=== PATIENT | male | born 1940 | race African-American/Black ===

== ENCOUNTER 2016-08-20 08:53 | Day surgery (SDC) | payer MEDICARE ==
[2016-08-15 13:40] VITALS: BMI 28.4
[~2016-08-20 08:53] MED LIST: LACTATED RINGERS 1,000 ML IV SCH
[2016-08-20] MEDS ORDERED: LIDOCAINE 1% 20 ML VIAL (10MG/ML) FOR IV START INTRADERMA ONE (09:18)
[2016-08-20 09:26] VITALS: RESP 18; TEMP 97.6
[2016-08-20 09:38] LABS: Glucose,Whole Blood 74 mg/dL (75-99)
[2016-08-20] MEDS ORDERED: LIDOCAINE 1% INJ 10MG/ML (20 ML MDV) ONE (09:50)
[2016-08-20] MEDS ORDERED: PROPOFOL 10 MG/ML 20 ML VIAL IV ONE (09:50)
--- NOTE | 2016-08-20 09:50 | P.GSHP ---
History of Present Illness H&P Date: 08/20/16 Chief Complaint: Screening colonoscopy This is a 76-year-old male referred from Dr. Lew. Patient presents today for screening colonoscopy. His last colonoscopy was over 10 years ago. Past Medical History Past Medical History: Diabetes Mellitus, Hyperlipidemia, Hypertension Additional Past Medical History / Comment(s): hx of polyps History of Any Multi-Drug Resistant Organisms: None Reported Additional Past Surgical History / Comment(s): colonoscopy Past Anesthesia/Blood Transfusion Reactions: No Reported Reaction Past Psychological History: No Psychological Hx Reported Smoking Status: Former smoker Past Alcohol Use History: None Reported Additional Past Alcohol Use History / Comment(s): quit smoking approx 1996, smoked less than 1 ppd or cigars, from age 15 (1954) Past Drug Use History: None Reported Medications and Allergies Home Medications Medication Instructions Recorded Confirmed Type Cholecalciferol [Vitamin D3] 1,000 unit PO DAILY 08/15/16 08/20/16 History Hydrochlorothiazide 25 mg PO DAILY 08/15/16 08/20/16 History Ibuprofen [Motrin] 800 mg PO TID 08/15/16 08/15/16 History Lisinopril [Prinivil] 20 mg PO DAILY 08/15/16 08/20/16 History Potassium Chloride [K-Tab ER] 10 meq PO DAILY 08/15/16 08/20/16 History Pravastatin Sodium [Pravachol] 20 mg PO HS 08/15/16 08/20/16 History metFORMIN HCL ER [Glucophage Xr] 500 mg PO DAILY 08/15/16 08/20/16 History Allergies Allergy/AdvReac Type Severity Reaction Status Date / Time No Known Allergies Allergy Verified 08/15/16 13:33 Surgical - Exam Vital Signs Temp Pulse Resp BP Pulse Ox 97.6 F 71 18 176/83 98 08/20/16 09:25 08/20/16 09:25 08/20/16 09:25 08/20/16 09:25 08/20/16 09:25 - General well developed, no distress - Eyes PERRL - ENT normal pinna - Neck no masses - Respiratory normal expansion - Cardiovascular Rhythm: regular - Abdomen Abdomen: soft, non tender Results - Labs Abnormal Lab Results - Last 24 Hours (Table) 08/20/16 Range/Units 09:33 POC Glucose (mg/dL) 74 L (75-99) mg/dL Assessment and Plan Plan: We'll perform screening colonoscopy.
--- NOTE | 2016-08-20 10:04 | P.OP ---
Date of Procedure: 08/20/16 Preoperative Diagnosis: Screening colonoscopy Postoperative Diagnosis: Diverticulosis Procedure(s) Performed: Colonoscopy Anesthesia: MAC Surgeon: Dion Hoang Pathology: none sent Condition: stable Disposition: PACU Description of Procedure: The patient's placed on the endoscopy table in the lateral position. He received IV sedation. Digital rectal exam was performed which revealed no abnormalities. The prostate was symmetrical without nodules. The flexible colonoscope was then placed patient anus and passed throughout the entire colon. The ileocecal valve was visualized. The cecum, ascending and transverse colon appeared normal. Scope was then brought back and the descending colon and there is diverticulosis seen. There was extensive diverticular changes in the sigmoid colon. There is known to diverticulitis. The scope was then brought back the rectum and this appeared normal. Scope was withdrawn for patient.
[2016-08-20 10:33] VITALS: BP 134/74; PULSE 66
== END 2016-08-20 10:51 | disposition home or self-care (01) ==
LOC: ORWHC2ENDO 08:53
PROVIDERS: ATTEND Surgery
DX: Z12.11 Encounter for screening for malignant neoplasm of colon (principal); K57.30 Diverticulosis of large intestine without perforation or abscess without bleeding; E11.9 Type 2 diabetes mellitus without complications; E78.5 Hyperlipidemia, unspecified; I10 Essential (primary) hypertension; Z87.891 Personal history of nicotine dependence; Z79.84 Long term (current) use of oral hypoglycemic drugs; Z79.899 Other long term (current) drug therapy; Z79.1 Long term (current) use of non-steroidal anti-inflammatories (NSAID)
CPT/HCPCS: J2001; J2704; G0121

== ENCOUNTER → 2018-09-16 | Outpatient (CLI) | payer MEDICARE ==
--- NOTE | 2018-09-17 08:06 | CT ---
EXAMINATION TYPE: CT soft tissue neck w con DATE OF EXAM: 09/16/2018 COMPARISON: None HISTORY: laryngeal lesion CT DLP: 437 mGycm CONTRAST: CT scan of the neck is performed with IV Contrast, patient injected with 80 mL of Isovue 300. Contrast enhanced CT of the neck was performed from the skull base through the lung apices. AIRWAY: There is a polypoid lesion noted at the level of the right sided false cords measuring 1.0 x 1.0 cm. Direct visualization and tissue diagnosis is advised. No additional lesions identified at thi s time. Airway is patent. SALIVARY GLANDS: The submandibular and parotid glands are free of mass or inflammatory process. THYROID GLAND: No nodules or masses seen. LYMPH NODES: No adenopathy seen greater than 1cm. LUNG APICES: No nodule or mass is seen. OTHER: Vascular structures are patent. No significant degenerative change of the cervical spine. N o abscess seen. IMPRESSION: There is a polypoid lesion noted at the level of the right sided false cords measuring 1.0 x 1.0 cm. Direct visualization and tissue diagnosis is advised.
== END | disposition home or self-care (01) ==
LOC: RADCTMAIN 14:34
PROVIDERS: ATTEND Otolaryngology
DX: J38.7 Other diseases of larynx (principal)
CPT/HCPCS: 82565; 84520; 70491; 36415; Q9967

== ENCOUNTER → 2018-11-04 | Day surgery (SDC) | payer MEDICARE ==
[~2018-11-04] MED LIST changes: +DEXAMETHASONE SOD PHOSPHATE 4 MG/ML 1 ML VIAL IV ONE; +FAMOTIDINE 20 MG/2 ML VIAL IV ONE; +HYDROmorphone 0.5 MG/0.5 ML SYRINGE IVP PRN; +LACTATED RINGERS 1,000 ML IV ONE; +LIDOCAINE 1% 20 ML VIAL (10MG/ML) FOR IV START INTRADERMA PRN; +LIDOCAINE 1% INJ 10MG/ML (20 ML MDV) ONE; +MIDAZOLAM 2 MG/2 ML VIAL ONE; +ONDANSETRON 4 MG/2 ML VIAL IVP ONE; +PROPOFOL 10 MG/ML 20 ML VIAL IV ONE; +SUCCINYLCHOLINE CHLORIDE 100 MG/5 ML SYR IV ONE; +ceFAZolin 1,000 MG in DEXTROSE/WATER 1 50ML.BAG IV ONE; +fentaNYL (PF) 50 MCG/ML 2 ML AMP ONE
[2018-11-04 13:16] LABS: Glucose,Whole Blood 72 mg/dL (75-99)
[2018-11-04 13:16] LABS: Glucose,Whole Blood 82 mg/dL (75-99)
--- NOTE | 2018-11-04 16:18 | P.OP ---
Date of Procedure: 11/04/18 Preoperative Diagnosis: Right true vocal cord lesion Postoperative Diagnosis: Same Procedure(s) Performed: Microlaryngoscopy with biopsy right true vocal cord lesion Anesthesia: GETA Surgeon: Rock Richardson Estimated Blood Loss (ml): 2 Pathology: other (Right true vocal cord lesion) Condition: stable Disposition: PACU Indications for Procedure: This is a 78-year-old black male whose had difficulties with hoarseness and was noted to have a right posterior true vocal cord/arytenoid lesion with decreased mobility of the right vocal cord Operative Findings: Fungating friable but also indurated lesion of the posterior one half the right true vocal cord as well as coming up on the aryepiglottic fold and therefore if malignant would be classified as a T3 lesion due to the decreased mobility of the vocal cord preoperatively Description of Procedure: The patient was brought in the operative suite and placed in a supine position. Patient underwent induction of general anesthesia with oral endotracheal intubation without patient was prepped and draped aseptic fashion. The tooth guard was placed. Direct laryngoscopy was performed with systematic evaluation of the base of tongue vallecula both piriform sinuses post cricoid area and endolarynx. With the larynx in good visualization the laryngoscope was placed in suspension and the Zeiss microscope was brought into position. The lesion was biopsied multiple times with cup forceps. The remainder of the lesion was debrided with the promotions director blade in order to improve the airway and potentially voice if this is malignant this would not be felt to be a definitive procedure. Hemostasis was gained spontaneously. The patient was suctioned in the subglottis and glottis and then was allowed to emerge from general anesthesia having tolerated procedure well was extended the operating suite and transferred to postop recovery area in satisfactory condition.
[2018-11-04 16:48] VITALS: TEMP 97.4
[2018-11-04 16:54] VITALS: RESP 16
[2018-11-04 16:56] LABS: Glucose,Whole Blood 85 mg/dL (75-99)
[2018-11-04 17:01] VITALS: PULSE 62
[2018-11-04 17:42] VITALS: BP 154/74
== END | disposition home or self-care (01) ==
LOC: OR 11:50
PROVIDERS: ATTEND Otolaryngology
DX: C32.0 Malignant neoplasm of glottis (principal); I10 Essential (primary) hypertension; Z79.84 Long term (current) use of oral hypoglycemic drugs; Z79.899 Other long term (current) drug therapy; Z87.891 Personal history of nicotine dependence; E11.9 Type 2 diabetes mellitus without complications; E78.5 Hyperlipidemia, unspecified
CPT/HCPCS: 31536; J2250; J1100; J2405; J2001; J3010; J0690; J0330; J2704; 88305

== ENCOUNTER 2020-11-19 15:44 | Inpatient (IN) | payer MEDICARE ==
--- NOTE | 2020-11-19 16:05 | ED ---
General Adult HPI - General Stated complaint: Weakness Time Seen by Provider: 11/19/20 15:47 Source: patient, family, EMS, RN notes reviewed, old records reviewed - History of Present Illness Initial comments: 80-year-old male with history of dementia presenting with an episode of weakness and generalized confusion. Patient was transported by EMS after the nephew had 2 live the patient from a sitting position. There is no reported fever. No reported vomiting. Patient denies pain complaints but is unable to significantly contribute to the history. His is at bedside who is able to give some history. - Related Data Home Medications Medication Instructions Recorded Confirmed Cholecalciferol [Vitamin D3] 1,000 unit PO DAILY 08/15/16 11/19/20 Potassium Chloride [K-Tab ER] 10 meq PO QAM 08/15/16 11/19/20 Pravastatin Sodium [Pravachol] 20 mg PO HS 08/15/16 11/19/20 metFORMIN HCL ER [Glucophage Xr] 500 mg PO BID 08/15/16 11/19/20 Sulfamethoxazole/Trimethoprim 1 tab PO BID 11/19/20 11/19/20 [Sulfamethoxazole-Tmp Ds Tablet] lisinopriL [Zestril] 2.5 mg PO DAILY 11/19/20 11/19/20 Allergies Allergy/AdvReac Type Severity Reaction Status Date / Time No Known Allergies Allergy Verified 11/19/20 15:48 Review of Systems ROS Statement: Those systems with pertinent positive or pertinent negative responses have been documented in the HPI. ROS Other: All systems not noted in ROS Statement are negative. Past Medical History Past Medical History: Diabetes Mellitus, Hyperlipidemia, Hypertension Additional Past Medical History / Comment(s): CURRENT PROBLEM: HOARSNESS, DIFFICULTY SPEAKING CLEARLY. Hx of polyps History of Any Multi-Drug Resistant Organisms: None Reported Additional Past Surgical History / Comment(s): colonoscopy Past Anesthesia/Blood Transfusion Reactions: No Reported Reaction Additional Past Anesthesia/Blood Transfusion Reaction / Comment(s): NEVER HAD GENERAL ANESTHESIA Past Psychological History: No Psychological Hx Reported Past Alcohol Use History: None Reported Additional Past Alcohol Use History / Comment(s): quit smoking approx 1996, smoked less than 1 ppd or cigars, from age 15 (1954) Past Drug Use History: None Reported - Past Family History Mother Family Medical History: No Reported History General Exam General appearance: alert, in no apparent distress Head exam: Present: atraumatic, normocephalic Eye exam: Present: normal appearance, PERRL ENT exam: Present: mucous membranes dry, other ([place]) Neck exam: Present: normal inspection. Absent: tenderness, meningismus Respiratory exam: Present: normal lung sounds bilaterally. Absent: respiratory distress, wheezes, rales Cardiovascular Exam: Present: regular rate, irregular rhythm GI/Abdominal exam: Present: soft. Absent: distended, tenderness, guarding, rebound Extremities exam: Present: normal capillary refill, pedal edema Neurological exam: Present: alert, CN II-XII intact. Absent: oriented X3, motor sensory deficit Skin exam: Present: warm, dry, intact. Absent: cyanosis, diaphoretic Course Vital Signs 11/19/20 11/19/20 15:48 17:40 Temperature 95.2 F L 96.8 F L Pulse Rate 72 Respiratory 18 Rate Blood Pressure 146/104 EKG Findings - EKG Comments: EKG Findings:: EKG: Sinus rhythm with arrhythmia rate of 71, GA interval 154, QRS duration 104, QTC [address] segment elevation there is a baseline artifact but I suspect this is sinus rhythm. Medical Decision Making - Medical Decision Making 80-year-old presenting with increased generalized weakness. History of dementia, no significant history obtained from the patient the bowels denies fever or vomiting. Patient is hypothermic upon arrival, placed on a blanket warmer. He has a significant leukocytosis of 46,000. His hemoglobin 10.5. He has white light abnormality including hyperkalemia 5.5, hypercalcemia 12.7. He has a lactic acid of 2.1. Acute kidney injury with a creatinine 1.3. Urinalysi s is grossly infected. Chest x-rays negative for focal pneumonia. Head CT negative for acute findings. Patient started on ceftriaxone IV fluids. Will be admitted for IV antibiotics. Case discussed with Junito roman for [facility]. - Lab Data Result diagrams: 11/19/20 16:23 11/19/20 16:23 Lab Results 11/19/20 11/19/20 11/19/20 Range/Units 16:23 16:23 16:23 WBC 46.1 H (3.8-10.6) k/uL RBC 3.68 L (4.30-5.90) m/uL Hgb 10.5 L (13.0-17.5) gm/dL Hct 33.6 L (39.0-53.0) % MCV 91.2 (80.0-100.0) fL MCH 28.5 (25.0-35.0) pg MCHC 31.2 (31.0-37.0) g/dL RDW 16.1 H (11.5-15.5) % Plt Count 367 (150-450) k/uL MPV 7.4 Neutrophils % 96 % Lymphocytes % 0 % Monocytes % 2 % Eosinophils % 0 % Basophils % 2 % Neutrophils # 44.4 H (1.3-7.7) k/uL Lymphocytes # 0.0 L (1.0-4.8) k/uL Monocytes # 0.8 (0-1.0) k/uL Eosinophils # 0.2 (0-0.7) k/uL Basophils # 0.8 H (0-0.2) k/uL Anisocytosis Slight PT 11.3 (9.0-12.0) sec INR 1.1 (<1.2) APTT 22.3 (22.0-30.0) sec Sodium 140 (137-145) mmol/L Potassium 5.5 H (3.5-5.1) mmol/L Chloride 108 H (98-107) mmol/L Carbon Dioxide 22 (22-30) mmol/L Anion Gap 10 mmol/L BUN 45 H (9-20) mg/dL Creatinine 1.31 H (0.66-1.25) mg/dL Est GFR (CKD-EPI)AfAm 59 (>60 ml/min/1.73 sqM) Est GFR (CKD-EPI)NonAf 51 (>60 ml/min/1.73 sqM) Glucose 109 H (74-99) mg/dL Plasma Lactic Acid Gonzalez (0.7-2.0) mmol/L Calcium 12.7 H (8.4-10.2) mg/dL Magnesium 2.0 (1.6-2.3) mg/dL Total Bilirubin 1.0 (0.2-1.3) mg/dL AST 23 (17-59) U/L ALT 12 (4-49) U/L Alkaline Phosphatase 108 (38-126) U/L Troponin I (0.000-0.034) ng/mL Total Protein 6.7 (6.3-8.2) g/dL Albumin 3.4 L (3.5-5.0) g/dL Urine Color Urine Appearance (Clear) Urine pH (5.0-8.0) Ur Specific [place] (1.001-1.035) Urine Protein (Negative) Urine Glucose (UA) (Negative) Urine Ketones (Negative) Urine Blood (Negative) Urine Nitrite (Negative) Urine Bilirubin (Negative) Urine Urobilinogen (<2.0) mg/dL Ur Leukocyte Esterase (Negative) Urine RBC (0-5) /hpf Urine WBC (0-5) /hpf Urine WBC Clumps (None) /hpf Urine Bacteria (None) /hpf 11/19/20 11/19/20 11/19/20 Range/Units 16:23 16:23 17:40 WBC (3.8-10.6) k/uL RBC (4.30-5.90) m/uL Hgb (13.0-17.5) gm/dL Hct (39.0-53.0) % MCV (80.0-100.0) fL MCH (25.0-35.0) pg MCHC (31.0-37.0) g/dL RDW (11.5-15.5) % Plt Count (150-450) k/uL MPV Neutrophils % % Lymphocytes % % Monocytes % % Eosinophils % % Basophils % % Neutrophils # (1.3-7.7) k/uL Lymphocytes # (1.0-4.8) k/uL Monocytes # (0-1.0) k/uL Eosinophils # (0-0.7) k/uL Basophils # (0-0.2) k/uL Anisocytosis PT (9.0-12.0) sec INR (<1.2) APTT (22.0-30.0) sec Sodium (137-145) mmol/L Potassium (3.5-5.1) mmol/L Chloride (98-107) mmol/L Carbon Dioxide (22-30) mmol/L Anion Gap mmol/L BUN (9-20) mg/dL Creatinine (0.66-1.25) mg/dL Est GFR (CKD-EPI)AfAm (>60 ml/min/1.73 sqM) Est GFR (CKD-EPI)NonAf (>60 ml/min/1.73 sqM) Glucose (74-99) mg/dL Plasma Lactic Acid Gonzalez 2.1 H* (0.7-2.0) mmol/L Calcium (8.4-10.2) mg/dL Magnesium (1.6-2.3) mg/dL Total Bilirubin (0.2-1.3) mg/dL AST (17-59) U/L ALT (4-49) U/L Alkaline Phosphatase (38-126) U/L Troponin I 0.019 (0.000-0.034) ng/mL Total Protein (6.3-8.2) g/dL Albumin (3.5-5.0) g/dL Urine Color Light [place] Urine Appearance Turbid (Clear) Urine pH 5.5 (5.0-8.0) Ur Specific [place] 1.019 (1.001-1.035) Urine Protein 2+ H (Negative) Urine Glucose (UA) Negative (Negative) Urine Ketones Negative (Negative) Urine Blood Large H (Negative) Urine Nitrite Negative (Negative) Urine Bilirubin Negative (Negative) Urine Urobilinogen <2.0 (<2.0) mg/dL Ur Leukocyte Esterase Large H (Negative) Urine RBC 95 H (0-5) /hpf Urine WBC >182 H (0-5) /hpf Urine WBC Clumps Many H (None) /hpf Urine Bacteria Many H (None) /hpf Disposition Clinical Impression: Dehydration, Acute renal failure, UTI (urinary tract infection) Disposition: ADMITTED IP TO THIS [facility] Condition: Stable Is patient prescribed a controlled substance at d/c from ED?: No Referrals: Nonstaff,Physician [REFERRING] - 1-2 days Decision to Admit Reason: Admit from EC Decision Date: 11/19/20 Decision Time: 18:21
[2020-11-19 16:38] LABS: Anisocytosis Slight; Basophils # (A) 0.8 k/uL (0-0.2); Basophils % (A) 2 %; Eosinophils # (A) 0.2 k/uL (0-0.7); Eosinophils % (A) 0 %; HCT 33.6 % (39.0-53.0); HGB 10.5 gm/dL (13.0-17.5); Lymphocytes % (A) 0 %; MCH 28.5 pg (25.0-35.0); MCHC 31.2 g/dL (31.0-37.0); MCV 91.2 fL (80.0-100.0); Mean Platelet Volume 7.4; Monocytes # (A) 0.8 k/uL (0-1.0); Monocytes % (A) 2 %; Neutrophils # (A) 44.4 k/uL (1.3-7.7); Neutrophils % (A) 96 %; Platelet Count 367 k/uL (150-450); RBC 3.68 m/uL (4.30-5.90); RDW 16.1 % (11.5-15.5); WBC 46.1 k/uL (3.8-10.6)
[2020-11-19 16:47] LABS: Albumin 3.4 g/dL (3.5-5.0); Calcium 12.7 mg/dL (8.4-10.2); Total Protein 6.7 g/dL (6.3-8.2)
[2020-11-19 16:48] LABS: Potassium 5.5 mmol/L (3.5-5.1)
--- NOTE | 2020-11-19 16:51 | CT ---
EXAMINATION TYPE: CT brain wo con DATE OF EXAM: 11/19/2020 COMPARISON: None HISTORY: weakness CT DLP: 1098.4 mGycm Automated exposure control for dose reduction was used. There is cerebral cortical atrophy. There is no mass effect nor midline shift. There is no sign of in tracranial hemorrhage. Calvarium is intact. There is some mild periventricular white matter hypodensi ty. IMPRESSION: Cerebral atrophy. Mild chronic small vessel ischemia. No acute intracranial abnormality.
--- NOTE | 2020-11-19 16:53 | XR ---
EXAMINATION TYPE: XR chest 2V DATE OF EXAM: 11/19/2020 COMPARISON: 09/28/2019 HISTORY: Weakness TECHNIQUE: FINDINGS: Heart size is normal. Lungs are clear of infiltrate. There is no heart failure. There are n o hilar masses. There are chest leads. Costophrenic angles are clear. Bony thorax appears intact. IMPRESSION: No active cardiopulmonary disease. No change.
[2020-11-19 16:55] LABS: INR 1.1 (<1.2); Partial Thromboplastin Time 22.3 sec (22.0-30.0); Prothrombin Time 11.3 sec (9.0-12.0)
[2020-11-19] MEDS ORDERED: SODIUM CHLORIDE 0.9% 1,000 ML IV ONE (17:32)
[2020-11-19] MEDS ORDERED: cefTRIAXone IN SWFI 1,000 MG/10 ML SYRINGE IVP STA (17:32)
[2020-11-19 17:53] LABS: Appearance,Urine Turbid (Clear); Bacteria,Urine Many /hpf; Bilirubin,Urine Negative (Negative); Blood,Urine Large (Negative); Color,Urine Light Orange; Glucose,Urine (UA) Negative (Negative); Ketones,Urine Negative (Negative); Leukocyte Esterase,Urine Large (Negative); Nitrite,Urine Negative (Negative); PH, Urine 5.5 (5.0-8.0); Protein,Urine 2+ (Negative); RBC,Urine 95 /hpf (0-5); Urobilinogen,Urine <2.0 mg/dL (<2.0); WBC,Urine >182 /hpf (0-5)
[2020-11-19 17:54] LABS: Specific Gravity,Urine 1.019 (1.001-1.035)
[2020-11-19] MEDS ORDERED: NALOXONE 0.4 MG/ML 1 ML VIAL IV PRN (18:16)
[2020-11-19] MEDS: SODIUM CHLORIDE 0.9% 1,000 ML IV SCH (19:59)
[2020-11-20] MEDS: SODIUM CHLORIDE 0.9% 1,000 ML IV SCH ×4 (04:41→23:25)
[2020-11-20] MEDS: CHOLECALCIFEROL 25 MCG (1000 IU) TABLET PO SCH (10:26)
[2020-11-20] MEDS: metFORMIN 500 MG TAB PO SCH ×2 (10:26→17:45)
[2020-11-20] MEDS: POTASSIUM CHLORIDE ER 10 MEQ TAB.ER.PRT PO SCH ×2 (10:26→10:28)
[2020-11-20] MEDS ORDERED: ALPRAZolam 0.25 MG TAB PO PRN (15:25)
--- NOTE | 2020-11-20 16:33 | HP ---
HISTORY AND PHYSICAL DATE OF SERVICE: 11/20/2020 CHIEF COMPLAINT: Weakness. HISTORY OF PRESENT ILLNESS: This 80-year-old gentleman with a past medical history of multiple medical problems, including diabetes mellitus, hypertension, hyperlipidemia, history of hoarseness of voice, presented with an episode of weakness and generalized confusion. The patient was transferred by EMS and the patient was admitted for further evaluation and treatment. Currently the patient is unable to provide any history. Most of the history is taken from my discussion with staff and review of the chart. Patient has features of UTI. White count is elevated to 46.1. Plasma lactic acid 2.1. Patient is dehydrated. The patient was started on IV antibiotics. The patient also had a CT of the brain which I reviewed personally which showed some cerebral atrophy, no acute abnormality. Chest x-ray showed again no acute abnormality. EKG showed irregular rhythm with possible PACs. There is no history of trauma. PAST MEDICAL HISTORY: History of diabetes, hyperlipidemia, hypertension, history of hoarseness. MEDICATIONS: Zestril, vitamin D3, Glucophage XR, Bactrim, Pravachol, K-Tab ER. ALLERGIES: None. Family history, social history, review of systems could not be taken because of the above-mentioned reasons. PHYSICAL EXAMINATION: Patient is conscious, confused. Pulse 64, blood pressure 132/64, respiration 18, temperature 97.2, pulse ox 100% on room air. HEENT: Conjunctivae normal. NECK: No jugular venous distention. CARDIOVASCULAR SYSTEM: S1, S2 muffled. RESPIRATORY SYSTEM: Breath sounds diminished at the bases. No rhonchi. No crackles. ABDOMEN: Soft, non-tender. No mass palpable. LEGS: No edema. No swelling. NERVOUS SYSTEM: Diffusely weak. SKIN: No ulcer, rash, bleeding. JOINTS: No active deforming arthropathy. LABS: WBC 46.1, hemoglobin 10.5. Other labs are noted, as mentioned earlier. ASSESSMENT: 1. Acute urinary tract infection with sepsis. 2. Change in mental status, acute metabolic encephalopathy, present on admission. 3. Acute renal failure with acute tubular necrosis. 4. Increased white count. 5. Anemia. 6. Hyperkalemia. 7. Elevated plasma lactic acid. 8. Hypercalcemia. 9. Diabetes mellitus, type 2. 10.Hypertension. 11.Hyperlipidemia. 12.History of colonoscopy. 13.FULL CODE. RECOMMENDATIONS AND DISCUSSION: In this 80-year-old gentleman who presented with multiple complex medical issues, we will monitor the patient closely, continue the current medications, continue symptomatic treatment. Will initiate broad-spectrum IV antibiotics. Otherwise, obtain cultures. Resume the home medications. CT scan of the brain has been done. We will monitor the white counts serially; appears to be a leukemoid reaction at this time, but will continue to monitor. Prognosis guarded. Further recommendations to follow. See orders for further details. Discussed with staff. MMODL / IJN: [id number] /
[2020-11-20 17:50] LABS: Anisocytosis Slight; Basophils # (A) 0.1 k/uL (0-0.2); Basophils % (A) 0 %; Eosinophils # (A) 0.7 k/uL (0-0.7); Eosinophils % (A) 2 %; HCT 32.3 % (39.0-53.0); Hypochromasia Slight; Lymphocytes # (A) 0.7 k/uL (1.0-4.8); Lymphocytes % (A) 2 %; MCH 28.6 pg (25.0-35.0); MCHC 31.1 g/dL (31.0-37.0); Mean Platelet Volume 7.5; Monocytes # (A) 0.7 k/uL (0-1.0); Monocytes % (A) 2 %; Neutrophils % (A) 94 %; Platelet Count 315 k/uL (150-450); RBC 3.51 m/uL (4.30-5.90); RDW 16.4 % (11.5-15.5); WBC 37.3 k/uL (3.8-10.6)
[2020-11-20 17:52] LABS: ALT 9 U/L (4-49); AST 16 U/L (17-59); African American GFR (CKD) 78 (>60 ml/min/1.73 sqM); Albumin 2.6 g/dL (3.5-5.0); Albumin/Globulin Ratio 0.9; Alkaline Phosphatase 87 U/L (38-126); Anion Gap 4 mmol/L; Blood Urea Nitrogen 34 mg/dL (9-20); Calcium 10.8 mg/dL (8.4-10.2); Carbon Dioxide 23 mmol/L (22-30); Chloride 111 mmol/L (98-107); Globulin 2.8 g/dL; Glucose 86 mg/dL (74-99); Non-African American GFR(CKD) 68 (>60 ml/min/1.73 sqM); Potassium 4.1 mmol/L (3.5-5.1); Sodium 138 mmol/L (137-145); Total Bilirubin 0.4 mg/dL (0.2-1.3); Total Protein 5.4 g/dL (6.3-8.2)
[2020-11-20 18:33] LABS: Band Neutrophils % 2 %; Eosinophils # (M) 0.37 k/uL (0-0.7); Lymphocytes # (M) 0.75 k/uL (1.0-4.8); Monocytes # (M) 0.75 k/uL (0-1.0); Neutrophils % (M) 93 %; Nucleated Red Blood Cells 0 /100 WBC (0-0); Total Cells Counted 100
[2020-11-20 18:34] LABS: Poikilocytosis (M) Present; Toxic Vacuolation Present
[2020-11-20] MEDS: HEPARIN SODIUM,PORCINE/PF 5,000 UNIT/0.5 ML SYRINGE SQ SCH (20:42)
[2020-11-20] MEDS: ACETAMINOPHEN TAB 325 MG TAB PO PRN (20:42)
[2020-11-20] MEDS: PRAVASTATIN SODIUM 20 MG TAB PO SCH (20:42)
[2020-11-21] MEDS: metFORMIN 500 MG TAB PO SCH (07:42)
[2020-11-21] MEDS: HEPARIN SODIUM,PORCINE/PF 5,000 UNIT/0.5 ML SYRINGE SQ SCH ×2 (07:42→21:33)
[2020-11-21] MEDS: PANTOPRAZOLE 40 MG TABLET PO SCH (07:42)
[2020-11-21] MEDS: CHOLECALCIFEROL 25 MCG (1000 IU) TABLET PO SCH (07:42)
[2020-11-21 08:18] LABS: Anisocytosis Slight; Basophils % (A) 0 %; Eosinophils # (A) 0.8 k/uL (0-0.7); Eosinophils % (A) 3 %; HCT 33.6 % (39.0-53.0); HGB 10.4 gm/dL (13.0-17.5); Hypochromasia Slight; Lymphocytes # (A) 0.6 k/uL (1.0-4.8); Lymphocytes % (A) 2 %; MCH 28.6 pg (25.0-35.0); MCHC 30.9 g/dL (31.0-37.0); MCV 92.6 fL (80.0-100.0); Mean Platelet Volume 7.7; Monocytes # (A) 0.5 k/uL (0-1.0); Monocytes % (A) 2 %; Neutrophils # (A) 25.6 k/uL (1.3-7.7); Neutrophils % (A) 93 %; Platelet Count 321 k/uL (150-450); RBC 3.63 m/uL (4.30-5.90); RDW 16.4 % (11.5-15.5); WBC 27.7 k/uL (3.8-10.6)
[2020-11-21 08:20] LABS: Reticulocyte % 1.3 % (0.5-2.0)
[2020-11-21 11:27] LABS: Crenated RBC Present; Poikilocytosis (M) Present; Toxic Granulation Present
--- NOTE | 2020-11-21 11:39 | P.CONS ---
History of Present Illness - Chief Complaint Medical debility - History of Present Illness I had the opportunity to see patient for inpatient rehab consultation with regard to medical debility. He was admitted to [facility] November 19 with weakness. Known history of dementia. Chest x-ray negative. Head CT with cerebral atrophy. PT and OT prescribed. Previous functional history as elicited from patient: 80-year-old right-handed -[place] male who is lives in a first-floor of 2 floor home with . States does the cooking. Patient describes it is independent with own laundry, driving, standing shower and gait without device. I suspect that most of this is inaccurate. Denies tobacco or alcohol. Review of Systems Review of systems: ENT: Denies sneezes or discharge. Eyes: Denies discharge or photophobia. Cardiac: Denies chest pain or palpitation. Pulmonary: Denies cough or shortness of breath. Gastrointestinal: Denies nausea, emesis, constipation, diarrhea. Genitourinary: Denies discharge or frequency. Musculoskeletal: Denies muscle or bone aches. Neurologic: Gen. weakness and confusion. Endocrine: Denies shakes or sweats. Oncology: Denies cancers. Dermatologic: Denies rash, itching, pruritus. ALLERGY/immunology: Denies sneezes, rashes. Past Medical History Past Medical History: Diabetes Mellitus, Hyperlipidemia, Hypertension Additional Past Medical History / Comment(s): CURRENT PROBLEM: HOARSNESS, DIFFICULTY SPEAKING CLEARLY. Hx of polyps History of Any Multi-Drug Resistant Organisms: None Reported Additional Past Surgical History / Comment(s): colonoscopy Past Anesthesia/Blood Transfusion Reactions: No Reported Reaction Additional Past Anesthesia/Blood Transfusion Reaction / Comm: NEVER HAD GENERAL ANESTHESIA Past Psychological History: No Psychological Hx Reported Smoking Status: Unknown if ever smoked Past Alcohol Use History: None Reported Additional Past Alcohol Use History / Comment(s): quit smoking approx 1996, smoked less than 1 ppd or cigars, from age 15 (5) Past Drug Use History: None Reported - Past Family History Mother Family Medical History: No Reported History Medications and Allergies Home Medications Medication Instructions Recorded Confirmed Type Cholecalciferol [Vitamin D3] 1,000 unit PO DAILY 08/15/16 11/19/20 History Potassium Chloride [K-Tab ER] 10 meq PO QAM 08/15/16 11/19/20 History Pravastatin Sodium [Pravachol] 20 mg PO HS 08/15/16 11/19/20 History metFORMIN HCL ER [Glucophage Xr] 500 mg PO BID 08/15/16 11/19/20 History Sulfamethoxazole/Trimethoprim 1 tab PO BID 11/19/20 11/19/20 History [Sulfamethoxazole-Tmp Ds Tablet] lisinopriL [Zestril] 2.5 mg PO DAILY 11/19/20 11/19/20 History Allergies Allergy/AdvReac Type Severity Reaction Status Date / Time No Known Allergies Allergy Verified 11/19/20 15:48 Physical Exam Vitals: Vital Signs Temp Pulse Resp BP Pulse Ox 11/21/20 05:00 98.3 F 74 16 150/74 99 11/20/20 20:33 97.8 F 67 14 141/63 98 11/20/20 20:05 67 14 Intake and Output 11/20/20 11/21/20 11/21/20 22:59 06:59 14:59 Intake Total 1560 1700 Balance 1560 1700 Intake: Intake, IV Titration 1560 1300 Amount Sodium Chloride 0.9% 1, 1560 1300 000 ml @ 130 mls/hr IV . Q7H42M [facility] Rx#:[id number] Oral 400 Other: Voiding Method Urinal Urinal Diaper Diaper Incontinent Incontinent # Voids 2 5 # Bowel Movements 1 Skin: Atrophic, intact. General: Thin build and comfortable appearance. Head: Normocephalic, atraumatic. Eyes: Symmetric. Pupils equal round. Ears: Symmetric. Hearing within normal limits. Mouth: Clear. Neck: Supple. Carotid without bruit. Cardiac: Regular rate and rhythm. Lungs: Clear anteriorly and posteriorly. Abdomen: Soft active nontender. Extremities: Normal tone. Neurological: Mental status: Alert, cooperative, pleasant albeit confused and poor historian. Cranial nerves: Symmetric facial tone and trapezius. Motor: Active movement all 4 limbs. Sensation: Intact throughout. DTRs: Symmetric and equal throughout. Mobility: Did not attempt to sit or stand at this time. Results CBC & Chem 7: 11/21/20 06:41 11/20/20 16:47 Labs: Abnormal Lab Results - Last 24 Hours (Table) 11/20/20 11/20/20 11/21/20 Range/Units 16:47 16:47 06:41 WBC 37.3 H 27.7 H (3.8-10.6) k/uL RBC 3.51 L 3.63 L (4.30-5.90) m/uL Hgb 10.0 L 10.4 L (13.0-17.5) gm/dL Hct 32.3 L 33.6 L (39.0-53.0) % MCHC 30.9 L (31.0-37.0) g/dL RDW 16.4 H 16.4 H (11.5-15.5) % Neutrophils # 35.0 H 25.6 H (1.3-7.7) k/uL Neutrophils # (Manual) 35.40 H (1.3-7.7) k/uL Lymphocytes # 0.7 L 0.6 L (1.0-4.8) k/uL Lymphocytes # (Manual) 0.75 L (1.0-4.8) k/uL Eosinophils # 0.8 H (0-0.7) k/uL Chloride 111 H (98-107) mmol/L BUN 34 H (9-20) mg/dL Calcium 10.8 H (8.4-10.2) mg/dL AST 16 L (17-59) U/L Total Protein 5.4 L (6.3-8.2) g/dL Albumin 2.6 L (3.5-5.0) g/dL Microbiology - Last 24 Hours (Table) 11/19/20 17:40 Urine Culture - Preliminary Urine,Catheterized Gram Neg Bacilli Assessment and Plan (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 Medical debility. 2. Dementia. 3. Suspected acute kidney injury and UTI. 4. Diabetes. 5. Hypertension. 6. Dyslipidemia. Comments and plan: At this time PT and OT are ordered. Patient with significant confusion and at this time would require close 24/7 supervision and hands-on for safety when up. Unsure patient will be able to benefit from therapies due to anticipated poor carryover. We'll continue to follow closely with yourself though.
[2020-11-21] MEDS: SODIUM CHLORIDE 0.9% 1,000 ML IV SCH ×2 (12:35→21:34)
[2020-11-21 12:45] LABS: Folate, Serum 5.3 ng/mL
[2020-11-21 12:53] LABS: Magnesium 1.4 mg/dL (1.5-2.4); Phosphorus 2.1 mg/dL (2.4-5.1)
[2020-11-21 12:54] LABS: % Iron Saturation 24.67 (15.00-50.00); African American GFR (CKD) 93.2 (60.0-200.0); Albumin 2.8 g/dL (3.80-4.90); Albumin/Globulin Ratio 1.33 (1.60-3.17); Anion Gap 6.4 mmol/L (4.00-12.00); Carbon Dioxide 24.6 mmol/L (21.6-31.8); Ferritin 430.1 ng/mL (22.0-322.0); Globulin 2.1 g/dL (1.6-3.3); Non-African American GFR(CKD) 80.4 (60.0-200.0); Potassium 3.7 mmol/L (3.5-5.5); Total Bilirubin 0.5 mg/dL (0.2-1.2); Total Protein 4.9 g/dL (6.2-8.2)
[2020-11-21] MEDS ORDERED: Magnesium Replacement Protocol 1 EACH MISC MISCELLANE PRN (12:59)
[2020-11-21] MEDS: MAGNESIUM SULFATE-D5W PMX 1 GM in DEXTROSE/WATER 1 100ML.BAG IVPB SCH ×3 (13:19→16:16)
--- NOTE | 2020-11-21 16:19 | P.PN ---
Subjective Progress Note Date: 11/21/20 This Is an 80-year-old male who was recently admitted with weakness and generalized confusion and is being closely monitored. Patient appears to be dehydrated and not eating very well with a possible urinary tract infection. Patient is continued on IV antibiotics and will follow-up on cultures. Appar ently patient has been receiving radiation therapy at [facility] with Dr. Moser per family member Dash at the bedside who takes him to the appointments daily. Patient continues to be weak and will have PT/OT therapy evaluate the patient with the possibility of [facility] inpatient rehab and Dr. Griffith has been consulted. Case management following and working on possible placement. Review of systems: Constitutional: reports of fatigue, no reports of fever, or chills Cardiovascular: No reports of chest pain or palpitations Respiratory: No reports of shortness of breath or cough GI: No reports of nausea, vomiting, or diarrhea, can only tolerate soft foods and liquids : No reports of dysuria or retention Neurovascular:reports generalized weakness All medications have been reviewed Active Medications Generic Name Dose Route Start Last Admin Trade Name Freq PRN Reason Stop Dose Admin Acetaminophen 650 mg 11/19/20 18:16 11/20/20 20:42 Acetaminophen Tab 325 Mg Tab PO 650 mg Q6HR PRN Administration Mild Pain or Fever > 100.5 Alprazolam 0.25 mg 11/20/20 15:25 11/20/20 20:42 Alprazolam 0.25 Mg Tab PO 0.25 mg TID PRN Administration Anxiety Cholecalciferol 25 mcg 11/20/20 09:45 11/21/20 07:42 Cholecalciferol 25 Mcg (1000 Iu) Tablet PO 25 mcg DAILY NATALIYA Administration Heparin Sodium (Porcine) 5,000 unit 11/20/20 21:00 11/21/20 07:42 Heparin Sodium,Porcine/Pf 5,000 Unit/0.5 Ml Syringe SQ 5,000 unit Q12HR NATALIYA Administration Sodium Chloride 1,000 mls @ 130 mls/hr 11/19/20 17:45 11/21/20 12:35 Saline 0.9% IV 130 mls/hr .Q7H42M NATALIYA Administration Ceftriaxone Sodium 1 gm/ 50 mls @ 100 mls/hr 11/20/20 15:30 11/21/20 07:42 Sodium Chloride IVPB 100 mls/hr Q24HR NATALIYA Administration Lisinopril 2.5 mg 11/20/20 09:45 11/21/20 07:42 Lisinopril 2.5 Mg Tab PO 2.5 mg DAILY NATALIYA Administration Metformin HCl 500 mg 11/20/20 09:45 11/21/20 07:42 Metformin 500 Mg Tab PO 500 mg BID-W/MEALS NATALIYA Administration Miscellaneous Information 1 each 11/21/20 12:59 Magnesium Replacement Protocol 1 Each Misc MISCELLANE DAILY PRN Per Protocol Protocol Naloxone HCl 0.2 mg 11/19/20 18:16 Naloxone 0.4 Mg/Ml 1 Ml Vial IV Q2M PRN Opioid Reversal Pantoprazole Sodium 40 mg 11/21/20 07:30 11/21/20 07:42 Pantoprazole 40 Mg Tablet PO 40 mg [id number] NATALIYA Administration Pravastatin Sodium 20 mg 11/20/20 21:00 11/20/20 20:42 Pravastatin Sodium 20 Mg Tab PO 20 mg HS NATALIYA Administration Objective - Vital Signs Vital signs: Vital Signs Temp 97.8 F 11/21/20 13:00 Pulse 69 11/21/20 13:00 Resp 16 11/21/20 13:00 BP 133/64 11/21/20 13:00 Pulse Ox 99 11/21/20 13:00 Intake & Output 11/20/20 11/21/20 11/21/20 18:59 06:59 18:59 Intake Total 1560 1700 Balance 1560 1700 Intake: Intake, IV Titration 1560 1300 Amount Sodium Chloride 0.9% 1, 1560 1300 000 ml @ 130 mls/hr IV . Q7H42M [facility] Rx#:[id number] Oral 400 Other: Voiding Method Urinal Urinal Urinal Diaper Diaper Diaper Incontinent Incontinent Incontinent # Voids 2 5 # Bowel Movements 1 - Exam Gen: This is a 80-year-old male sitting up in bed awake, alert and oriented 1- 2, thin built. Temp is 97.8F, pulse is 69, respirations are 16, blood pressure is 133/64, oxygen saturation is 99% on room air. HEENT: Head is atraumatic, normocephalic. Pupils equal, round. Sclerae is anicteric. NECK: Supple. No JVD. No lymphadenopathy. No thyromegaly. LUNGS: Breath sounds diminished bilaterally with no wheezing or rhonchi noted No intercostal retractions. HEART: S1, S2 are muffled ABDOMEN: Soft. Bowel sounds are present. No masses. No tenderness. EXTREMITIES: No pedal edema. No calf tenderness. NEUROLOGICAL: Patient is awake, alert and oriented x1-2. Periods of confusion. Diffusely weak. - Labs CBC & Chem 7: 11/21/20 06:41 11/21/20 06:41 Labs: Abnormal Lab Results - Last 24 Hours (Table) 11/20/20 11/20/20 11/21/20 Range/Units 16:47 16:47 06:41 WBC 37.3 H 27.7 H (3.8-10.6) k/uL RBC 3.51 L 3.63 L (4.30-5.90) m/uL Hgb 10.0 L 10.4 L (13.0-17.5) gm/dL Hct 32.3 L 33.6 L (39.0-53.0) % MCHC 30.9 L (31.0-37.0) g/dL RDW 16.4 H 16.4 H (11.5-15.5) % Neutrophils # 35.0 H 25.6 H (1.3-7.7) k/uL Neutrophils # (Manual) 35.40 H (1.3-7.7) k/uL Lymphocytes # 0.7 L 0.6 L (1.0-4.8) k/uL Lymphocytes # (Manual) 0.75 L (1.0-4.8) k/uL Eosinophils # 0.8 H (0-0.7) k/uL Chloride 111 H (98-107) mmol/L BUN 34 H (9-20) mg/dL BUN/Creatinine Ratio (12.00-20.00) Ratio Calcium 10.8 H (8.4-10.2) mg/dL Phosphorus (2.4-5.1) mg/dL Magnesium (1.5-2.4) mg/dL Iron (65-175) ug/dL TIBC (228-460) ug/dL Ferritin (22.0-322.0) ng/mL AST 16 L (17-59) U/L Total Protein 5.4 L (6.3-8.2) g/dL Albumin 2.6 L (3.5-5.0) g/dL Albumin/Globulin Ratio (1.60-3.17) g/dL Vitamin B12 (200.0-944.0) pg/mL 11/21/20 Range/Units 06:41 WBC (3.8-10.6) k/uL RBC (4.30-5.90) m/uL Hgb (13.0-17.5) gm/dL Hct (39.0-53.0) % MCHC (31.0-37.0) g/dL RDW (11.5-15.5) % Neutrophils # (1.3-7.7) k/uL Neutrophils # (Manual) (1.3-7.7) k/uL Lymphocytes # (1.0-4.8) k/uL Lymphocytes # (Manual) (1.0-4.8) k/uL Eosinophils # (0-0.7) k/uL Chloride 110 H (98-107) mmol/L BUN (9-20) mg/dL BUN/Creatinine Ratio 30.00 H (12.00-20.00) Ratio Calcium (8.4-10.2) mg/dL Phosphorus 2.1 L (2.4-5.1) mg/dL Magnesium 1.4 L (1.5-2.4) mg/dL Iron 37 L (65-175) ug/dL TIBC 150 L (228-460) ug/dL Ferritin 430.1 H (22.0-322.0) ng/mL AST 11 L (17-59) U/L Total Protein 4.9 L (6.3-8.2) g/dL Albumin 2.80 L (3.5-5.0) g/dL Albumin/Globulin Ratio 1.33 L (1.60-3.17) g/dL Vitamin B12 1281.0 H (200.0-944.0) pg/mL Microbiology - Last 24 Hours (Table) 11/19/20 17:40 Urine Culture - Preliminary Urine,Catheterized Gram Neg Bacilli Assessment and Plan Assessment: Acute urinary tract infection with sepsis, present on admission Change in mental status, acute metabolic encephalopathy, present on admission Acute renal failure with acute tubular necrosis Increased white count Anemia Hyperkalemia elevated plasma lactic acid hypercalcemia diabetes mellitus type 2 Hypertension Hyperlipidemia history of colonoscopy Full code Recommendations and discussion: Recommend continue with IV antibiotics in the form of ceftriaxone as cultures have finalized showing E. coli. Continue to monitor blood sugars and Accu-Cheks before meals and at bedtime. Oncology has been consulted although patient follows with dr. Rodrigo Brasher with radiation therapy per family at the bedside. PT/OT therapy evaluated the patient recommending rehab as he continues to be weak and a consult with Dr. Griffith has been placed and is pending. Patient was started on soft diet as he is unable to handle regular diet per family and is tolerating and eating appropriately. Blood count down to 27.7 hemoglobin is stable at 10.4, sodium is 141 with a potassium at 3.7, magnesium is 1.4 and will replace and repeat a.m. labs
--- NOTE | 2020-11-21 19:23 | P.CONS ---
History of Present Illness - Reason for Consult Consult date: 11/20/20 Prostate Cancer Requesting physician: Bee Antunez - History of Present Illness Ryan was seen by us in 2019, Dr. 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 He was offered laryngectomy V/S Larynx-preservation approach utelizing concurrent Radiation/Chemotherapy which he opted for. The patient was seen by Dr Howard, PET Scan ordered. 07/29 ppd X 20 years, quit 15 years ago, denied ETOH use. He worked in [employer]. At this time he was offered standard of care chemotherapy and radiation although refused Chemo and opted for radiation alone. Apparently he is now undergoing radiation with Dr. Huffman from Radiation Oncology. Review of Systems All systems: negative Constitutional: Reports as per HPI Past Medical History Past Medical History: Diabetes Mellitus, Hyperlipidemia, Hypertension Additional Past Medical History / Comment(s): CURRENT PROBLEM: HOARSNESS, DIFFICULTY SPEAKING CLEARLY. Hx of polyps History of Any Multi-Drug Resistant Organisms: None Reported Additional Past Surgical History / Comment(s): colonoscopy Past Anesthesia/Blood Transfusion Reactions: No Reported Reaction Additional Past Anesthesia/Blood Transfusion Reaction / Comm: NEVER HAD GENERAL ANESTHESIA Past Psychological History: No Psychological Hx Reported Smoking Status: Unknown if ever smoked Past Alcohol Use History: None Reported Additional Past Alcohol Use History / Comment(s): quit smoking approx 1996, smoked less than 1 ppd or cigars, from age 15 (5) Past Drug Use History: None Reported - Past Family History Mother Family Medical History: No Reported History Medications and Allergies Home Medications Medication Instructions Recorded Confirmed Type Cholecalciferol [Vitamin D3] 1,000 unit PO DAILY 08/15/16 11/19/20 History Potassium Chloride [K-Tab ER] 10 meq PO QAM 08/15/16 11/19/20 History Pravastatin Sodium [Pravachol] 20 mg PO HS 08/15/16 11/19/20 History metFORMIN HCL ER [Glucophage Xr] 500 mg PO BID 08/15/16 11/19/20 History Sulfamethoxazole/Trimethoprim 1 tab PO BID 11/19/20 11/19/20 History [Sulfamethoxazole-Tmp Ds Tablet] lisinopriL [Zestril] 2.5 mg PO DAILY 11/19/20 11/19/20 History Allergies Allergy/AdvReac Type Severity Reaction Status Date / Time No Known Allergies Allergy Verified 11/19/20 15:48 Physical Exam Vitals: Vital Signs Temp Pulse Resp BP Pulse Ox 11/20/20 20:33 97.8 F 67 14 141/63 98 11/20/20 11:13 97.4 F L 64 18 132/64 100 11/20/20 04:50 97.8 F 66 16 126/58 96 Intake and Output 11/20/20 11/20/20 11/20/20 06:59 14:59 22:59 Intake Total 1890 1560 Balance 1890 1560 Intake: Intake, IV Titration 1100 1560 Amount Sodium Chloride 0.9% 1, 1100 1560 000 ml @ 130 mls/hr IV . Q7H42M [facility] Rx#:[id number] Oral 790 Other: Voiding Method Urinal Diaper Incontinent # Voids 4 2 - Constitutional General appearance: cooperative - EENT Eyes: EOMI ENT: hard of hearing - Respiratory Respiratory: bilateral: diminished - Cardiovascular Rhythm: regularly irregular - Integumentary Integumentary: pale - Neurologic non focal - Musculoskeletal Musculoskeletal: generalized weakness Results CBC & Chem 7: 11/21/20 06:41 11/21/20 06:41 Labs: Abnormal Lab Results - Last 24 Hours (Table) 11/20/20 11/20/20 Range/Units 16:47 16:47 WBC 37.3 H (3.8-10.6) k/uL RBC 3.51 L (4.30-5.90) m/uL Hgb 10.0 L (13.0-17.5) gm/dL Hct 32.3 L (39.0-53.0) % RDW 16.4 H (11.5-15.5) % Neutrophils # 35.0 H (1.3-7.7) k/uL Neutrophils # (Manual) 35.40 H (1.3-7.7) k/uL Lymphocytes # 0.7 L (1.0-4.8) k/uL Lymphocytes # (Manual) 0.75 L (1.0-4.8) k/uL Chloride 111 H (98-107) mmol/L BUN 34 H (9-20) mg/dL Calcium 10.8 H (8.4-10.2) mg/dL AST 16 L (17-59) U/L Total Protein 5.4 L (6.3-8.2) g/dL Albumin 2.6 L (3.5-5.0) g/dL Microbiology - Last 24 Hours (Table) 11/19/20 17:40 Urine Culture - Preliminary Urine,Catheterized Gram Neg Bacilli Assessment and Plan (1) Squamous cell carcinoma of head and neck Current Visit: Yes Status: Acute Code(s): C76.0 - MALIGNANT NEOPLASM OF HEAD, FACE AND NECK SNOMED Code(s): 342752493 (2) Prostate CA Current Visit: Yes Status: Acute Code(s): C61 - MALIGNANT NEOPLASM OF PROS ROBIN SNOMED Code(s): 838899176 Plan: Patient may continue to follow with Dr. Howard after discharge, if medical oncology is needed moving forward please do not hesistate to contact us Physician Attest: I have completed the full history and physocal and agree with above dictation, dictated as a ascribe
[2020-11-21] MEDS: PRAVASTATIN SODIUM 20 MG TAB PO SCH (21:33)
[2020-11-22] MEDS: SODIUM CHLORIDE 0.9% 1,000 ML IV SCH ×2 (05:45→14:01)
[2020-11-22 06:20] LABS: Anisocytosis Slight; Basophils # (A) 0.1 k/uL (0-0.2); Basophils % (A) 0 %; Eosinophils # (A) 0.7 k/uL (0-0.7); Eosinophils % (A) 3 %; HCT 33.2 % (39.0-53.0); Lymphocytes # (A) 0.6 k/uL (1.0-4.8); Lymphocytes % (A) 2 %; MCH 30.1 pg (25.0-35.0); MCHC 33.2 g/dL (31.0-37.0); MCV 90.8 fL (80.0-100.0); Mean Platelet Volume 7.4; Monocytes # (A) 0.6 k/uL (0-1.0); Monocytes % (A) 2 %; Neutrophils # (A) 23.2 k/uL (1.3-7.7); Neutrophils % (A) 92 %; Platelet Count 288 k/uL (150-450); RBC 3.66 m/uL (4.30-5.90); RDW 16.1 % (11.5-15.5); WBC 25.1 k/uL (3.8-10.6)
[2020-11-22 06:28] LABS: African American GFR (CKD) 80 (>60 ml/min/1.73 sqM); Anion Gap 4 mmol/L; Blood Urea Nitrogen 20 mg/dL (9-20); Carbon Dioxide 23 mmol/L (22-30); Chloride 112 mmol/L (98-107); Glucose 89 mg/dL (74-99); Magnesium 2.1 mg/dL (1.6-2.3); Non-African American GFR(CKD) 69 (>60 ml/min/1.73 sqM); Potassium 3.5 mmol/L (3.5-5.1); Sodium 139 mmol/L (137-145)
[2020-11-22] MEDS: HEPARIN SODIUM,PORCINE/PF 5,000 UNIT/0.5 ML SYRINGE SQ SCH ×2 (07:40→21:42)
[2020-11-22] MEDS: metFORMIN 500 MG TAB PO SCH ×2 (07:40→17:01)
[2020-11-22] MEDS: CHOLECALCIFEROL 25 MCG (1000 IU) TABLET PO SCH (07:41)
[2020-11-22] MEDS: PANTOPRAZOLE 40 MG TABLET PO SCH (07:41)
--- NOTE | 2020-11-22 16:09 | P.PN ---
Subjective Progress Note Date: 11/22/20 This Is an 80-year-old male who was recently admitted with weakness and generalized confusion and is being closely monitored. Patient appears to be dehydrated and not eating very well with a possible urinary tract infection. Patient is continued on IV antibiotics and will follow-up on cultures. Brandie keller patient has been receiving radiation therapy at [facility] with Dr. Moser per family member Dash at the bedside who takes him to the appointments daily. Patient continues to be weak and will have PT/OT therapy evaluate the patient with the possibility of [facility] inpatient rehab and Dr. Griffith has been consulted. Case management following and working on possible placement. 11/22/2020 Patient is seen and evaluated and follow-up with family at the bedside. Patient was seen and evaluated by Dr. Griffith and being evaluated for possible [facility] inpatient rehab otherwise family is agreeable to an ECF for continued PT/OT therapy. Continues to be on IV ceftriaxone as urine cultures have finalized showing E. coli. White blood count continues to trend down at 25.1, hemoglobin is 11.0, sodium is 139 with a potassium of 3.5 and current creatinine is 1.02. A medium was replaced yesterday and is currently 2.1 today. Review of systems: Constitutional: reports of fatigue, no reports of fever, or chills Cardiovascular: No reports of chest pain or palpitations Respiratory: No reports of shortness of breath or cough GI: No reports of nausea, vomiting, or diarrhea, can only tolerate soft foods and liquids : No reports of dysuria or retention Neurovascular:reports generalized weakness Objective - Vital Signs Vital signs: Vital Signs Temp 97.6 F 11/22/20 11:41 Pulse 56 L 11/22/20 11:41 Resp 16 11/22/20 11:41 BP 139/77 11/22/20 11:41 Pulse Ox 91 L 11/22/20 11:41 Intake & Output 11/21/20 11/22/20 11/22/20 18:59 06:59 18:59 Intake Total 900 Output Total 3 3 1 Balance 897 -3 -1 Weight 68.039 kg Intake: Intake, IV Titration 900 Amount Sodium Chloride 0.9% 1, 900 000 ml @ 75 mls/hr IV . [id number] [facility] Rx#:[id number] Output: Stool 3 3 Urine/Stool Mix 1 Other: Voiding Method Urinal Urinal Urinal Diaper Diaper Diaper Incontinent Incontinent Incontinent # Voids 1 # Bowel Movements 1 1 - Exam Gen: This is a 80-year-old male sitting up in bed awake, alert and oriented 2- 3, thin built. HEENT: Head is atraumatic, normocephalic. Pupils equal, round. Sclerae is a nicteric. NECK: Supple. No JVD. No lymphadenopathy. No thyromegaly. LUNGS: Breath sounds diminished bilaterally with no wheezing or rhonchi noted No intercostal retractions. HEART: S1, S2 are muffled ABDOMEN: Soft. Bowel sounds are present. No masses. No tenderness. EXTREMITIES: No pedal edema. No calf tenderness. NEUROLOGICAL: Patient is awake, alert and oriented x2-3. Periods of confusion. Diffusely weak. - Labs CBC & Chem 7: 11/22/20 05:45 11/22/20 05:45 Labs: Abnormal Lab Results - Last 24 Hours (Table) 11/22/20 11/22/20 Range/Units 05:45 05:45 WBC 25.1 H (3.8-10.6) k/uL RBC 3.66 L (4.30-5.90) m/uL Hgb 11.0 L (13.0-17.5) gm/dL Hct 33.2 L (39.0-53.0) % RDW 16.1 H (11.5-15.5) % Neutrophils # 23.2 H (1.3-7.7) k/uL Lymphocytes # 0.6 L (1.0-4.8) k/uL Chloride 112 H (98-107) mmol/L Microbiology - Last 24 Hours (Table) 11/20/20 16:47 Blood Culture - Preliminary Blood No Growth after 24 hours 11/19/20 17:40 Urine Culture - Final Urine,Catheterized Escherichia coli Assessment and Plan Assessment: Acute urinary tract infection with sepsis, present on admission Change in mental status, acute metabolic encephalopathy, present on admission Acute renal failure with acute tubular necrosis Increased white count Anemia Hyperkalemia elevated plasma lactic acid hypercalcemia diabetes mellitus type 2 Hypertension Hyperlipidemia history of colonoscopy Full code Recommendations and discussion: Recommend continue with IV antibiotics in the form of ceftriaxone as cultures have finalized showing E. coli. Continue to monitor blood sugars and Accu-Cheks before meals and at bedtime. Oncology has been consulted although patient follows with dr. Rodrigo Brasher with radiation therapy per family at the bedside. PT/OT therapy evaluated the patient recommending rehab as he continues to be weak and a consult with Dr. Griffith has been placed and is being evaluated. Family is also agreeable to [facility] for continued PT/OT therapy and will discuss with social work about placement. Patient was started on soft diet as he is unable to handle regular diet per family and is tolerating and eating appropriately.
[2020-11-22] MEDS: PRAVASTATIN SODIUM 20 MG TAB PO SCH (21:42)
[2020-11-23] MEDS: SODIUM CHLORIDE 0.9% 1,000 ML IV SCH (04:51)
--- NOTE | 2020-11-23 07:08 | P.PN ---
Progress Note - Text I have reviewed therapy notes. PT reports minimal assist for bed mobility, transfers and gait 120 ft total with roller walker. OT reports minimal assist for upper dress and bathing, moderate assist for lower dress, moderate to maximal assist for toileting. Minimal assist for basic self care transfers. Thus, patient has proven ability to tolerate and benefit from therapies and is a good rehab candidate.
[2020-11-23] MEDS: HEPARIN SODIUM,PORCINE/PF 5,000 UNIT/0.5 ML SYRINGE SQ SCH ×2 (09:18→21:47)
[2020-11-23] MEDS: CHOLECALCIFEROL 25 MCG (1000 IU) TABLET PO SCH (09:18)
[2020-11-23] MEDS: PANTOPRAZOLE 40 MG TABLET PO SCH (11:49)
[2020-11-23] MEDS: metFORMIN 500 MG TAB PO SCH ×2 (11:49→17:34)
[2020-11-23 11:57] LABS: Anisocytosis Slight; Basophils # (A) 0.1 k/uL (0-0.2); Basophils % (A) 0 %; Eosinophils # (A) 0.7 k/uL (0-0.7); Eosinophils % (A) 3 %; HCT 34.4 % (39.0-53.0); HGB 11.3 gm/dL (13.0-17.5); Hypochromasia Slight; Lymphocytes # (A) 1.1 k/uL (1.0-4.8); Lymphocytes % (A) 4 %; MCH 30.2 pg (25.0-35.0); MCHC 32.9 g/dL (31.0-37.0); MCV 91.8 fL (80.0-100.0); Mean Platelet Volume 8.8; Monocytes # (A) 0.4 k/uL (0-1.0); Monocytes % (A) 2 %; Neutrophils # (A) 22.9 k/uL (1.3-7.7); Neutrophils % (A) 91 %; Platelet Count 287 k/uL (150-450); RBC 3.75 m/uL (4.30-5.90); RDW 16.4 % (11.5-15.5); WBC 25.3 k/uL (3.8-10.6)
[2020-11-23 12:19] LABS: African American GFR (CKD) 80 (>60 ml/min/1.73 sqM); Anion Gap 7 mmol/L; Blood Urea Nitrogen 19 mg/dL (9-20); Calcium 9.8 mg/dL (8.4-10.2); Carbon Dioxide 22 mmol/L (22-30); Chloride 111 mmol/L (98-107); Glucose 84 mg/dL (74-99); Non-African American GFR(CKD) 69 (>60 ml/min/1.73 sqM); Sodium 140 mmol/L (137-145)
[2020-11-23 12:40] LABS: Potassium 3.9 mmol/L (3.5-5.1)
[2020-11-23 13:06] LABS: Poikilocytosis (M) Present; Toxic Granulation Present; Toxic Vacuolation Present
--- NOTE | 2020-11-23 15:32 | P.PN ---
Subjective Progress Note Date: 11/23/20 This Is an 80-year-old male who was recently admitted with weakness and generalized confusion and is being closely monitored. Patient appears to be dehydrated and not eating very well with a possible urinary tract infection. Patient is continued on IV antibiotics and will follow-up on cultures. Brandie keller patient has been receiving radiation therapy at [facility] with Dr. Moser per family member Dash at the bedside who takes him to the appointments daily. Patient continues to be weak and will have PT/OT therapy evaluate the patient with the possibility of [facility] inpatient rehab and Dr. Griffith has been consulted. Case management following and working on possible placement. 11/22/2020 Patient is seen and evaluated and follow-up with family at the bedside. Patient was seen and evaluated by Dr. Griffith and being evaluated for possible [facility] inpatient rehab otherwise family is agreeable to an ECF for continued PT/OT therapy. Continues to be on IV ceftriaxone as urine cultures have finalized showing E. coli. White blood count continues to trend down at 25.1, hemoglobin is 11.0, sodium is 139 with a potassium of 3.5 and current creatinine is 1.02. A medium was replaced yesterday and is currently 2.1 today. 11/23/2020 Patient is seen in follow-up with family at the bedside another son with no acute overnight issues. . Patient was reevaluated by Dr. Griffith and currently awaiting for authorization from insurance for possible inpatient rehab at [facility]. Social Work is following and working on placement options. Patient continues on IV antibiotics in the form of ceftriaxone and we'll transition to oral antibiotics on discharge. Review of systems: Constitutional: reports of fatigue, no reports of fever, or chills Cardiovascular: No reports of chest pain or palpitations Respiratory: No reports of shortness of breath or cough GI: No reports of nausea, vomiting, or diarrhea, can only tolerate soft foods and liquids : No reports of dysuria or retention Neurovascular:reports generalized weakness Objective - Vital Signs Vital signs: Vital Signs Temp 97.4 F L 11/23/20 12:34 Pulse 92 11/23/20 12:34 Resp 13 11/23/20 12:38 BP 122/74 11/23/20 12:34 Pulse Ox 95 11/23/20 12:34 Intake & Output 0411/23/20 11/23/20 18:59 06:59 18:59 Intake Total 1530 Output Total 1 Balance 1529 Weight 68.039 kg Intake: Intake, IV Titration 950 Amount Sodium Chloride 0.9% 1, 900 000 ml @ 75 mls/hr IV . [id number] [facility] Rx#:[id number] cefTRIAXone 1 gm In 50 Sodium Chloride 0.9% 50 ml @ 100 mls/hr IVPB Q24HR [facility] Rx#:[id number] Oral 580 Output: Urine/Stool Mix 1 Other: Voiding Method Urinal Urinal Urinal Diaper Diaper Diaper Incontinent Incontinent Incontinent # Voids 4 2 # Bowel Movements 3 3 - Exam Gen: This is a 80-year-old male sitting up in bed awake, alert and oriented 2- 3, thin built. HEENT: Head is atraumatic, normocephalic. Pupils equal, round. Sclerae is anicteric. NECK: Supple. No JVD. No lymphadenopathy. No thyromegaly. LUNGS: Breath sounds diminished bilaterally with no wheezing or rhonchi noted No intercostal retractions. HEART: S1, S2 are muffled ABDOMEN: Soft. Bowel sounds are present. No masses. No tenderness. EXTREMITIES: No pedal edema. No calf tenderness. NEUROLOGICAL: Patient is awake, alert and oriented x2-3. Periods of confusion. Diffusely weak. - Labs CBC & Chem 7: 11/23/20 09:59 11/23/20 09:59 Labs: Abnormal Lab Results - Last 24 Hours (Table) 11/23/20 11/23/20 Range/Units 09:59 09:59 WBC 25.3 H (3.8-10.6) k/uL RBC 3.75 L (4.30-5.90) m/uL Hgb 11.3 L (13.0-17.5) gm/dL Hct 34.4 L (39.0-53.0) % RDW 16.4 H (11.5-15.5) % Neutrophils # 22.9 H (1.3-7.7) k/uL Chloride 111 H (98-107) mmol/L Microbiology - Last 24 Hours (Table) 11/20/20 16:47 Blood Culture - Preliminary Blood No Growth after 48 hours Assessment and Plan Assessment: Acute urinary tract infection with sepsis, present on admission Change in mental status, acute metabolic encephalopathy, present on admission Acute renal failure with acute tubular necrosis Increased white count Anemia Hyperkalemia elevated plasma lactic acid hypercalcemia diabetes mellitus type 2 Hypertension Hyperlipidemia history of colonoscopy Full code Recommendations and discussion: Recommend continue with IV antibiotics in the form of ceftriaxone as cultures have finalized showing E. coli. Continue to monitor blood sugars and Accu-Cheks before meals and at bedtime. Oncology has been consulted although patient follows with dr. Rodrigo Brasher with radiation therapy per family at the bedside. PT/OT therapy evaluated the patient recommending rehab as he continues to be weak and a consult with Dr. Griffith has been placed and is being evaluated. Patient would likely be a good candidate for inpatient rehab and awaiting authorization from insurance. Family is also agreeable to ECF for continued PT/OT therapy and will discuss with social work about placement. Possible discharge in 24-48 hours.
[2020-11-23] MEDS: PRAVASTATIN SODIUM 20 MG TAB PO SCH (21:47)
[2020-11-24] MEDS: SODIUM CHLORIDE 0.9% 1,000 ML IV SCH ×4 (00:54→18:42)
[2020-11-24] MEDS: metFORMIN 500 MG TAB PO SCH (08:06)
[2020-11-24] MEDS: PANTOPRAZOLE 40 MG TABLET PO SCH (08:06)
[2020-11-24] MEDS: CHOLECALCIFEROL 25 MCG (1000 IU) TABLET PO SCH (08:55)
[2020-11-24] MEDS: HEPARIN SODIUM,PORCINE/PF 5,000 UNIT/0.5 ML SYRINGE SQ SCH ×2 (08:57→20:28)
--- NOTE | 2020-11-24 11:09 | XR ---
2 view abdomen HISTORY: Abdominal pain 2 views of the abdomen, comparison chest x-ray 11/19/2020 There is retrocardiac density present. Air-fluid levels are present without bowel distention. Probabl e vascular calcifications noted within the pelvis. Hypertrophic changes are present at the hips, cons ider femoral acetabular impingement. There is bamboo spine, marginal syndesmophytes consistent with a nkylosing spondylitis. IMPRESSION: Correlate for possible enteritis, ileus, additional findings above. Follow-up as indicate d. Possible left lower lobe pneumonia.
[2020-11-24 12:14] LABS: Anisocytosis Slight; HCT 38.7 % (39.0-53.0); HGB 12.2 gm/dL (13.0-17.5); Hypochromasia Slight; MCHC 31.6 g/dL (31.0-37.0); Mean Platelet Volume 7.5; Platelet Count 242 k/uL (150-450); RDW 16.5 % (11.5-15.5); WBC 26.6 k/uL (3.8-10.6)
[2020-11-24 12:29] LABS: African American GFR (CKD) 86 (>60 ml/min/1.73 sqM); Amylase <30 U/L (30-110); Anion Gap 9 mmol/L; Blood Urea Nitrogen 21 mg/dL (9-20); Calcium 10.1 mg/dL (8.4-10.2); Carbon Dioxide 20 mmol/L (22-30); Chloride 111 mmol/L (98-107); Glucose 93 mg/dL (74-99); Lipase 11 U/L (23-300); Non-African American GFR(CKD) 74 (>60 ml/min/1.73 sqM); Sodium 140 mmol/L (137-145)
[2020-11-24 12:36] LABS: Alkaline Phosphatase 78 U/L (38-126); Magnesium 1.6 mg/dL (1.6-2.3); Potassium 4.2 mmol/L (3.5-5.1)
[2020-11-24] MEDS ORDERED: Magnesium Replacement Protocol 1 EACH MISC MISCELLANE PRN (12:43)
[2020-11-24] MEDS: MAGNESIUM SULFATE-D5W PMX 1 GM in DEXTROSE/WATER 1 100ML.BAG IVPB SCH ×2 (13:42→15:49)
--- NOTE | 2020-11-24 13:50 | P.PN ---
Subjective Progress Note Date: 11/24/20 This Is an 80-year-old male who was recently admitted with weakness and generalized confusion and is being closely monitored. Patient appears to be dehydrated and not eating very well with a possible urinary tract infection. Patient is continued on IV antibiotics and will follow-up on cultures. Brandie keller patient has been receiving radiation therapy at [facility] with Dr. Moser per family member Dash at the bedside who takes him to the appointments daily. Patient continues to be weak and will have PT/OT therapy evaluate the patient with the possibility of [facility] inpatient rehab and Dr. Griffith has been consulted. Case management following and working on possible placement. 11/22/2020 Patient is seen and evaluated and follow-up with family at the bedside. Patient was seen and evaluated by Dr. Griffith and being evaluated for possible [facility] inpatient rehab otherwise family is agreeable to an ECF for continued PT/OT therapy. Continues to be on IV ceftriaxone as urine cultures have finalized showing E. coli. White blood count continues to trend down at 25.1, hemoglobin is 11.0, sodium is 139 with a potassium of 3.5 and current creatinine is 1.02. A medium was replaced yesterday and is currently 2.1 today. 11/23/2020 Patient is seen in follow-up with family at the bedside another son with no acute overnight issues. . Patient was reevaluated by Dr. Griffith and currently awaiting for authorization from insurance for possible inpatient rehab at [facility]. Social Work is following and working on placement options. Patient continues on IV antibiotics in the form of ceftriaxone and we'll transition to oral antibiotics on discharge. 11/24/2020 Patient is seen in follow-up and is having some left and right lower quadrant abdominal tenderness and refusing to eat his meals this morning due to the pain. Patient also had some loose stools last night per nursing staff. Abdominal x- ray was done showing possible enteritis, ileus and patient will be placed back on nothing by mouth with ice chips and surgery consult. Performed a [id number] review with insurance company for authorization at [facility] inpatient rehab to continue with PT/OT therapy for strength and mobility along with continuing with his radiation treatments as he has been receiving at [facility] as well. Family updated. White blood count continues to be elevated at 26.6, hemoglobin is stable at 12.2 with no active bleeding noted. Patient did have an episode of loose stool and denies any blood in the stool. Sodium today is 140 with a potassium of 4.2 and current creatinine improved at 0.97. Magnesium was found to be 1.6 and will replace per protocol. Patient is afebrile and denies any shortness of breath or chest pain at this time. Will order incentive spirometer as well and instructed the patient to continue using at least 10 times every hour while awake. Patient was made nothing by mouth until surgery eval and so will continue with IV fluids at 75 ML per hour. If loose stools or diarrhea persist will obtain a specimen for C. diff. Review of systems: Constitutional: reports of fatigue, no reports of fever, or chills Cardiovascular: No reports of chest pain or palpitations Respiratory: No reports of shortness of breath or cough GI: No reports of nausea, vomiting, reports 1-2 episodes of loose stool and abdominal pain : No reports of dysuria or retention Neurovascular: reports generalized weakness Objective - Vital Signs Vital signs: Vital Signs Temp 98.3 F 11/24/20 07:39 Pulse 69 11/24/20 08:02 Resp 16 11/24/20 08:02 BP 164/65 11/24/20 07:39 Pulse Ox 99 11/24/20 07:39 Intake & Output 11/23/20 11/24/20 11/24/20 18:59 06:59 18:59 Intake Total 900 Balance 900 Intake: Intake, IV Titration 900 Amount Sodium Chloride 0.9% 1, 900 000 ml @ 75 mls/hr IV . [id number] [facility] Rx#:[id number] Other: Voiding Method Urinal Urinal Urinal Diaper Diaper Diaper Incontinent Incontinent Incontinent # Voids 1 # Bowel Movements 2 - Exam Gen: This is a 80-year-old male sitting up in bed awake, alert and oriented 2- 3, thin built. HEENT: Head is atraumatic, normocephalic. Pupils equal, round. Sclerae is anicteric. NECK: Supple. No JVD. No lymphadenopathy. No thyromegaly. LUNGS: Breath sounds diminished bilaterally with no wheezing or rhonchi noted No intercostal retractions. HEART: S1, S2 are muffled ABDOMEN: Soft. Bowel sounds are present. No masses. Mild tenderness noted of left and right lower quadrant on palpation. EXTREMITIES: No pedal edema. No calf tenderness. NEUROLOGICAL: Patient is awake, alert and oriented x2-3. Periods of confusion. Diffusely weak. - Labs CBC & Chem 7: 11/24/20 11:33 11/24/20 11:33 Labs: Abnormal Lab Results - Last 24 Hours (Table) 11/23/20 11/24/20 11/24/20 Range/Units 09:59 11:33 11:33 WBC 26.6 H (3.8-10.6) k/uL RBC 4.20 L (4.30-5.90) m/uL Hgb 12.2 L (13.0-17.5) gm/dL Hct 38.7 L (39.0-53.0) % RDW 16.5 H (11.5-15.5) % Neutrophils # 22.9 H (1.3-7.7) k/uL Chloride 111 H (98-107) mmol/L Carbon Dioxide 20 L (22-30) mmol/L BUN 21 H (9-20) mg/dL Amylase <30 L (30-110) U/L Lipase 11 L (23-300) U/L Microbiology - Last 24 Hours (Table) 11/20/20 16:47 Blood Culture - Preliminary Blood No Growth after 72 hours Assessment and Plan Assessment: Acute urinary tract infection with sepsis, present on admission Change in mental status, acute metabolic encephalopathy, present on admission Possible gastroenteritis versus possible ileus as noted on x-ray Abdominal pain Acute renal failure with acute tubular necrosis Increased white count Anemia Hyperkalemia elevated plasma lactic acid hypercalcemia diabetes mellitus type 2 Hypertension Hyperlipidemia history of colonoscopy Full code Recommendations and discussion: Recommend continue with IV antibiotics in the form of ceftriaxone as cultures have finalized showing E. coli. Continue to monitor blood sugars and Accu-Cheks before meals and at bedtime. Oncology has been consulted although patient follows with dr. Rodrigo Brasher with radiation therapy per family at the bedside. PT/OT following the patient as he continues to be weak and a consult with Dr. Griffith has been placed and is being evaluated. [id number] with insurance was done for approval of authorization to [facility] inpatient rehab as once patient is evaluated by surgery and medically stable will go to [facility] inpatient rehab for continued therapy for strength and mobility. Patient will be made nothing by mouth until surgical evaluation with ice chips secondary to continued abdominal pain in this patient continues to have loose stools or diarrhea will obtain C. diff specimen to rule out.
[2020-11-24 13:52] LABS: Band Neutrophils % 8 %; Eosinophils # (M) 0.27 k/uL (0-0.7); Lymphocytes # (M) 0.27 k/uL (1.0-4.8); Monocytes # (M) 0.27 k/uL (0-1.0); Neutrophils % (M) 89 %; Nucleated Red Blood Cells 0 /100 WBC (0-0); Total Cells Counted 100; Toxic Granulation Present; Toxic Vacuolation Present
--- NOTE | 2020-11-24 15:21 | P.GSCN ---
History of Present Illness Consult date: 11/24/20 History of present illness: CHIEF COMPLAINT: Weakness Reason for consult abdominal pain HISTORY OF PRESENT ILLNESS: This is a 80-year-old male with a known past medical history of squamous cell carcinoma of head and neck, prostate cancer, diabetes, hyperlipidemia and hypertension. Patient initially presented to the hospital with generalized weakness is found have evidence of UTI sepsis. And has been on antibiotics. Today he started complaining of abdominal pain and has been having loose stools. Medical service order abdominal x-ray which shows possible enteri tis, or ileus. Patient has had no fever chills or sweats. He does have elevated white count. Surgical service has been consulted in regards to patient's abdominal pain. Patient seen and examined with Dr. kirby PAST MEDICAL HISTORY: See list. PAST SURGICAL HISTORY: See list. MEDICATIONS: See list. ALLERGIES: See list. SOCIAL HISTORY: No illicit drug use. REVIEW OF SYSTEMS: CONSTITUTIONAL: Denies fever or chills. HEENT: Denies blurred vision, vision changes, or eye pain. Denies hemoptysis CARDIOVASCULAR: Denies chest pain or pressure. RESPIRATORY: No shortness of breath. GASTROINTESTINAL: See HPI for pertinent findings HEMATOLOGIC: Denies bleeding disorders. GENITOURINARY: Denies any blood in urine or increased urinary frequency. SKIN: Denies pruitis. Denies rash. PHYSICAL EXAM: VITAL SIGNS: Reviewed GENERAL: Well-developed in no acute distress. HEENT: No sclera icterus. Extraocular movements grossly intact. Moist buccal mucosa. Head is atraumatic, normocephalic. No nasal drainage. ABDOMEN: Soft. Distended with diffuse tenderness NEUROLOGIC: Alert and oriented. Cranial nerves II through XII grossly intact. LABORATORY DATA: WBC 26.6 hemoglobin 12.2 platelets 242 Sodium 140 potassium 4.2 creatinine 0.97 LFTs normal lipase 11 IMAGING: Abdominal x-ray which shows possible enteritis, or ileus. ASSESSMENT: 1. Abdominal pain with loose stools likely secondary to a gastroenteritis PLAN: -Keep patient nothing by mouth except for ice chips -Continue supportive care -Continue IV fluids Thank you for this consultation Physician Hatchery Attendant note has been reviewed by physician. Signing provider agrees with the documented findings, assessment, and plan of care. Past Medical History Past Medical History: Diabetes Mellitus, Hyperlipidemia, Hypertension Additional Past Medical History / Comment(s): CURRENT PROBLEM: HOARSNESS, DIFFICULTY SPEAKING CLEARLY. Hx of polyps History of Any Multi-Drug Resistant Organisms: None Reported Additional Past Surgical History / Comment(s): colonoscopy Past Anesthesia/Blood Transfusion Reactions: No Reported Reaction Additional Past Anesthesia/Blood Transfusion Reaction / Comm: NEVER HAD GENERAL ANESTHESIA Past Psychological History: No Psychological Hx Reported Smoking Status: Unknown if ever smoked Past Alcohol Use History: None Reported Additional Past Alcohol Use History / Comment(s): quit smoking approx 1996, smoked less than 1 ppd or cigars, from age 15 (1954) Past Drug Use History: None Reported - Past Family History Mother Family Medical History: No Reported History Medications and Allergies Home Medications Medication Instructions Recorded Confirmed Type Cholecalciferol [Vitamin D3] 1,000 unit PO DAILY 08/15/16 11/19/20 History Potassium Chloride [K-Tab ER] 10 meq PO QAM 08/15/16 11/19/20 History Pravastatin Sodium [Pravachol] 20 mg PO HS 08/15/16 11/19/20 History metFORMIN HCL ER [Glucophage Xr] 500 mg PO BID 08/15/16 11/19/20 History Sulfamethoxazole/Trimethoprim 1 tab PO BID 11/19/20 11/19/20 History [Sulfamethoxazole-Tmp Ds Tablet] lisinopriL [Zestril] 2.5 mg PO DAILY 11/19/20 11/19/20 History Allergies Allergy/AdvReac Type Severity Reaction Status Date / Time No Known Allergies Allergy Verified 11/19/20 15:48 Surgical - Exam Vital Signs Temp Pulse Resp BP 95.2 F L 72 18 146/104 11/19/20 15:48 11/19/20 15:48 11/19/20 15:48 11/19/20 15:48 Results - Labs 11/24/20 11:33 11/24/20 11:33 Abnormal Lab Results - Last 24 Hours (Table) 11/24/20 11/24/20 Range/Units 11:33 11:33 WBC 26.6 H (3.8-10.6) k/uL RBC 4.20 L (4.30-5.90) m/uL Hgb 12.2 L (13.0-17.5) gm/dL Hct 38.7 L (39.0-53.0) % RDW 16.5 H (11.5-15.5) % Neutrophils # (Manual) 25.80 H (1.3-7.7) k/uL Lymphocytes # (Manual) 0.27 L (1.0-4.8) k/uL Chloride 111 H (98-107) mmol/L Carbon Dioxide 20 L (22-30) mmol/L BUN 21 H (9-20) mg/dL Amylase <30 L (30-110) U/L Lipase 11 L (23-300) U/L Microbiology - Last 24 Hours (Table) 11/20/20 16:47 Blood Culture - Preliminary Blood No Growth after 72 hours Diabetes panel 11/24/20 Range/Units 11:33 Sodium 140 (137-145) mmol/L Potassium 4.2 (3.5-5.1) mmol/L Chloride 111 H (98-107) mmol/L Carbon Dioxide 20 L (22-30) mmol/L BUN 21 H (9-20) mg/dL Creatinine 0.97 (0.66-1.25) mg/dL Glucose 93 (74-99) mg/dL Calcium 10.1 (8.4-10.2) mg/dL Alkaline Phosphatase 78 (38-126) U/L Calcium panel 11/24/20 Range/Units 11:33 Calcium 10.1 (8.4-10.2) mg/dL Pituitary panel 11/24/20 Range/Units 11:33 Sodium 140 (137-145) mmol/L Potassium 4.2 (3.5-5.1) mmol/L Chloride 111 H (98-107) mmol/L Carbon Dioxide 20 L (22-30) mmol/L BUN 21 H (9-20) mg/dL Creatinine 0.97 (0.66-1.25) mg/dL Glucose 93 (74-99) mg/dL Calcium 10.1 (8.4-10.2) mg/dL Adrenal panel 11/24/20 Range/Units 11:33 Sodium 140 (137-145) mmol/L Potassium 4.2 (3.5-5.1) mmol/L Chloride 111 H (98-107) mmol/L Carbon Dioxide 20 L (22-30) mmol/L BUN 21 H (9-20) mg/dL Creatinine 0.97 (0.66-1.25) mg/dL Glucose 93 (74-99) mg/dL Calcium 10.1 (8.4-10.2) mg/dL Alkaline Phosphatase 78 (38-126) U/L
[2020-11-24 17:28] LABS: Glucose,Whole Blood 88 mg/dL (75-99)
[2020-11-24] MEDS: PRAVASTATIN SODIUM 20 MG TAB PO SCH (20:28)
[2020-11-25] MEDS: CHOLECALCIFEROL 25 MCG (1000 IU) TABLET PO SCH (07:32)
[2020-11-25] MEDS: PANTOPRAZOLE 40 MG TABLET PO SCH (07:32)
[2020-11-25] MEDS: HEPARIN SODIUM,PORCINE/PF 5,000 UNIT/0.5 ML SYRINGE SQ SCH ×2 (07:33→20:51)
[2020-11-25 07:43] LABS: Glucose,Whole Blood 74 mg/dL (75-99)
[2020-11-25] MEDS: ACETAMINOPHEN TAB 325 MG TAB PO PRN (09:02)
[2020-11-25 11:29] LABS: Glucose,Whole Blood 70 mg/dL (75-99)
[2020-11-25] MEDS: SODIUM CHLORIDE 0.9% 1,000 ML IV SCH (14:51)
[2020-11-25 17:03] LABS: Glucose,Whole Blood 49 mg/dL (75-99)
[2020-11-25] MEDS ORDERED: DEXTROSE 50% SYRINGE 50 ML IVP ONE (17:10)
[2020-11-25] MEDS ORDERED: DEXTROSE 50% SYRINGE 50 ML IVP STA (17:43)
[2020-11-25 18:00] LABS: Glucose,Whole Blood 38 mg/dL (75-99)
[2020-11-25] MEDS: DEXTROSE 5% IN WATER 1,000 ML IV SCH (18:03)
[2020-11-25 18:18] LABS: Glucose,Whole Blood 96 mg/dL (75-99)
[2020-11-25] MEDS ORDERED: BENZOCAINE/MENTHOL LOZENG 1 EACH LOZENGE MUCOUS MEM PRN (18:25)
[2020-11-25 20:18] LABS: Glucose,Whole Blood 106 mg/dL (75-99)
[2020-11-25] MEDS: PRAVASTATIN SODIUM 20 MG TAB PO SCH (20:51)
[2020-11-26 07:19] LABS: Glucose,Whole Blood 91 mg/dL (75-99)
[2020-11-26] MEDS: CHOLECALCIFEROL 25 MCG (1000 IU) TABLET PO SCH (07:30)
[2020-11-26] MEDS: PANTOPRAZOLE 40 MG TABLET PO SCH (07:30)
[2020-11-26] MEDS: ACETAMINOPHEN TAB 325 MG TAB PO PRN (07:30)
[2020-11-26] MEDS: HEPARIN SODIUM,PORCINE/PF 5,000 UNIT/0.5 ML SYRINGE SQ SCH ×2 (07:31→21:27)
[2020-11-26] MEDS: DEXTROSE 5% IN WATER 1,000 ML IV SCH ×2 (07:32→21:28)
[2020-11-26 12:03] LABS: Glucose,Whole Blood 112 mg/dL (75-99)
--- NOTE | 2020-11-26 12:33 | P.PN ---
Subjective Progress Note Date: 11/25/20 Principal diagnosis: Acute urinary tract infection with sepsis Acute metabolic encephalopathy Possible gastroenteritis versus possible ileus Acute renal failure with acute tubular necrosis 80-year-old male who was recently admitted with weakness and generalized confusion and is being closely monitored. Patient appears to be dehydrated and not eating very well with a possible urinary tract infection. Patient is continued on IV antibiotics and will follow-up on cultures. Apparently patient has been receiving radiation therapy at [facility] with Dr. Moser per family member Dash at the bedside who takes him to the appointments daily. Patient continues to be weak and will have PT/OT therapy evaluate the patient with the possibility of [facility] inpatient rehab and Dr. Griffith has been consulted. Case management following and working on possible placement. 11/25/2020 Patient is seen and evaluated resting in bed; Abdominal x-ray completed yesterday reveals possible enteritis, ileus with possible left lower lobe pneumonia; patient is afebrile but white blood count remains elevated; patient remains on IV Rocephin for UTI and remains nothing by mouth with surgery consult in place and recommending to keep patient nothing by mouth except for ice chips and continue with IV fluids and supportive care Renal function is stable We will monitor CBC and electrolytes; plan to consult ID if white blood count remains elevated Objective - Vital Signs Vital signs: Vital Signs Temp 97.9 F 11/25/20 11:38 Pulse 87 11/25/20 11:38 Resp 17 11/25/20 11:38 BP 145/69 11/25/20 11:38 Pulse Ox 95 11/25/20 11:38 Intake & Output 11/24/20 11/25/20 11/25/20 18:59 06:59 18:59 Intake Total 450 0 Output Total 3 Balance 450 -3 Weight 68.039 kg Intake: Intake, IV Titration 450 Amount Sodium Chloride 0.9% 1, 450 000 ml @ 75 mls/hr IV . [id number] [facility] Rx#:[id number] Oral 0 0 Output: Stool 3 Other: Voiding Method Urinal Urinal Urinal Diaper Diaper Diaper Incontinent Incontinent Incontinent # Voids 2 2 # Bowel Movements 2 - Exam Gen: This is a 80-year-old male sitting up in bed awake, alert and oriented 2- 3, thin built. HEENT: Head is atraumatic, normocephalic. Pupils equal, round. Sclerae is anicteric. NECK: Supple. No JVD. No lymphadenopathy. No thyromegaly. LUNGS: Breath sounds diminished bilaterally with no wheezing or rhonchi noted No intercostal retractions. HEART: S1, S2 are muffled ABDOMEN: Soft. Bowel sounds are present. No masses. Mild tenderness noted of left and right lower quadrant on palpation. EXTREMITIES: No pedal edema. No calf tenderness. NEUROLOGICAL: Patient is awake, alert and oriented x2-3. Periods of confusion. Diffusely weak. - Labs CBC & Chem 7: 11/24/20 11:33 11/24/20 11:33 Labs: Abnormal Lab Results - Last 24 Hours (Table) 11/24/20 11/25/20 11/25/20 Range/Units 11:33 07:41 11:21 Neutrophils # (Manual) 25.80 H (1.3-7.7) k/uL Lymphocytes # (Manual) 0.27 L (1.0-4.8) k/uL POC Glucose (mg/dL) 74 L 70 L (75-99) mg/dL Microbiology - Last 24 Hours (Table) 11/20/20 16:47 Blood Culture - Preliminary Blood No Growth after 96 hours Assessment and Plan Assessment: Acute urinary tract infection with sepsis, present on admission Change in mental status, acute metabolic encephalopathy, present on admission Possible gastroenteritis versus possible ileus as noted on x-ray Abdominal pain Acute renal failure with acute tubular necrosis Increased white count Anemia Hyperkalemia elevated plasma lactic acid hypercalcemia diabetes mellitus type 2 Hypertension Hyperlipidemia history of colonoscopy Full code Recommendations and discussion: Recommend continue with IV antibiotics in the form of ceftriaxone as cultures have finalized showing E. coli. Continue to monitor blood sugars and Accu-Cheks before meals and at bedtime. Oncology has been consulted although patient follows with dr. Rodrigo Brasher with radiation therapy per family at the bedside. PT/OT following the patient as he continues to be weak and a consult with Dr. Griffith has been placed and is being evaluated. [id number] with insurance was done for approval of authorization to [facility] inpatient rehab as once patient is evaluated by surgery and medically stable will go to [facility] inpatient rehab for continued therapy for strength and mobility. Patient will be made nothing by mouth until surgical evaluation with ice chips secondary to continued abdominal pain in this patient continues to have loose stools or diarrhea will obtain C. diff specimen to rule out.
[2020-11-26 13:13] LABS: Anisocytosis Slight; Basophils % (A) 0 %; Eosinophils # (A) 0.8 k/uL (0-0.7); Eosinophils % (A) 3 %; HGB 10.2 gm/dL (13.0-17.5); Hypochromasia Slight; Lymphocytes # (A) 0.6 k/uL (1.0-4.8); Lymphocytes % (A) 2 %; MCH 28.5 pg (25.0-35.0); Mean Platelet Volume 8.5; Monocytes # (A) 0.4 k/uL (0-1.0); Monocytes % (A) 1 %; Neutrophils % (A) 94 %; Platelet Count 201 k/uL (150-450); RBC 3.59 m/uL (4.30-5.90); WBC 30.6 k/uL (3.8-10.6)
[2020-11-26 13:14] LABS: African American GFR (CKD) >90 (>60 ml/min/1.73 sqM); Anion Gap 3 mmol/L; Blood Urea Nitrogen 20 mg/dL (9-20); Calcium 9.6 mg/dL (8.4-10.2); Carbon Dioxide 23 mmol/L (22-30); Chloride 111 mmol/L (98-107); Glucose 119 mg/dL (74-99); Non-African American GFR(CKD) 81 (>60 ml/min/1.73 sqM); Potassium 3.7 mmol/L (3.5-5.1); Sodium 137 mmol/L (137-145)
[2020-11-26 13:21] LABS: Neutrophils # (A) 28.7 k/uL (1.3-7.7)
--- NOTE | 2020-11-26 17:00 | P.PN ---
Subjective Progress Note Date: 11/25/20 CHIEF COMPLAINT: Abdominal pain HISTORY OF PRESENT ILLNESS: The patient is a 80-year-old male with history of squamous cell cancer of the throat including prostate cancer presented with profound sepsis white count over 40,000. He has not been seen by infectious disease. He still complains of abdominal pain of mild to moderate intensity. Diagnostic studies have demonstrated gastroenteritis. REVIEW OF ORGAN SYSTEMS: No chest pain, no shortness of breath. No nausea or vomiting. PHYSICAL EXAM: VITALS: Reviewed CONSTITUTIONAL: Well developed and in no acute distress. EYES: Conjuctivae without sclera icterus. Extraocular movements grossly intact. HEAD, EARS, NOSE, THROAT: Moist buccal mucosa. Head is atraumatic, normocephalic. Hears conversational speech. RESPIRATORY: Non-labored respirations and equal bilateral excursions. No gross wheezes. CARDIOVASCULAR: Regular rate and rhythm. Palpable 2+ radial pulses. ABDOMEN: Tender. No gross peritonitis. NEUROLOGIC: Cranial nerves II through XII grossly intact. No focal or lateralizing signs. PSYCH: Alert to person, place and time. CLINCAL LABS: Reviewed. WBC over 26,000 STUDIES: CT of the abdomen and pelvis was independently reviewed by me without features of small bowel obstruction or free air. This is my independent interpretation. ASSESSMENT: 1. Sepsis with history of squamous cell cancer and prostate cancer 2. Gastroenteritis PLAN: 1. Recommend antibiotic management. Objective - Vital Signs Vital signs: Vital Signs Temp 98.4 F 11/26/20 12:05 Pulse 80 11/26/20 12:05 Resp 20 11/26/20 12:05 BP 149/83 11/26/20 12:05 Pulse Ox 98 11/26/20 12:05 Intake & Output 11/25/20 11/26/20 11/26/20 18:59 06:59 18:59 Intake Total 600 590 Output Total 3 3 Balance 597 587 Intake: Intake, IV Titration 600 Amount Dextrose 5% in Water 1, 600 000 ml @ 75 mls/hr IV . [id number] [facility] Rx#:[id number] Oral 0 590 Output: Stool 3 3 Other: Voiding Method Urinal Urinal Urinal Diaper Diaper Diaper Incontinent Incontinent Incontinent # Voids 3 3 - Labs CBC & Chem 7: 11/26/20 12:42 11/26/20 12:42 Labs: Abnormal Lab Results - Last 24 Hours (Table) 11/25/20 11/25/20 11/25/20 Range/Units 17:00 17:58 20:17 WBC (3.8-10.6) k/uL RBC (4.30-5.90) m/uL Hgb (13.0-17.5) gm/dL Hct (39.0-53.0) % RDW (11.5-15.5) % Neutrophils # (1.3-7.7) k/uL Lymphocytes # (1.0-4.8) k/uL Eosinophils # (0-0.7) k/uL Chloride (98-107) mmol/L Glucose (74-99) mg/dL POC Glucose (mg/dL) 49 L 38 L 106 H (75-99) mg/dL 11/26/20 11/26/20 11/26/20 Range/Units 11:52 12:42 12:42 WBC 30.6 H (3.8-10.6) k/uL RBC 3.59 L (4.30-5.90) m/uL Hgb 10.2 L (13.0-17.5) gm/dL Hct 33.0 L (39.0-53.0) % RDW 17.0 H (11.5-15.5) % Neutrophils # 28.7 H (1.3-7.7) k/uL Lymphocytes # 0.6 L (1.0-4.8) k/uL Eosinophils # 0.8 H (0-0.7) k/uL Chloride 111 H (98-107) mmol/L Glucose 119 H (74-99) mg/dL POC Glucose (mg/dL) 112 H (75-99) mg/dL Microbiology - Last 24 Hours (Table) 11/20/20 16:47 Blood Culture - Preliminary Blood No Growth after 120 hours
--- NOTE | 2020-11-26 17:01 | P.PN ---
Subjective Progress Note Date: 11/26/20 CHIEF COMPLAINT: Abdominal pain HISTORY OF PRESENT ILLNESS: The patient is a 80-year-old male with history of squamous cell cancer of the throat including prostate cancer presented with profound sepsis white count over 40,000. His still reports abdominal pain. He now complains of bilateral hand swelling. Family is at bedside. REVIEW OF ORGAN SYSTEMS: No chest pain, no shortness of breath. No nausea or vomiting. PHYSICAL EXAM: VITALS: Reviewed CONSTITUTIONAL: Well developed and in no acute distress. EYES: Conjuctivae without sclera icterus. Extraocular movements grossly intact. HEAD, EARS, NOSE, THROAT: Moist buccal mucosa. Head is atraumatic, normocephalic. Hears conversational speech. RESPIRATORY: Non-labored respirations and equal bilateral excursions. No gross wheezes. CARDIOVASCULAR: Regular rate and rhythm. Palpable 2+ radial pulses. ABDOMEN: Tender. No gross peritonitis. NEUROLOGIC: Cranial nerves II through XII grossly intact. No focal or lateralizing signs. PSYCH: Alert to person, place and time. CLINCAL LABS: Reviewed. WBC over 26,000 now over 30,000. ASSESSMENT: 1. Sepsis with history of squamous cell cancer and prostate cancer 2. Gastroenteritis PLAN: 1. On review of his antibiotic management, recommend infectious disease consultation. Objective - Vital Signs Vital signs: Vital Signs Temp 98.4 F 11/26/20 12:05 Pulse 80 11/26/20 12:05 Resp 20 11/26/20 12:05 BP 149/83 11/26/20 12:05 Pulse Ox 98 11/26/20 12:05 Intake & Output 11/25/20 11/26/20 11/26/20 18:59 06:59 18:59 Intake Total 600 590 Output Total 3 3 Balance 597 587 Intake: Intake, IV Titration 600 Amount Dextrose 5% in Water 1, 600 000 ml @ 75 mls/hr IV . [id number] [facility] Rx#:[id number] Oral 0 590 Output: Stool 3 3 Other: Voiding Method Urinal Urinal Urinal Diaper Diaper Diaper Incontinent Incontinent Incontinent # Voids 3 3 - Labs CBC & Chem 7: 11/26/20 12:42 11/26/20 12:42 Labs: Abnormal Lab Results - Last 24 Hours (Table) 11/25/20 11/25/20 11/25/20 Range/Units 17:00 17:58 20:17 WBC (3.8-10.6) k/uL RBC (4.30-5.90) m/uL Hgb (13.0-17.5) gm/dL Hct (39.0-53.0) % RDW (11.5-15.5) % Neutrophils # (1.3-7.7) k/uL Lymphocytes # (1.0-4.8) k/uL Eosinophils # (0-0.7) k/uL Chloride (98-107) mmol/L Glucose (74-99) mg/dL POC Glucose (mg/dL) 49 L 38 L 106 H (75-99) mg/dL 11/26/20 11/26/20 11/26/20 Range/Units 11:52 12:42 12:42 WBC 30.6 H (3.8-10.6) k/uL RBC 3.59 L (4.30-5.90) m/uL Hgb 10.2 L (13.0-17.5) gm/dL Hct 33.0 L (39.0-53.0) % RDW 17.0 H (11.5-15.5) % Neutrophils # 28.7 H (1.3-7.7) k/uL Lymphocytes # 0.6 L (1.0-4.8) k/uL Eosinophils # 0.8 H (0-0.7) k/uL Chloride 111 H (98-107) mmol/L Glucose 119 H (74-99) mg/dL POC Glucose (mg/dL) 112 H (75-99) mg/dL Microbiology - Last 24 Hours (Table) 11/20/20 16:47 Blood Culture - Preliminary Blood No Growth after 120 hours
[2020-11-26 17:21] LABS: Glucose,Whole Blood 106 mg/dL (75-99)
[2020-11-26] MEDS: PIPERACILLIN-TAZOBACTAM 3.375 GM in SODIUM CHLORIDE 0.9% 100 ML IVPB SCH (17:35)
[2020-11-26 20:37] LABS: Glucose,Whole Blood 95 mg/dL (75-99)
[2020-11-26] MEDS: PRAVASTATIN SODIUM 20 MG TAB PO SCH (21:27)
[2020-11-26] MEDS ORDERED: IOPAMIDOL CONTRAST (ORAL USE) VIAL PO PRN (23:25)
[2020-11-26] MEDS ORDERED: FLUCONAZOLE IN NACL,ISO-OSM 200 MG in SALINE 1 50ML.BAG IVPB STA (23:28)
[2020-11-27] MEDS: PIPERACILLIN-TAZOBACTAM 3.375 GM in SODIUM CHLORIDE 0.9% 100 ML IVPB SCH ×3 (02:57→16:47)
--- NOTE | 2020-11-27 03:08 | P.PN ---
Subjective Progress Note Date: 11/26/20 Principal diagnosis: Acute urinary tract infection with sepsis Acute metabolic encephalopathy Possible gastroenteritis versus possible ileus Acute renal failure with acute tubular necrosis 80-year-old male who was recently admitted with weakness and generalized confusion and is being closely monitored. Patient appears to be dehydrated and not eating very well with a possible urinary tract infection. Patient is continued on IV antibiotics and will follow-up on cultures. Apparently patient has been receiving radiation therapy at [facility] with Dr. Moser per family member Dash at the bedside who takes him to the appointments daily. Patient continues to be weak and will have PT/OT therapy evaluate the patient with the possibility of [facility] inpatient rehab and Dr. Griffith has been consulted. Case management following and working on possible placement. 11/25/2020 Patient is seen and evaluated resting in bed; Abdominal x-ray completed yesterday reveals possible enteritis, ileus with possible left lower lobe pneumonia; patient is afebrile but white blood count remains elevated; patient remains on IV Rocephin for UTI and remains nothing by mouth with surgery consult in place and recommending to keep patient nothing by mouth except for ice chips and continue with IV fluids and supportive care Renal function is stable We will monitor CBC and electrolytes; plan to consult ID if white blood count remains elevated 11/26/2020 patient is seen and evaluated with family members at bedside; complains of N/V Vital signs are reviewed; Lab review shows persistent upward trend of WBC, above 30 this morning; procal is elevated; lactic acid level is unremarkable Patient is currently receiving Rocephin for UTI; abdominal xray reveals enteritis; will switch to IV zosyn; monitor inflammatory markers; keep patient NPO; will consult ID and GI Will obtain CT abdomen; blood culture and Cxray. Objective - Vital Signs Vital signs: Vital Signs Temp 98.4 F 11/26/20 12:05 Pulse 80 11/26/20 12:05 Resp 20 11/26/20 12:05 BP 149/83 11/26/20 12:05 Pulse Ox 98 11/26/20 12:05 Intake & Output 11/25/20 11/26/20 11/26/20 18:59 06:59 18:59 Intake Total 600 590 Output Total 3 3 Balance 597 587 Intake: Intake, IV Titration 600 Amount Dextrose 5% in Water 1, 600 000 ml @ 75 mls/hr IV . [id number] Rx#:[id number] Oral 0 590 Output: Stool 3 3 Other: Voiding Method Urinal Urinal Urinal Diaper Diaper Diaper Incontinent Incontinent Incontinent # Voids 3 1 - Exam Gen: This is a 80-year-old male sitting up in bed awake, alert and oriented 2- 3, thin built. HEENT: Head is atraumatic, normocephalic. Pupils equal, round. Sclerae is anicteric. NECK: Supple. No JVD. No lymphadenopathy. No thyromegaly. LUNGS: Breath sounds diminished bilaterally with no wheezing or rhonchi noted No intercostal retractions. HEART: S1, S2 are muffled ABDOMEN: Soft. Bowel sounds are present. No masses. Mild tenderness noted of left and right lower quadrant on palpation. EXTREMITIES: No pedal edema. No calf tenderness. NEUROLOGICAL: Patient is awake, alert and oriented x2-3. Periods of confusion. Diffusely weak. - Labs CBC & Chem 7: 11/26/20 12:42 11/26/20 12:42 Labs: Abnormal Lab Results - Last 24 Hours (Table) 11/25/20 11/25/20 11/25/20 Range/Units 17:00 17:58 20:17 WBC (3.8-10.6) k/uL RBC (4.30-5.90) m/uL Hgb (13.0-17.5) gm/dL Hct (39.0-53.0) % RDW (11.5-15.5) % Neutrophils # (1.3-7.7) k/uL Lymphocytes # (1.0-4.8) k/uL Eosinophils # (0-0.7) k/uL Chloride (98-107) mmol/L Glucose (74-99) mg/dL POC Glucose (mg/dL) 49 L 38 L 106 H (75-99) mg/dL 11/26/20 11/26/20 11/26/20 Range/Units 11:52 12:42 12:42 WBC 30.6 H (3.8-10.6) k/uL RBC 3.59 L (4.30-5.90) m/uL Hgb 10.2 L (13.0-17.5) gm/dL Hct 33.0 L (39.0-53.0) % RDW 17.0 H (11.5-15.5) % Neutrophils # 28.7 H (1.3-7.7) k/uL Lymphocytes # 0.6 L (1.0-4.8) k/uL Eosinophils # 0.8 H (0-0.7) k/uL Chloride 111 H (98-107) mmol/L Glucose 119 H (74-99) mg/dL POC Glucose (mg/dL) 112 H (75-99) mg/dL Microbiology - Last 24 Hours (Table) 11/20/20 16:47 Blood Culture - Preliminary Blood No Growth after 120 hours Assessment and Plan Assessment: Acute urinary tract infection with sepsis, present on admission Change in mental status, acute metabolic encephalopathy, present on admission Possible gastroenteritis versus possible ileus as noted on x-ray Abdominal pain Acute renal failure with acute tubular necrosis Increased white count Anemia Hyperkalemia elevated plasma lactic acid hypercalcemia diabetes mellitus type 2 Hypertension Hyperlipidemia history of colonoscopy Full code Recommendations and discussion: Recommend continue with IV antibiotics in the form of ceftriaxone as cultures have finalized showing E. coli. Continue to monitor blood sugars and Accu-Cheks before meals and at bedtime. Oncology has been consulted although patient follows with dr. Rodrigo Brasher with radiation therapy per family at the bedside. PT/OT following the patient as he continues to be weak and a consult with Dr. Griffith has been placed and is being evaluated. [id number] with insurance was done for approval of authorization to [facility] inpatient rehab as once patient is evaluated by surgery and medically stable will go to [facility] inpatient rehab for continued therapy for strength and mobility. Patient will be made nothing by mouth until surgical evaluation with ice chips secondary to continued abdominal pain in this patient continues to have loose stools or diarrhea will obtain C. diff specimen to rule out.
[2020-11-27 04:51] LABS: Anisocytosis Slight; Basophils % (A) 0 %; Eosinophils # (A) 0.6 k/uL (0-0.7); Eosinophils % (A) 2 %; HCT 34.3 % (39.0-53.0); HGB 10.6 gm/dL (13.0-17.5); Hypochromasia Slight; Lymphocytes # (A) 0.8 k/uL (1.0-4.8); Lymphocytes % (A) 3 %; MCH 28.7 pg (25.0-35.0); MCV 92.5 fL (80.0-100.0); Mean Platelet Volume 7.9; Monocytes # (A) 0.4 k/uL (0-1.0); Monocytes % (A) 1 %; Neutrophils # (A) 23.4 k/uL (1.3-7.7); Neutrophils % (A) 93 %; Platelet Count 188 k/uL (150-450); RBC 3.71 m/uL (4.30-5.90); RDW 16.8 % (11.5-15.5); WBC 25.2 k/uL (3.8-10.6)
[2020-11-27 05:12] LABS: African American GFR (CKD) >90 (>60 ml/min/1.73 sqM); Anion Gap 3 mmol/L; Blood Urea Nitrogen 19 mg/dL (9-20); Calcium 9.6 mg/dL (8.4-10.2); Carbon Dioxide 22 mmol/L (22-30); Chloride 111 mmol/L (98-107); Glucose 85 mg/dL (74-99); Non-African American GFR(CKD) 84 (>60 ml/min/1.73 sqM); Sodium 136 mmol/L (137-145)
[2020-11-27 05:37] LABS: C Reactive Protein 24.6 mg/dL (<1.0); Potassium 4.1 mmol/L (3.5-5.1)
[2020-11-27 07:00] LABS: Glucose,Whole Blood 91 mg/dL (75-99)
--- NOTE | 2020-11-27 07:31 | CONS ---
CONSULTATION DATE OF SERVICE: 11/26/2020 REASON FOR CONSULTATION: Sepsis. HISTORY OF PRESENT ILLNESS: The patient is an 80-year-old male admitted to the hospital about a week ago on the October for evaluation of generalized weakness. The patient was diagnosed with UTI and has been treated with Rocephin. The patient started having abdominal pain about 3 days ago on November 24 for which the patient did have abdominal x-ray which shows possible enteritis or ileus. The patient did have elevated white count at 9.9, and also having diarrhea. The patient has been evaluated by General Surgery with a diagnosis of gastroenteritis. Recommend keeping nothing by mouth except ice chips and IV fluids. No stool studies were done. The patient noticed to have progressive worsening of his white count which is up to 30,000 today and that has prompted this infectious disease consultation. The patient has been afebrile during this hospital stay. The patient's diarrhea has resolved and no bowel movement for the last 2 days per the nursing staff. Patient himself is not a very good historian. When asked specifically, denies having any headache, no chest pain, no cough, no vomiting. Has been complaining of abdominal pain but vague and is unable to contribute further to the history. Most of the information has been extracted from review of the chart and talking to nursing staff. REVIEW OF SYSTEMS: Positive points have been mentioned in HPI. Rest of the systems are negative. PAST MEDICAL HISTORY: Diabetes mellitus, hypertension, hyperlipidemia and dementia. PAST SURGICAL HISTORY: Colonoscopy. SOCIAL HISTORY: History of smoking, quit back in 1996. No drinking or drug use. FAMILY HISTORY: No pertinent findings noticed. ALLERGIES: No known drug allergies. MEDICATIONS: The patient is currently on Tylenol, Xanax, Cepacol lozenges, vitamin D3, heparin, , Zestril, Narcan. has been switched to Zosyn today, Protonix and Pravachol. PHYSICAL EXAMINATION: VITAL SIGNS: Blood pressure is 152/71 with a pulse of 84, temperature 98.3, he is 100% on room air. GENERAL DESCRIPTION: Patient is an elderly male lying in bed in no distress. No tachypnea or accessory muscles of respiration use. HEENT: Examination shows pallor, no scleral icterus. Oral mucous membrane with evidence of thrush. NECK: Trachea central, no thyromegaly. LUNGS: Unlabored breathing, clear to auscultation anteriorly. HEART: S1-S2, regular rate and rhythm. ABDOMEN: Soft, mildly tender. No guarding or rigidity. EXTREMITIES: No edema of the feet. SKIN: No rash or mass palpable. NEUROLOGICAL: Patient is awake, alert, oriented times one. Mood and affect normal. LABS: White count is 32,000, admission white count 46,000, BUN of 20, creatinine 0.89. Electrolytes has been normal. Urine was positive. Culture subsequently grew E coli which is sensitive pathogen. Blood culture has been negative. DIAGNOSTIC IMPRESSION: Patient with significantly elevated white count in this patient admitted to hospital with mental status changes and abdominal pain. He did have a positive UA, but no workup has been done for his abdominal pain. Did have significant diarrhea. C- difficile is possible but unfortunately no stool studies were done. The patient does not having any diarrhea per the nursing staff. Source of his elevated white count more likely abdominal plus or minus oral thrush. PLAN: 1. We will check a stool for C difficile. 2. Check CT of abdomen and pelvis with contrast to rule out any intraabdominal pathology. 3. We will add Diflucan 200 mg x1 and continue with Zosyn. 4. We will follow on clinical condition and culture to further adjust medication if needed. Thank you for this consultation. Will follow this patient along with you. MMODL / IJN: [id number] /
[2020-11-27] MEDS: DEXTROSE 5% IN WATER 1,000 ML IV SCH (08:08)
[2020-11-27] MEDS: HEPARIN SODIUM,PORCINE/PF 5,000 UNIT/0.5 ML SYRINGE SQ SCH ×2 (08:09→21:43)
[2020-11-27] MEDS: PANTOPRAZOLE 40 MG TABLET PO SCH (08:09)
[2020-11-27] MEDS: CHOLECALCIFEROL 25 MCG (1000 IU) TABLET PO SCH (08:09)
--- NOTE | 2020-11-27 10:29 | CT ---
EXAMINATION TYPE: CT abdomen pelvis w con DATE OF EXAM: 11/27/2020 COMPARISON: Abdominal x-ray November 24, 2020. HISTORY: ABD pain and leukocytosis CT DLP: 512.10 mGycm, Automated Exposure Control for Dose Reduction was Utilized. CONTRAST: CT scan of the abdomen and pelvis is performed without oral and with IV Contrast, patient injected w ith 100ml mL of Isovue 300. FINDINGS: LUNG BASES: Partial visualization of small to tiny bilateral pleural effusions. LIVER/GB: Dependent density in gallbladder could reflect small stones and/or sludge. Some distended m argins to gallbladder. No surrounding inflammatory change. PANCREAS: No significant abnormality is seen. SPLEEN: No significant abnormality is seen. ADRENALS: No significant abnormality is seen. KIDNEYS: Symmetric cortical medullary uptake and excretion but there is moderate left-sided hydroneph rosis. Bladder is poorly distended anteriorly. BOWEL: Suboptimal evaluation bowel without enteric contrast. No suspicious small or large bowel dilat ation. Distention of stomach with moderate gastric wall thickening.. PROSTATE/SEMINAL VESICLES: Markedly enlarged prostate gland consistent with BPH. Prostate has lobulat ed margins. Adjacent pelvic phleboliths. LYMPH NODES: There is hyperdense 2.0 x 1.6 cm left pelvic mass posteriorly axial image 59. There are additional suspicious prominent but subcentimeter hyperdense lesions throughout the pelvis. There is larger heterogeneous 7.9 x 7.7 cm lobulated mass that measures 7.5 cm craniocaudal dimension axial im age 58 and coronal image 36. Local mass effect is present. OSSEOUS STRUCTURES: Large bridging osteophytes in the thoracolumbar spine with preservation of disc s paces. Multilevel spinous process hypertrophy. Narrowing and sclerosis bilateral sacroiliac joints. F inding consistent with underlying DISH or ankylosing spondylosis. Correlate clinically. [id number] axial joint space loss with moderate to severe acetabular spurring of both hips. OTHER: Moderate diffuse subcutaneous edema and/or soft tissue anasarca. Subcutaneous foci of air in t he anterior abdominal wall noted. IMPRESSION: Nonspecific heterogeneous lobulated 7.9 cm pelvic mass. I am worried for necrotic adenopa thy as there are additional suspicious pelvic masses or lymph nodes and markedly abnormal prostate wo rrisome for BPH and carcinoma. Correlate clinically and with effacement values advised. Left pelvic l esion has local mass effect causing moderate left-sided hydronephrosis but no delayed excretion. Othe r etiologies to left pelvic lesion not excluded.
[2020-11-27 12:43] LABS: Glucose,Whole Blood 111 mg/dL (75-99)
--- NOTE | 2020-11-27 14:55 | XR ---
EXAMINATION TYPE: XR chest 2V DATE OF EXAM: 11/27/2020 CLINICAL HISTORY: sepsis. TECHNIQUE: Frontal and lateral view of the chest. COMPARISON: 11/19/2020 FINDINGS: The cardiomediastinal silhouette is within normal limits for size. Pulmonary vasculature i s mildly centrally congested. There is a right infrahilar airspace opacity and mild left basilar airs pace opacity. Small left pleural effusion. No pneumothorax seen. Degenerative changes of the shoulde rs. IMPRESSION: Mild pulmonary vascular congestion. New bibasilar airspace opacities and small left pleural effusion.
--- NOTE | 2020-11-27 15:33 | P.PN ---
Subjective Progress Note Date: 11/27/20 CHIEF COMPLAINT: Abdominal pain HISTORY OF PRESENT ILLNESS: This is a 80-year-old male with a known past medical history of squamous cell carcinoma of neck and history of prostate cancer. Patient is complaining of right lower abdominal pain. Infectious diseases following in regards to leukocytosis and they have ordered a computed tomography scan of the abdomen and pelvis. Patient's diarrhea is resolved. In fact he reports no bowel movement and no nausea or vomiting. Afebrile. White count has come down from 30.1-25.2. Computed tomography scan abdomen and pelvis shows nonspecific heterogenesis lobulated 7.9 cm pelvic mass. Radiologist is worried for necrotic adenopathy as they're R additional suspicious pelvic masses or lymph nodes and markedly abnormal prostate worrisome for BPH and carcinoma. Left pelvic lesion has local mass effect causing moderate left-sided hydronephrosis but no delayed excretion. Other etiologies to left pelvic lesion not excluded. PHYSICAL EXAM: VITAL SIGNS: Reviewed. GENERAL: Well-developed in no acute distress. HEENT: No sclera icterus. Extraocular movements grossly intact. Moist buccal mucosa. Head is atraumatic, normocephalic. ABDOMEN: Soft. Nondistended. Tenderness right lower abdomen NEUROLOGIC: Alert and oriented. Cranial nerves II through XII grossly intact. ASSESSMENT: 1. Abdominal pain 2. Pelvic mass with concerns for necrotic adenopathy as are additional suspicious pelvic masses or lymph nodes and markedly abnormal prostate worrisome for BPH and carcinoma noted on CAT scan. 3. Possible gastroenteritis PLAN: -Consult urology regarding pelvic mass and abnormal prostate findings as well as left pelvic lesion with local mass effect causing moderate left-sided hydronephrosis noted on CAT scan -Continue supportive care Physician [employer] [facility] note has been reviewed by physician. Signing provider agrees with the documented findings, assessment, and plan of care. Objective - Vital Signs Vital signs: Vital Signs Temp 98 F 11/27/20 11:45 Pulse 81 11/27/20 11:45 Resp 18 11/27/20 11:45 BP 148/70 11/27/20 11:45 Pulse Ox 98 11/27/20 11:45 Intake & Output 11/26/20 11/27/20 11/27/20 18:59 06:59 18:59 Intake Total 1050 Output Total 3 Balance 1050 -3 Weight 68.039 kg Intake: Intake, IV Titration 1050 Amount Dextrose 5% in Water 1, 900 000 ml @ 75 mls/hr IV . [id number] [facility] Rx#:[id number] Piperacillin-Tazobactam 3 100 .375 gm In Sodium Chloride 0.9% 100 ml @ 25 mls/hr IVPB Q8HR [facility] Rx# :[id number] [id number] 1 gm In 50 Sodium Chloride 0.9% 50 ml @ 100 mls/hr IVPB Q24HR [facility] Rx#:[id number] Output: Stool 3 Other: Voiding Method Urinal Urinal Urinal Diaper Diaper Diaper Incontinent Incontinent Incontinent # Voids 3 3 - Labs CBC & Chem 7: 11/27/20 04:37 11/27/20 04:37 Labs: Abnormal Lab Results - Last 24 Hours (Table) 11/26/20 11/26/20 11/27/20 Range/Units 12:42 17:02 04:37 WBC 25.2 H (3.8-10.6) k/uL RBC 3.71 L (4.30-5.90) m/uL Hgb 10.6 L (13.0-17.5) gm/dL Hct 34.3 L (39.0-53.0) % RDW 16.8 H (11.5-15.5) % Neutrophils # 23.4 H (1.3-7.7) k/uL Lymphocytes # 0.8 L (1.0-4.8) k/uL Sodium (137-145) mmol/L Chloride (98-107) mmol/L POC Glucose (mg/dL) 106 H (75-99) mg/dL C-Reactive Protein (<1.0) mg/dL Procalcitonin 1.51 H (0.02-0.09) ng/mL 11/27/20 11/27/20 11/27/20 Range/Units 04:37 04:37 12:17 WBC (3.8-10.6) k/uL RBC (4.30-5.90) m/uL Hgb (13.0-17.5) gm/dL Hct (39.0-53.0) % RDW (11.5-15.5) % Neutrophils # (1.3-7.7) k/uL Lymphocytes # (1.0-4.8) k/uL Sodium 136 L (137-145) mmol/L Chloride 111 H (98-107) mmol/L POC Glucose (mg/dL) 111 H (75-99) mg/dL C-Reactive Protein 24.6 H (<1.0) mg/dL Procalcitonin 1.11 H (0.02-0.09) ng/mL Microbiology - Last 24 Hours (Table) 11/20/20 16:47 Blood Culture - Final Blood No Growth after 144 hours
--- NOTE | 2020-11-27 15:39 | P.GSCN ---
History of Present Illness Consult date: 11/27/20 Reason for Consult: Abdominal pain, possible enteritis Requesting physician: Hung Salvador History of present illness: This is a pleasant 80-year-old male -[place] patient who presented to the hospital initially with complaints of weakness and mental status changes. Has a past medical history including school, so carcinoma head and neck which was diagnosed in 2019 and underwent radiation and chemotherapy. He is currently being treated for prostate cancer and is current radiation therapy. He also has a history of diabetes mellitus, hyperlipidemia, and hypertension. He has been recently treated for UTI. His been complaining of abdominal pain this admission which he states started about a week ago. X-ray of the abdomen shows possible enteritis, ileus. Patient states he's also having loose bowels, nonbloody. He states the pain is sharp and diffuse, however greatest in the lower abdomen and pelvic region. He had a CT of the abdomen done today within the impression stating nonspecific heterogeneous lobulated 7.9 cm pelvic mass. Worried for necrotic adenopathy as there are additional suspicious pelvic masses or lymph nodes and markedly abnormal prostate worrisome for BPH and carcinoma. Correlate clinically and with effacement values advised. Left pelvic lesion is local mass effect causing moderate left-sided hydronephrosis but no delayed excretion. Other etiologies to left pelvic lesion not excluded. There was no suspicious small or large bowel dilation. Distention of stomach and moderate gastric wall thickening. He is denying any associated nausea or vomiting, any difficulty with swallowing but does have a persistent clearing of his throat. Speech pathology has seen patient and a barium swallow study has been ordered. Chest x-ray shows mild pulmonary vascular congestion. New basilar airspace opacities and left pleural effusion. Review of Systems - Constitutional Reports weakness - EENT Eyes: denies blurred vision Ears, nose, mouth and throat: Reports hoarseness, Reports voice changes, Denies dysphagia - Cardiovascular Denies chest pain, Denies shortness of breath - Respiratory Denies cough, Denies 7 - Gastrointestinal Reports abdominal pain, Reports loss of appetite, Denies BRBPR, Denies change in bowel habits, Denies coffee ground emesis, Denies hematemesis, Denies hematochezia, Denies melena, Denies nausea, Denies vomiting - Genitourinary Reports urinary retention - Integumentary Denies rash, Denies unusual bruising - Neurological Reports weakness Past Medical History Past Medical History: Diabetes Mellitus, Hyperlipidemia, Hypertension Additional Past Medical History / Comment(s): CURRENT PROBLEM: HOARSNESS, DIFFICULTY SPEAKING CLEARLY. Hx of polyps History of Any Multi-Drug Resistant Organisms: None Reported Additional Past Surgical History / Comment(s): colonoscopy Past Anesthesia/Blood Transfusion Reactions: No Reported Reaction Additional Past Anesthesia/Blood Transfusion Reaction / Comm: NEVER HAD GENERAL ANESTHESIA Past Psychological History: No Psychological Hx Reported Smoking Status: Unknown if ever smoked Past Alcohol Use History: None Reported Additional Past Alcohol Use History / Comment(s): quit smoking approx 1996, smoked less than 1 ppd or cigars, from age 15 (1954) Past Drug Use History: None Reported - Past Family History Mother Family Medical History: No Reported History Medications and Allergies Home Medications Medication Instructions Recorded Confirmed Type Cholecalciferol [Vitamin D3] 1,000 unit PO DAILY 08/15/16 11/19/20 History Potassium Chloride [K-Tab ER] 10 meq PO QAM 08/15/16 11/19/20 History Pravastatin Sodium [Pravachol] 20 mg PO HS 08/15/16 11/19/20 History metFORMIN HCL ER [Glucophage Xr] 500 mg PO BID 08/15/16 11/19/20 History Sulfamethoxazole/Trimethoprim 1 tab PO BID 11/19/20 11/19/20 History [Sulfamethoxazole-Tmp Ds Tablet] lisinopriL [Zestril] 2.5 mg PO DAILY 11/19/20 11/19/20 History Allergies Allergy/AdvReac Type Severity Reaction Status Date / Time No Known Allergies Allergy Verified 11/19/20 15:48 Surgical - Exam Vital Signs Temp Pulse Resp BP 95.2 F L 72 18 146/104 11/19/20 15:48 11/19/20 15:48 11/19/20 15:48 11/19/20 15:48 General appearance: The patient is alert, oriented, appears in no acute distress. HET: Head is normocephalic and atraumatic. Oropharynx is clear without lesions. Neck: Supple without lymphadenopathy. Trachea midline. Heart: S1 S2. Regular rate and rhythm. Lungs: Clear to auscultation Abdomen: Soft, thin, abdominal and pelvic tenderness, nondistended with bowel sounds. No peritoneal signs. No palpable organomegaly or masses. Extremities: Normal skin color and turgor. Neurological: Alert and oriented 3 Results - Labs 11/27/20 04:37 11/27/20 04:37 Abnormal Lab Results - Last 24 Hours (Table) 11/26/20 11/26/20 11/27/20 Range/Units 12:42 17:02 04:37 WBC 25.2 H (3.8-10.6) k/uL RBC 3.71 L (4.30-5.90) m/uL Hgb 10.6 L (13.0-17.5) gm/dL Hct 34.3 L (39.0-53.0) % RDW 16.8 H (11.5-15.5) % Neutrophils # 23.4 H (1.3-7.7) k/uL Lymphocytes # 0.8 L (1.0-4.8) k/uL Sodium (137-145) mmol/L Chloride (98-107) mmol/L POC Glucose (mg/dL) 106 H (75-99) mg/dL C-Reactive Protein (<1.0) mg/dL Procalcitonin 1.51 H (0.02-0.09) ng/mL 11/27/20 11/27/20 11/27/20 Range/Units 04:37 04:37 12:17 WBC (3.8-10.6) k/uL RBC (4.30-5.90) m/uL Hgb (13.0-17.5) gm/dL Hct (39.0-53.0) % RDW (11.5-15.5) % Neutrophils # (1.3-7.7) k/uL Lymphocytes # (1.0-4.8) k/uL Sodium 136 L (137-145) mmol/L Chloride 111 H (98-107) mmol/L POC Glucose (mg/dL) 111 H (75-99) mg/dL C-Reactive Protein 24.6 H (<1.0) mg/dL Procalcitonin 1.11 H (0.02-0.09) ng/mL Microbiology - Last 24 Hours (Table) 11/20/20 16:47 Blood Culture - Final Blood No Growth after 144 hours Diabetes panel 11/27/20 Range/Units 04:37 Sodium 136 L (137-145) mmol/L Potassium 4.1 (3.5-5.1) mmol/L Chloride 111 H (98-107) mmol/L Carbon Dioxide 22 (22-30) mmol/L BUN 19 (9-20) mg/dL Creatinine 0.82 (0.66-1.25) mg/dL Glucose 85 (74-99) mg/dL Calcium 9.6 (8.4-10.2) mg/dL Calcium panel 11/27/20 Range/Units 04:37 Calcium 9.6 (8.4-10.2) mg/dL Pituitary panel 11/27/20 Range/Units 04:37 Sodium 136 L (137-145) mmol/L Potassium 4.1 (3.5-5.1) mmol/L Chloride 111 H (98-107) mmol/L Carbon Dioxide 22 (22-30) mmol/L BUN 19 (9-20) mg/dL Creatinine 0.82 (0.66-1.25) mg/dL Glucose 85 (74-99) mg/dL Calcium 9.6 (8.4-10.2) mg/dL Adrenal panel 11/27/20 Range/Units 04:37 Sodium 136 L (137-145) mmol/L Potassium 4.1 (3.5-5.1) mmol/L Chloride 111 H (98-107) mmol/L Carbon Dioxide 22 (22-30) mmol/L BUN 19 (9-20) mg/dL Creatinine 0.82 (0.66-1.25) mg/dL Glucose 85 (74-99) mg/dL Calcium 9.6 (8.4-10.2) mg/dL - Imaging CT scan - abdomen: report reviewed (nonspecific heterogeneous lobulated 7.9 cm pelvic mass. Worried for necrotic adenopathy as there are additional suspicious pelvic masses or lymph nodes and markedly abnormal prostate worrisome for BPH and carcinoma. Correlate clinically. No suspicious small or large bowel dilation. Distention of) Assessment and Plan (1) Abdominal pain Narrative/Plan: A pleasant male patient who came in to the emergency department with complaints of weakness and altered mental status changes. He is noted to have a UTI and has been treated for chronic UTI in the past. He also has a history of squamous cell carcinoma of the head and neck and currently being treated for prostate cancer with radiation. He has had complaints of increased abdominal pain for the last 1 week's duration, states actually he believes it's been since he's been getting his radiation therapy. X-ray on admission showed possible enteritis, possible ileus. Patient also states some loose bowels, C. diff and stool cultures are ordered and pending. Patient is currently on Zosyn. He had a CT of the abdomen done today which shows nonspecific heterogeneous lobulated 7.8 cm pelvic mass worried for necrotic adenopathy is there are additional suspicious pelvic masses or lymph nodes and a markedly abnormal prostate or some for BPH and carcinoma. Correlate clinically. Left pelvic lesion has local mass effect causing moderate left-sided hydronephrosis but no delayed excretion. Other etiologies to left pelvic lesion not excluded. Pain is likely related to pelvic mass and possibly related to current radiation therapy. We'll continue to follow and await recommendations from oncology. Patient is currently nothing by mouth and awaiting barium swallow study. The advance diet as tolerated from a gastroenterology standpoint if cleared by medicine. No plans for any endoscopic evaluation at this time. Current Visit: Yes Status: Acute Code(s): R10.9 - UNSPECIFIED ABDOMINAL PAIN SNOMED Code(s): 20697223 (2) Prostate CA Current Visit: Yes Status: Acute Code(s): C61 - MALIGNANT NEOPLASM OF PROSTATE SNOMED Code(s): 225185973 (3) Squamous cell carcinoma of head and neck Current Visit: Yes Status: Acute Code(s): C76.0 - MALIGNANT NEOPLASM OF HEAD, FACE AND NECK SNOMED Code(s): 558018611 (4) UTI (urinary tract infection) Current Visit: Yes Status: Acute Code(s): N39.0 - URINARY TRACT INFECTION, SITE NOT SPECIFIED SNOMED Code(s): 74050666 Plan: 1. Keep nothing by mouth for now until further workup from speech therapy 2. CT of the abdomen reviewed 3. Await recommendations from oncology 4. Please collect Stool for Clostridium difficile and stool cultures 5. No plans for endoscopic evaluation at this time 6. Protonix 40 mg daily 7. Continue IV antibiotics as ordered Thank you for consultation, we will continue to follow Dr. Gustavo Jones I agree with the dictator's note, documented as a scribe by Britni Navas.
--- NOTE | 2020-11-27 15:57 | P.PN ---
Subjective Progress Note Date: 11/27/20 This Is an 80-year-old male who was recently admitted with weakness and generalized confusion and is being closely monitored. Patient appears to be dehydrated and not eating very well with a possible urinary tract infection. Patient is continued on IV antibiotics and will follow-up on cultures. Brandie keller patient has been receiving radiation therapy at [facility] with Dr. Moser per family member Dash at the bedside who takes him to the appointments daily. Patient continues to be weak and will have PT/OT therapy evaluate the patient with the possibility of [facility] inpatient rehab and Dr. Griffith has been consulted. Case management following and working on possible placement. 11/22/2020 Patient is seen and evaluated and follow-up with family at the bedside. Patient was seen and evaluated by Dr. Griffith and being evaluated for possible [facility] inpatient rehab otherwise family is agreeable to an ECF for continued PT/OT therapy. Continues to be on IV ceftriaxone as urine cultures have finalized showing E. coli. White blood count continues to trend down at 25.1, hemoglobin is 11.0, sodium is 139 with a potassium of 3.5 and current creatinine is 1.02. A medium was replaced yesterday and is currently 2.1 today. 11/23/2020 Patient is seen in follow-up with family at the bedside another son with no acute overnight issues. . Patient was reevaluated by Dr. Griffith and currently awaiting for authorization from insurance for possible inpatient rehab at [facility]. Social Work is following and working on placement options. Patient continues on IV antibiotics in the form of ceftriaxone and we'll transition to oral antibiotics on discharge. 11/24/2020 Patient is seen in follow-up and is having some left and right lower quadrant abdominal tenderness and refusing to eat his meals this morning due to the pain. Patient also had some loose stools last night per nursing staff. Abdominal x- ray was done showing possible enteritis, ileus and patient will be placed back on nothing by mouth with ice chips and surgery consult. Performed a [id number] review with insurance company for authorization at [facility] inpatient rehab to continue with PT/OT therapy for strength and mobility along with continuing with his radiation treatments as he has been receiving at [facility] as well. Family updated. White blood count continues to be elevated at 26.6, hemoglobin is stable at 12.2 with no active bleeding noted. Patient did have an episode of loose stool and denies any blood in the stool. Sodium today is 140 with a potassium of 4.2 and current creatinine improved at 0.97. Magnesium was found to be 1.6 and will replace per protocol. Patient is afebrile and denies any shortness of breath or chest pain at this time. Will order incentive spirometer as well and instructed the patient to continue using at least 10 times every hour while awake. Patient was made nothing by mouth until surgery eval and so will continue with IV fluids at 75 ML per hour. If loose stools or diarrhea persist will obtain a specimen for C. diff. 11/25/2020 Patient is seen and evaluated resting in bed; Abdominal x-ray completed yesterday reveals possible enteritis, ileus with possible left lower lobe pneumonia; patient is afebrile but white blood count remains elevated; patient remains on IV Rocephin for UTI and remains nothing by mouth with surgery consult in place and recommending to keep patient nothing by mouth except for ice chips and continue with IV fluids and supportive care Renal function is stable We will monitor CBC and electrolytes; plan to consult ID if white blood count remains elevated 11/26/2020 patient is seen and evaluated with family members at bedside; complains of N/V Vital signs are reviewed; Lab review shows persistent upward trend of WBC, above 30 this morning; procal is elevated; lactic acid level is unremarkable Patient is currently receiving Rocephin for UTI; abdominal xray reveals enteritis; will switch to IV zosyn; monitor inflammatory markers; keep patient NPO; will consult ID and GI Will obtain CT abdomen; blood culture and Cxray. 11/27/2020 Patient is seen and evaluated in follow-up continues to have abdominal discomfort and tenderness of the left and right lower quadrants and underwent CT abdomen showing moderate diffuse subcutaneous edema and/or soft tissue anasarca with some subcutaneous foci of air in the anterior abdominal wall with a nonspecific heterogenous lobulated 7.9 cm pelvic mass with possible necrotic adenopathy as there are additional suspicious pelvic masses or lymph nodes and markedly abnormal prostate worrisome for BPH and carcinoma, left pelvic lesion has local mass effect causing moderate left-sided hydronephrosis but no delayed excretion. Urology consult along with GI consult was placed. Urology was having some difficulties with swallowing and a continued cough and was evaluated by speech and failed the bedside swallow and had a modified barium study done which he also failed showing signs of aspiration. Patient continues on IV antibiotics in the form of Zosyn and infectious disease is following. Discussed with nursing staff about obtaining stool sample as he has continued loose stools. Will keep nothing by mouth except for occasional ice chips and will need to discuss with multiple consultations following along with family about treatment plans moving forward. Count continues to be elevated at 25.2, hemoglobin is 10.6 with no bleeding noted. Sodium is 136 with a potassium of 4.1 and creatinine is normal at 0.82. CRP and pro-calcitonin is also elevated. We'll continue to monitor Accu-Cheks as patient remains nothing by mouth. Review of systems: Constitutional: reports of fatigue, no reports of fever, or chills Cardiovascular: No reports of chest pain or palpitations Respiratory: No reports of shortness of breath or cough GI: reports of nausea, no vomiting, reports loose stools : No reports of dysuria or retention Neurovascular: reports generalized weakness Objective - Vital Signs Vital signs: Vital Signs Temp 98.7 F 11/27/20 04:40 Pulse 80 11/27/20 04:40 Resp 16 11/27/20 04:40 BP 142/79 11/27/20 04:40 Pulse Ox 98 11/27/20 04:40 Intake & Output 11/26/20 11/27/20 11/27/20 18:59 06:59 18:59 Intake Total 1050 Output Total 3 Balance 1050 -3 Intake: Intake, IV Titration 1050 Amount Dextrose 5% in Water 1, 900 000 ml @ 75 mls/hr IV . [id number] NATALIYA Rx#:[id number] Piperacillin-Tazobactam 3 100 .375 gm In Sodium Chloride 0.9% 100 ml @ 25 mls/hr IVPB Q8HR NATALIYA Rx# :[id number] 1 gm In 50 Sodium Chloride 0.9% 50 ml @ 100 mls/hr IVPB Q24HR NATALIYA Rx#:[id number] Output: Stool 3 Other: Voiding Method Urinal Urinal Urinal Diaper Diaper Diaper Incontinent Incontinent Incontinent # Voids 3 3 - Exam Gen: This is a 80-year-old male sitting up in bed awake, alert and oriented 2-3, thin built. HEENT: Head is atraumatic, normocephalic. Pupils equal, round. Sclerae is anicteric. NECK: Supple. No JVD. No lymphadenopathy. No thyromegaly. LUNGS: Breath sounds diminished bilaterally with no wheezing or rhonchi noted No intercostal retractions. HEART: S1, S2 are muffled ABDOMEN: Soft. Bowel sounds are present. No masses. Mild tenderness noted of left and right lower quadrant on palpation. EXTREMITIES: No pedal edema. No calf tenderness. NEUROLOGICAL: Patient is awake, alert and oriented x2-3. Periods of confusion. Diffusely weak. - Labs CBC & Chem 7: 11/27/20 04:37 11/27/20 04:37 Labs: Abnormal Lab Results - Last 24 Hours (Table) 11/26/20 11/26/20 11/26/20 Range/Units 11:52 12:42 12:42 WBC 30.6 H (3.8-10.6) k/uL RBC 3.59 L (4.30-5.90) m/uL Hgb 10.2 L (13.0-17.5) gm/dL Hct 33.0 L (39.0-53.0) % RDW 17.0 H (11.5-15.5) % Neutrophils # 28.7 H (1.3-7.7) k/uL Lymphocytes # 0.6 L (1.0-4.8) k/uL Eosinophils # 0.8 H (0-0.7) k/uL Sodium (137-145) mmol/L Chloride 111 H (98-107) mmol/L Glucose 119 H (74-99) mg/dL POC Glucose (mg/dL) 112 H (75-99) mg/dL C-Reactive Protein (<1.0) mg/dL Procalcitonin (0.02-0.09) ng/mL 11/26/20 11/26/20 11/27/20 Range/Units 12:42 17:02 04:37 WBC 25.2 H (3.8-10.6) k/uL RBC 3.71 L (4.30-5.90) m/uL Hgb 10.6 L (13.0-17.5) gm/dL Hct 34.3 L (39.0-53.0) % RDW 16.8 H (11.5-15.5) % Neutrophils # 23.4 H (1.3-7.7) k/uL Lymphocytes # 0.8 L (1.0-4.8) k/uL Eosinophils # (0-0.7) k/uL Sodium (137-145) mmol/L Chloride (98-107) mmol/L Glucose (74-99) mg/dL POC Glucose (mg/dL) 106 H (75-99) mg/dL C-Reactive Protein (<1.0) mg/dL Procalcitonin 1.51 H (0.02-0.09) ng/mL 11/27/20 11/27/20 Range/Units 04:37 04:37 WBC (3.8-10.6) k/uL RBC (4.30-5.90) m/uL Hgb (13.0-17.5) gm/dL Hct (39.0-53.0) % RDW (11.5-15.5) % Neutrophils # (1.3-7.7) k/uL Lymphocytes # (1.0-4.8) k/uL Eosinophils # (0-0.7) k/uL Sodium 136 L (137-145) mmol/L Chloride 111 H (98-107) mmol/L Glucose (74-99) mg/dL POC Glucose (mg/dL) (75-99) mg/dL C-Reactive Protein 24.6 H (<1.0) mg/dL Procalcitonin 1.11 H (0.02-0.09) ng/mL Microbiology - Last 24 Hours (Table) 11/20/20 16:47 Blood Culture - Final Blood No Growth after 144 hours Assessment and Plan Assessment: Acute urinary tract infection with sepsis, present on admission Change in mental status, acute metabolic encephalopathy, present on admission Possible gastroenteritis versus possible ileus as noted on x-ray Possible aspiration as noted on swallow study Abdominal pain Acute renal failure with acute tubular necrosis, improved Increased white count Anemia Hyperkalemia, improved elevated plasma lactic acid, improved hypercalcemia diabetes mellitus type 2 Hypertension Hyperlipidemia history of colonoscopy Full code Recommendations and discussion: Recommend continue with IV antibiotics in the form of Zosyn as cultures have finalized showing E. coli. Continue to monitor blood sugars and Accu-Cheks before meals and at bedtime. Oncology has been consulted although patient follows with dr. Rodrigo Brasher with radiation therapy per family at the bedside. Discussed the case with oncology and a call was placed to Dr. Moser who is well known to the patient as he was receiving radiation therapy for the prostate. PT/OT following the patient as he continues to be weak. [id number] with insurance was done for approval of authorization to [facility] inpatient rehab as once patient is evaluated by surgery and medically stable will go to [facility] inpatient rehab for continued therapy for strength and mobility. Patient will continue with nothing by mouth except for occasional ice chips as he has continued abdominal pain and was evaluated by speech therapy and failed bedside swallow and underwent modified barium swallow which she is minimally aspirating and showing signs of aspiration with all liquids and we will need to discuss with family along with medical consultations about treatment plans moving forward and possible PEG tube placement. Prognosis remains guarded.
--- NOTE | 2020-11-27 16:01 | FL ---
EXAMINATION TYPE: FL barium swallow w video DATE OF EXAM: 11/27/2020 MODIFIED SWALLOW / DEGLUTITION STUDY CLINICAL HISTORY: Dysphagia. History of throat cancer. Rule out aspiration. TECHNIQUE: Deglutition study is performed utilizing thin liquid barium, honey and nectar thick liqui d barium, barium thick applesauce, and barium coated cracker. 3 minutes 30 seconds of fluoro time an d 0 images obtained. COMPARISON: CT neck September 16, 2018. FINDINGS: The oral and pharyngeal phases show satisfactory initiation with all modalities tested. The re is poor epiglottis inversion noted. Satisfactory mastication is seen with solid modalities tested. There is aspiration with thin liquid barium, honey and nectar thick liquid barium which patient silverio ntually has cough reflex. No improvement with chin tuck procedure. Barium thick applesauce shows sile nt aspiration. Moderate pharyngeal residuals were appreciated with more viscous modalities. There is moderate to severe spurring and disc space narrowing C4-C5 and C5-C6 levels incidentally noted. IMPRESSION: Multiple episodes of aspiration with different modalities tested. Poor propagation. Please refer to speech therapist notes for further details if necessary.
[2020-11-27 17:17] LABS: Glucose,Whole Blood 91 mg/dL (75-99)
--- NOTE | 2020-11-27 18:26 | P.PN ---
Subjective Progress Note Date: 11/27/20 Principal diagnosis: UTI, sepsis. Prostate cancer, receiving radiation. follow-up today patient has complaints of some right lower quadrant discomfort, associated with diarrhea, he denies abdominal cramping, mucous, blood, nausea or vomiting, or fevers. His daughter is at the bedside. Objective - Vital Signs Vital signs: Vital Signs Temp 98 F 11/27/20 11:45 Pulse 81 11/27/20 11:45 Resp 18 11/27/20 11:45 BP 148/70 11/27/20 11:45 Pulse Ox 98 11/27/20 11:45 Intake & Output 11/26/20 11/27/20 11/27/20 18:59 06:59 18:59 Intake Total 1050 Output Total 3 Balance 1050 -3 Weight 68.039 kg Intake: Intake, IV Titration 1050 Amount Dextrose 5% in Water 1, 900 000 ml @ 75 mls/hr IV . [id number] NATALIYA Rx#:[id number] Piperacillin-Tazobactam 3 100 .375 gm In Sodium Chloride 0.9% 100 ml @ 25 mls/hr IVPB Q8HR NATALIYA Rx# :[id number] cefTRIAXone 1 gm In 50 Sodium Chloride 0.9% 50 ml @ 100 mls/hr IVPB Q24HR NATALIYA Rx#:[id number] Output: Stool 3 Other: Voiding Method Urinal Urinal Urinal Diaper Diaper Diaper Incontinent Incontinent Incontinent # Voids 3 3 2 - Constitutional General appearance: Present: cooperative, no acute distress, thin - EENT Eyes: Present: anicteric sclerae, EOMI ENT: Present: hearing grossly normal - Respiratory Respiratory: bilateral: CTA - Cardiovascular Heart sounds: normal: S1, S2 - Peripheral edema leg Peripheral Edema: bilateral: 1+, Pitting - Gastrointestinal General gastrointestinal: Present: soft Localized gastrointestinal: tender: RLQ - Integumentary Integumentary: Present: normal - Musculoskeletal Musculoskeletal: Present: generalized weakness - Psychiatric Psychiatric: Present: A&O x's 3, appropriate affect, intact judgment & insight - Labs CBC & Chem 7: 11/27/20 04:37 11/27/20 04:37 Labs: Abnormal Lab Results - Last 24 Hours (Table) 11/26/20 11/27/20 11/27/20 Range/Units 12:42 04:37 04:37 WBC 25.2 H (3.8-10.6) k/uL RBC 3.71 L (4.30-5.90) m/uL Hgb 10.6 L (13.0-17.5) gm/dL Hct 34.3 L (39.0-53.0) % RDW 16.8 H (11.5-15.5) % Neutrophils # 23.4 H (1.3-7.7) k/uL Lymphocytes # 0.8 L (1.0-4.8) k/uL Sodium 136 L (137-145) mmol/L Chloride 111 H (98-107) mmol/L POC Glucose (mg/dL) (75-99) mg/dL C-Reactive Protein 24.6 H (<1.0) mg/dL Procalcitonin 1.51 H (0.02-0.09) ng/mL 11/27/20 11/27/20 Range/Units 04:37 12:17 WBC (3.8-10.6) k/uL RBC (4.30-5.90) m/uL Hgb (13.0-17.5) gm/dL Hct (39.0-53.0) % RDW (11.5-15.5) % Neutrophils # (1.3-7.7) k/uL Lymphocytes # (1.0-4.8) k/uL Sodium (137-145) mmol/L Chloride (98-107) mmol/L POC Glucose (mg/dL) 111 H (75-99) mg/dL C-Reactive Protein (<1.0) mg/dL Procalcitonin 1.11 H (0.02-0.09) ng/mL Microbiology - Last 24 Hours (Table) 11/20/20 16:47 Blood Culture - Final Blood No Growth after 144 hours - Imaging and Cardiology CT scan - abdomen: report reviewed CT scan - pelvis: report reviewed Assessment and Plan (1) Prostate CA Narrative/Plan: Discussed the case with Radiation Oncology. Patient has had 3 treatments so far. Have asked for Rad Onc review the current CT of the abdomen and pelvis because, the size of the pelvic mass sounds very similar to earlier scan. Pending that review, will follow-up with that assessment and report opinion. Patient saw Dr. Waterman in the past but, during covid, not sure how often he was s een by Urology. Patient has more recently been seen by Dr. Olivas. I believe that the patient had firmagon and had an injection maybe in August or September. We'll try to collaborate with Urology, formal consult, if needed, will be placed. Pending stool studies for diarrhea. Patient has been on antibiotics, possibly C. difficile or radiation colitis-though not as likely has pt has had so few ramonita atment. Surgery has seen the patient and is awaiting infection testing and barium. Barium swallow was completed by the end of the day. Unfortunately, showing aspiration. Pending speech pathology's recommendations for intake. I did talk with patient's daughter. We will keep in contact about the recommendations from the multiple Physicians caring for her father. Case discussed in detailwith Internal Medicine. Current Visit: Yes Status: Chronic Priority: High Code(s): C61 - MALIGNANT NEOPLASM OF PROSTATE SNOMED Code(s): 101636885 (2) Diarrhea Narrative/Plan: pending stool studies Current Visit: Yes Status: Acute Priority: High Code(s): R19.7 - DIARRHEA, UNSPECIFIED SNOMED Code(s): 48551298 (3) Abdominal pain Narrative/Plan: CT of the abdomen and pelvis nothing specific called out. Surgery has seen patient. 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
[2020-11-27 20:08] LABS: Glucose,Whole Blood 89 mg/dL (75-99)
[2020-11-27] MEDS: PRAVASTATIN SODIUM 20 MG TAB PO SCH (21:43)
--- NOTE | 2020-11-27 22:49 | PN ---
PROGRESS NOTE DATE OF SERVICE: 11/27/2020 REASON FOR FOLLOWUP: Leukocytosis/sepsis. INTERVAL HISTORY: The patient was seen on rounds this morning. The patient has been afebrile. Still complaining of some lower abdominal pain. No chest pain, shortness of breath or cough now, and no further diarrhea have been reported. PHYSICAL EXAMINATION: Blood pressure 144/72 with a pulse of 52, temperature 98.3. He is 97% on room air. General description is an elderly male lying in bed in no distress. RESPIRATORY SYSTEM: Unlabored breathing. Clear to auscultation anteriorly. HEART: S1, S2. Regular rate and rhythm. ABDOMEN: Soft. No tenderness. LABS: Hemoglobin is 10.6, white count 25.2, BUN of 19, creatinine 0.82. DIAGNOSTIC IMPRESSION AND PLAN: Patient with elevated white count which is multifactorial in this patient with a component of thrush with evidence of a necrotic tumor or lymph node to the pelvic area in a patient with a history of prostatic cancer. The patient's white count has shown a downward trend. Patient will be continued on the Diflucan and Zosyn. Will monitor his clinical course closely. Continue with supportive care. MMODL / IJN: [id number] /
[2020-11-28] MEDS: FLUCONAZOLE IN NACL,ISO-OSM 200 MG in SALINE 1 100ML.BAG IVPB SCH ×2 (00:09→10:27)
[2020-11-28] MEDS: PIPERACILLIN-TAZOBACTAM 3.375 GM in SODIUM CHLORIDE 0.9% 100 ML IVPB SCH ×4 (00:09→22:05)
[2020-11-28] MEDS: DEXTROSE 5% IN WATER 1,000 ML IV SCH ×2 (00:10→13:55)
[2020-11-28 00:55] LABS: Glucose,Whole Blood 95 mg/dL (75-99)
[2020-11-28 07:14] LABS: Glucose,Whole Blood 100 mg/dL (75-99)
[2020-11-28] MEDS: CHOLECALCIFEROL 25 MCG (1000 IU) TABLET PO SCH (07:43)
[2020-11-28] MEDS: PANTOPRAZOLE 40 MG TABLET PO SCH (07:43)
[2020-11-28] MEDS: HEPARIN SODIUM,PORCINE/PF 5,000 UNIT/0.5 ML SYRINGE SQ SCH ×2 (07:43→22:06)
[2020-11-28] MEDS: BICALUTAMIDE 50 MG TAB PO SCH (07:43)
--- NOTE | 2020-11-28 09:16 | P.GSCN ---
History of Present Illness Consult date: 11/27/20 Reason for Consult: Pelvic mass Requesting physician: Tamika Esqueda History of present illness: The patient is an 80-year-old white male with a history of prostate cancer diagnosed in January 2015. The Misty score was 8, and the PSA level at that time was 468.4. He was treated with androgen deprivation therapy, and his PSA level reached a molly of 4.19 in October 2016. His care has been assumed by Dr. Mathur, who saw him in September 2020 at which time his PSA and testosterone levels were 658.69 and 494, respectively. Androgen deprivation therapy was renewed. He received Firmagon 240 mg on 10/06/2020 but failed to keep his follow-up appointment. Review of Systems - Constitutional Reports weight loss - Gastrointestinal Reports abdominal pain - Genitourinary Reports dysuria, Reports hematuria Past Medical History Past Medical History: Diabetes Mellitus, Hyperlipidemia, Hypertension Additional Past Medical History / Comment(s): CURRENT PROBLEM: HOARSNESS, DIFFICULTY SPEAKING CLEARLY. Hx of polyps History of Any Multi-Drug Resistant Organisms: None Reported Additional Past Surgical History / Comment(s): colonoscopy Past Anesthesia/Blood Transfusion Reactions: No Reported Reaction Additional Past Anesthesia/Blood Transfusion Reaction / Comm: NEVER HAD GENERAL ANESTHESIA Past Psychological History: No Psychological Hx Reported Smoking Status: Unknown if ever smoked Past Alcohol Use History: None Reported Additional Past Alcohol Use History / Comment(s): quit smoking approx 1996, smoked less than 1 ppd or cigars, from age 15 (1954) Past Drug Use History: None Reported - Past Family History Mother Family Medical History: No Reported History Medications and Allergies Home Medications Medication Instructions Recorded Confirmed Type Cholecalciferol [Vitamin D3] 1,000 unit PO DAILY 08/15/16 11/19/20 History Potassium Chloride [K-Tab ER] 10 meq PO QAM 08/15/16 11/19/20 History Pravastatin Sodium [Pravachol] 20 mg PO HS 08/15/16 11/19/20 History metFORMIN HCL ER [Glucophage Xr] 500 mg PO BID 08/15/16 11/19/20 History Sulfamethoxazole/Trimethoprim 1 tab PO BID 11/19/20 11/19/20 History [Sulfamethoxazole-Tmp Ds Tablet] lisinopriL [Zestril] 2.5 mg PO DAILY 11/19/20 11/19/20 History Allergies Allergy/AdvReac Type Severity Reaction Status Date / Time No Known Allergies Allergy Verified 11/19/20 15:48 Surgical - Exam Vital Signs Temp Pulse Resp BP 95.2 F L 72 18 146/104 11/19/20 15:48 11/19/20 15:48 11/19/20 15:48 11/19/20 15:48 - General well developed, well nourished, no distress - Neck no masses, trachea midline - Abdomen Soft, diffuse tenderness, non-distended, no mass, no guarding, no rebound. - Genitourinary normal penis with no external lesions, testicles non-tender - Psychiatric oriented to time, oriented to person, oriented to place, speech is normal, memory intact Results - Labs 11/27/20 04:37 11/27/20 04:37 Abnormal Lab Results - Last 24 Hours (Table) 11/26/20 11/27/20 11/27/20 Range/Units 12:42 04:37 04:37 WBC 25.2 H (3.8-10.6) k/uL RBC 3.71 L (4.30-5.90) m/uL Hgb 10.6 L (13.0-17.5) gm/dL Hct 34.3 L (39.0-53.0) % RDW 16.8 H (11.5-15.5) % Neutrophils # 23.4 H (1.3-7.7) k/uL Lymphocytes # 0.8 L (1.0-4.8) k/uL Sodium 136 L (137-145) mmol/L Chloride 111 H (98-107) mmol/L POC Glucose (mg/dL) (75-99) mg/dL C-Reactive Protein 24.6 H (<1.0) mg/dL Procalcitonin 1.51 H (0.02-0.09) ng/mL 11/27/20 11/27/20 Range/Units 04:37 12:17 WBC (3.8-10.6) k/uL RBC (4.30-5.90) m/uL Hgb (13.0-17.5) gm/dL Hct (39.0-53.0) % RDW (11.5-15.5) % Neutrophils # (1.3-7.7) k/uL Lymphocytes # (1.0-4.8) k/uL Sodium (137-145) mmol/L Chloride (98-107) mmol/L POC Glucose (mg/dL) 111 H (75-99) mg/dL C-Reactive Protein (<1.0) mg/dL Procalcitonin 1.11 H (0.02-0.09) ng/mL Microbiology - Last 24 Hours (Table) 11/20/20 16:47 Blood Culture - Final Blood No Growth after 144 hours Diabetes panel 11/27/20 Range/Units 04:37 Sodium 136 L (137-145) mmol/L Potassium 4.1 (3.5-5.1) mmol/L Chloride 111 H (98-107) mmol/L Carbon Dioxide 22 (22-30) mmol/L BUN 19 (9-20) mg/dL Creatinine 0.82 (0.66-1.25) mg/dL Glucose 85 (74-99) mg/dL Calcium 9.6 (8.4-10.2) mg/dL Calcium panel 11/27/20 Range/Units 04:37 Calcium 9.6 (8.4-10.2) mg/dL Pituitary panel 11/27/20 Range/Units 04:37 Sodium 136 L (137-145) mmol/L Potassium 4.1 (3.5-5.1) mmol/L Chloride 111 H (98-107) mmol/L Carbon Dioxide 22 (22-30) mmol/L BUN 19 (9-20) mg/dL Creatinine 0.82 (0.66-1.25) mg/dL Glucose 85 (74-99) mg/dL Calcium 9.6 (8.4-10.2) mg/dL Adrenal panel 11/27/20 Range/Units 04:37 Sodium 136 L (137-145) mmol/L Potassium 4.1 (3.5-5.1) mmol/L Chloride 111 H (98-107) mmol/L Carbon Dioxide 22 (22-30) mmol/L BUN 19 (9-20) mg/dL Creatinine 0.82 (0.66-1.25) mg/dL Glucose 85 (74-99) mg/dL Calcium 9.6 (8.4-10.2) mg/dL - Imaging CT scan - pelvis: report reviewed, image reviewed Assessment and Plan (1) Prostate CA Current Visit: Yes Status: Chronic Priority: High Code(s): C61 - MALIGNANT NEOPLASM OF PROSTATE SNOMED Code(s): 809836612 Plan: In summary, the patient is an 80-year-old male with advanced prostate cancer. A bone scan in August 2020 showed no osseous metastases. As stated, his PSA level was 659 in August 2020, and he subsequently received a single Firmagon injection. I have ordered PSA and testosterone levels, and bicalutamide 50 mg has been ordered. Once he has received this, it would be my suggestion that he be given a Lupron injection. The CT scan shows an 8 cm heterogenous left pelvic mass, which may represent necrotic nodes. There is also evidence of mild left hydronephrosis. This is an extremely unusual finding and I have no thoughts as to the optimal way of managing this. I do not feel that he would benefit from ureteral stent placement, as he denies flank pain and his serum creatinine level is normal. Time with Patient: Greater than 30
[2020-11-28 11:05] LABS: Glucose,Whole Blood 72 mg/dL (75-99)
--- NOTE | 2020-11-28 11:41 | PN ---
PROGRESS NOTE DATE OF SERVICE: 11/28/2020. REASON FOR FOLLOWUP: Leukocytosis. INTERVAL HISTORY: The patient is currently afebrile. Patient is breathing comfortably. She is slightly more awake and alert today. No chest pain or cough. Denies any abdominal pain or diarrhea. PHYSICAL EXAMINATION: Blood pressure 129/58 with a pulse of 59, temperature 97.7. He is 97% on room air. General description is an elderly male lying in bed in no distress. RESPIRATORY SYSTEM: Unlabored breathing, clear to auscultation anteriorly. HEART: S1, S2. Regular rate and rhythm. ABDOMEN: Soft, no tenderness. LABS: No new labs have been obtained today. DIAGNOSTIC IMPRESSION AND PLAN: Patient with leukocytosis, likely multifactorial in this patient who did have oral thrush plus minus a necrotic tumor or lymph node in his pelvic area with history of prostate cancer. Urology has seen the patient. Patient is to continue the Diflucan and Zosyn and monitor clinical course closely. MMODL / IJN: [id number] /
--- NOTE | 2020-11-28 13:15 | P.PN ---
Subjective Progress Note Date: 11/28/20 Principal diagnosis: Possible enteritis Is a pleasant 80-year-old -[place] Citizen male patient who presented to the hospital initially with complaints of weakness and mental status changes. He has a past medical history including squamous cell head and neck carcinoma in 2019 where he underwent radiation and chemotherapy. He is currently being treated for prostate cancer with radiation treatment. He is complaining of lower abdominal pain is well as loose stools. Clostridium difficile stool as well as stool culture have been ordered but uncollected. The patient also un derwent a swallowing evaluation yesterday for which he is high risk for aspiration and had poor propagation. Oncology as well as urology or following patient. CT of the abdomen reviewed yesterday with a noted 7.9 cm pelvic mass. Today the patientdenies diarrhea today and abdominal pain remains in the lower pelvis. He denies any nausea or vomiting. Objective - Vital Signs Vital signs: Vital Signs Temp 97.7 F 11/28/20 11:25 Pulse 53 L 11/28/20 11:25 Resp 18 11/28/20 11:25 BP 145/74 11/28/20 11:25 Pulse Ox 96 11/28/20 11:25 Intake & Output 11/27/20 11/28/20 11/28/20 18:59 06:59 18:59 Weight 68.039 kg Other: Voiding Method Urinal Urinal Urinal Diaper Diaper Diaper Incontinent Incontinent Incontinent # Voids 2 2 1 - Exam General appearance: The patient is alert, oriented, appears in no acute distress. HET: Head is normocephalic and atraumatic. Conjunctiva pink. Sclera anicteric. Neck: Supple without lymphadenopathy. Abdomen: Soft, pelvic and lower abdominal tenderness, nondistended with bowel sounds. No guarding or rigidity. Extremities: Normal skin color and turgor. No pedal edema Skin: No rashes, no jaundice Neurological: No focal deficits. Alert and oriented 3. - Labs CBC & Chem 7: 11/27/20 04:37 11/27/20 04:37 Labs: Abnormal Lab Results - Last 24 Hours (Table) 11/28/20 11/28/20 Range/Units 07:12 11:03 POC Glucose (mg/dL) 100 H 72 L (75-99) mg/dL Assessment and Plan (1) Abdominal pain Narrative/Plan: A pleasant male patient who came in to the emergency department with complaints of weakness and altered mental status changes. He is noted to have a UTI and has been treated for chronic UTI in the past. He also has a history of squamous cell carcinoma of the head and neck and currently being treated for prostate cancer with radiation. He has had complaints of increased abdominal pain for the last 1 week's duration, states actually he believes it's been since he's been getting his radiation therapy. X-ray on admission showed possible enteritis, possible ileus. Patient also states some loose bowels, C. diff and stool cultures are ordered and pending. Patient is currently on Zosyn. He had a CT of the abdomen done today which shows nonspecific heterogeneous lobulated 7.8 cm pelvic mass worried for necrotic adenopathy is there are additional suspicious pelvic masses or lymph nodes and a markedly abnormal prostate or some for BPH and carcinoma. Correlate clinically. Left pelvic lesion has local mass effect causing moderate left-sided hydronephrosis but no delayed excretion. Other etiologies to left pelvic lesion not excluded. Pain is likely related to pelvic mass and possibly related to current radiation therapy. We'll continue to follow and await recommendations from oncology. Patient is currently nothing by mouth and awaiting barium swallow study. The advance diet as tolerated from a gastroenterology standpoint if cleared by medicine. No plans for any endoscopic evaluation at this time. Current Visit: Yes Status: Acute Priority: High Code(s): R10.9 - UNSPECIFIED ABDOMINAL PAIN SNOMED Code(s): 39735976 (2) Prostate CA Current Visit: Yes Status: Chronic Priority: High Code(s): C61 - MALIGNANT NEOPLASM OF PROSTATE SNOMED Code(s): 820135716 (3) Squamous cell carcinoma of head and neck Current Visit: No Status: Chronic Priority: Low Code(s): C76.0 - MALIGNANT NEOPLASM OF HEAD, FACE AND NECK SNOMED Code(s): 372949775 (4) UTI (urinary tract infection) Current Visit: Yes Status: Acute Code(s): N39.0 - URINARY TRACT INFECTION, SITE NOT SPECIFIED SNOMED Code(s): 16732383 Plan: 1. Keep nothing by mouth 2. CT of the abdomen reviewed 3. Await recommendations from oncology 4. Please collect Stool for Clostridium difficile and stool cultures 5. No plans for endoscopic evaluation at this time 6. Protonix 40 mg daily 7. Continue IV antibiotics as ordered 8. Gen. surgery scheduled to do EGD with PEG tube placement on Thank you for consultation, we will continue to follow Dr. Gustavo Jones I agree with the dictator's note, documented as a scribe by Britni Navas.
--- NOTE | 2020-11-28 14:28 | P.PN ---
Subjective Progress Note Date: 11/28/20 Principal diagnosis: UTI, sepsis. Prostate cancer, receiving radiation. Persistent RLQ pain, no progressive, no BM to collect specimen for reported diarrhea, pt failed swallow evaluation, has not ate much for the week prior. No reported abdominal cramping, nausea, vomiting, or fevers. His daughter is at the bedside. Objective - Vital Signs Vital signs: Vital Signs Temp 97.7 F 11/28/20 11:25 Pulse 53 L 11/28/20 11:25 Resp 18 11/28/20 11:25 BP 145/74 11/28/20 11:25 Pulse Ox 96 11/28/20 11:25 Intake & Output 11/27/20 11/28/20 11/28/20 18:59 06:59 18:59 Weight 68.039 kg Other: Voiding Method Urinal Urinal Urinal Diaper Diaper Diaper Incontinent Incontinent Incontinent # Voids 2 2 1 - Constitutional General appearance: Present: cooperative, no acute distress, thin - EENT Eyes: Present: anicteric sclerae, EOMI ENT: Present: hearing grossly normal, normal oropharynx - Respiratory Respiratory: bilateral: CTA - Cardiovascular Rhythm: regular Heart sounds: normal: S1, S2 Abnormal Heart Sounds: Absent: systolic murmur, diastolic murmur, rub, S3 Gallop, S4 Gallop, click, other - Peripheral edema foot Peripheral Edema: bilateral: 1+ - Gastrointestinal Gastrointestinal Comment(s): rt lower quad/inguinal area pain with palpation, no rebound or rigidity, no adenopathy. There is a fullness to the area not apparent on the right side General gastrointestinal: Present: soft, tenderness Localized gastrointestinal: tender: RLQ - Neurologic Neurologic Comment(s): BLE weakness, R>L - Musculoskeletal Musculoskeletal: Present: generalized weakness - Psychiatric Psychiatric: Present: A&O x's 3, appropriate affect, intact judgment & insight - Labs CBC & Chem 7: 11/27/20 04:37 11/27/20 04:37 Labs: Abnormal Lab Results - Last 24 Hours (Table) 11/27/20 11/28/20 11/28/20 Range/Units 12:17 07:12 11:03 POC Glucose (mg/dL) 111 H 100 H 72 L (75-99) mg/dL Assessment and Plan (1) Prostate CA Narrative/Plan: Discussed the case with Radiation Oncology this AM. Recent CT compared with previous scans, mass is similar-no better, no worse. Reviewed pt current condition with and recommendation is for pt to rehabilitate and see Dr. Howard in 2 weeks for examination and evaluate if ok to resume XRT. Reviewed Urology notes. Pt started on Casodex, firmagon given last mo, plans to cont on lupron. Pending stool studies for diarrhea, none since orders placed for stool studies. Oral intake has been very poor-swallow eval shows aspiration, pt is NPO. Case discussed with Attending. Recommend PEG for feed as pt unable to swallow without aspiration. Pt has Hx of head/neck ca with XRT so, likely scar tissue causing dysphagia. Surgery or GI will be asked to place PEG if pt desires. All of the above discussed with daughter. They will make decision re: PEG. Hopeful that pt can still qualifies for inpt rehab. Radiation is going to be on hold for now. Also, we discussed that if pt is unable to rehab to independence he will likely require penitentiary residency. All questions and concerns addressed to the best of my ability. Current Visit: Yes Status: Chronic Priority: High Code(s): C61 - MALIGNANT NEOPLASM OF PROSTATE SNOMED Code(s): 876738870 (2) Diarrhea Narrative/Plan: No episodes of diarrhea, await stool collection and stool studies if appropriate Current Visit: Yes Status: Acute Priority: High Code(s): R19.7 - DIARRHEA, UNSPECIFIED SNOMED Code(s): 39632230 (3) Abdominal pain Narrative/Plan: CT of the abdomen and pelvis nothing specific called out that would explain RLQ pain. Surgery has seen patient, medical mgmt for now. ? if pelvic mass compressing any nerves. Reviewed MAR-pt has taken nothing for pain, will ask RN to give some tylenol. 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 Did review case with treating Rad Onc and Med Onc. CT neck with contrast. Could see ENT outpt for visual evaluation Current Visit: No Status: Chronic Priority: Low Code(s): C76.0 - MALIGNANT NEOPLASM OF HEAD, FACE AND NECK SNOMED Code(s): 413543726
--- NOTE | 2020-11-28 14:42 | P.PN ---
Subjective Progress Note Date: 11/28/20 CHIEF COMPLAINT: Abdominal pain HISTORY OF PRESENT ILLNESS: This is a 80-year-old male with a known past medical history of squamous cell carcinoma of neck and history of prostate cancer. Patient is complaining of right lower abdominal pain. Infectious diseases following in regards to leukocytosis and they have ordered a computed tomography scan of the abdomen and pelvis. Patient's diarrhea is resolved. In fact he reports no bowel movement and no nausea or vomiting. Afebrile. White count has come down from 30.1-25.2. Computed tomography scan abdomen and pelvis shows nonspecific heterogenesis lobulated 7.9 cm pelvic mass. Radiologist is worried for necrotic adenopathy as they're R additional suspicious pelvic masses or lymph nodes and markedly abnormal prostate worrisome for BPH and carcinoma. Left pelvic lesion has local mass effect causing moderate left-sided hydronephrosis but no delayed excretion. Other etiologies to left pelvic lesion not excluded. Patient failed his swallow evaluation and medicine services requesting PEG tube placement. Patient seen and examined with Dr. kirby PHYSICAL EXAM: VITAL SIGNS: Reviewed. GENERAL: Well-developed in no acute distress. HEENT: No sclera icterus. Extraocular movements grossly intact. Moist buccal mucosa. Head is atraumatic, normocephalic. ABDOMEN: Soft. Nondistended. Tenderness right lower abdomen NEUROLOGIC: Alert and oriented. Cranial nerves II through XII grossly intact. ASSESSMENT: 1. Abdominal pain 2. Pelvic mass that may represent necrotic nodes. Followed by urology. 3. Possible gastroenteritis 4. Dysphagia and failed swallow evaluation PLAN: -Patient scheduled for PEG tube placement on , 11/30/[address] Kirby -Continue supportive care Physician Adventure Therapist note has been reviewed by physician. Signing provider agrees with the documented findings, assessment, and plan of care. Objective - Vital Signs Vital signs: Vital Signs Temp 97.7 F 11/28/20 11:25 Pulse 53 L 11/28/20 11:25 Resp 18 11/28/20 11:25 BP 145/74 11/28/20 11:25 Pulse Ox 96 11/28/20 11:25 Intake & Output 11/27/20 11/28/20 11/28/20 18:59 06:59 18:59 Weight 68.039 kg Other: Voiding Method Urinal Urinal Urinal Diaper Diaper Diaper Incontinent Incontinent Incontinent # Voids 2 2 1 - Labs CBC & Chem 7: 11/27/20 04:37 11/27/20 04:37 Labs: Abnormal Lab Results - Last 24 Hours (Table) 11/28/20 11/28/20 Range/Units 07:12 11:03 POC Glucose (mg/dL) 100 H 72 L (75-99) mg/dL
--- NOTE | 2020-11-28 15:15 | P.PN ---
Subjective Progress Note Date: 11/28/20 This Is an 80-year-old male who was recently admitted with weakness and generalized confusion and is being closely monitored. Patient appears to be dehydrated and not eating very well with a possible urinary tract infection. Patient is continued on IV antibiotics and will follow-up on cultures. Brandie keller patient has been receiving radiation therapy at [facility] with Dr. Moser per family member Dash at the bedside who takes him to the appointments daily. Patient continues to be weak and will have PT/OT therapy evaluate the patient with the possibility of [facility] inpatient rehab and Dr. Griffith has been consulted. Case management following and working on possible placement. 11/22/2020 Patient is seen and evaluated and follow-up with family at the bedside. Patient was seen and evaluated by Dr. Griffith and being evaluated for possible [facility] inpatient rehab otherwise family is agreeable to an ECF for continued PT/OT therapy. Continues to be on IV ceftriaxone as urine cultures have finalized showing E. coli. White blood count continues to trend down at 25.1, hemoglobin is 11.0, sodium is 139 with a potassium of 3.5 and current creatinine is 1.02. A medium was replaced yesterday and is currently 2.1 today. 11/23/2020 Patient is seen in follow-up with family at the bedside another son with no acute overnight issues. . Patient was reevaluated by Dr. Griffith and currently awaiting for authorization from insurance for possible inpatient rehab at [facility]. Social Work is following and working on placement options. Patient continues on IV antibiotics in the form of ceftriaxone and we'll transition to oral antibiotics on discharge. 11/24/2020 Patient is seen in follow-up and is having some left and right lower quadrant abdominal tenderness and refusing to eat his meals this morning due to the pain. Patient also had some loose stools last night per nursing staff. Abdominal x- ray was done showing possible enteritis, ileus and patient will be placed back on nothing by mouth with ice chips and surgery consult. Performed a [id number] review with insurance company for authorization at [facility] inpatient rehab to continue with PT/OT therapy for strength and mobility along with continuing with his radiation treatments as he has been receiving at [facility] as well. Family updated. White blood count continues to be elevated at 26.6, hemoglobin is stable at 12.2 with no active bleeding noted. Patient did have an episode of loose stool and denies any blood in the stool. Sodium today is 140 with a potassium of 4.2 and current creatinine improved at 0.97. Magnesium was found to be 1.6 and will replace per protocol. Patient is afebrile and denies any shortness of breath or chest pain at this time. Will order incentive spirometer as well and instructed the patient to continue using at least 10 times every hour while awake. Patient was made nothing by mouth until surgery eval and so will continue with IV fluids at 75 ML per hour. If loose stools or diarrhea persist will obtain a specimen for C. diff. 11/25/2020 Patient is seen and evaluated resting in bed; Abdominal x-ray completed yesterday reveals possible enteritis, ileus with possible left lower lobe pneumonia; patient is afebrile but white blood count remains elevated; patient remains on IV Rocephin for UTI and remains nothing by mouth with surgery consult in place and recommending to keep patient nothing by mouth except for ice chips and continue with IV fluids and supportive care Renal function is stable We will monitor CBC and electrolytes; plan to consult ID if white blood count remains elevated 11/26/2020 patient is seen and evaluated with family members at bedside; complains of N/V Vital signs are reviewed; Lab review shows persistent upward trend of WBC, above 30 this morning; procal is elevated; lactic acid level is unremarkable Patient is currently receiving Rocephin for UTI; abdominal xray reveals enteritis; will switch to IV zosyn; monitor inflammatory markers; keep patient NPO; will consult ID and GI Will obtain CT abdomen; blood culture and Cxray. 11/27/2020 Patient is seen and evaluated in follow-up continues to have abdominal discomfort and tenderness of the left and right lower quadrants and underwent CT abdomen showing moderate diffuse subcutaneous edema and/or soft tissue anasarca with some subcutaneous foci of air in the anterior abdominal wall with a nonspecific heterogenous lobulated 7.9 cm pelvic mass with possible necrotic adenopathy as there are additional suspicious pelvic masses or lymph nodes and markedly abnormal prostate worrisome for BPH and carcinoma, left pelvic lesion has local mass effect causing moderate left-sided hydronephrosis but no delayed excretion. Urology consult along with GI consult was placed. Urology was having some difficulties with swallowing and a continued cough and was evaluated by speech and failed the bedside swallow and had a modified barium study done which he also failed showing signs of aspiration. Patient continues on IV antibiotics in the form of Zosyn and infectious disease is following. Discussed with nursing staff about obtaining stool sample as he has continued loose stools. Will keep nothing by mouth except for occasional ice chips and will need to discuss with multiple consultations following along with family about treatment plans moving forward. Count continues to be elevated at 25.2, hemoglobin is 10.6 with no bleeding noted. Sodium is 136 with a potassium of 4.1 and creatinine is normal at 0.82. CRP and pro-calcitonin is also elevated. We'll continue to monitor Accu-Cheks as patient remains nothing by mouth. 11/28/2020 Patient is seen in follow-up today continues to have abdominal discomfort although states is somewhat improved and continues to be nothing by mouth except for ice chips as he underwent a barium swallow showing aspiration yesterday and this was discussed with surgery along with family and they are agreeable and wanting to proceed with PEG tube placement. Surgery has scheduled for this . Patient is continued on IV Zosyn and infectious disease is following. Will repeat some a.m. labs and continue to monitor closely. Review of systems: Constitutional: reports of fatigue, no reports of fever, or chills Cardiovascular: No reports of chest pain or palpitations Respiratory: No reports of shortness of breath or cough GI: reports of nausea, no vomiting, reports loose stools although none recently and remains nothing by mouth, reports abdominal discomfort in the lower right quadrant : No reports of dysuria or retention Neurovascular: reports generalized weakness Objective - Vital Signs Vital signs: Vital Signs Temp 97.7 F 11/28/20 11:25 Pulse 53 L 11/28/20 11:25 Resp 18 11/28/20 11:25 BP 145/74 11/28/20 11:25 Pulse Ox 96 11/28/20 11:25 Intake & Output 11/27/20 11/28/20 11/28/20 18:59 06:59 18:59 Weight 68.039 kg Other: Voiding Method Urinal Urinal Urinal Diaper Diaper Diaper Incontinent Incontinent Incontinent # Voids 2 2 - Exam Gen: This is a 80-year-old male sitting up in the chair awake, alert and oriented 2-3, thin built. HEENT: Head is atraumatic, normocephalic. Pupils equal, round. Sclerae is anicteric. NECK: Supple. No JVD. No lymphadenopathy. No thyromegaly. LUNGS: Breath sounds diminished bilaterally with no wheezing or rhonchi noted No intercostal retractions. HEART: S1, S2 are muffled ABDOMEN: Soft. Bowel sounds are present. No masses. Mild tenderness noted of right lower quadrant on palpation. EXTREMITIES: No pedal edema. No calf tenderness. NEUROLOGICAL: Patient is awake, alert and oriented x2-3. Periods of confusion. Diffusely weak. - Labs CBC & Chem 7: 11/27/20 04:37 11/27/20 04:37 Labs: Abnormal Lab Results - Last 24 Hours (Table) 11/27/20 11/28/20 11/28/20 Range/Units 12:17 07:12 11:03 POC Glucose (mg/dL) 111 H 100 H 72 L (75-99) mg/dL Assessment and Plan Assessment: Acute urinary tract infection with sepsis, present on admission Change in mental status, acute metabolic encephalopathy, present on admission Possible gastroenteritis versus possible ileus as noted on x-ray Possible aspiration as noted on swallow study, will be getting a PEG tube on surgery is following Abdominal pain Acute renal failure with acute tubular necrosis, improved Increased white count Anemia Hyperkalemia, improved elevated plasma lactic acid, improved hypercalcemia diabetes mellitus type 2 Hypertension Hyperlipidemia history of colonoscopy Full code Recommendations and discussion: Recommend continue with IV antibiotics in the form of Zosyn as cultures have finalized showing E. coli. Continue to monitor blood sugars and Accu-Cheks before meals and at bedtime. Oncology following and had a detailed discussion with the patient as patient normally follows with Dr. Rodrigo rich at [facility] and will resume radiation therapy once stabilized and off antibiotics. Patient is scheduled to receive a PEG tube this as he continues to silently aspirate and showed aspirations on modified barium study. Family is agreeable and would like to have the PEG tube placed. Prognosis remains guarded.
[2020-11-28 15:48] LABS: African American GFR (CKD) >90 (>60 ml/min/1.73 sqM); Anion Gap 6 mmol/L; Blood Urea Nitrogen 19 mg/dL (9-20); Calcium 10.2 mg/dL (8.4-10.2); Carbon Dioxide 19 mmol/L (22-30); Chloride 112 mmol/L (98-107); Glucose 78 mg/dL (74-99); Non-African American GFR(CKD) 85 (>60 ml/min/1.73 sqM); Potassium 4.1 mmol/L (3.5-5.1); Sodium 137 mmol/L (137-145)
[2020-11-28 17:40] LABS: Glucose,Whole Blood 81 mg/dL (75-99)
[2020-11-28 20:22] LABS: Prostate Specific Antigen 538.8 ng/mL (0.0-6.5)
[2020-11-28 20:23] LABS: Glucose,Whole Blood 55 mg/dL (75-99)
[2020-11-28] MEDS ORDERED: DEXTROSE 50% SYRINGE 50 ML IVP ONE (21:10)
[2020-11-28] MEDS ORDERED: DEXTROSE 50% SYRINGE 50 ML IVP STA (21:11)
[2020-11-28 21:38] LABS: Glucose,Whole Blood 72 mg/dL (75-99)
[2020-11-28] MEDS: PRAVASTATIN SODIUM 20 MG TAB PO SCH (22:05)
[2020-11-28 22:15] LABS: Glucose,Whole Blood 86 mg/dL (75-99)
--- NOTE | 2020-11-28 22:48 | CT ---
EXAMINATION TYPE: CT soft tissue neck w con DATE OF EXAM: 11/28/2020 COMPARISON: HISTORY: dysphagia CT DLP: 342 mGycm Automated exposure control for dose reduction was used. CONTRAST: Performed with IV Contrast, patient injected with 100 mL of Isovue 300. Images were obtained of the cervical soft tissues with IV contrast. There is mucosal thickening and fluid level posterior right maxillary sinus. Orbital margins are inta ct. There is no evidence of orbital mass. Nasal bone is intact. Submandibular salivary glands appear small. The parotid glands are small. No salivary gland mass seen. There is no evidence of a mass of t he tongue. Epiglottis is normal. The tonsils are symmetric. There is very slight asymmetric increased soft tissue density on the subglottic trachea on the right side compared to the left. This is also p resent on old CT scan and appears more diffuse on today's exam. The remainder of the visualized trach ea appears intact. The thyroid gland is symmetric. There is normal contrast-enhancement of the caroti d arteries and jugular veins. There are spondylotic changes in the cervical spine with disc space narrowing and moderate spurring a nteriorly in the lower cervical spine. The skull base is intact. There is no compression fracture. IMPRESSION: Slight asymmetric increased soft tissue density on the right side of the pharynx at the level of the glottis which is similar to the previous exam. The density appears less nodular than the previous CT scan. Posttreatment exam is not available for comparison. Density seen today could relate to residual tumor or recurrent tumor. There is salivary gland atrophy.
[2020-11-29] MEDS: PIPERACILLIN-TAZOBACTAM 3.375 GM in SODIUM CHLORIDE 0.9% 100 ML IVPB SCH ×3 (04:43→20:30)
[2020-11-29] MEDS: DEXTROSE 5% IN WATER 1,000 ML IV SCH ×2 (04:44→15:22)
[2020-11-29 05:54] LABS: Anisocytosis Slight; Basophils % (A) 0 %; Eosinophils # (A) 0.6 k/uL (0-0.7); Eosinophils % (A) 3 %; HCT 35.5 % (39.0-53.0); HGB 11.1 gm/dL (13.0-17.5); Hypochromasia Slight; Lymphocytes # (A) 0.7 k/uL (1.0-4.8); Lymphocytes % (A) 3 %; MCH 28.8 pg (25.0-35.0); MCHC 31.1 g/dL (31.0-37.0); MCV 92.5 fL (80.0-100.0); Monocytes # (A) 0.4 k/uL (0-1.0); Monocytes % (A) 2 %; Neutrophils # (A) 19.3 k/uL (1.3-7.7); Neutrophils % (A) 92 %; Platelet Count 218 k/uL (150-450); RBC 3.84 m/uL (4.30-5.90)
[2020-11-29 06:22] LABS: African American GFR (CKD) >90 (>60 ml/min/1.73 sqM); Anion Gap 6 mmol/L; Blood Urea Nitrogen 18 mg/dL (9-20); Calcium 10.1 mg/dL (8.4-10.2); Carbon Dioxide 23 mmol/L (22-30); Chloride 109 mmol/L (98-107); Glucose 107 mg/dL (74-99); Non-African American GFR(CKD) 83 (>60 ml/min/1.73 sqM); Potassium 3.8 mmol/L (3.5-5.1); Sodium 138 mmol/L (137-145)
[2020-11-29 07:40] LABS: Glucose,Whole Blood 102 mg/dL (75-99)
[2020-11-29] MEDS: PANTOPRAZOLE 40 MG TABLET PO SCH (08:52)
[2020-11-29] MEDS: CHOLECALCIFEROL 25 MCG (1000 IU) TABLET PO SCH (08:52)
[2020-11-29] MEDS: BICALUTAMIDE 50 MG TAB PO SCH (08:54)
[2020-11-29] MEDS: FLUCONAZOLE IN NACL,ISO-OSM 200 MG in SALINE 1 100ML.BAG IVPB SCH (09:07)
[2020-11-29] MEDS: HEPARIN SODIUM,PORCINE/PF 5,000 UNIT/0.5 ML SYRINGE SQ SCH ×2 (09:08→20:31)
--- NOTE | 2020-11-29 11:22 | P.PN ---
Subjective Progress Note Date: 11/29/20 Principal diagnosis: Possible enteritis Is a pleasant 80-year-old -[place] male patient who presented to the hospital initially with complaints of weakness and mental status changes. He has a past medical history including squamous cell head and neck carcinoma in 2019 where he underwent radiation and chemotherapy. He is currently being treated for prostate cancer with radiation treatment. He was complaining of lower abdominal pain is well as loose stools however he has not had any loose stools or bowel movement in 2 days now. Clostridium difficile stool as well as stool culture have been ordered but uncollected. The patient also underwent a swallowing evaluation for which he is high risk for aspiration and had poor propagation. CT of the abdomen reviewed with a noted 7.9 cm pelvic mass. Oncology as well as urology or following patient. He is currently nothing by mouth, denies any nausea or vomiting. He is scheduled for a EGD with PEG tube placement tomorrow with general surgery. Objective - Vital Signs Vital signs: Vital Signs Temp 98.3 F 11/29/20 05:00 Pulse 85 11/29/20 05:00 Resp 14 11/29/20 05:00 BP 137/81 11/29/20 05:00 Pulse Ox 98 11/29/20 05:00 Intake & Output 11/28/20 11/29/20 11/29/20 18:59 06:59 18:59 Intake Total 375 Output Total 3 Balance 375 -3 Intake: Intake, IV Titration 375 Amount Dextrose 5% in Water 1, 375 000 ml @ 75 mls/hr IV . [id number] [facility] Rx#:[id number] Output: Stool 3 Other: Voiding Method Urinal Urinal Diaper Diaper Incontinent Incontinent # Voids 1 4 - Exam General appearance: The patient is alert, oriented, appears in no acute distress. HET: Head is normocephalic and atraumatic. Conjunctiva pink. Sclera anicteric. Neck: Supple without lymphadenopathy. Abdomen: Soft, pelvic and lower abdominal tenderness, nondistended with bowel sounds. No guarding or rigidity. Extremities: Normal skin color and turgor. No pedal edema Skin: No rashes, no jaundice Neurological: No focal deficits. Alert and oriented 3. - Labs CBC & Chem 7: 11/29/20 05:21 11/29/20 05:21 Labs: Abnormal Lab Results - Last 24 Hours (Table) 11/27/20 11/28/20 11/28/20 Range/Units 04:37 11:03 15:14 WBC (3.8-10.6) k/uL RBC (4.30-5.90) m/uL Hgb (13.0-17.5) gm/dL Hct (39.0-53.0) % RDW (11.5-15.5) % Neutrophils # (1.3-7.7) k/uL Lymphocytes # (1.0-4.8) k/uL Chloride 112 H (98-107) mmol/L Carbon Dioxide 19 L (22-30) mmol/L Glucose (74-99) mg/dL POC Glucose (mg/dL) 72 L (75-99) mg/dL Prostate Specific Ag 538.8 H (0.0-6.5) ng/mL Testosterone Level 40.00 L (86.98-780.10) ng/dL 11/28/20 11/28/20 11/29/20 Range/Units 20:22 21:37 05:21 WBC 21.0 H (3.8-10.6) k/uL RBC 3.84 L (4.30-5.90) m/uL Hgb 11.1 L (13.0-17.5) gm/dL Hct 35.5 L (39.0-53.0) % RDW 17.0 H (11.5-15.5) % Neutrophils # 19.3 H (1.3-7.7) k/uL Lymphocytes # 0.7 L (1.0-4.8) k/uL Chloride (98-107) mmol/L Carbon Dioxide (22-30) mmol/L Glucose (74-99) mg/dL POC Glucose (mg/dL) 55 L 72 L (75-99) mg/dL Prostate Specific Ag (0.0-6.5) ng/mL Testosterone Level (86.98-780.10) ng/dL 11/29/20 11/29/20 Range/Units 05:21 07:38 WBC (3.8-10.6) k/uL RBC (4.30-5.90) m/uL Hgb (13.0-17.5) gm/dL Hct (39.0-53.0) % RDW (11.5-15.5) % Neutrophils # (1.3-7.7) k/uL Lymphocytes # (1.0-4.8) k/uL Chloride 109 H (98-107) mmol/L Carbon Dioxide (22-30) mmol/L Glucose 107 H (74-99) mg/dL POC Glucose (mg/dL) 102 H (75-99) mg/dL Prostate Specific Ag (0.0-6.5) ng/mL Testosterone Level (86.98-780.10) ng/dL Assessment and Plan (1) Abdominal pain Narrative/Plan: A pleasant male patient who came in to the emergency department with complaints of weakness and altered mental status changes. He is noted to have a UTI and has been treated for chronic UTI in the past. He also has a history of squamous cell carcinoma of the head and neck and currently being treated for prostate cancer with radiation. He has had complaints of increased abdominal pain for the last 1 week's duration, states actually he believes it's been since he's been getting his radiation therapy. X-ray on admission showed possible enteritis, possible ileus. Patient also states some loose bowels, C. diff and stool cultures are ordered and pending. Patient is currently on Zosyn. He had a CT of the abdomen done today which shows nonspecific heterogeneous lobulated 7.8 cm pelvic mass worried for necrotic adenopathy is there are additional suspicious pelvic masses or lymph nodes and a markedly abnormal prostate or some for BPH and carcinoma. Correlate clinically. Left pelvic lesion has local mass effect causing moderate left-sided hydronephrosis but no delayed excretion. Other etiologies to left pelvic lesion not excluded. Pain is likely related to pelvic mass and possibly related to current radiation therapy. Oncology and urology following patient. She is scheduled for EGD with PEG tube placement tomorrow with general surgery. No further nausea, vomiting, diarrhea. Current Visit: Yes Status: Acute Priority: High Code(s): R10.9 - UNSPE CIFIED ABDOMINAL PAIN SNOMED Code(s): 20050147 (2) Prostate CA Current Visit: Yes Status: Chronic Priority: High Code(s): C61 - MALIGNANT NEOPLASM OF PROSTATE SNOMED Code(s): 238084019 (3) Squamous cell carcinoma of head and neck Current Visit: No Status: Chronic Priority: Low Code(s): C76.0 - MALIGNANT NEOPLASM OF HEAD, FACE AND NECK SNOMED Code(s): 528242905 (4) UTI (urinary tract infection) Current Visit: Yes Status: Acute Code(s): N39.0 - URINARY TRACT INFECTION, SITE NOT SPECIFIED SNOMED Code(s): 07504774 Plan: 1. Keep nothing by mouth 2. CT of the abdomen reviewed 3. Tinea to follow recommendations from oncology and urology 4. Please collect Stool for Clostridium difficile and stool cultures 5. No plans for endoscopic evaluation at this time 6. Protonix 40 mg daily 7. Continue IV antibiotics as ordered 8. Gen. surgery scheduled to do EGD with PEG tube placement on Thank you for consultation, we will sign off at this time Dr. Gustavo Jones I agree with the dictator's note, documented as a scribe by Britni Navas.
--- NOTE | 2020-11-29 11:25 | PN ---
PROGRESS NOTE DATE OF SERVICE: 11/29/2020 REASON FOR FOLLOWUP: Leukocytosis. INTERVAL HISTORY: The patient is currently afebrile. The patient is more awake, alert. He denies having chest pain or cough. Denies any worsening abdominal pain. No vomiting or diarrhea has been reported. PHYSICAL EXAMINATION: Blood pressure 137/81, pulse 85, temperature 98.3. He 98% on room air. General description is an elderly male lying in bed in no distress. RESPIRATORY SYSTEM: Unlabored breathing, clear to auscultation anteriorly. HEART: S1, S2. Regular rate and rhythm. ABDOMEN: Soft, no tenderness. LABS: Hemoglobin of 11.1, white count 21,000, BUN of 18, creatinine 0.83. DIAGNOSTIC IMPRESSION AND PLAN: Patient with leukocytosis, multifactorial, in this patient did have evidence of thrush with necrotic tumor or lymph node in the pelvic area with a history of prostate cancer. Patient is covered with Zosyn and Diflucan; white count showing a downward to continue and monitor clinical course. MMODL / IJN: [id number] /
[2020-11-29 12:34] LABS: Glucose,Whole Blood 96 mg/dL (75-99)
--- NOTE | 2020-11-29 13:28 | P.PN ---
Subjective Progress Note Date: 11/29/20 CHIEF COMPLAINT: Abdominal pain HISTORY OF PRESENT ILLNESS: This is a 80-year-old male with a known past medical history of squamous cell carcinoma of neck and history of prostate cancer. Patient is complaining of right lower abdominal pain. Patient has dysphagia and failed his swallow evaluation. Afebrile. WBC is 21 hemoglobin 11.1 and platelets 218 Computed tomography scan abdomen and pelvis shows nonspecific heterogenesis lobulated 7.9 cm pelvic mass. Radiologist is worried for necrotic adenopathy as they're are additional suspicious pelvic masses or lymph nodes and markedly abnormal prostate worrisome for BPH and carcinoma. Left pelvic lesion has local mass effect causing moderate left-sided hydronephrosis but no delayed excretion. Other etiologies to left pelvic lesion not excluded. PHYSICAL EXAM: VITAL SIGNS: Reviewed. GENERAL: Well-developed in no acute distress. HEENT: No sclera icterus. Extraocular movements grossly intact. Moist buccal mucosa. Head is atraumatic, normocephalic. ABDOMEN: Soft. Nondistended. Tenderness right lower abdomen NEUROLOGIC: Alert and oriented. Cranial nerves II through XII grossly intact. ASSESSMENT: 1. Abdominal pain 2. Pelvic mass or necrotic lymph node nodes. Followed by urology and oncology. 3. Dysphagia and failed swallow evaluation 4. Neck cancer PLAN: -Patient scheduled for PEG tube placement on , 11/30/[address] Hoang -Nothing by mouth after midnight -Continue supportive care -Antibiotics per ID Physician Pesticide Chemist note has been reviewed by physician. Signing provider agrees with the documented findings, assessment, and plan of care. Objective - Vital Signs Vital signs: Vital Signs Temp 98.3 F 11/29/20 05:00 Pulse 85 11/29/20 05:00 Resp 14 11/29/20 05:00 BP 137/81 11/29/20 05:00 Pulse Ox 98 11/29/20 05:00 Intake & Output 11/28/20 11/29/20 11/29/20 18:59 06:59 18:59 Intake Total 375 Output Total 3 Balance 375 -3 Intake: Intake, IV Titration 375 Amount Dextrose 5% in Water 1, 375 000 ml @ 75 mls/hr IV . [id number] [facility] Rx#:[id number] Output: Stool 3 Other: Voiding Method Urinal Urinal Urinal Diaper Diaper Diaper Incontinent Incontinent Incontinent # Voids 1 4 1 - Labs CBC & Chem 7: 11/29/20 05:21 11/29/20 05:21 Labs: Abnormal Lab Results - Last 24 Hours (Table) 11/27/20 11/28/20 11/28/20 Range/Units 04:37 15:14 20:22 WBC (3.8-10.6) k/uL RBC (4.30-5.90) m/uL Hgb (13.0-17.5) gm/dL Hct (39.0-53.0) % RDW (11.5-15.5) % Neutrophils # (1.3-7.7) k/uL Lymphocytes # (1.0-4.8) k/uL Chloride 112 H (98-107) mmol/L Carbon Dioxide 19 L (22-30) mmol/L Glucose (74-99) mg/dL POC Glucose (mg/dL) 55 L (75-99) mg/dL Prostate Specific Ag 538.8 H (0.0-6.5) ng/mL Testosterone Level 40.00 L (86.98-780.10) ng/dL 11/28/20 11/29/20 11/29/20 Range/Units 21:37 05:21 05:21 WBC 21.0 H (3.8-10.6) k/uL RBC 3.84 L (4.30-5.90) m/uL Hgb 11.1 L (13.0-17.5) gm/dL Hct 35.5 L (39.0-53.0) % RDW 17.0 H (11.5-15.5) % Neutrophils # 19.3 H (1.3-7.7) k/uL Lymphocytes # 0.7 L (1.0-4.8) k/uL Chloride 109 H (98-107) mmol/L Carbon Dioxide (22-30) mmol/L Glucose 107 H (74-99) mg/dL POC Glucose (mg/dL) 72 L (75-99) mg/dL Prostate Specific Ag (0.0-6.5) ng/mL Testosterone Level (86.98-780.10) ng/dL 11/29/20 Range/Units 07:38 WBC (3.8-10.6) k/uL RBC (4.30-5.90) m/uL Hgb (13.0-17.5) gm/dL Hct (39.0-53.0) % RDW (11.5-15.5) % Neutrophils # (1.3-7.7) k/uL Lymphocytes # (1.0-4.8) k/uL Chloride (98-107) mmol/L Carbon Dioxide (22-30) mmol/L Glucose (74-99) mg/dL POC Glucose (mg/dL) 102 H (75-99) mg/dL Prostate Specific Ag (0.0-6.5) ng/mL Testosterone Level (86.98-780.10) ng/dL
[2020-11-29] MEDS ORDERED: KETOROLAC 15 MG/ML 1 ML VIAL IVP PRN (13:46)
--- NOTE | 2020-11-29 14:50 | P.PN ---
Subjective Progress Note Date: 11/29/20 This Is an 80-year-old male who was recently admitted with weakness and generalized confusion and is being closely monitored. Patient appears to be dehydrated and not eating very well with a possible urinary tract infection. Patient is continued on IV antibiotics and will follow-up on cultures. Brandie keller patient has been receiving radiation therapy at [facility] with Dr. Moser per family member Dash at the bedside who takes him to the appointments daily. Patient continues to be weak and will have PT/OT therapy evaluate the patient with the possibility of [facility] inpatient rehab and Dr. Griffith has been consulted. Case management following and working on possible placement. 11/22/2020 Patient is seen and evaluated and follow-up with family at the bedside. Patient was seen and evaluated by Dr. Griffith and being evaluated for possible [facility] inpatient rehab otherwise family is agreeable to an ECF for continued PT/OT therapy. Continues to be on IV ceftriaxone as urine cultures have finalized showing E. coli. White blood count continues to trend down at 25.1, hemoglobin is 11.0, sodium is 139 with a potassium of 3.5 and current creatinine is 1.02. A medium was replaced yesterday and is currently 2.1 today. 11/23/2020 Patient is seen in follow-up with family at the bedside another son with no acute overnight issues. . Patient was reevaluated by Dr. Griffith and currently awaiting for authorization from insurance for possible inpatient rehab at [facility]. Social Work is following and working on placement options. Patient continues on IV antibiotics in the form of ceftriaxone and we'll transition to oral antibiotics on discharge. 11/24/2020 Patient is seen in follow-up and is having some left and right lower quadrant abdominal tenderness and refusing to eat his meals this morning due to the pain. Patient also had some loose stools last night per nursing staff. Abdominal x- ray was done showing possible enteritis, ileus and patient will be placed back on nothing by mouth with ice chips and surgery consult. Performed a [id number] review with insurance company for authorization at [facility] inpatient rehab to continue with PT/OT therapy for strength and mobility along with continuing with his radiation treatments as he has been receiving at [facility] as well. Family updated. White blood count continues to be elevated at 26.6, hemoglobin is stable at 12.2 with no active bleeding noted. Patient did have an episode of loose stool and denies any blood in the stool. Sodium today is 140 with a potassium of 4.2 and current creatinine improved at 0.97. Magnesium was found to be 1.6 and will replace per protocol. Patient is afebrile and denies any shortness of breath or chest pain at this time. Will order incentive spirometer as well and instructed the patient to continue using at least 10 times every hour while awake. Patient was made nothing by mouth until surgery eval and so will continue with IV fluids at 75 ML per hour. If loose stools or diarrhea persist will obtain a specimen for C. diff. 11/25/2020 Patient is seen and evaluated resting in bed; Abdominal x-ray completed yesterday reveals possible enteritis, ileus with possible left lower lobe pneumonia; patient is afebrile but white blood count remains elevated; patient remains on IV Rocephin for UTI and remains nothing by mouth with surgery consult in place and recommending to keep patient nothing by mouth except for ice chips and continue with IV fluids and supportive care Renal function is stable We will monitor CBC and electrolytes; plan to consult ID if white blood count remains elevated 11/26/2020 patient is seen and evaluated with family members at bedside; complains of N/V Vital signs are reviewed; Lab review shows persistent upward trend of WBC, above 30 this morning; procal is elevated; lactic acid level is unremarkable Patient is currently receiving Rocephin for UTI; abdominal xray reveals enteritis; will switch to IV zosyn; monitor inflammatory markers; keep patient NPO; will consult ID and GI Will obtain CT abdomen; blood culture and Cxray. 11/27/2020 Patient is seen and evaluated in follow-up continues to have abdominal discomfort and tenderness of the left and right lower quadrants and underwent CT abdomen showing moderate diffuse subcutaneous edema and/or soft tissue anasarca with some subcutaneous foci of air in the anterior abdominal wall with a nonspecific heterogenous lobulated 7.9 cm pelvic mass with possible necrotic adenopathy as there are additional suspicious pelvic masses or lymph nodes and markedly abnormal prostate worrisome for BPH and carcinoma, left pelvic lesion has local mass effect causing moderate left-sided hydronephrosis but no delayed excretion. Urology consult along with GI consult was placed. Urology was having some difficulties with swallowing and a continued cough and was evaluated by speech and failed the bedside swallow and had a modified barium study done which he also failed showing signs of aspiration. Patient continues on IV antibiotics in the form of Zosyn and infectious disease is following. Discussed with nursing staff about obtaining stool sample as he has continued loose stools. Will keep nothing by mouth except for occasional ice chips and will need to discuss with multiple consultations following along with family about treatment plans moving forward. Count continues to be elevated at 25.2, hemoglobin is 10.6 with no bleeding noted. Sodium is 136 with a potassium of 4.1 and creatinine is normal at 0.82. CRP and pro-calcitonin is also elevated. We'll continue to monitor Accu-Cheks as patient remains nothing by mouth. 11/28/2020 Patient is seen in follow-up today continues to have abdominal discomfort although states is somewhat improved and continues to be nothing by mouth except for ice chips as he underwent a barium swallow showing aspiration yesterday and this was discussed with surgery along with family and they are agreeable and wanting to proceed with PEG tube placement. Surgery has scheduled for this . Patient is continued on IV Zosyn and infectious disease is following. Will repeat some a.m. labs and continue to monitor closely. 11/29/2020 Patient is seen this morning continues to have abdominal discomfort although states is somewhat improved but does wince with palpation and continue to be nothing by mouth and patient will be undergoing PEG tube placement in the morning with surgery. Patient is maintained on IV antibiotics and infectious disease is following. Continue with IV fluids as well as patient has been nothing by mouth. Patient also states he has not been having any bowel movements but is also not been eating for the last 5 days. White blood count is 21.0, hemoglobin is stable at 11.1, sodium is 138 with a potassium of 3.8 and current creatinine is 0.83. Her sugars with Accu-Cheks and continue with dextrose in the IV hydration. Review of systems: Constitutional: reports of fatigue, no reports of fever, or chills Cardiovascular: No reports of chest pain or palpitations Respiratory: No reports of shortness of breath or cough GI: reports of nausea, no vomiting, remains nothing by mouth, reports abdominal discomfort in the lower right quadrant : No reports of dysuria or retention Neurovascular: reports generalized weakness Objective - Vital Signs Vital signs: Vital Signs Temp 98.3 F 05/05/21 05:00 Pulse 85 11/29/20 05:00 Resp 14 11/29/20 05:00 BP 137/81 11/29/20 05:00 Pulse Ox 98 11/29/20 05:00 Intake & Output 11/28/20 11/29/20 11/29/20 18:59 06:59 18:59 Intake Total 375 Output Total 3 Balance 375 -3 Intake: Intake, IV Titration 375 Amount Dextrose 5% in Water 1, 375 000 ml @ 75 mls/hr IV . [id number] [facility] Rx#:[id number] Output: Stool 3 Other: Voiding Method Urinal Urinal Diaper Diaper Incontinent Incontinent # Voids 1 4 - Exam Gen: This is a 80-year-old male sitting up in the bed awake, alert and oriented 2-3, thin built. HEENT: Head is atraumatic, normocephalic. Pupils equal, round. Sclerae is anicteric. NECK: Supple. No JVD. No lymphadenopathy. No thyromegaly. LUNGS: Breath sounds diminished bilaterally with no wheezing or rhonchi noted No intercostal retractions. HEART: S1, S2 are muffled ABDOMEN: Soft. Bowel sounds are present. No masses. Mild tenderness noted of right lower quadrant on palpation. EXTREMITIES: No pedal edema. No calf tenderness. NEUROLOGICAL: Patient is awake, alert and oriented x2-3. Periods of confusion. Diffusely weak. - Labs CBC & Chem 7: 11/29/20 05:21 11/29/20 05:21 Labs: Abnormal Lab Results - Last 24 Hours (Table) 11/27/20 11/28/20 11/28/20 Range/Units 04:37 11:03 15:14 WBC (3.8-10.6) k/uL RBC (4.30-5.90) m/uL Hgb (13.0-17.5) gm/dL Hct (39.0-53.0) % RDW (11.5-15.5) % Neutrophils # (1.3-7.7) k/uL Lymphocytes # (1.0-4.8) k/uL Chloride 112 H (98-107) mmol/L Carbon Dioxide 19 L (22-30) mmol/L Glucose (74-99) mg/dL POC Glucose (mg/dL) 72 L (75-99) mg/dL Prostate Specific Ag 538.8 H (0.0-6.5) ng/mL Testosterone Level 40.00 L (86.98-780.10) ng/dL 11/28/20 11/28/20 11/29/20 Range/Units 20:22 21:37 05:21 WBC 21.0 H (3.8-10.6) k/uL RBC 3.84 L (4.30-5.90) m/uL Hgb 11.1 L (13.0-17.5) gm/dL Hct 35.5 L (39.0-53.0) % RDW 17.0 H (11.5-15.5) % Neutrophils # 19.3 H (1.3-7.7) k/uL Lymphocytes # 0.7 L (1.0-4.8) k/uL Chloride (98-107) mmol/L Carbon Dioxide (22-30) mmol/L Glucose (74-99) mg/dL POC Glucose (mg/dL) 55 L 72 L (75-99) mg/dL Prostate Specific Ag (0.0-6.5) ng/mL Testosterone Level (86.98-780.10) ng/dL 11/29/20 11/29/20 Range/Units 05:21 07:38 WBC (3.8-10.6) k/uL RBC (4.30-5.90) m/uL Hgb (13.0-17.5) gm/dL Hct (39.0-53.0) % RDW (11.5-15.5) % Neutrophils # (1.3-7.7) k/uL Lymphocytes # (1.0-4.8) k/uL Chloride 109 H (98-107) mmol/L Carbon Dioxide (22-30) mmol/L Glucose 107 H (74-99) mg/dL POC Glucose (mg/dL) 102 H (75-99) mg/dL Prostate Specific Ag (0.0-6.5) ng/mL Testosterone Level (86.98-780.10) ng/dL Assessment and Plan Assessment: Acute urinary tract infection with sepsis, present on admission Change in mental status, acute metabolic encephalopathy, present on admission Possible gastroenteritis versus possible ileus as noted on x-ray Possible aspiration as noted on swallow study, will be getting a PEG tube on surgery is following Abdominal pain Acute renal failure with acute tubular necrosis, improved Increased white count Anemia Hyperkalemia, improved elevated plasma lactic acid, improved hypercalcemia diabetes mellitus type 2 Hypertension Hyperlipidemia history of colonoscopy Full code Recommendations and discussion: Recommend to continue with IV antibiotics in the form of Zosyn as cultures have finalized showing E. coli. Continue to monitor blood sugars and Accu-Cheks before meals and at bedtime. Continue dextrose and IV hydration patient continues to be nothing by mouth and is scheduled to undergo PEG tube placement in the morning. Oncology following and had a detailed discussion with the patient as patient normally follows with Dr. Rodrigo rich at [facility] and will resume radiation therapy once stabilized and off antibiotics. Prognosis remains guarded.
[2020-11-29] MEDS ORDERED: LIDOCAINE 1% (10MG/ML) FOR IV START INTRADERMA PRN (14:54)
[2020-11-29] MEDS: LACTATED RINGERS 1,000 ML IV SCH (15:19)
--- NOTE | 2020-11-29 15:47 | P.PN ---
Subjective Progress Note Date: 11/29/20 Principal diagnosis: UTI, sepsis. Prostate cancer, receiving radiation. Persistent RLQ pain, no progressive, no BM to collect specimen for reported diarrhea, pt failed swallow evaluation, has not ate much for the week prior. No reported abdominal cramping, nausea, vomiting, or fevers. His daughter is at the bedside. Objective - Vital Signs Vital signs: Vital Signs Temp 97.6 F 11/29/20 12:33 Pulse 89 11/29/20 12:33 Resp 16 11/29/20 12:33 BP 113/82 11/29/20 12:33 Pulse Ox 98 11/29/20 12:33 Intake & Output 11/28/20 11/29/20 11/29/20 18:59 06:59 18:59 Intake Total 375 Output Total 3 Balance 375 -3 Weight 68.039 kg Intake: Intake, IV Titration 375 Amount Dextrose 5% in Water 1, 375 000 ml @ 75 mls/hr IV . [id number] [facility] Rx#:[id number] Output: Stool 3 Other: Voiding Method Urinal Urinal Urinal Diaper Diaper Diaper Incontinent Incontinent Incontinent # Voids 1 4 1 - Constitutional General appearance: Present: cooperative, no acute distress, thin - EENT EENT Comment(s): Very dry mucus membranes, dry lips Eyes: Present: anicteric sclerae, EOMI - Respiratory Respiratory: bilateral: diminished - Cardiovascular Heart sounds: normal: S1, S2 - Peripheral edema leg Peripheral Edema: bilateral: Other (mid calf, 1-2+. Feet 2-3+) - Gastrointestinal Localized gastrointestinal: tender: RUQ (not rigid, rebound is not worse) - Neurologic Neurologic: Present: CNII-XII intact - Musculoskeletal Musculoskeletal: Present: generalized weakness - Psychiatric Psychiatric: Present: A&O x's 3, appropriate affect, intact judgment & insight - Labs CBC & Chem 7: 11/29/20 05:21 11/29/20 05:21 Labs: Abnormal Lab Results - Last 24 Hours (Table) 11/27/20 11/28/20 11/28/20 Range/Units 04:37 15:14 20:22 WBC (3.8-10.6) k/uL RBC (4.30-5.90) m/uL Hgb (13.0-17.5) gm/dL Hct (39.0-53.0) % RDW (11.5-15.5) % Neutrophils # (1.3-7.7) k/uL Lymphocytes # (1.0-4.8) k/uL Chloride 112 H (98-107) mmol/L Carbon Dioxide 19 L (22-30) mmol/L Glucose (74-99) mg/dL POC Glucose (mg/dL) 55 L (75-99) mg/dL Prostate Specific Ag 538.8 H (0.0-6.5) ng/mL Testosterone Level 40.00 L (86.98-780.10) ng/dL 11/28/20 11/29/20 11/29/20 Range/Units 21:37 05:21 05:21 WBC 21.0 H (3.8-10.6) k/uL RBC 3.84 L (4.30-5.90) m/uL Hgb 11.1 L (13.0-17.5) gm/dL Hct 35.5 L (39.0-53.0) % RDW 17.0 H (11.5-15.5) % Neutrophils # 19.3 H (1.3-7.7) k/uL Lymphocytes # 0.7 L (1.0-4.8) k/uL Chloride 109 H (98-107) mmol/L Carbon Dioxide (22-30) mmol/L Glucose 107 H (74-99) mg/dL POC Glucose (mg/dL) 72 L (75-99) mg/dL Prostate Specific Ag (0.0-6.5) ng/mL Testosterone Level (86.98-780.10) ng/dL 11/29/20 Range/Units 07:38 WBC (3.8-10.6) k/uL RBC (4.30-5.90) m/uL Hgb (13.0-17.5) gm/dL Hct (39.0-53.0) % RDW (11.5-15.5) % Neutrophils # (1.3-7.7) k/uL Lymphocytes # (1.0-4.8) k/uL Chloride (98-107) mmol/L Carbon Dioxide (22-30) mmol/L Glucose (74-99) mg/dL POC Glucose (mg/dL) 102 H (75-99) mg/dL Prostate Specific Ag (0.0-6.5) ng/mL Testosterone Level (86.98-780.10) ng/dL - Imaging and Cardiology CT neck/soft tissue Assessment and Plan (1) Prostate CA Narrative/Plan: Cont Casodex per Urology. Please check to see when they want lupron given. Rad Onc Dr. Howard. He is ok with holding radiation until he has had a chance to evaluate pt. He does know pt getting PEG for nutrition and going to participate in rehab. Current Visit: Yes Status: Chronic Priority: High Code(s): C61 - MALIGNANT NEOPLASM OF PROSTATE SNOMED Code(s): 046063505 (2) Diarrhea Narrative/Plan: No episodes of diarrhea, await stool collection and stool studies if appropriate Current Visit: Yes Status: Acute Priority: High Code(s): R19.7 - DIARRHEA, UNSPECIFIED SNOMED Code(s): 49490475 (3) Abdominal pain Narrative/Plan: CT of the abdomen and pelvis nothing specific called out that would explain RLQ pain. Surgery has seen patient, medical mgmt for now. ? if pelvic mass compressing any nerves. Reviewed MAR-pt has taken nothing for pain, will ask RN to give some tylenol. Current Visit: Yes Status: Acute Priority: High Code(s): R10.9 - UNSPECIFIED ABDOMINAL PAIN SNOMED Code(s): 42612513 (4) Squamous cell carcinoma of head and neck Narrative/Plan: Likely scar tissue from previous radiation to the neck. Recommendation fop pt to f/u with ENT outpt for visual evaluation Current Visit: No Status: Chronic Priority: Low Code(s): C76.0 - MALIGNANT NEOPLASM OF HEAD, FACE AND NECK SNOMED Code(s): 806868160
[2020-11-29 17:33] LABS: Glucose,Whole Blood 102 mg/dL (75-99)
[2020-11-29 20:31] LABS: Glucose,Whole Blood 74 mg/dL (75-99)
[2020-11-29] MEDS: PRAVASTATIN SODIUM 20 MG TAB PO SCH (20:33)
[2020-11-29 21:49] LABS: Glucose,Whole Blood 70 mg/dL (75-99)
[2020-11-29] MEDS ORDERED: DEXTROSE 50% SYRINGE 50 ML IVP PRN (22:30)
[2020-11-29 22:58] LABS: Glucose,Whole Blood 81 mg/dL (75-99)
[2020-11-30 01:47] LABS: Glucose,Whole Blood 83 mg/dL (75-99)
[2020-11-30] MEDS: DEXTROSE 5% IN WATER 1,000 ML IV SCH ×3 (03:07→22:49)
[2020-11-30] MEDS: PIPERACILLIN-TAZOBACTAM 3.375 GM in SODIUM CHLORIDE 0.9% 100 ML IVPB SCH ×3 (04:03→20:22)
[2020-11-30 07:36] LABS: Glucose,Whole Blood 91 mg/dL (75-99)
[2020-11-30 07:46] LABS: Anisocytosis Slight; Basophils # (A) 0.1 k/uL (0-0.2); Basophils % (A) 0 %; Eosinophils # (A) 0.7 k/uL (0-0.7); Eosinophils % (A) 3 %; HCT 31.5 % (39.0-53.0); HGB 10.3 gm/dL (13.0-17.5); Hypochromasia Slight; Lymphocytes # (A) 0.8 k/uL (1.0-4.8); Lymphocytes % (A) 4 %; MCH 30.1 pg (25.0-35.0); MCHC 32.7 g/dL (31.0-37.0); Mean Platelet Volume 8.5; Monocytes # (A) 0.6 k/uL (0-1.0); Monocytes % (A) 3 %; Neutrophils % (A) 89 %; Platelet Count 207 k/uL (150-450); RBC 3.42 m/uL (4.30-5.90); RDW 16.4 % (11.5-15.5); WBC 20.3 k/uL (3.8-10.6)
[2020-11-30 08:00] LABS: African American GFR (CKD) >90 (>60 ml/min/1.73 sqM); Anion Gap 5 mmol/L; Blood Urea Nitrogen 15 mg/dL (9-20); Carbon Dioxide 24 mmol/L (22-30); Chloride 107 mmol/L (98-107); Glucose 106 mg/dL (74-99); Magnesium 1.5 mg/dL (1.6-2.3); Non-African American GFR(CKD) 88 (>60 ml/min/1.73 sqM); Potassium 3.6 mmol/L (3.5-5.1); Sodium 136 mmol/L (137-145)
[2020-11-30] MEDS ORDERED: PROPOFOL 10 MG/ML 20 ML VIAL IV ONE (08:08)
[2020-11-30] MEDS ORDERED: LIDOCAINE 1% INJ 10MG/ML (20 ML MDV) ONE (08:08)
[2020-11-30] MEDS ORDERED: IV FLUID CONTINUATION 500 ML IV ONE (08:27)
[2020-11-30] MEDS ORDERED: MAGNESIUM SULFATE-D5W PMX 1 GM in DEXTROSE/WATER 1 100ML.BAG IVPB ONE (08:30)
--- NOTE | 2020-11-30 08:46 | P.OP ---
Date of Procedure: 11/30/20 Preoperative Diagnosis: Malnutrition Postoperative Diagnosis: Malnutrition Procedure(s) Performed: PEG tube placement Anesthesia: MAC Surgeon: Dion Hoang Pathology: none sent Condition: stable Disposition: PACU Description of Procedure: The patient's placed on the endoscopy table in the lateral position. He received IV sedation. The gastroscope was oropharynx passed in the esophagus and into the stomach. Scope was then placed through the pylorus There is no evidence of any gastric obstruction. Stomach was inflated with air. A suitable light reflux was seen in the right upper quadrant. Viscoelastic has 1% local Xylocaine. A aubrie in the skin was made 11 blade. The needles placed into the stomach under direct vision. The needle was then snared and then a wire was placed through the needle. The wire was brought up against the oropharynx. The PEG tube placed overtop the wire brought down to the stomach. The PEG tube was secured at 3 cm octavio. Patient top she will was sent to recovery room in stable condition.
[2020-11-30] MEDS: FLUCONAZOLE IN NACL,ISO-OSM 200 MG in SALINE 1 100ML.BAG IVPB SCH (09:24)
[2020-11-30] MEDS: CHOLECALCIFEROL 25 MCG (1000 IU) TABLET PO SCH (09:25)
[2020-11-30] MEDS: PANTOPRAZOLE 40 MG TABLET PO SCH (09:25)
[2020-11-30] MEDS: BICALUTAMIDE 50 MG TAB PO SCH (09:25)
[2020-11-30] MEDS: HEPARIN SODIUM,PORCINE/PF 5,000 UNIT/0.5 ML SYRINGE SQ SCH ×2 (09:25→20:25)
--- NOTE | 2020-11-30 11:16 | P.PN ---
Subjective Progress Note Date: 11/30/20 Principal diagnosis: UTI, sepsis. Prostate cancer, receiving radiation. Persistent RLQ pain this AM, he is s/p PEG placement this AM so still drowsy. Objective - Vital Signs Vital signs: Vital Signs Temp 97.4 F L 11/30/20 05:00 Pulse 64 11/30/20 09:40 Resp 16 11/30/20 09:40 BP 155/70 11/30/20 09:40 Pulse Ox 100 11/30/20 09:40 Intake & Output 11/29/20 11/30/20 11/30/20 18:59 06:59 18:59 Intake Total 1025 200 Balance 1025 200 Weight 68.039 kg Intake: IV 200 Intake, IV Titration 1025 Amount Dextrose 5% in Water 1, 825 000 ml @ 100 mls/hr IV . Q10H [facility] Rx#:[id number] Piperacillin-Tazobactam 3 200 .375 gm In Sodium Chloride 0.9% 100 ml @ 25 mls/hr IVPB Q8H [facility] Rx#: [id number] Oral 0 Other: Voiding Method Urinal Diaper Diaper Incontinent Incontinent # Voids 3 4 - Constitutional General appearance: Present: cooperative, no acute distress, thin - EENT EENT Comment(s): very dry mucus membranes Eyes: Present: anicteric sclerae, EOMI - Respiratory Respiratory: bilateral: CTA - Cardiovascular Heart sounds: normal: S1, S2 - Peripheral edema foot Peripheral Edema: bilateral: 2+ (hands too) - Gastrointestinal Localized gastrointestinal: tender: RUQ (persistent, fullness, no mass, not hot, no rebound) - Musculoskeletal Musculoskeletal: Present: generalized weakness - Psychiatric Psychiatric: Present: A&O x's 3, appropriate affect, intact judgment & insight - Labs CBC & Chem 7: 11/30/20 06:11 11/30/20 06:11 Labs: Abnormal Lab Results - Last 24 Hours (Table) 11/29/20 11/29/20 11/29/20 Range/Units 17:30 20:29 21:48 WBC (3.8-10.6) k/uL RBC (4.30-5.90) m/uL Hgb (13.0-17.5) gm/dL Hct (39.0-53.0) % RDW (11.5-15.5) % Neutrophils # (1.3-7.7) k/uL Lymphocytes # (1.0-4.8) k/uL Sodium (137-145) mmol/L Glucose (74-99) mg/dL POC Glucose (mg/dL) 102 H 74 L 70 L (75-99) mg/dL Magnesium (1.6-2.3) mg/dL 11/30/20 11/30/20 Range/Units 06:11 06:11 WBC 20.3 H (3.8-10.6) k/uL RBC 3.42 L (4.30-5.90) m/uL Hgb 10.3 L (13.0-17.5) gm/dL Hct 31.5 L (39.0-53.0) % RDW 16.4 H (11.5-15.5) % Neutrophils # 18.0 H (1.3-7.7) k/uL Lymphocytes # 0.8 L (1.0-4.8) k/uL Sodium 136 L (137-145) mmol/L Glucose 106 H (74-99) mg/dL POC Glucose (mg/dL) (75-99) mg/dL Magnesium 1.5 L (1.6-2.3) mg/dL Assessment and Plan (1) Prostate CA Narrative/Plan: Cont Casodex per Urology. Please check to see when they want lupron given. Rad Onc Dr. Howard. He is ok with holding radiation until he has had a chance to evaluate pt. He does know pt getting PEG for nutrition and going to participate in rehab. Current Visit: Yes Status: Chronic Priority: High Code(s): C61 - MALIGNANT NEOPLASM OF PROSTATE SNOMED Code(s): 131508050 (2) Diarrhea Narrative/Plan: No episodes of diarrhea, await stool collection and stool studies if appropriate Current Visit: Yes Status: Acute Priority: High Code(s): R19.7 - DIARRHEA, UNSPECIFIED SNOMED Code(s): 57465647 (3) Abdominal pain Narrative/Plan: CT of the abdomen and pelvis nothing specific called out that would explain RLQ pain. Surgery has seen patient, medical mgmt for now. ? if pelvic mass compressing any nerves. Reviewed MAR-pt has taken nothing for pain, will ask RN to give some tylenol. 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 Recommendation fop pt to f/u with ENT outpt for visual evaluation Current Visit: No Status: Chronic Priority: Low Code(s): C76.0 - MALIGNANT NEOPLASM OF HEAD, FACE AND NECK SNOMED Code(s): 112179440 Plan: Hopeful for inpt rehab at [facility]. Rad Onc will be able to follow. Pt will cont hormonal treatment of prostate cancer with Urology, hopeful that pt can get some disease control with that. He has not wanted more aggressive previously and currently his PS is not adequate for any more aggressive therapy. Pt can be referred back to Oncology in the future if desired. PEG placed, Dietitian for feed recs. attests: I have performed H&P, developed impression and plan of care for patient. Discussed with dictator. Agree with dictation, documented as a scribe.
[2020-11-30 12:00] LABS: Glucose,Whole Blood 84 mg/dL (75-99)
--- NOTE | 2020-11-30 12:59 | PN ---
PROGRESS NOTE DATE OF SERVICE: 11/30/2020 REASON FOR FOLLOWUP: Leukocytosis. INTERVAL HISTORY: The patient is currently afebrile. Patient is breathing comfortably. The patient is status post PEG tube placement this morning. Tolerated the procedure. No chest pain. No shortness of breath. Did have a congested cough, not bringing up any sputum. Some abdominal discomfort. No diarrhea has been reported by nursing staff. PHYSICAL EXAMINATION: Blood pressure is 155/70 with a pulse of 64, temperature 97.4. He is 100% on room air. General description is an elderly male lying in bed in no distress. RESPIRATORY SYSTEM: Unlabored breathing, coarse breath sounds at the bases. No wheeze. HEART: S1, S2. Regular rate and rhythm. ABDOMEN: Soft, no tenderness. LABS: Hemoglobin is 10.8, white count down 20.3, BUN of 15, creatinine 0.73. DIAGNOSTIC IMPRESSION AND PLAN: Patient with leukocytosis multifactorial, in this patient who did have a necrotic lymph node in his pelvis, plus/minus thrush. Covered with Zosyn and Diflucan to continue. Transition to oral on discharge and monitor his clinical course closely. MMODL / IJN: [id number] /
[2020-11-30] MEDS: LACTATED RINGERS 1,000 ML IV SCH (14:04)
--- NOTE | 2020-11-30 14:55 | P.PN ---
Subjective Progress Note Date: 11/30/20 This Is an 80-year-old male who was recently admitted with weakness and generalized confusion and is being closely monitored. Patient appears to be dehydrated and not eating very well with a possible urinary tract infection. Patient is continued on IV antibiotics and will follow-up on cultures. Brandie keller patient has been receiving radiation therapy at [facility] with Dr. Moser per family member Dash at the bedside who takes him to the appointments daily. Patient continues to be weak and will have PT/OT therapy evaluate the patient with the possibility of [facility] inpatient rehab and Dr. Griffith has been consulted. Case management following and working on possible placement. 11/22/2020 Patient is seen and evaluated and follow-up with family at the bedside. Patient was seen and evaluated by Dr. Griffith and being evaluated for possible [facility] inpatient rehab otherwise family is agreeable to an ECF for continued PT/OT therapy. Continues to be on IV ceftriaxone as urine cultures have finalized showing E. coli. White blood count continues to trend down at 25.1, hemoglobin is 11.0, sodium is 139 with a potassium of 3.5 and current creatinine is 1.02. A medium was replaced yesterday and is currently 2.1 today. 11/23/2020 Patient is seen in follow-up with family at the bedside another son with no acute overnight issues. . Patient was reevaluated by Dr. Griffith and currently awaiting for authorization from insurance for possible inpatient rehab at [facility]. Social Work is following and working on placement options. Patient continues on IV antibiotics in the form of ceftriaxone and we'll transition to oral antibiotics on discharge. 11/24/2020 Patient is seen in follow-up and is having some left and right lower quadrant abdominal tenderness and refusing to eat his meals this morning due to the pain. Patient also had some loose stools last night per nursing staff. Abdominal x- ray was done showing possible enteritis, ileus and patient will be placed back on nothing by mouth with ice chips and surgery consult. Performed a [id number] review with insurance company for authorization at [facility] inpatient rehab to continue with PT/OT therapy for strength and mobility along with continuing with his radiation treatments as he has been receiving at [facility] as well. Family updated. White blood count continues to be elevated at 26.6, hemoglobin is stable at 12.2 with no active bleeding noted. Patient did have an episode of loose stool and denies any blood in the stool. Sodium today is 140 with a potassium of 4.2 and current creatinine improved at 0.97. Magnesium was found to be 1.6 and will replace per protocol. Patient is afebrile and denies any shortness of breath or chest pain at this time. Will order incentive spirometer as well and instructed the patient to continue using at least 10 times every hour while awake. Patient was made nothing by mouth until surgery eval and so will continue with IV fluids at 75 ML per hour. If loose stools or diarrhea persist will obtain a specimen for C. diff. 11/25/2020 Patient is seen and evaluated resting in bed; Abdominal x-ray completed yesterday reveals possible enteritis, ileus with possible left lower lobe pneumonia; patient is afebrile but white blood count remains elevated; patient remains on IV Rocephin for UTI and remains nothing by mouth with surgery consult in place and recommending to keep patient nothing by mouth except for ice chips and continue with IV fluids and supportive care Renal function is stable We will monitor CBC and electrolytes; plan to consult ID if white blood count remains elevated 11/26/2020 patient is seen and evaluated with family members at bedside; complains of N/V Vital signs are reviewed; Lab review shows persistent upward trend of WBC, above 30 this morning; procal is elevated; lactic acid level is unremarkable Patient is currently receiving Rocephin for UTI; abdominal xray reveals enteritis; will switch to IV zosyn; monitor inflammatory markers; keep patient NPO; will consult ID and GI Will obtain CT abdomen; blood culture and Cxray. 11/27/2020 Patient is seen and evaluated in follow-up continues to have abdominal discomfort and tenderness of the left and right lower quadrants and underwent CT abdomen showing moderate diffuse subcutaneous edema and/or soft tissue anasarca with some subcutaneous foci of air in the anterior abdominal wall with a nonspecific heterogenous lobulated 7.9 cm pelvic mass with possible necrotic adenopathy as there are additional suspicious pelvic masses or lymph nodes and markedly abnormal prostate worrisome for BPH and carcinoma, left pelvic lesion has local mass effect causing moderate left-sided hydronephrosis but no delayed excretion. Urology consult along with GI consult was placed. Urology was having some difficulties with swallowing and a continued cough and was evaluated by speech and failed the bedside swallow and had a modified barium study done which he also failed showing signs of aspiration. Patient continues on IV antibiotics in the form of Zosyn and infectious disease is following. Discussed with nursing staff about obtaining stool sample as he has continued loose stools. Will keep nothing by mouth except for occasional ice chips and will need to discuss with multiple consultations following along with family about treatment plans moving forward. Count continues to be elevated at 25.2, hemoglobin is 10.6 with no bleeding noted. Sodium is 136 with a potassium of 4.1 and creatinine is normal at 0.82. CRP and pro-calcitonin is also elevated. We'll continue to monitor Accu-Cheks as patient remains nothing by mouth. 11/28/2020 Patient is seen in follow-up today continues to have abdominal discomfort although states is somewhat improved and continues to be nothing by mouth except for ice chips as he underwent a barium swallow showing aspiration yesterday and this was discussed with surgery along with family and they are agreeable and wanting to proceed with PEG tube placement. Surgery has scheduled for this . Patient is continued on IV Zosyn and infectious disease is following. Will repeat some a.m. labs and continue to monitor closely. 11/29/2020 Patient is seen this morning continues to have abdominal discomfort although states is somewhat improved but does wince with palpation and continue to be nothing by mouth and patient will be undergoing PEG tube placement in the morning with surgery. Patient is maintained on IV antibiotics and infectious disease is following. Continue with IV fluids as well as patient has been nothing by mouth. Patient also states he has not been having any bowel movements but is also not been eating for the last 5 days. White blood count is 21.0, hemoglobin is stable at 11.1, sodium is 138 with a potassium of 3.8 and current creatinine is 0.83. Her sugars with Accu-Cheks and continue with dextrose in the IV hydration. 11/30/2020 Patient is seen and evaluated in follow-up status post PEG tube placement and is drowsy although easily arousable. Patient continues to have some mild abdominal discomfort and PEG tube site looks clean and dry and intact and will initiate dietitian consult once cleared by surgery to start tube feedings. Patient continues on IV Zosyn and infectious disease is following. White blood count today is 20.3, hemoglobin is 10.3, sodium is 136 with a potassium of 3.6 and current creatinine is 0.73. Patient's blood sugars on the lower side and will continue with gentle IV hydration with dextrose and continue to monitor Accu- Cheks closely. Magnesium 1.5 today and will replace per protocol with repeat labs in the morning. Will discuss with surgery about consulted dietitian for tube feeding tomorrow. Review of systems: Constitutional: reports of fatigue, no reports of fever, or chills Cardiovascular: No reports of chest pain or palpitations Respiratory: No reports of shortness of breath or cough GI: reports of nausea, no vomiting, remains nothing by mouth, reports abdominal discomfort in the lower right quadrant : No reports of dysuria or retention Neurovascular: reports generalized weakness Objective - Vital Signs Vital signs: Vital Signs Temp 97.4 F L 11/30/20 05:00 Pulse 75 11/30/20 05:00 Resp 18 11/30/20 05:00 BP 158/70 11/30/20 05:00 Pulse Ox 98 11/30/20 05:00 Intake & Output 11/29/20 11/30/20 11/30/20 18:59 06:59 18:59 Intake Total 1025 200 Balance 1025 200 Weight 68.039 kg Intake: IV 200 Intake, IV Titration 1025 Amount Dextrose 5% in Water 1, 825 000 ml @ 100 mls/hr IV . Q10H [facility] Rx#:[id number] Piperacillin-Tazobactam 3 200 .375 gm In Sodium Chloride 0.9% 100 ml @ 25 mls/hr IVPB Q8H [facility] Rx#: [id number] Oral 0 Other: Voiding Method Urinal Diaper Diaper Incontinent Incontinent # Voids 3 4 - Exam Gen: This is a 80-year-old male sitting up in the bed awake, alert and oriented 2-3, thin built. HEENT: Head is atraumatic, normocephalic. Pupils equal, round. Sclerae is anicteric. Oral mucosa is dry NECK: Supple. No JVD. No lymphadenopathy. No thyromegaly. LUNGS: Breath sounds diminished bilaterally with no wheezing or rhonchi noted No intercostal retractions. HEART: S1, S2 are muffled ABDOMEN: Soft. Bowel sounds are present. No masses. Mild tenderness noted of right lower quadrant on palpation. Newly placed PEG tube noted dry and intact with surgical dressing EXTREMITIES: No pedal edema. No calf tenderness. NEUROLOGICAL: Patient is awake, alert and oriented x2-3. Periods of confusion. Diffusely weak. - Labs CBC & Chem 7: 11/30/20 06:11 11/30/20 06:11 Labs: Abnormal Lab Results - Last 24 Hours (Table) 11/29/20 11/29/20 11/29/20 Range/Units 17:30 20:29 21:48 WBC (3.8-10.6) k/uL RBC (4.30-5.90) m/uL Hgb (13.0-17.5) gm/dL Hct (39.0-53.0) % RDW (11.5-15.5) % Neutrophils # (1.3-7.7) k/uL Lymphocytes # (1.0-4.8) k/uL Sodium (137-145) mmol/L Glucose (74-99) mg/dL POC Glucose (mg/dL) 102 H 74 L 70 L (75-99) mg/dL Magnesium (1.6-2.3) mg/dL 11/30/20 11/30/20 Range/Units 06:11 06:11 WBC 20.3 H (3.8-10.6) k/uL RBC 3.42 L (4.30-5.90) m/uL Hgb 10.3 L (13.0-17.5) gm/dL Hct 31.5 L (39.0-53.0) % RDW 16.4 H (11.5-15.5) % Neutrophils # 18.0 H (1.3-7.7) k/uL Lymphocytes # 0.8 L (1.0-4.8) k/uL Sodium 136 L (137-145) mmol/L Glucose 106 H (74-99) mg/dL POC Glucose (mg/dL) (75-99) mg/dL Magnesium 1.5 L (1.6-2.3) mg/dL Assessment and Plan Assessment: Acute urinary tract infection with sepsis, present on admission Change in mental status, acute metabolic encephalopathy, present on admission Possible gastroenteritis versus possible ileus as noted on x-ray Possible aspiration as noted on swallow study, will be getting a PEG tube on surgery is following Abdominal pain Acute renal failure with acute tubular necrosis, improved Increased white count Anemia Hyperkalemia, improved elevated plasma lactic acid, improved hypercalcemia diabetes mellitus type 2 Hypertension Hyperlipidemia history of colonoscopy Full code Recommendations and discussion: Recommend to continue with IV antibiotics in the form of Zosyn as cultures have finalized showing E. coli. Continue to monitor blood sugars and Accu-Cheks before meals and at bedtime. Continue dextrose and IV hydration patient continues to be nothing by mouth and underwent PEG tube placement this morning. Will discuss with surgery about consult dietitian to initiate tube feedings tomorrow. Oncology following and had a detailed discussion with the patient as patient normally follows with Dr. Rodrigo rich at [facility] and will resume radiation therapy once stabilized and off antibiotics. Prognosis remains guarded.
[2020-11-30 17:20] LABS: Glucose,Whole Blood 104 mg/dL (75-99)
--- NOTE | 2020-11-30 18:10 | P.PN ---
Progress Note - Text Progress Note Date: 11/30/20 Mr. Melendez underwent PEG tube placement earlier today. He did not receive bicalutamide yesterday. Once he receives this for several consecutive days, he can be given a Lupron injection. The bicalutamide is essential to avoid a flare effect. He will follow up with Dr. Olivas and continue to receive Lupron through our office.
[2020-11-30] MEDS: PRAVASTATIN SODIUM 20 MG TAB PO SCH (20:11)
[2020-11-30 20:50] LABS: Glucose,Whole Blood 63 mg/dL (75-99)
[2020-11-30 20:54] LABS: Glucose,Whole Blood 75 mg/dL (75-99)
[2020-11-30 22:32] LABS: Glucose,Whole Blood 67 mg/dL (75-99)
[2020-11-30 23:31] LABS: Glucose,Whole Blood 101 mg/dL (75-99)
[2020-12-01 02:17] LABS: Glucose,Whole Blood 106 mg/dL (75-99)
[2020-12-01] MEDS: PIPERACILLIN-TAZOBACTAM 3.375 GM in SODIUM CHLORIDE 0.9% 100 ML IVPB SCH ×3 (04:16→21:10)
[2020-12-01 07:01] LABS: African American GFR (CKD) >90 (>60 ml/min/1.73 sqM); Anion Gap 4 mmol/L; Blood Urea Nitrogen 12 mg/dL (9-20); Calcium 10.1 mg/dL (8.4-10.2); Carbon Dioxide 25 mmol/L (22-30); Chloride 103 mmol/L (98-107); Glucose 123 mg/dL (74-99); Magnesium 1.6 mg/dL (1.6-2.3); Non-African American GFR(CKD) 84 (>60 ml/min/1.73 sqM); Potassium 3.8 mmol/L (3.5-5.1); Sodium 132 mmol/L (137-145)
[2020-12-01 07:10] LABS: Glucose,Whole Blood 75 mg/dL (75-99)
[2020-12-01] MEDS: FLUCONAZOLE IN NACL,ISO-OSM 200 MG in SALINE 1 100ML.BAG IVPB SCH (10:25)
[2020-12-01] MEDS: PANTOPRAZOLE 40 MG TABLET PO SCH (10:25)
[2020-12-01] MEDS: CHOLECALCIFEROL 25 MCG (1000 IU) TABLET PO SCH (10:25)
[2020-12-01] MEDS: HEPARIN SODIUM,PORCINE/PF 5,000 UNIT/0.5 ML SYRINGE SQ SCH ×2 (10:25→20:34)
[2020-12-01] MEDS: BICALUTAMIDE 50 MG TAB PO SCH (10:25)
[2020-12-01] MEDS: DEXTROSE 5% IN WATER 1,000 ML IV SCH (10:53)
--- NOTE | 2020-12-01 11:31 | P.PN ---
Subjective Progress Note Date: 12/01/20 CHIEF COMPLAINT: Abdominal pain HISTORY OF PRESENT ILLNESS: This is a 80-year-old male with a known past medical history of squamous cell carcinoma of neck and history of prostate cancer. Patient currently lying in bed comfortably. Patient has dysphagia and failed his swallow evaluation. Patient is status post PEG tube placement. Afebrile. Creatinine 0.81 PHYSICAL EXAM: VITAL SIGNS: Reviewed. GENERAL: Well-developed in no acute distress. HEENT: No sclera icterus. Extraocular movements grossly intact. Moist buccal mucosa. Head is atraumatic, normocephalic. ABDOMEN: Soft. Nondistended. Tenderness right lower abdomen NEUROLOGIC: Alert and oriented. Cranial nerves II through XII grossly intact. ASSESSMENT: 1. Moderate protein calorie malnutrition with Dysphagia status post PEG tube placement 2. Pelvic mass or necrotic lymph node nodes. Followed by urology and oncology. 3. Dysphagia and failed swallow evaluation 4. Neck cancer PLAN: -Consult dietitian for tube feeding recommendations -Okay to start tube feedings -Continue supportive care -Antibiotics per ID Physician [employer] Admin note has been reviewed by physician. Signing provider agrees with the documented findings, assessment, and plan of care. Objective - Vital Signs Vital signs: Vital Signs Temp 98.0 F 12/01/20 04:51 Pulse 79 12/01/20 04:51 Resp 16 12/01/20 04:51 BP 149/63 12/01/20 04:51 Pulse Ox 94 L 12/01/20 04:51 Intake & Output 11/30/20 12/01/20 12/01/20 18:59 06:59 18:59 Intake Total 900 1100 Balance 900 1100 Intake: IV 200 Intake, IV Titration 700 1100 Amount Dextrose 5% in Water 1, 400 1000 000 ml @ 100 mls/hr IV . Q10H [facility] Rx#:[id number] Fluconazole in NaCl,Iso- 100 Osm 200 mg In Saline 1 100ml.bag @ 100 mls/hr IVPB DAILY [facility] Rx#: [id number] Magnesium Sulfate-D5w Pmx 100 1 gm In Dextrose/Water 1 100ml.bag @ 100 mls/hr IVPB ONCE ONE Rx#: [id number] Piperacillin-Tazobactam 3 100 100 .375 gm In Sodium Chloride 0.9% 100 ml @ 25 mls/hr IVPB Q8H [facility] Rx#: [id number] Other: Voiding Method Diaper Diaper Incontinent Incontinent # Voids 3 2 - Labs CBC & Chem 7: 11/30/20 06:11 12/01/20 06:00 Labs: Abnormal Lab Results - Last 24 Hours (Table) 11/30/20 11/30/20 11/30/20 Range/Units 17:17 20:49 22:30 Sodium (137-145) mmol/L Glucose (74-99) mg/dL POC Glucose (mg/dL) 104 H 63 L 67 L (75-99) mg/dL 11/30/20 12/01/20 12/01/20 Range/Units 23:29 02:15 06:00 Sodium 132 L (137-145) mmol/L Glucose 123 H (74-99) mg/dL POC Glucose (mg/dL) 101 H 106 H (75-99) mg/dL
[2020-12-01 11:50] LABS: Glucose,Whole Blood 56 mg/dL (75-99)
[2020-12-01] MEDS: DEXTROSE 50% SYRINGE 50 ML IVP STA ×2 (12:20→12:30)
[2020-12-01] MEDS: LACTATED RINGERS 1,000 ML IV SCH (12:40)
[2020-12-01 13:05] LABS: Glucose,Whole Blood 66 mg/dL (75-99)
[2020-12-01] MEDS ORDERED: DEXTROSE 50% SYRINGE 50 ML IVP STA (13:07)
[2020-12-01 13:36] LABS: Glucose,Whole Blood 38 mg/dL (75-99)
[2020-12-01 13:36] LABS: Glucose,Whole Blood 79 mg/dL (75-99)
[2020-12-01] MEDS ORDERED: Magnesium Replacement Protocol 1 EACH MISC MISCELLANE PRN (13:48)
--- NOTE | 2020-12-01 14:06 | P.PN ---
Subjective Progress Note Date: 12/01/20 This Is an 80-year-old male who was recently admitted with weakness and generalized confusion and is being closely monitored. Patient appears to be dehydrated and not eating very well with a possible urinary tract infection. Patient is continued on IV antibiotics and will follow-up on cultures. Brandie keller patient has been receiving radiation therapy at [facility] with Dr. Moser per family member Dash at the bedside who takes him to the appointments daily. Patient continues to be weak and will have PT/OT therapy evaluate the patient with the possibility of [facility] inpatient rehab and Dr. Griffith has been consulted. Case management following and working on possible placement. 11/22/2020 Patient is seen and evaluated and follow-up with family at the bedside. Patient was seen and evaluated by Dr. Griffith and being evaluated for possible [facility] inpatient rehab otherwise family is agreeable to an ECF for continued PT/OT therapy. Continues to be on IV ceftriaxone as urine cultures have finalized showing E. coli. White blood count continues to trend down at 25.1, hemoglobin is 11.0, sodium is 139 with a potassium of 3.5 and current creatinine is 1.02. A medium was replaced yesterday and is currently 2.1 today. 11/23/2020 Patient is seen in follow-up with family at the bedside another son with no acute overnight issues. . Patient was reevaluated by Dr. Griffith and currently awaiting for authorization from insurance for possible inpatient rehab at [facility]. Social Work is following and working on placement options. Patient continues on IV antibiotics in the form of ceftriaxone and we'll transition to oral antibiotics on discharge. 11/24/2020 Patient is seen in follow-up and is having some left and right lower quadrant abdominal tenderness and refusing to eat his meals this morning due to the pain. Patient also had some loose stools last night per nursing staff. Abdominal x- ray was done showing possible enteritis, ileus and patient will be placed back on nothing by mouth with ice chips and surgery consult. Performed a [id number] review with insurance company for authorization at [facility] inpatient rehab to continue with PT/OT therapy for strength and mobility along with continuing with his radiation treatments as he has been receiving at [facility] as well. Family updated. White blood count continues to be elevated at 26.6, hemoglobin is stable at 12.2 with no active bleeding noted. Patient did have an episode of loose stool and denies any blood in the stool. Sodium today is 140 with a potassium of 4.2 and current creatinine improved at 0.97. Magnesium was found to be 1.6 and will replace per protocol. Patient is afebrile and denies any shortness of breath or chest pain at this time. Will order incentive spirometer as well and instructed the patient to continue using at least 10 times every hour while awake. Patient was made nothing by mouth until surgery eval and so will continue with IV fluids at 75 ML per hour. If loose stools or diarrhea persist will obtain a specimen for C. diff. 11/25/2020 Patient is seen and evaluated resting in bed; Abdominal x-ray completed yesterday reveals possible enteritis, ileus with possible left lower lobe pneumonia; patient is afebrile but white blood count remains elevated; patient remains on IV Rocephin for UTI and remains nothing by mouth with surgery consult in place and recommending to keep patient nothing by mouth except for ice chips and continue with IV fluids and supportive care Renal function is stable We will monitor CBC and electrolytes; plan to consult ID if white blood count remains elevated 11/26/2020 patient is seen and evaluated with family members at bedside; complains of N/V Vital signs are reviewed; Lab review shows persistent upward trend of WBC, above 30 this morning; procal is elevated; lactic acid level is unremarkable Patient is currently receiving Rocephin for UTI; abdominal xray reveals enteritis; will switch to IV zosyn; monitor inflammatory markers; keep patient NPO; will consult ID and GI Will obtain CT abdomen; blood culture and Cxray. 11/27/2020 Patient is seen and evaluated in follow-up continues to have abdominal discomfort and tenderness of the left and right lower quadrants and underwent CT abdomen showing moderate diffuse subcutaneous edema and/or soft tissue anasarca with some subcutaneous foci of air in the anterior abdominal wall with a nonspecific heterogenous lobulated 7.9 cm pelvic mass with possible necrotic adenopathy as there are additional suspicious pelvic masses or lymph nodes and markedly abnormal prostate worrisome for BPH and carcinoma, left pelvic lesion has local mass effect causing moderate left-sided hydronephrosis but no delayed excretion. Urology consult along with GI consult was placed. Urology was having some difficulties with swallowing and a continued cough and was evaluated by speech and failed the bedside swallow and had a modified barium study done which he also failed showing signs of aspiration. Patient continues on IV antibiotics in the form of Zosyn and infectious disease is following. Discussed with nursing staff about obtaining stool sample as he has continued loose stools. Will keep nothing by mouth except for occasional ice chips and will need to discuss with multiple consultations following along with family about treatment plans moving forward. Count continues to be elevated at 25.2, hemoglobin is 10.6 with no bleeding noted. Sodium is 136 with a potassium of 4.1 and creatinine is normal at 0.82. CRP and pro-calcitonin is also elevated. We'll continue to monitor Accu-Cheks as patient remains nothing by mouth. 11/28/2020 Patient is seen in follow-up today continues to have abdominal discomfort although states is somewhat improved and continues to be nothing by mouth except for ice chips as he underwent a barium swallow showing aspiration yesterday and this was discussed with surgery along with family and they are agreeable and wanting to proceed with PEG tube placement. Surgery has scheduled for this . Patient is continued on IV Zosyn and infectious disease is following. Will repeat some a.m. labs and continue to monitor closely. 11/29/2020 Patient is seen this morning continues to have abdominal discomfort although states is somewhat improved but does wince with palpation and continue to be nothing by mouth and patient will be undergoing PEG tube placement in the morning with surgery. Patient is maintained on IV antibiotics and infectious disease is following. Continue with IV fluids as well as patient has been nothing by mouth. Patient also states he has not been having any bowel movements but is also not been eating for the last 5 days. White blood count is 21.0, hemoglobin is stable at 11.1, sodium is 138 with a potassium of 3.8 and current creatinine is 0.83. Her sugars with Accu-Cheks and continue with dextrose in the IV hydration. 11/30/2020 Patient is seen and evaluated in follow-up status post PEG tube placement and is drowsy although easily arousable. Patient continues to have some mild abdominal discomfort and PEG tube site looks clean and dry and intact and will initiate dietitian consult once cleared by surgery to start tube feedings. Patient continues on IV Zosyn and infectious disease is following. White blood count today is 20.3, hemoglobin is 10.3, sodium is 136 with a potassium of 3.6 and current creatinine is 0.73. Patient's blood sugars on the lower side and will continue with gentle IV hydration with dextrose and continue to monitor Accu- Cheks closely. Magnesium 1.5 today and will replace per protocol with repeat labs in the morning. Will discuss with surgery about consulted dietitian for tube feeding tomorrow. 12/01/2020 Patient is seen in follow-up this morning and will be starting tube feedings and dietitian has been consulted and patient will be starting Jevity and working towards goal. Patient continues to have some mild abdominal discomfort although states he is fine. Patient was on dextrose in the IV fluids and will continue to monitor sugars closely. Protocol normally requires every 6 Accu-Cheks although will continue with before meals at bedtime and close monitoring due to his low blood sugars. Sodium today is 132 with a potassium of 3.8 and current creatinine remained 0.81, magnesium 1.6 and will replace. Repeat a.m. labs. Will also repeat chest x-ray. Review of systems: Constitutional: reports of fatigue, no reports of fever, or chills Cardiovascular: No reports of chest pain or palpitations Respiratory: No reports of shortness of breath or cough GI: reports of nausea, no vomiting, remains nothing by mouth, reports abdominal discomfort in the lower right quadrant : No reports of dysuria or retention Neurovascular: reports generalized weakness Objective - Vital Signs Vital signs: Vital Signs Temp 98.0 F 12/01/20 04:51 Pulse 79 12/01/20 04:51 Resp 16 12/01/20 04:51 BP 149/63 12/01/20 04:51 Pulse Ox 94 L 12/01/20 04:51 Intake & Output 11/30/20 12/01/20 12/01/20 18:59 06:59 18:59 Intake Total 900 1100 Balance 900 1100 Intake: IV 200 Intake, IV Titration 700 1100 Amount Dextrose 5% in Water 1, 400 1000 000 ml @ 100 mls/hr IV . Q10H [facility] Rx#:[id number] Fluconazole in NaCl,Iso- 100 Osm 200 mg In Saline 1 100ml.bag @ 100 mls/hr IVPB DAILY [facility] Rx#: [id number] Magnesium Sulfate-D5w Pmx 100 1 gm In Dextrose/Water 1 100ml.bag @ 100 mls/hr IVPB ONCE ONE Rx#: [id number] Piperacillin-Tazobactam 3 100 100 .375 gm In Sodium Chloride 0.9% 100 ml @ 25 mls/hr IVPB Q8H [facility] Rx#: [id number] Other: Voiding Method Diaper Diaper Incontinent Incontinent # Voids 3 2 - Exam Gen: This is a 80-year-old male sitting up in the bed awake, alert and oriented 2-3, thin built. HEENT: Head is atraumatic, normocephalic. Pupils equal, round. Sclerae is anicteric. Oral mucosa is dry NECK: Supple. No JVD. No lymphadenopathy. No thyromegaly. LUNGS: Breath sounds diminished bilaterally with no wheezing or rhonchi noted No intercostal retractions. HEART: S1, S2 are muffled ABDOMEN: Soft. Bowel sounds are present. No masses. Mild tenderness noted of right lower quadrant on palpation. Newly placed PEG tube noted dry and intact with surgical dressing EXTREMITIES: No pedal edema. No calf tenderness. NEUROLOGICAL: Patient is awake, alert and oriented x2-3. Periods of confusion. Diffusely weak. - Labs CBC & Chem 7: 11/30/20 06:11 12/01/20 06:00 Labs: Abnormal Lab Results - Last 24 Hours (Table) 11/30/20 11/30/20 11/30/20 Range/Units 17:17 20:49 22:30 Sodium (137-145) mmol/L Glucose (74-99) mg/dL POC Glucose (mg/dL) 104 H 63 L 67 L (75-99) mg/dL 11/30/20 12/01/20 12/01/20 Range/Units 23:29 02:15 06:00 Sodium 132 L (137-145) mmol/L Glucose 123 H (74-99) mg/dL POC Glucose (mg/dL) 101 H 106 H (75-99) mg/dL Assessment and Plan Assessment: Acute urinary tract infection with sepsis, present on admission Change in mental status, acute metabolic encephalopathy, present on admission Possible gastroenteritis versus possible ileus as noted on x-ray Possible aspiration as noted on swallow study, status post PEG tube feedings have started Abdominal pain Acute renal failure with acute tubular necrosis, improved Increased white count Anemia Hyperkalemia, improved elevated plasma lactic acid, improved hypercalcemia diabetes mellitus type 2 Acute hypoglycemia secondary to nothing by mouth status Hypertension Hyperlipidemia history of colonoscopy Full code Recommendations and discussion: Recommend to continue with IV antibiotics in the form of Zosyn as cultures have finalized showing E. coli. Continue to monitor blood sugars and Accu-Cheks before meals and at bedtime. Protocol on tube feedings call for Accu-Cheks every 6 although will continue with before meals and at bedtime as he had some episodes of low blood sugar today. Continue dextrose and IV hydration patient continues to be nothing by mouth and underwent PEG tube placement yesterday and dietitian is starting Jevity at 25. Oncology following and had a detailed discussion with the patient as patient normally follows with Dr. Rodrigo rich at [facility] and will resume radiation therapy once stabilized and off antibiotics. Once goal is met with tube feedings and authorization is obtained patient will be going to inpatient rehab at [facility] and social work and case management are following and working on this. Possibly early next week. Prognosis remains guarded.
--- NOTE | 2020-12-01 15:28 | XR ---
EXAMINATION TYPE: XR chest 1V portable DATE OF EXAM: 12/01/2020 COMPARISON: 11/27/2020 INDICATION: Shortness of breath TECHNIQUE: Single frontal view of the chest is obtained. FINDINGS: The heart size is mildly prominent. The pulmonary vasculature is normal. Minimal left pleural effusion is present. Very minimal right pleural effusion may be developing. Mild right lower lobe infiltrate is present. IMPRESSION: 1. Mild right lower lobe infiltrate. 2. Small left and minimal right pleural effusions
--- NOTE | 2020-12-01 16:56 | PN ---
PROGRESS NOTE DATE OF SERVICE: 12/01/2020 REASON FOR FOLLOWUP: Leukocytosis. INTERVAL HISTORY: Patient is currently afebrile. The patient is slightly more awake and alert. He is breathing comfortably. Was noticed to have low blood sugar and was getting IV dextrose. Has been started on tube feeds but at a very low rate. No vomiting or diarrhea reported. No chest pain, shortness of breath. Occasional cough. PHYSICAL EXAMINATION: Blood pressure 145/75, pulse of 67, temperature is 97.6. He is 97% on 3 L nasal cannula. General description: The patient is an elderly male lying in bed in no distress. Respiratory system: Unlabored breathing, clear to auscultation anteriorly. Heart S1, S2. Regular rate and rhythm. Abdomen soft. No tenderness. LABS: BUN of 12, creatinine 0.81. DIAGNOSTIC IMPRESSION AND PLAN: Patient with leukocytosis, multifactorial, in this patient who did have a necrotic tumor to the pelvic area plus-minus oropharyngeal candidiasis and urinary tract infection. Patient is covered with Zosyn and Diflucan. White count showing a downward trend. To continue. Repeat his CBC tomorrow. Family at the bedside. Their questions were answered. MMODL / IJN: [id number] /
[2020-12-01] MEDS: MAGNESIUM SULFATE-D5W PMX 1 GM in DEXTROSE/WATER 1 100ML.BAG IVPB SCH ×2 (17:18→18:31)
[2020-12-01 18:13] LABS: Glucose,Whole Blood 95 mg/dL (75-99)
[2020-12-01] MEDS: PRAVASTATIN SODIUM 20 MG TAB PO SCH (20:33)
--- NOTE | 2020-12-01 21:50 | P.PN ---
Subjective Progress Note Date: 12/01/20 Objective - Vital Signs Vital signs: Vital Signs Temp 97.9 F 12/01/20 19:25 Pulse 83 12/01/20 19:25 Resp 16 12/01/20 19:25 BP 150/77 12/01/20 19:25 Pulse Ox 100 12/01/20 19:25 Intake & Output 12/01/20 12/01/20 12/02/20 06:59 18:59 06:59 Intake Total 1100 Balance 1100 Weight 68.039 kg Intake: Intake, IV Titration 1100 Amount Dextrose 5% in Water 1, 1000 000 ml @ 100 mls/hr IV . Q10H [facility] Rx#:[id number] Piperacillin-Tazobactam 3 100 .375 gm In Sodium Chloride 0.9% 100 ml @ 25 mls/hr IVPB Q8H [facility] Rx#: [id number] Other: Voiding Method Diaper Diaper Diaper Incontinent Incontinent # Voids 2 - Exam - Constitutional General appearance: Present: cooperative, no acute distress, thin - EENT EENT Comment(s): very dry mucus membranes Eyes: Present: anicteric sclerae, EOMI - Respiratory Respiratory: bilateral: CTA - Cardiovascular Heart sounds: normal: S1, S2 - Peripheral edema foot Peripheral Edema: bilateral: 2+ (hands too) - Gastrointestinal Localized gastrointestinal: tender: RUQ (persistent, fullness, no mass, not hot, no rebound) - Musculoskeletal Musculoskeletal: Present: generalized weakness - Psychiatric Psychiatric: Present: A&O x's 3, appropriate affect, intact judgme - Labs CBC & Chem 7: 11/30/20 06:11 12/01/20 14:42 Labs: Abnormal Lab Results - Last 24 Hours (Table) 11/30/20 11/30/20 12/01/20 Range/Units 22:30 23:29 02:15 Sodium (137-145) mmol/L Glucose (74-99) mg/dL POC Glucose (mg/dL) 67 L 101 H 106 H (75-99) mg/dL 12/01/20 12/01/20 12/01/20 Range/Units 06:00 11:48 13:03 Sodium 132 L (137-145) mmol/L Glucose 123 H (74-99) mg/dL POC Glucose (mg/dL) 56 L 66 L (75-99) mg/dL 12/01/20 12/01/20 Range/Units 13:33 14:42 Sodium (137-145) mmol/L Glucose 137 H (74-99) mg/dL POC Glucose (mg/dL) 38 L (75-99) mg/dL Assessment and Plan (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 Rad Onc Dr. Howard. He is ok with holding radiation until he has had a chance to evaluate pt. Abdominal pain Narrative/Plan: Current Visit: Yes Status: Acute Priority: High Code(s): R10.9 - UNSPECIFIED ABDOMINAL PAIN SNOMED Code(s): 42346086 Squamous cell carcinoma of head and neck Current Visit: No Status: Chronic Priority: Low Code(s): C76.0 - MALIGNANT NEOPLASM OF HEAD, FACE AND NECK SNOMED Code(s): 047392143 Plan: Awaiting bed npt rehab at [facility]. Rad Onc will be able to follow. Pt will cont hormonal treatment of prostate cancer with Urology, PEG and tube feeds continued attests: I have performed H&P, developed impression and plan of care for patient. Discussed with dictator. Agree with dictation, documented as a scri be.
[2020-12-01 23:54] LABS: Glucose,Whole Blood 102 mg/dL (75-99)
[2020-12-02] MEDS: PIPERACILLIN-TAZOBACTAM 3.375 GM in SODIUM CHLORIDE 0.9% 100 ML IVPB SCH ×3 (03:58→20:27)
[2020-12-02 05:53] LABS: Glucose,Whole Blood 130 mg/dL (75-99)
[2020-12-02] MEDS: FLUCONAZOLE IN NACL,ISO-OSM 200 MG in SALINE 1 100ML.BAG IVPB SCH (08:01)
[2020-12-02] MEDS: PANTOPRAZOLE 40 MG TABLET PO SCH (08:02)
[2020-12-02] MEDS: CHOLECALCIFEROL 25 MCG (1000 IU) TABLET PO SCH (08:02)
[2020-12-02] MEDS: BICALUTAMIDE 50 MG TAB PO SCH (08:02)
[2020-12-02] MEDS: HEPARIN SODIUM,PORCINE/PF 5,000 UNIT/0.5 ML SYRINGE SQ SCH ×2 (08:02→20:28)
[2020-12-02] MEDS ORDERED: MAGNESIUM SULFATE-D5W PMX 1 GM in DEXTROSE/WATER 1 100ML.BAG IVPB ONE (10:47)
[2020-12-02 11:42] LABS: Glucose,Whole Blood 113 mg/dL (75-99)
--- NOTE | 2020-12-02 11:50 | P.PN ---
Subjective This is a 80-year-old male admitted the for urinary tract infection. Patient was treated for that. 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 Patient is on hormone therapy with Casodex. Patient is supposed to get radiation therapy. Patient is later found to be dysphagia because of which the patient received a PEG tube and the patient is presently receiving. 2 feedings. Plan is to discharge him to [facility] most probably on Friday to inpatient rehabilitation. Patient can get radiation therapy there as well. Patient is quite a bit weak. Patient remains on Zosyn from infectious disease is following the patient patient remains to have leukocytosis with repeat labs tomorrow patient is also on Diflucan patient leukocytosis is believed to be secondary to necrotic tumor in the pelvic area along with oropharyngeal candidiasis patient appears to have been treated for urinary tract infection on admission. Constitutional: As mentioned in the interval history, no fevers Cardio vascular: denied any chest pain, palpitations Gastrointestinal denied any nausea vomiting Pulmonary: Denied any shortness of breath cough Neurologic denied any new focal deficits All inpatient medications were reviewed and appropriate changes in these medications as dictated in the interval history and assessment and plan. Objective - Vital Signs Vital signs: Vital Signs Temp 98.2 F 12/02/20 04:42 Pulse 65 12/02/20 04:42 Resp 20 12/02/20 04:42 BP 142/73 12/02/20 04:42 Pulse Ox 100 12/02/20 04:42 Intake & Output 12/01/20 12/02/20 12/02/20 18:59 06:59 18:59 Intake Total 495 Balance 495 Weight 68.039 kg Intake: Intake, IV Titration 220 Amount Dextrose 5% in Water 1, 120 000 ml @ 100 mls/hr IV . Q10H [facility] Rx#:[id number] Piperacillin-Tazobactam 3 100 .375 gm In Sodium Chloride 0.9% 100 ml @ 25 mls/hr IVPB Q8H [facility] Rx#: [id number] Tube Feeding 275 Other: Voiding Method Diaper Diaper Diaper Incontinent # Voids 1 - Exam PHYSICAL EXAMINATION: GENERAL: The patient is alert and oriented x3, not in any acute distress. Thin built cachectic, looks quite a bit weak HEENT: Pupils are round and equally reacting to light. EOMI. No scleral icterus. No conjunctival pallor. Normocephalic, atraumatic. No pharyngeal erythema. No thyromegaly. CARDIOVASCULAR: S1 and S2 present. No murmurs, rubs, or gallops. PULMONARY: Chest is clear to auscultation, no wheezing or crackles. ABDOMEN: Soft, nontender, nondistended, normoactive bowel sounds. No palpable organomegaly. Tube site area appears to be clean MUSCULOSKELETAL: No joint swelling or deformity. EXTREMITIES: No cyanosis, clubbing, or pedal edema. NEUROLOGICAL: Gross neurological examination did not reveal any focal deficits. Significant generalized weakness SKIN: No rashes. - Labs CBC & Chem 7: 11/30/20 06:11 12/01/20 14:42 Labs: Abnormal Lab Results - Last 24 Hours (Table) 12/01/20 12/01/20 12/01/20 Range/Units 11:48 13:03 13:33 Glucose (74-99) mg/dL POC Glucose (mg/dL) 56 L 66 L 38 L (75-99) mg/dL 12/01/20 12/01/20 12/02/20 Range/Units 14:42 23:51 05:49 Glucose 137 H (74-99) mg/dL POC Glucose (mg/dL) 102 H 130 H (75-99) mg/dL 12/02/20 Range/Units 11:38 Glucose (74-99) mg/dL POC Glucose (mg/dL) 113 H (75-99) mg/dL Assessment and Plan Plan: -Intra-abdominal mass, necrosis of the tumor because of which patient is on Zosyn -Oropharyngeal candidiasis for which patient is on flucanazole -Dysphagia with possible aspiration for which patient the had a PEG tube. -Metastatic prostate cancer for which patient is on Casodex will receive radiation therapy upon discharge [facility] -Acute renal failure, probably acute tubular necrosis which improved -Leukocytosis due to assessment #1 and 2 -Hypercalcemia secondary to dehydration which improved -Hypertension -Hyperlipidemia -Full code
--- NOTE | 2020-12-02 13:58 | P.PN ---
Progress Note - Text Progress Note Date: 12/02/20 PEG site is clean. Patient is on tube feeds.
[2020-12-02] MEDS ORDERED: LEUPROLIDE ACETATE 30 MG IM ONE (14:16)
--- NOTE | 2020-12-02 14:23 | P.PN ---
Progress Note - Text Progress Note Date: 12/02/20 The patient denies lower abdominal pain. He has received bicalutamide 50 mg daily for the past several days. I have ordered for him to receive Lupron 30 mg IM today. He will continue to receive bicalutamide. I held a lengthy discussion with the patient and his daughter, who resides in [place]. The patient may move there to be near her. If so, they will contact a urologist for a medical oncologist and we will forward relevant records. For now, I would recommend that he be treated with total androgen blockade, though he will likely be treated with chemotherapy as his condition improves. He will follow up with Dr. Olivas in several weeks if he has not moved yet by that time. Please notify me if we can be of further assistance during this hospitalization.
[2020-12-02] MEDS ORDERED: LEUPROLIDE IM ONE (14:44)
[2020-12-02 17:49] LABS: Glucose,Whole Blood 108 mg/dL (75-99)
[2020-12-02] MEDS: PRAVASTATIN SODIUM 20 MG TAB PO SCH (20:28)
--- NOTE | 2020-12-02 22:22 | PN ---
PROGRESS NOTE DATE OF SERVICE: 12/02/2020 REASON FOR FOLLOWUP: Leukocytosis. INTERVAL HISTORY: Patient is afebrile. The patient is breathing comfortably. Has been tolerating his tube feeds. Denies any chest pain, shortness of breath or cough. No abdominal pain. PHYSICAL EXAMINATION: Blood pressure is 135/64, pulse of 71, temperature 97.9. He is 92% on 2 L nasal cannula. General description is an elderly male lying in bed in no distress. Respiratory system: Unlabored breathing, clear to auscultation anteriorly. Heart S1, S2. Regular rate and rhythm. ABDOMEN: Soft, no tenderness. LABS: No new labs have been obtained today. DIAGNOSTIC IMPRESSION AND PLAN: Patient with elevated white count which is multifactorial in this patient who did have a component of thrush in this patient who also has evidence of a necrotic lymph node/tumor with history of bronchial cancer. The patient white count did show downward trend and is covered with Zosyn, white count will be repeated and clinical course will be monitored closely. MMODL / IJN: [id number] /
[2020-12-02 23:50] LABS: Glucose,Whole Blood 131 mg/dL (75-99)
[2020-12-03] MEDS: PIPERACILLIN-TAZOBACTAM 3.375 GM in SODIUM CHLORIDE 0.9% 100 ML IVPB SCH ×3 (03:57→21:07)
[2020-12-03 05:59] LABS: Glucose,Whole Blood 129 mg/dL (75-99)
[2020-12-03] MEDS: HEPARIN SODIUM,PORCINE/PF 5,000 UNIT/0.5 ML SYRINGE SQ SCH ×2 (09:04→21:07)
[2020-12-03] MEDS: FLUCONAZOLE IN NACL,ISO-OSM 200 MG in SALINE 1 100ML.BAG IVPB SCH (09:04)
[2020-12-03] MEDS: BICALUTAMIDE 50 MG TAB PO SCH (09:04)
[2020-12-03] MEDS: CHOLECALCIFEROL 25 MCG (1000 IU) TABLET PO SCH (09:05)
[2020-12-03] MEDS: PANTOPRAZOLE 40 MG TABLET PO SCH (09:05)
--- NOTE | 2020-12-03 11:46 | P.PN ---
Progress Note - Text Progress Note Date: 12/03/20 Patient's PEG site is clean. On exam vital signs are stable. Abdomen soft. Patient did receive tube feeds.
--- NOTE | 2020-12-03 11:47 | P.PN ---
Subjective This is a 80-year-old male admitted the for urinary tract infection. Patient was treated for that. 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 Patient is on hormone therapy with Casodex. Patient is supposed to get radiation therapy. Patient is later found to be dysphagia because of which the patient received a PEG tube and the patient is presently receiving. 2 feedings. Plan is to discharge him to [facility] most probably on Friday to inpatient rehabilitation. Patient can get radiation therapy there as well. Patient is quite a bit weak. Patient remains on Zosyn from infectious disease is following the patient patient remains to have leukocytosis with repeat labs tomorrow patient is also on Diflucan patient leukocytosis is believed to be secondary to necrotic tumor in the pelvic area along with oropharyngeal candidiasis patient appears to have been treated for urinary tract infection on admission. 12/03/2020 We will obtain CBC and basic metabolic profile tomorrow patient white blood cell count trended down. Patient is on Zosyn. Patient is awaiting disposition to [facility] inpatient intimidation tomorrow. Patient is presently to person assist Constitutional: As mentioned in the interval history, no fevers Cardio vascular: denied any chest pain, palpitations Gastrointestinal denied any nausea vomiting Pulmonary: Denied any shortness of breath cough Neurologic denied any new focal deficits All inpatient medications were reviewed and appropriate changes in these medications as dictated in the interval history and assessment and plan. Objective - Vital Signs Vital signs: Vital Signs Temp 98 F 12/03/20 11:26 Pulse 72 12/03/20 11:26 Resp 16 12/03/20 11:26 BP 125/73 12/03/20 11:26 Pulse Ox 100 12/03/20 11:26 Intake & Output 12/02/20 12/03/20 12/03/20 18:59 06:59 18:59 Intake Total 375 Balance 375 Weight 47 kg Intake: Intake, IV Titration 100 Amount Piperacillin-Tazobactam 3 100 .375 gm In Sodium Chloride 0.9% 100 ml @ 25 mls/hr IVPB Q8H [facility] Rx#: [id number] Tube Feeding 275 Other: Voiding Method Diaper Diaper Diaper # Voids 2 - Exam PHYSICAL EXAMINATION: GENERAL: The patient is alert and oriented x3, not in any acute distress. Thin built cachectic, looks quite a bit weak HEENT: Pupils are round and equally reacting to light. EOMI. No scleral icterus. No conjunctival pallor. Normocephalic, atraumatic. No pharyngeal erythema. No thyromegaly. CARDIOVASCULAR: S1 and S2 present. No murmurs, rubs, or gallops. PULMONARY: Chest is clear to auscultation, no wheezing or crackles. ABDOMEN: Soft, nontender, nondistended, normoactive bowel sounds. No palpable organomegaly. Tube site area appears to be clean MUSCULOSKELETAL: No joint swelling or deformity. EXTREMITIES: No cyanosis, clubbing, or pedal edema. NEUROLOGICAL: Gross neurological examination did not reveal any focal deficits. Significant generalized weakness SKIN: No rashes. - Labs CBC & Chem 7: 11/30/20 06:11 12/01/20 14:42 Labs: Abnormal Lab Results - Last 24 Hours (Table) 12/02/20 12/02/20 12/03/20 Range/Units 17:48 23:48 05:57 POC Glucose (mg/dL) 108 H 131 H 129 H (75-99) mg/dL
[2020-12-03 11:54] LABS: Glucose,Whole Blood 112 mg/dL (75-99)
[2020-12-03 16:58] LABS: Glucose,Whole Blood 113 mg/dL (75-99)
--- NOTE | 2020-12-03 17:50 | PN ---
PROGRESS NOTE DATE OF SERVICE: 12/03/2020 REASON FOR FOLLOWUP: Leukocytosis, rash and abdominal source. INTERVAL HISTORY: The patient is currently afebrile. He is breathing comfortably. Denies any chest pain, shortness of breath, cough. No abdominal pain. Has been complaining of urinary burning and no diarrhea has been reported. PHYSICAL EXAMINATION: Blood pressure 125/73 with a pulse of 72, temperature 98. He is 100% on 2 L nasal cannula. General description is an elderly male lying in bed in no distress. Respiratory system: Unlabored breathing, clear to auscultation anteriorly. Heart S1, S2. Regular rate and rhythm. ABDOMEN: Soft, no tenderness. LABS: No new labs been obtained today. DIAGNOSTIC IMPRESSION AND PLAN: Patient with leukocytosis, multifactorial in this patient who did have a necrotic tumor in the abdomen, possibly related to the necrotic lymph node plus-minus thrush and urinary tract infection. Patient is covered with Zosyn and Diflucan. White count showing a downward trend. We will repeat a UA and monitor clinical course closely. Continue supportive care. MMODL / IJN: [id number] /
[2020-12-03] MEDS: PRAVASTATIN SODIUM 20 MG TAB PO SCH (21:07)
[2020-12-04 00:24] LABS: Glucose,Whole Blood 105 mg/dL (75-99)
[2020-12-04] MEDS: PIPERACILLIN-TAZOBACTAM 3.375 GM in SODIUM CHLORIDE 0.9% 100 ML IVPB SCH ×3 (04:05→20:04)
[2020-12-04 06:27] LABS: Glucose,Whole Blood 101 mg/dL (75-99)
[2020-12-04 06:28] LABS: Anisocytosis Slight; HCT 26.6 % (39.0-53.0); Hypochromasia Slight; MCH 28.9 pg (25.0-35.0); MCHC 31.5 g/dL (31.0-37.0); MCV 91.8 fL (80.0-100.0); Mean Platelet Volume 7.9; Platelet Count 200 k/uL (150-450); RDW 16.8 % (11.5-15.5); WBC 18.4 k/uL (3.8-10.6)
[2020-12-04 06:34] LABS: HGB 8.4 gm/dL (13.0-17.5)
[2020-12-04 06:45] LABS: African American GFR (CKD) >90 (>60 ml/min/1.73 sqM); Anion Gap 2 mmol/L; Blood Urea Nitrogen 13 mg/dL (9-20); Calcium 9.3 mg/dL (8.4-10.2); Carbon Dioxide 27 mmol/L (22-30); Chloride 103 mmol/L (98-107); Glucose 106 mg/dL (74-99); Magnesium 1.7 mg/dL (1.6-2.3); Non-African American GFR(CKD) 88 (>60 ml/min/1.73 sqM); Potassium 3.9 mmol/L (3.5-5.1); Sodium 132 mmol/L (137-145)
[2020-12-04] MEDS: HEPARIN SODIUM,PORCINE/PF 5,000 UNIT/0.5 ML SYRINGE SQ SCH ×2 (07:49→20:03)
[2020-12-04] MEDS: BICALUTAMIDE 50 MG TAB PO SCH (07:49)
[2020-12-04] MEDS: CHOLECALCIFEROL 25 MCG (1000 IU) TABLET PO SCH (07:49)
[2020-12-04] MEDS: PANTOPRAZOLE 40 MG TABLET PO SCH (07:49)
[2020-12-04] MEDS: FLUCONAZOLE IN NACL,ISO-OSM 200 MG in SALINE 1 100ML.BAG IVPB SCH (07:49)
--- NOTE | 2020-12-04 10:08 | P.PN ---
Subjective Progress Note Date: 12/04/20 Principal diagnosis: UTI, sepsis, dysphagia/aspiration. Prostate cancer, receiving radiation. In follow-up patient has the persistent right lower quadrant pain, no worse, no better. There is no documentation of a bowel movement for 10 days, he has been on the PEG tube feedings for at least 3 days, denies nausea or vomiting. Admits he feels weaker, he requested something to eat but, reminded that he is aspirating. Hand swelling is a little bit better, bilateral lower extremity swelling is stable, the feet maybe a little worse. He denies any acute physical complaints, he denied needing anything. Objective - Vital Signs Vital signs: Vital Signs Temp 98.2 F 12/04/20 04:30 Pulse 87 12/04/20 04:30 Resp 16 12/04/20 04:30 BP 147/70 12/04/20 04:30 Pulse Ox 100 12/04/20 04:30 Intake & Output 12/03/20 12/04/20 12/04/20 18:59 06:59 18:59 Intake Total 175 Output Total 3 Balance -3 175 Weight 52.5 kg Intake: Tube Feeding 175 Output: Stool 3 Other: Voiding Method Diaper Diaper Diaper # Voids 2 - Constitutional General appearance: Present: cooperative, no acute distress, thin - EENT EENT Comment(s): Dry oral mucous membranes, there is moderate amount of thrush on the tongue, mucus in the oral cavity is thick. No ulcerations Eyes: Present: anicteric sclerae, EOMI ENT: Present: hearing grossly normal - Respiratory Respiratory: bilateral: CTA - Cardiovascular Rhythm: irregularly irregular Heart sounds: normal: S1, S2 Abnormal Heart Sounds: Absent: systolic murmur, diastolic murmur, rub, S3 Gallop, S4 Gallop, click, other - Peripheral edema foot Peripheral Edema: bilateral: 3+, Pitting - Gastrointestinal Gastrointestinal Comment(s): Right upper quadrant PEG tube, no pain with palpation around the tube, no drainage General gastrointestinal: Present: soft Localized gastrointestinal: tender: RLQ, suprabubic - Musculoskeletal Musculoskeletal: Present: generalized weakness - Psychiatric Psychiatric: Present: A&O x's 3 - Labs CBC & Chem 7: 12/04/20 05:50 12/04/20 05:50 Labs: Abnormal Lab Results - Last 24 Hours (Table) 12/03/20 12/03/20 12/04/20 Range/Units 11:52 16:57 00:21 WBC (3.8-10.6) k/uL RBC (4.30-5.90) m/uL Hgb (13.0-17.5) gm/dL Hct (39.0-53.0) % RDW (11.5-15.5) % Sodium (137-145) mmol/L Glucose (74-99) mg/dL POC Glucose (mg/dL) 112 H 113 H 105 H (75-99) mg/dL 12/04/20 12/04/20 12/04/20 Range/Units 05:50 05:50 06:26 WBC 18.4 H (3.8-10.6) k/uL RBC 2.90 L (4.30-5.90) m/uL Hgb 8.4 L D (13.0-17.5) gm/dL Hct 26.6 L (39.0-53.0) % RDW 16.8 H (11.5-15.5) % Sodium 132 L (137-145) mmol/L Glucose 106 H (74-99) mg/dL POC Glucose (mg/dL) 101 H (75-99) mg/dL Assessment and Plan (1) Prostate CA Narrative/Plan: Cont Casodex per Urology. Please check to see when they want lupron given. Rad Onc Dr. Howard. He is ok with holding radiation until he has had a chance to evaluate pt. He does know pt getting PEG for nutrition and going to participate in rehab. Current Visit: Yes Status: Chronic Priority: High Code(s): C61 - MALIGNANT NEOPLASM OF PROSTATE SNOMED Code(s): 590586144 (2) Diarrhea Narrative/Plan: Patient has not had a bowel movement documented for 10 days. Abdominal x-ray ordered. 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 May have to consider a stool softener if appropriate Current Visit: Yes Status: Acute Priority: High Code(s): R19.7 - DIARRHEA, UNSPECIFIED SNOMED Code(s): 45045676 (3) Abdominal pain Narrative/Plan: CT of the abdomen and pelvis nothing specific called out that would explain RLQ pain. Surgery has seen patient, medical mgmt for now. ? if pelvic mass compressing any nerves. The pain is not better, but it is not progressive. Continue monitoring. Encouraged patient to utilize analgesics as needed, especially if it's impacting his ability to ambulate/rehab. 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 Likely scar tissue from previous surgery and radiation to the neck. Since there is no significant difference though, beltrán patient having the difficulty swal lowing? Will ask speech therapy to come back and work with patient. Recommendation follow-up out with ENT for visual evaluation. Current Visit: No Status: Chronic Priority: Low Code(s): C76.0 - MALIGNANT NEOPLASM OF HEAD, FACE AND NECK SNOMED Code(s): 168732530 Plan: Hopeful for inpt rehab at [facility], have requested nursing talk to Dr. Griffith about reevaluating the patient.. Rad Onc will be able to follow. Pt will cont hormonal treatment of prostate cancer with Urology, hopeful that pt can get some disease control with that. He has not wanted more aggressive previously and currently his PS is not adequate for any more aggressive therapy. Pt can be referred back to Oncology in the future if desired. PEG placed, Dietitian for feed recs. Dr attests: I have performed H&P, developed impression and plan of care for patient. Discussed with dictator. Agree with dictation, documented as a scribe.
--- NOTE | 2020-12-04 10:44 | P.PN ---
Progress Note - Text I have been asked to review patient's therapy benefit and possible ongoing need of inpatient rehabilitation. Since last visit patient had problems with dysphagia. Patient now requires PEG tube which was placed by Dr. Zamora. I Patient has had ongoing physical therapy. Most recent physical therapy reports indicates patient 2 person maximal total assistance for bed mobility and transfers. Working on taking steps. Last OT note from November 29 and will be required to be updated. At this time, it appears as though patient is declined at least by PT note and full inpatient rotation, that is 3 hours of therapy per day, may be too much for patient. Would await PT and OT notes for today to follow-up on this. At this time however it appears the patient is no longer inpatient rehab candidate.
--- NOTE | 2020-12-04 11:03 | P.PN ---
Subjective Progress Note Date: 12/04/20 CHIEF COMPLAINT: Abdominal pain HISTORY OF PRESENT ILLNESS: This is a 80-year-old male with a known past medical history of squamous cell carcinoma of neck and history of prostate cancer. Patient currently lying in bed comfortably. Patient has dysphagia and failed his swallow evaluation. Patient is status post PEG tube placement. Patient is tolerating tube feedings. No residual reported. Tube feedings are at 25 mL per hour. Afebrile. WBC 18.4 hemoglobin 8.4 PHYSICAL EXAM: VITAL SIGNS: Reviewed. GENERAL: Well-developed in no acute distress. HEENT: No sclera icterus. Extraocular movements grossly intact. Moist buccal mucosa. Head is atraumatic, normocephalic. ABDOMEN: Soft. Nondistended. Nontender NEUROLOGIC: Alert and oriented. Cranial nerves II through XII grossly intact. ASSESSMENT: 1. Moderate protein calorie malnutrition with Dysphagia status post PEG tube placement 2. Pelvic mass or necrotic lymph node nodes. Followed by urology and oncology. 3. Dysphagia and failed swallow evaluation 4. Neck cancer PLAN: -Continue tube feedings -Continue supportive care -Antibiotics per ID Physician Medical Assistant Prn note has been reviewed by physician. Signing provider agrees with the documented findings, assessment, and plan of care. Objective - Vital Signs Vital signs: Vital Signs Temp 98.2 F 12/04/20 04:30 Pulse 87 12/04/20 04:30 Resp 16 12/04/20 04:30 BP 147/70 12/04/20 04:30 Pulse Ox 100 12/04/20 04:30 Intake & Output 12/03/20 12/04/20 12/04/20 18:59 06:59 18:59 Intake Total 175 Output Total 3 Balance -3 175 Weight 52.5 kg Intake: Tube Feeding 175 Output: Stool 3 Other: Voiding Method Diaper Diaper Diaper # Voids 2 - Labs CBC & Chem 7: 12/04/20 05:50 12/04/20 05:50 Labs: Abnormal Lab Results - Last 24 Hours (Table) 12/03/20 12/03/20 12/04/20 Range/Units 11:52 16:57 00:21 WBC (3.8-10.6) k/uL RBC (4.30-5.90) m/uL Hgb (13.0-17.5) gm/dL Hct (39.0-53.0) % RDW (11.5-15.5) % Sodium (137-145) mmol/L Glucose (74-99) mg/dL POC Glucose (mg/dL) 112 H 113 H 105 H (75-99) mg/dL 12/04/20 12/04/20 12/04/20 Range/Units 05:50 05:50 06:26 WBC 18.4 H (3.8-10.6) k/uL RBC 2.90 L (4.30-5.90) m/uL Hgb 8.4 L D (13.0-17.5) gm/dL Hct 26.6 L (39.0-53.0) % RDW 16.8 H (11.5-15.5) % Sodium 132 L (137-145) mmol/L Glucose 106 H (74-99) mg/dL POC Glucose (mg/dL) 101 H (75-99) mg/dL
[2020-12-04] MEDS: SALT AND SODA MOUTHWASH 1,000 ML PO SCH ×3 (11:37→20:04)
[2020-12-04 11:50] LABS: Glucose,Whole Blood 111 mg/dL (75-99)
[2020-12-04] MEDS ORDERED: MAGNESIUM SULFATE-D5W PMX 1 GM in DEXTROSE/WATER 1 100ML.BAG IVPB ONE (12:30)
[2020-12-04 13:42] LABS: Appearance,Urine Cloudy (Clear); Bacteria,Urine Rare /hpf; Bilirubin,Urine Negative (Negative); Blood,Urine Large (Negative); Calcium Oxalate Crystals,Urine Few /hpf; Color,Urine Yellow; Glucose,Urine (UA) Negative (Negative); Ketones,Urine Negative (Negative); Leukocyte Esterase,Urine Large (Negative); Nitrite,Urine Negative (Negative); PH, Urine 5.5 (5.0-8.0); Protein,Urine 1+ (Negative); RBC,Urine 45 /hpf (0-5); Specific Gravity,Urine 1.024 (1.001-1.035); Squamous Epithelial Cell,Urine 2 /hpf (0-4); Urobilinogen,Urine <2.0 mg/dL (<2.0); WBC,Urine >182 /hpf (0-5)
--- NOTE | 2020-12-04 15:57 | XR ---
EXAMINATION TYPE: XR abdomen complete w decub DATE OF EXAM: 12/04/2020 COMPARISON: Abdomen 11/24/2020, CT dated 11/27/2020 HISTORY: Constipation TECHNIQUE: Supine, upright, and left side down lateral decubitus views of the abdomen are obtained. FINDINGS: Retained contrast material is present within the colon. There are extensive diverticular c hanges present within the descending and sigmoid colon. Contrast courses to the level of the rectum. There is a probable gastrostomy tube in place. Lung bases show probable pleural effusions and associa chepe atelectasis. There is no evidence for pneumoperitoneum. The bowel gas pattern is remarkable for an irregular appearance to the rectum. No sizeable air fluid levels. Bamboo spine, correlate for ankylosis spondylitis No unusual calcifications. IMPRESSION: Findings in the rectum may be due to patient's known pelvic mass, impression on the contrast within t he rectum. There is diverticulosis.
--- NOTE | 2020-12-04 16:17 | P.PN ---
Subjective Progress Note Date: 12/04/20 This is a 80-year-old male admitted the for urinary tract infection. Patient was treated for that. 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 Patient is on hormone therapy with Casodex. Patient is supposed to get radiation therapy. Patient is later found to be dysphagia b ecause of which the patient received a PEG tube and the patient is presently receiving. 2 feedings. Plan is to discharge him to [facility] most probably on Friday to inpatient rehabilitation. Patient can get radiation therapy there as well. Patient is quite a bit weak. Patient remains on Zosyn from infectious disease is following the patient patient remains to have leukocytosis with repeat labs tomorrow patient is also on Diflucan patient leukocytosis is believed to be secondary to necrotic tumor in the pelvic area along with oropharyngeal candidiasis patient appears to have been treated for urinary tract infection on admission. 12/03/2020 We will obtain CBC and basic metabolic profile tomorrow patient white blood cell count trended down. Patient is on Zosyn. Patient is awaiting disposition to [facility] inpatient. Patient is presently two person assist 12/04/2020 Patient is seen and evaluated this morning with family at the bedside currently receiving tube feedings and denies any increased abdominal discomfort. Patient was at goal of 25 and dietitian following and adjusting rate according to weight and BMI. Patient remains on IV Zosyn and infectious disease is following. White blood count continues to trend down at 18.4 and hemoglobin is 8.4 with no active bleeding noted. Sodium 132 with a potassium of 3.9 and current creatinine is 0.73. Continuing to monitor blood sugars closely and magnesium today is 1.7 and will give 1 g and replace and repeat a.m. labs. Repeat urinalysis continues to show large leukocyte esterase and will continue with IV Zosyn at this time. Multiple medical consultations following including urology, infectious disease, oncology, and social work. Authorization has been resubmitted for inpatient rehab and Dr. Griffith also reevaluating the patient and waiting on updated PT/OT therapy notes. Per patient and nursing staff patient has not had a bowel movement and an abdominal x-ray has been ordered and pending. Constitutional: As mentioned in the interval history, no fevers Cardio vascular: denied any chest pain, palpitations Gastrointestinal denied any nausea vomiting Pulmonary: Denied any shortness of breath cough Neurologic denied any new focal deficits Active Medications Acetaminophen (Acetaminophen Tab 325 Mg Tab) 650 mg PO Q6HR PRN PRN Reason: Mild Pain or Fever > 100.5 Last Admin: 11/26/20 07:30 Dose: 650 mg Documented by: Alprazolam (Alprazolam 0.25 Mg Tab) 0.25 mg PO TID PRN PRN Reason: Anxiety Last Admin: 11/20/20 20:42 Dose: 0.25 mg Documented by: Benzocaine/Menthol (Benzocaine/Menthol Lozeng 1 Each Lozenge) 1 each MUCOUS MEM Q4HR PRN PRN Reason: throat pain Bicalutamide (Bicalutamide 50 Mg Tab) 50 mg PO DAILY [facility] Last Admin: 12/04/20 07:49 Dose: 50 mg Documented by: Cholecalciferol (Cholecalciferol 25 Mcg (1000 Iu) Tablet) 25 mcg PO DAILY [facility] Last Admin: 12/04/20 07:49 Dose: 25 mcg Documented by: Dextrose/Water (Dextrose 50% Syringe 50 Ml) 25 ml IVP Q30M PRN PRN Reason: Hypoglycemia Last Admin: 11/30/20 22:50 Dose: 25 ml Documented by: Heparin Sodium (Porcine) (Heparin Sodium,Porcine/Pf 5,000 Unit/0.5 Ml Syringe) 5,000 unit SQ Q12HR [facility] Last Admin: 12/04/20 07:49 Dose: 5,000 unit Documented by: Fluconazole/Sodium Chloride (200 mg/ IV Solution) 100 mls @ 100 mls/hr IVPB DAILY [facility] Last Admin: 12/04/20 07:49 Dose: 100 mls/hr Documented by: Piperacillin Sod/Tazobactam (Sod 3.375 gm/ Sodium Chloride) 100 mls @ 25 mls/hr IVPB Q8H [facility] Last Admin: 12/04/20 07:50 Dose: 25 mls/hr Documented by: Lidocaine HCl (Lidocaine 1% (10mg/Ml) For Iv Start) 0.1 ml INTRADERMA PER PROTOCOL PRN PRN Reason: IV Start Lisinopril (Lisinopril 2.5 Mg Tab) 2.5 mg PO DAILY [facility] Last Admin: 12/04/20 07:49 Dose: 2.5 mg Documented by: Miscellaneous Information (Magnesium Replacement Protocol 1 Each Misc) 1 each MISCELLANE DAILY PRN; Protocol PRN Reason: Per Protocol Naloxone HCl (Naloxone 0.4 Mg/Ml 1 Ml Vial) 0.2 mg IV Q2M PRN PRN Reason: Opioid Reversal Pantoprazole Sodium (Pantoprazole 40 Mg Tablet) 40 mg PO AC-BRKFST [facility] Last Admin: 12/04/20 07:49 Dose: 40 mg Documented by: Pravastatin Sodium (Pravastatin Sodium 20 Mg Tab) 20 mg PO HS [facility] Last Admin: 12/03/20 21:07 Dose: 20 mg Documented by: Sodium Bicarbonate (Salt And Soda Mouthwash 1,000 Ml) 5 ml PO 5XD [facility] Last Admin: 12/04/20 15:17 Dose: 5 ml Documented by: Objective - Vital Signs Vital signs: Vital Signs Temp 98.2 F 12/04/20 04:30 Pulse 87 12/04/20 04:30 Resp 16 12/04/20 04:30 BP 147/70 12/04/20 04:30 Pulse Ox 100 12/04/20 04:30 Intake & Output 12/03/20 12/04/20 12/04/20 18:59 06:59 18:59 Output Total 3 Balance -3 Weight 52.5 kg Output: Stool 3 Other: Voiding Method Diaper Diaper Diaper # Voids 2 - Exam GENERAL: The patient is alert and oriented x3, not in any acute distress. Thin built, cachectic, weak. Temp is 98.2F, pulse is 87, respirations are 16, blood pressure is 147/70, oxygen saturation is 100% on 2 L via nasal cannula. HEENT: Pupils are round and equally reacting to light. EOMI. No scleral icterus. No conjunctival pallor. Normocephalic, atraumatic. No pharyngeal erythema. No thyromegaly. CARDIOVASCULAR: S1 and S2 muffled PULMONARY: Breath sounds diminished bilaterally with some scattered rhonchi noted ABDOMEN: Soft, nontender, nondistended, normoactive bowel sounds. No palpable organomegaly. Tube site area appears to be clean MUSCULOSKELETAL: No joint swelling or deformity. EXTREMITIES: No cyanosis, clubbing, or pedal edema. NEUROLOGICAL: Gross neurological examination did not reveal any focal deficits. Significant generalized weakness SKIN: No rashes. - Labs CBC & Chem 7: 12/04/20 05:50 12/04/20 05:50 Labs: Abnormal Lab Results - Last 24 Hours (Table) 12/03/20 12/03/20 12/04/20 Range/Units 11:52 16:57 00:21 WBC (3.8-10.6) k/uL RBC (4.30-5.90) m/uL Hgb (13.0-17.5) gm/dL Hct (39.0-53.0) % RDW (11.5-15.5) % Sodium (137-145) mmol/L Glucose (74-99) mg/dL POC Glucose (mg/dL) 112 H 113 H 105 H (75-99) mg/dL 12/04/20 12/04/20 12/04/20 Range/Units 05:50 05:50 06:26 WBC 18.4 H (3.8-10.6) k/uL RBC 2.90 L (4.30-5.90) m/uL Hgb 8.4 L D (13.0-17.5) gm/dL Hct 26.6 L (39.0-53.0) % RDW 16.8 H (11.5-15.5) % Sodium 132 L (137-145) mmol/L Glucose 106 H (74-99) mg/dL POC Glucose (mg/dL) 101 H (75-99) mg/dL Assessment and Plan Assessment: -Intra-abdominal mass, necrosis of the tumor -Oropharyngeal candidiasis -Acute urinary tract infection, present on admission with cultures growing E. coli -Dysphagia with possible aspiration status post PEG tube. -Metastatic prostate cancer for which patient is on Casodex will receive radiation therapy upon discharge to [facility] -Acute renal failure, probably acute tubular necrosis which improved -Leukocytosis due to assessment #1 and 2 -Hypercalcemia secondary to dehydration which improved -Hypertension -Hyperlipidemia -Full code Recommendations and discussion: Rec amended continue with current medications, management, and continue with PT/OT evaluation. Patient is being followed by multiple medical consultations including Dr. Griffith for possible placement at [facility] inpatient rehab for strength and mobility. Patient does follow with radiation oncology out of [facility] along with urology and was receiving radiation treatments that had just started although patient has had prolonged hospitalized due to some complex medical issues. Patient is continued on IV Zosyn and repeat urinalysis cont inues to show leukocyte esterase with initial urine culture showing E. coli and infectious disease is following. Patient was also started on tube feedings and dietitian following working on goal as patient was showing signs of aspiration and underwent modified barium swallow showing aspiration and received a PEG tube last week. White blood count trending down and patient remains afebrile. Felipa crockett has not had a bowel movement noted by nursing staff or patient and ordered an abdominal x-ray which is pending at this time. Will repeat a.m. labs and continue to monitor closely. Social work also following and working on sitting authorization to [facility] rehab. Daughter at the bedside is aware of the treatment plan and things moving forward. Further recommendations to follow based on the clinical course the patient. Prognosis is guarded.
[2020-12-04 17:47] LABS: Glucose,Whole Blood 136 mg/dL (75-99)
[2020-12-04] MEDS: PRAVASTATIN SODIUM 20 MG TAB PO SCH (20:03)
[2020-12-04 23:59] LABS: Glucose,Whole Blood 138 mg/dL (75-99)
[2020-12-05] MEDS: PIPERACILLIN-TAZOBACTAM 3.375 GM in SODIUM CHLORIDE 0.9% 100 ML IVPB SCH ×3 (03:32→19:08)
[2020-12-05] MEDS: SALT AND SODA MOUTHWASH 1,000 ML PO SCH ×5 (03:33→22:21)
[2020-12-05 06:17] LABS: Glucose,Whole Blood 132 mg/dL (75-99)
--- NOTE | 2020-12-05 06:59 | P.PN ---
Progress Note - Text Reviewed therapy notes from yesterday. Patient much improved. PT reports moderate assist for bed mobility and minimal assist for transfers and gait 40 ft roller walker. OT reports moderate assist for lower dress and baht and supervision for toilet and toilet transfers. Thuis patient appears to have recovered from events of last week and is again ready for IPR.
[2020-12-05] MEDS: FLUCONAZOLE IN NACL,ISO-OSM 200 MG in SALINE 1 100ML.BAG IVPB SCH (07:52)
[2020-12-05] MEDS: CHOLECALCIFEROL 25 MCG (1000 IU) TABLET PO SCH (07:52)
[2020-12-05] MEDS: HEPARIN SODIUM,PORCINE/PF 5,000 UNIT/0.5 ML SYRINGE SQ SCH ×2 (07:52→20:53)
[2020-12-05] MEDS: PANTOPRAZOLE 40 MG TABLET PO SCH (07:52)
[2020-12-05] MEDS: BICALUTAMIDE 50 MG TAB PO SCH (07:53)
[2020-12-05 11:25] LABS: Glucose,Whole Blood 124 mg/dL (75-99)
--- NOTE | 2020-12-05 11:30 | P.PN ---
Subjective Progress Note Date: 12/05/20 CHIEF COMPLAINT: Abdominal pain HISTORY OF PRESENT ILLNESS: This is a 80-year-old male with a known past medical history of squamous cell carcinoma of neck and history of prostate cancer. Patient currently lying in bed comfortably. Patient has dysphagia and failed his swallow evaluation. Patient is status post PEG tube placement. Patient is tolerating tube feedings. Minimal residual reported. Afebrile. PHYSICAL EXAM: VITAL SIGNS: Reviewed. GENERAL: Well-developed in no acute distress. HEENT: No sclera icterus. Extraocular movements grossly intact. Moist buccal mucosa. Head is atraumatic, normocephalic. ABDOMEN: Soft. Nondistended. Nontender PEG tube site clean dry and intact NEUROLOGIC: Alert and oriented. Cranial nerves II through XII grossly intact. ASSESSMENT: 1. Moderate protein calorie malnutrition with Dysphagia status post PEG tube placement 2. Pelvic mass or necrotic lymph node nodes. Followed by urology and oncology. 3. Dysphagia and failed swallow evaluation 4. Neck cancer PLAN: -Continue tube feedings -Continue supportive care -Antibiotics per ID Physician Legal Counsel note has been reviewed by physician. Signing provider agrees with the documented findings, assessment, and plan of care. Objective - Vital Signs Vital signs: Vital Signs Temp 98.3 F 12/05/20 04:50 Pulse 79 12/05/20 04:50 Resp 16 12/05/20 04:50 BP 146/67 12/05/20 04:50 Pulse Ox 100 12/05/20 04:50 Intake & Output 12/04/20 12/05/20 12/05/20 18:59 06:59 18:59 Intake Total 659 168 Balance 659 168 Weight 52.5 kg 61 kg Intake: Tube Feeding 659 168 Other: Voiding Method Diaper Diaper Diaper - Labs CBC & Chem 7: 12/04/20 05:50 12/04/20 05:50 Labs: Abnormal Lab Results - Last 24 Hours (Table) 12/04/20 12/04/20 12/04/20 Range/Units 11:48 11:50 17:45 POC Glucose (mg/dL) 111 H 136 H (75-99) mg/dL Urine Protein 1+ H (Negative) Urine Blood Large H (Negative) Ur Leukocyte Esterase Large H (Negative) Urine RBC 45 H (0-5) /hpf Urine WBC >182 H (0-5) /hpf Urine WBC Clumps Many H (None) /hpf Calcium Oxalate Crystal Few H (None) /hpf Urine Bacteria Rare H (None) /hpf 12/04/20 12/05/20 12/05/20 Range/Units 23:58 06:15 11:24 POC Glucose (mg/dL) 138 H 132 H 124 H (75-99) mg/dL Urine Protein (Negative) Urine Blood (Negative) Ur Leukocyte Esterase (Negative) Urine RBC (0-5) /hpf Urine WBC (0-5) /hpf Urine WBC Clumps (None) /hpf Calcium Oxalate Crystal (None) /hpf Urine Bacteria (None) /hpf Microbiology - Last 24 Hours (Table) 12/04/20 11:50 Urine Culture - Preliminary Urine,Voided
[2020-12-05] MEDS ORDERED: bisacodyL 10 MG SUPP RECTAL STA (12:34)
--- NOTE | 2020-12-05 14:02 | P.PN ---
Subjective Progress Note Date: 12/05/20 Principal diagnosis: UTI, sepsis, dysphagia/aspiration. Prostate cancer, receiving radiation. In follow-up pt has not had BM, abd xray showing some stool at rectum, persistent right lower quadrant pain, no worse, no better-little less intense on exam. Denies nausea or vomiting. Feels a little better today, oral irritation is improving. Hand swelling slow to improve but, doing better, bilateral lower extremity swelling is decreasing, his rt great toe nail is tender. Objective - Vital Signs Vital signs: Vital Signs Temp 97.5 F L 12/05/20 11:39 Pulse 57 L 12/05/20 11:39 Resp 17 12/05/20 11:39 BP 143/70 12/05/20 11:39 Pulse Ox 100 12/05/20 11:39 Intake & Output 12/04/20 12/05/20 12/05/20 18:59 06:59 18:59 Intake Total 659 336 Balance 659 336 Weight 52.5 kg 61 kg Intake: Tube Feeding 659 336 Other: Voiding Method Diaper Diaper Diaper - Constitutional General appearance: Present: cooperative, no acute distress, thin - EENT EENT Comment(s): oral mucosa and lips much better! Mucus membranes are moist, pink, small amt of thrush on the tongue Eyes: Present: anicteric sclerae, EOMI ENT: Present: hearing grossly normal - Respiratory Respiratory: bilateral: CTA - Cardiovascular Rhythm: regular Heart sounds: normal: S1, S2 Abnormal Heart Sounds: Absent: systolic murmur, diastolic murmur, rub, S3 Gallop, S4 Gallop, click, other - Peripheral edema leg Peripheral Edema: bilateral: 1+ (BLE and foot, less shiny, less pitting) - Gastrointestinal General gastrointestinal: Present: normal bowel sounds, soft Localized gastrointestinal: tender: RLQ - Neurologic Neurologic: Present: CNII-XII intact - Musculoskeletal Musculoskeletal: Present: generalized weakness - Psychiatric Psychiatric: Present: A&O x's 3, appropriate affect, intact judgment & insight - Labs CBC & Chem 7: 12/04/20 05:50 12/04/20 05:50 Labs: Abnormal Lab Results - Last 24 Hours (Table) 12/04/20 12/04/20 12/05/20 Range/Units 17:45 23:58 06:15 POC Glucose (mg/dL) 136 H 138 H 132 H (75-99) mg/dL 12/05/20 Range/Units 11:24 POC Glucose (mg/dL) 124 H (75-99) mg/dL Microbiology - Last 24 Hours (Table) 12/04/20 11:50 Urine Culture - Preliminary Urine,Voided - Imaging and Cardiology Abdominal x-ray: report reviewed Assessment and Plan (1) Prostate CA Narrative/Plan: Cont Casodex and lupron per Urology. Please check to see when they want lupron given. Rad Onc Dr. Howard. Current Visit: Yes Status: Chronic Priority: High Code(s): C61 - MALIGNANT NEOPLASM OF PROSTATE SNOMED Code(s): 629540267 (2) Diarrhea Narrative/Plan: Patient has not had a bowel movement documented for 10 days. Abd xray retained material in rectal area. Will try suppository. Current Visit: Yes Status: Acute Priority: High Code(s): R19.7 - DIARRHEA, UNSPECIFIED SNOMED Code(s): 94494620 (3) Abdominal pain Narrative/Plan: CT of the abdomen and pelvis nothing specific called out that would explain RLQ pain. Surgery has seen patient, medical mgmt for now. Based on f/u and all testing suspect that pelvic mass compressing some nerves and likely pressing on bowel. The pain is not better, but it is not progressive. Trying a suppository today. Cont analgesics PRN Current Visit: Yes Status: Acute Priority: High Code(s): R10.9 - UNSPECIFIED ABDOMINAL PAIN SNOMED Code(s): 03182779 (4) Squamous cell carcinoma of head and neck Narrative/Plan: Review of the images says that the area of thickening is stable from previous. Likely scar tissue from previous surgery and radiation to the neck. Since there is no significant difference though, question is why sudden difficulty swallowing and aspiration. Not sure if r/t dehydration, thrush and severe mucus membrane dryness. Pt mouth looks much better with hydration, nutrition and aggressive mouth care. Recommend speech therapy-hope that pt will regain ability to swallow safely. Recommendation follow-up outpt with ENT for visual evaluation of scar tissue and to rule out any occurrence. Current Visit: No Status: Chronic Priority: Low Code(s): C76.0 - MALIGNANT NEOPLASM OF HEAD, FACE AND NECK SNOMED Code(s): 747523021 Plan: All above reviewed with daughter at bedside. Pt and daughter are deciding today if they're going to pursue subacute rehabilitation facility (patient does not qualify for inpatient rehabilitation) or, if patient is going to go to [place] with his daughter. We went over the list of things as above. All of the daughter's questions were answered to her satisfaction.
--- NOTE | 2020-12-05 14:14 | PN ---
PROGRESS NOTE DATE OF SERVICE: 12/05/2020 REASON FOR FOLLOWUP: Leukocytosis, UTI with necrotic tumor and . INTERVAL HISTORY: Patient is currently afebrile, has been breathing comfortably. Denies having any chest pain. Occasional cough. Some abdominal pain. Complaining of some diarrhea but no worsening reported. PHYSICAL EXAMINATION: Blood pressure 143/70 with a pulse of 57, temperature 98.5, he is 100% on 2 L nasal cannula. General description is an elderly male lying in bed in no distress. Respiratory system: Unlabored breathing, clear to auscultation anteriorly. Heart S1, S2. Regular rate and rhythm. Abdomen soft, no tenderness. LABS: Repeat urine is still positive from yesterday. Blood cultures are pending. White count showing a downward trend. DIAGNOSTIC IMPRESSION AND PLAN: Patient with leukocytosis, multifactorial in this patient who did have a component of UTI also with concern for necrotic tumor to the pelvic area as well as thrush improved with Zosyn and Diflucan. Finish therapy with oral Augmentin and Diflucan for about a week. Discussed with the nurse practitioner for the admitting team working on discharge. MMODL / IJN: [id number] /
--- NOTE | 2020-12-05 15:55 | P.PN ---
Subjective Progress Note Date: 12/05/20 This is a 80-year-old male admitted the for urinary tract infection. Patient was treated for that. 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 Patient is on hormone therapy with Casodex. Patient is supposed to get radiation therapy. Patient is later found to be dysphagia b ecause of which the patient received a PEG tube and the patient is presently receiving. 2 feedings. Plan is to discharge him to [facility] most probably on Friday to inpatient rehabilitation. Patient can get radiation therapy there as well. Patient is quite a bit weak. Patient remains on Zosyn from infectious disease is following the patient patient remains to have leukocytosis with repeat labs tomorrow patient is also on Diflucan patient leukocytosis is believed to be secondary to necrotic tumor in the pelvic area along with oropharyngeal candidiasis patient appears to have been treated for urinary tract infection on admission. 12/03/2020 We will obtain CBC and basic metabolic profile tomorrow patient white blood cell count trended down. Patient is on Zosyn. Patient is awaiting disposition to [facility] inpatient. Patient is presently two person assist 12/04/2020 Patient is seen and evaluated this morning with family at the bedside currently receiving tube feedings and denies any increased abdominal discomfort. Patient was at goal of 25 and dietitian following and adjusting rate according to weight and BMI. Patient remains on IV Zosyn and infectious disease is following. White blood count continues to trend down at 18.4 and hemoglobin is 8.4 with no active bleeding noted. Sodium 132 with a potassium of 3.9 and current creatinine is 0.73. Continuing to monitor blood sugars closely and magnesium today is 1.7 and will give 1 g and replace and repeat a.m. labs. Repeat urinalysis continues to show large leukocyte esterase and will continue with IV Zosyn at this time. Multiple medical consultations following including urology, infectious disease, oncology, and social work. Authorization has been resubmitted for inpatient rehab and Dr. Griffith also reevaluating the patient and waiting on updated PT/OT therapy notes. Per patient and nursing staff patient has not had a bowel movement and an abdominal x-ray has been ordered and pending. 12/05/2020 Patient is seen and evaluated in follow-up this morning currently receiving tube feedings and meeting goal. Medical consultations following including oncology and infectious disease. Repeat urinalysis culture is pending and patient maintains on IV Zosyn and Diflucan and will continue all awaiting cultures. Patient underwent x-ray of the abdomen showing retained material in the rectal area and a suppository has been ordered. Patient continues to have some right lower discomfort although states somewhat improved. Attempted [id number] to review with [employer] for authorization for [facility] inpatient rehab although was denied and they recommended subacute rehab for which family was initially agreeable to and social work following working on placement although daughter at the bedside has now opted to take the patient home and will likely be taking him back home to her home in [place] and she is currently working on power of employment law attorney with him. Patient is agreeable to this plan and case management working on discharge planning needs with home care and tube feeding set up for them in [place]. Constitutional: As mentioned in the interval history, no fevers Cardio vascular: denied any chest pain, palpitations Gastrointestinal denied any nausea vomiting Pulmonary: Denied any shortness of breath cough Neurologic denied any new focal deficits Active Medications Acetaminophen (Acetaminophen Tab 325 Mg Tab) 650 mg PO Q6HR PRN PRN Reason: Mild Pain or Fever > 100.5 Last Admin: 11/26/20 07:30 Dose: 650 mg Documented by: Alprazolam (Alprazolam 0.25 Mg Tab) 0.25 mg PO TID PRN PRN Reason: Anxiety Last Admin: 11/20/20 20:42 Dose: 0.25 mg Documented by: Benzocaine/Menthol (Benzocaine/Menthol Lozeng 1 Each Lozenge) 1 each MUCOUS MEM Q4HR PRN PRN Reason: throat pain Bicalutamide (Bicalutamide 50 Mg Tab) 50 mg PO DAILY [facility] Last Admin: 12/05/20 07:53 Dose: 50 mg Documented by: Cholecalciferol (Cholecalciferol 25 Mcg (1000 Iu) Tablet) 25 mcg PO DAILY [facility] Last Admin: 12/05/20 07:52 Dose: 25 mcg Documented by: Dextrose/Water (Dextrose 50% Syringe 50 Ml) 25 ml IVP Q30M PRN PRN Reason: Hypoglycemia Last Admin: 11/30/20 22:50 Dose: 25 ml Documented by: Heparin Sodium (Porcine) (Heparin Sodium,Porcine/Pf 5,000 Unit/0.5 Ml Syringe) 5,000 unit SQ Q12HR [facility] Last Admin: 12/05/20 07:52 Dose: 5,000 unit Documented by: Fluconazole/Sodium Chloride (200 mg/ IV Solution) 100 mls @ 100 mls/hr IVPB DAILY [facility] Last Admin: 12/05/20 07:52 Dose: 100 mls/hr Documented by: Piperacillin Sod/Tazobactam (Sod 3.375 gm/ Sodium Chloride) 100 mls @ 25 mls/hr IVPB Q8H [facility] Last Admin: 12/05/20 11:29 Dose: 25 mls/hr Documented by: Lidocaine HCl (Lidocaine 1% (10mg/Ml) For Iv Start) 0.1 ml INTRADERMA PER PROTOCOL PRN PRN Reason: IV Start Lisinopril (Lisinopril 2.5 Mg Tab) 2.5 mg PO DAILY [facility] Last Admin: 12/05/20 07:53 Dose: 2.5 mg Documented by: Miscellaneous Information (Magnesium Replacement Protocol 1 Each Misc) 1 each MISCELLANE DAILY PRN; Protocol PRN Reason: Per Protocol Naloxone HCl (Naloxone 0.4 Mg/Ml 1 Ml Vial) 0.2 mg IV Q2M PRN PRN Reason: Opioid Reversal Pantoprazole Sodium (Pantoprazole 40 Mg Tablet) 40 mg PO AC-BRKFST [facility] Last Admin: 12/05/20 07:52 Dose: 40 mg Documented by: Pravastatin Sodium (Pravastatin Sodium 20 Mg Tab) 20 mg PO HS [facility] Last Admin: 12/04/20 20:03 Dose: 20 mg Documented by: Sodium Bicarbonate (Salt And Soda Mouthwash 1,000 Ml) 5 ml PO 5XD [facility] Last Admin: 12/05/20 11:28 Dose: 5 ml Documented by: Objective - Vital Signs Vital signs: Vital Signs Temp 97.5 F L 12/05/20 11:39 Pulse 57 L 12/05/20 11:39 Resp 17 12/05/20 11:39 BP 143/70 12/05/20 11:39 Pulse Ox 100 12/05/20 11:39 Intake & Output 12/04/20 12/05/20 12/05/20 18:59 06:59 18:59 Intake Total 659 504 Balance 659 504 Weight 52.5 kg 61 kg Intake: Tube Feeding 659 504 Other: Voiding Method Diaper Diaper Diaper - Exam GENERAL: The patient is alert and oriented x3, not in any acute distress. Thin built, cachectic, weak. Temp is 97.5F, pulse is 57, respirations are 17, blood pressure is 143/70, oxygen saturation is 100% on 2 L via nasal cannula. HEENT: Pupils are round and equally reacting to light. EOMI. No scleral icterus. No conjunctival pallor. Normocephalic, atraumatic. No pharyngeal erythema. No thyromegaly. CARDIOVASCULAR: S1 and S2 muffled PULMONARY: Breath sounds diminished bilaterally with some scattered rhonchi noted ABDOMEN: Soft, nontender, nondistended, normoactive bowel sounds. No palpable organomegaly. Tube site area appears to be clean MUSCULOSKELETAL: No joint swelling or deformity. EXTREMITIES: No cyanosis, clubbing, or pedal edema. NEUROLOGICAL: Gross neurological examination did not reveal any focal deficits. Significant generalized weakness SKIN: No rashes. - Labs CBC & Chem 7: 12/04/20 05:50 12/04/20 05:50 Labs: Abnormal Lab Results - Last 24 Hours (Table) 12/04/20 12/04/20 12/05/20 Range/Units 17:45 23:58 06:15 POC Glucose (mg/dL) 136 H 138 H 132 H (75-99) mg/dL 12/05/20 Range/Units 11:24 POC Glucose (mg/dL) 124 H (75-99) mg/dL Microbiology - Last 24 Hours (Table) 12/04/20 11:50 Urine Culture - Preliminary Urine,Voided Assessment and Plan Assessment: -Intra-abdominal mass, necrosis of the tumor -Oropharyngeal candidiasis -Acute urinary tract infection, present on admission with cultures growing E. coli -Dysphagia with possible aspiration status post PEG tube. -Metastatic prostate cancer for which patient is on Casodex will receive radiation therapy upon discharge to [facility] -Acute renal failure, probably acute tubular necrosis which improved -Leukocytosis due to assessment #1 and 2 -Hypercalcemia secondary to dehydration which improved -Hypertension -Hyperlipidemia -Full code Recommendations and discussion: Recommend to continue with current medications, management, and continue with PT/OT evaluation. Patient is being followed by multiple medical consultations including Dr. Griffith for possible placement at [facility] inpatient rehab for strength and mobility. Patient does follow with radiation oncology out of [facility] along with urology and was receiving radiation treatments that had just started although patient has had prolonged hospitalized due to some complex medical issues. .Peer to peer was attempted with [facility] for inpatient rehab and was denied recommending subacute rehab at a group home facility and initially family was okay although daughter, who will be power of employment law attorney discussed with her family and will be taking the patient home to [place] with her. Patient is continued on IV Zosyn and repeat urinalysis cultures pending and awaiting finalization. Called micro-lab in [place] and cultures will be reevaluated this evening some time. Infectious disease is following. Patient maintained on tube feedings and dietitian following. Case management and social work also following working on discharge planning needs and arranging for home care along with tube feedings and supplies in the home in [place]. White blood count trending down and patient remains afebrile. Patient has not had a bowel movement noted by nursing staff or patient and ordered an abdominal x-ray which shows some stool in the rectum. Will repeat a.m. labs and continue to monitor closely. Will order suppository. Detailed discussion was had with the daughter at the bedside. Further recommendations to follow based on the clinical course the patient. Prognosis is guarded. Possible discharge in 24 hours. Time with Patient: Greater than 30
[2020-12-05 17:13] LABS: Glucose,Whole Blood 139 mg/dL (75-99)
[2020-12-05] MEDS: PRAVASTATIN SODIUM 20 MG TAB PO SCH (20:53)
[2020-12-05 21:21] LABS: Glucose,Whole Blood 151 mg/dL (75-99)
[2020-12-06 01:05] LABS: Glucose,Whole Blood 112 mg/dL (75-99)
[2020-12-06] MEDS: SALT AND SODA MOUTHWASH 1,000 ML PO SCH ×5 (01:31→20:41)
[2020-12-06] MEDS: PIPERACILLIN-TAZOBACTAM 3.375 GM in SODIUM CHLORIDE 0.9% 100 ML IVPB SCH ×3 (04:14→20:38)
[2020-12-06 05:34] LABS: Glucose,Whole Blood 181 mg/dL (75-99)
[2020-12-06 06:34] LABS: African American GFR (CKD) >90 (>60 ml/min/1.73 sqM); Anion Gap 2 mmol/L; Blood Urea Nitrogen 15 mg/dL (9-20); Calcium 9.5 mg/dL (8.4-10.2); Carbon Dioxide 30 mmol/L (22-30); Chloride 104 mmol/L (98-107); Glucose 125 mg/dL (74-99); Non-African American GFR(CKD) 86 (>60 ml/min/1.73 sqM); Sodium 136 mmol/L (137-145)
[2020-12-06 06:40] LABS: Anisocytosis Slight; Basophils % (A) 0 %; Eosinophils # (A) 0.7 k/uL (0-0.7); Eosinophils % (A) 3 %; HCT 28.7 % (39.0-53.0); HGB 8.8 gm/dL (13.0-17.5); Hypochromasia Slight; Lymphocytes % (A) 4 %; MCH 28.5 pg (25.0-35.0); MCHC 30.8 g/dL (31.0-37.0); MCV 92.7 fL (80.0-100.0); Mean Platelet Volume 8.4; Monocytes # (A) 0.7 k/uL (0-1.0); Monocytes % (A) 3 %; Neutrophils # (A) 20.5 k/uL (1.3-7.7); Neutrophils % (A) 89 %; Platelet Count 250 k/uL (150-450); RBC 3.09 m/uL (4.30-5.90); RDW 16.8 % (11.5-15.5)
[2020-12-06] MEDS: HEPARIN SODIUM,PORCINE/PF 5,000 UNIT/0.5 ML SYRINGE SQ SCH (07:20)
[2020-12-06] MEDS: BICALUTAMIDE 50 MG TAB PO SCH (07:20)
[2020-12-06] MEDS: CHOLECALCIFEROL 25 MCG (1000 IU) TABLET PO SCH (07:20)
[2020-12-06] MEDS: FLUCONAZOLE IN NACL,ISO-OSM 200 MG in SALINE 1 100ML.BAG IVPB SCH (07:20)
[2020-12-06] MEDS: PANTOPRAZOLE 40 MG TABLET PO SCH (07:20)
--- NOTE | 2020-12-06 10:20 | P.PN ---
Subjective Progress Note Date: 12/06/20 Principal diagnosis: UTI, sepsis, dysphagia/aspiration. Prostate cancer, receiving radiation. In follow-up pt had 2 BM since yesterday, his rt abd pain is persistent. No other c/o, tolerating PEG feed with no N,V. Objective - Vital Signs Vital signs: Vital Signs Temp 98.7 F 12/06/20 05:00 Pulse 52 L 12/06/20 05:00 Resp 16 12/06/20 05:00 BP 156/69 12/06/20 05:00 Pulse Ox 100 12/06/20 05:00 Intake & Output 12/05/20 12/06/20 12/06/20 18:59 06:59 18:59 Intake Total 504 504 168 Balance 504 504 168 Intake: Tube Feeding 504 504 168 Other: Voiding Method Diaper Diaper # Bowel Movements 1 1 - Constitutional General appearance: Present: cooperative, no acute distress, severe distress - EENT EENT Comment(s): oral mucosa dry, voice is hoarse, weak Eyes: Present: anicteric sclerae, EOMI ENT: Present: hearing grossly normal, thrush - Respiratory Respiratory: bilateral: CTA - Cardiovascular Heart sounds: normal: S1, S2 - Peripheral edema leg Peripheral Edema: right: Trace, left: 2+ - Gastrointestinal Gastrointestinal Comment(s): rt abd discomfort with palpation, no pain on the left General gastrointestinal: Present: normal bowel sounds - Musculoskeletal Musculoskeletal: Present: generalized weakness - Psychiatric Psychiatric: Present: A&O x's 3, appropriate affect, intact judgment & insight - Labs CBC & Chem 7: 12/06/20 05:35 12/06/20 05:35 Labs: Abnormal Lab Results - Last 24 Hours (Table) 12/05/20 12/05/20 12/05/20 Range/Units 11:24 17:02 21:19 WBC (3.8-10.6) k/uL RBC (4.30-5.90) m/uL Hgb (13.0-17.5) gm/dL Hct (39.0-53.0) % MCHC (31.0-37.0) g/dL RDW (11.5-15.5) % Neutrophils # (1.3-7.7) k/uL Sodium (137-145) mmol/L Glucose (74-99) mg/dL POC Glucose (mg/dL) 124 H 139 H 151 H (75-99) mg/dL 12/06/20 12/06/20 12/06/20 Range/Units 01:02 05:33 05:35 WBC 23.0 H (3.8-10.6) k/uL RBC 3.09 L (4.30-5.90) m/uL Hgb 8.8 L (13.0-17.5) gm/dL Hct 28.7 L (39.0-53.0) % MCHC 30.8 L (31.0-37.0) g/dL RDW 16.8 H (11.5-15.5) % Neutrophils # 20.5 H (1.3-7.7) k/uL Sodium (137-145) mmol/L Glucose (74-99) mg/dL POC Glucose (mg/dL) 112 H 181 H (75-99) mg/dL 12/06/20 Range/Units 05:35 WBC (3.8-10.6) k/uL RBC (4.30-5.90) m/uL Hgb (13.0-17.5) gm/dL Hct (39.0-53.0) % MCHC (31.0-37.0) g/dL RDW (11.5-15.5) % Neutrophils # (1.3-7.7) k/uL Sodium 136 L (137-145) mmol/L Glucose 125 H (74-99) mg/dL POC Glucose (mg/dL) (75-99) mg/dL Microbiology - Last 24 Hours (Table) 12/04/20 11:50 Urine Culture - Final Urine,Voided Assessment and Plan (1) Prostate CA Narrative/Plan: Cont Casodex and lupron per Urology. Please check to see when they want lupron given. Rad Onc Dr. Howard. Current Visit: Yes Status: Chronic Priority: High Code(s): C61 - MALIGNANT NEOPLASM OF PROSTATE SNOMED Code(s): 017665876 (2) Diarrhea Narrative/Plan: Patient had not had a bowel movement documented for 10 days. Yesterday Abd xray showed retained material in rectal area. Suppository was ordered, pt had BM before given, had another BM this AM. Current Visit: Yes Status: Acute Priority: High Code(s): R19.7 - DIARRHEA, UNSPECIFIED SNOMED Code(s): 56355637 (3) Abdominal pain Narrative/Plan: CT of the abdomen and pelvis nothing specific called out that would explain RLQ pain. Surgery has seen patient, medical mgmt for now. Based on f/u and all testing suspect that pelvic mass compressing some nerves and likely pressing on bowel. The pain is not better, but it is not progressive. Encourage analgesics if needed to keep pain controlled Current Visit: Yes Status: Acute Priority: High Code(s): R10.9 - UNSPEC IFIED ABDOMINAL PAIN SNOMED Code(s): 88754005 (4) Squamous cell carcinoma of head and neck Narrative/Plan: Review of the images says that the area of thickening is stable from previous. Likely scar tissue from previous surgery and radiation to the neck. Since there is no significant difference though, question is why sudden difficulty swallowing and aspiration. Not sure if r/t dehydration, thrush and severe mucus membrane dryness. Pt mouth looks much better with hydration, nutrition and aggressive mouth care. Dry and scant thrush persists Recommend speech therapy-hope that pt will regain ability to swallow safely. Recommendation follow-up outpt with ENT for visual evaluation of scar tissue and to rule out any occurrence. Current Visit: No Status: Chronic Priority: Low Code(s): C76.0 - MALIGNANT NEOPLASM OF HEAD, FACE AND NECK SNOMED Code(s): 904064725 Plan: All above reviewed with Case Management and Attending TEST TUBE MAKER. Pt is going to go to [place] with his daughter. STAT doppler of LLE-unilateral swelling, concern for DVT, pending results will g shane recommendations
--- NOTE | 2020-12-06 10:20 | P.PN ---
Subjective Progress Note Date: 12/06/20 CHIEF COMPLAINT: Abdominal pain HISTORY OF PRESENT ILLNESS: This is a 80-year-old male with a known past medical history of squamous cell carcinoma of neck and history of prostate cancer. Patient is sitting up at bedside chair. He denies any pain. Patient has dysphagia and failed his swallow evaluation. Patient is status post PEG tube placement. Patient is tolerating tube feedings. No residual reported. He is having bowel movements. Afebrile. WBC 23. Discharge planning in progress. Daughter wants to take patient home to [place] with her. PHYSICAL EXAM: VITAL SIGNS: Reviewed. GENERAL: Well-developed in no acute distress. HEENT: No sclera icterus. Extraocular movements grossly intact. Moist buccal mucosa. Head is atraumatic, normocephalic. ABDOMEN: Soft. Nondistended. Nontender PEG tube site clean dry and intact NEUROLOGIC: Alert and oriented. Cranial nerves II through XII grossly intact. ASSESSMENT: 1. Moderate protein calorie malnutrition with Dysphagia status post PEG tube placement 2. Pelvic mass or necrotic lymph node nodes. Followed by urology and oncology. 3. Dysphagia and failed swallow evaluation 4. Neck cancer PLAN: -Continue tube feedings -Continue supportive care -Antibiotics per ID Physician Credit Risk Review Officer note has been reviewed by physician. Signing provider agrees with the documented findings, assessment, and plan of care. Objective - Vital Signs Vital signs: Vital Signs Temp 98.7 F 12/06/20 05:00 Pulse 52 L 12/06/20 05:00 Resp 16 12/06/20 05:00 BP 156/69 12/06/20 05:00 Pulse Ox 100 12/06/20 05:00 Intake & Output 12/05/20 12/06/20 12/06/20 18:59 06:59 18:59 Intake Total 504 504 168 Balance 504 504 168 Intake: Tube Feeding 504 504 168 Other: Voiding Method Diaper Diaper Diaper # Bowel Movements 1 1 - Labs CBC & Chem 7: 12/06/20 05:35 12/06/20 05:35 Labs: Abnormal Lab Results - Last 24 Hours (Table) 12/05/20 12/05/20 12/05/20 Range/Units 11:24 17:02 21:19 WBC (3.8-10.6) k/uL RBC (4.30-5.90) m/uL Hgb (13.0-17.5) gm/dL Hct (39.0-53.0) % MCHC (31.0-37.0) g/dL RDW (11.5-15.5) % Neutrophils # (1.3-7.7) k/uL Sodium (137-145) mmol/L Glucose (74-99) mg/dL POC Glucose (mg/dL) 124 H 139 H 151 H (75-99) mg/dL 12/06/20 12/06/20 12/06/20 Range/Units 01:02 05:33 05:35 WBC 23.0 H (3.8-10.6) k/uL RBC 3.09 L (4.30-5.90) m/uL Hgb 8.8 L (13.0-17.5) gm/dL Hct 28.7 L (39.0-53.0) % MCHC 30.8 L (31.0-37.0) g/dL RDW 16.8 H (11.5-15.5) % Neutrophils # 20.5 H (1.3-7.7) k/uL Sodium (137-145) mmol/L Glucose (74-99) mg/dL POC Glucose (mg/dL) 112 H 181 H (75-99) mg/dL 12/06/20 Range/Units 05:35 WBC (3.8-10.6) k/uL RBC (4.30-5.90) m/uL Hgb (13.0-17.5) gm/dL Hct (39.0-53.0) % MCHC (31.0-37.0) g/dL RDW (11.5-15.5) % Neutrophils # (1.3-7.7) k/uL Sodium 136 L (137-145) mmol/L Glucose 125 H (74-99) mg/dL POC Glucose (mg/dL) (75-99) mg/dL Microbiology - Last 24 Hours (Table) 12/04/20 11:50 Urine Culture - Final Urine,Voided
--- NOTE | 2020-12-06 10:50 | US ---
EXAMINATION TYPE: US venous doppler duplex LE LT DATE OF EXAM: 12/06/2020 10:44 AM COMPARISON: NONE CLINICAL HISTORY: unilateral swelling, prolonged bed rest. left leg swelling, no pain, no h/o dvt SIDE PERFORMED: Left TECHNIQUE: The lower extremity deep venous system is examined utilizing real time linear array sonog conner with graded compression, doppler sonography and color-flow sonography. VESSELS IMAGED: Common Femoral Vein Deep Femoral Vein Greater Saphenous Vein * Femoral Vein Popliteal Vein Small Saphenous Vein * Proximal Calf Veins (* superficial vessels) Left Leg: Extensive thrombus seen within proximal calf v's extending up through left cfv, internal e choes, noncompressible, no flow detected. IMPRESSION: 1. Findings compatible with extensive lower extremity DVT
[2020-12-06 12:32] LABS: Glucose,Whole Blood 125 mg/dL (75-99)
[2020-12-06] MEDS: APIXABAN 5 MG TAB PO SCH ×2 (14:03→20:38)
--- NOTE | 2020-12-06 16:13 | CT ---
CT CHEST FOR PULMONARY EMBOLISM. EXAMINATION TYPE: CT angio chest DATE OF EXAM: 12/06/2020 INDICATION: SOB, Newly diagnosed DVT today. CT DLP: 446 mGycm, Automated exposure control for dose reduction was used. CONTRAST: Patient injected with 100 mL of Isovue 370. COMPARISON: None TECHNIQUE: CT of the chest is performed on a spiral scan at 2 mm thick sections. Study is performed with intravenous contrast timed for evaluation for pulmonary embolism. This will limit additional po rtions of the evaluation. 3-D MIP images reconstructed by the technologist are reviewed on the compu ter in the coronal and sagittal planes. FINDINGS: No persistent filling defects are evident to suggest an acute pulmonary embolism. No mediastinal or hilar adenopathy enlarged by CT criteria is evident. The ascending aorta diameter at the level of the main pulmonary artery is 3.6 cm. The main pulmonary artery diameter at the bifur cation is 2.8 cm. Moderate bilateral pleural effusions are present. Some mild compressive atelectasis is adjacent. Limited CT section through the upper abdomen are unremarkable. IMPRESSIONS: 1. Moderate bilateral pleural effusions with small adjacent compressive atelectasis. 2. No acute pulmonary embolism.
--- NOTE | 2020-12-06 16:30 | P.PN ---
Subjective Progress Note Date: 12/06/20 This is a 80-year-old male admitted the for urinary tract infection. Patient was treated for that. 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 Patient is on hormone therapy with Casodex. Patient is supposed to get radiation therapy. Patient is later found to be dysphagia b ecause of which the patient received a PEG tube and the patient is presently receiving. 2 feedings. Plan is to discharge him to [facility] most probably on Friday to inpatient rehabilitation. Patient can get radiation therapy there as well. Patient is quite a bit weak. Patient remains on Zosyn from infectious disease is following the patient patient remains to have leukocytosis with repeat labs tomorrow patient is also on Diflucan patient leukocytosis is believed to be secondary to necrotic tumor in the pelvic area along with oropharyngeal candidiasis patient appears to have been treated for urinary tract infection on admission. 12/03/2020 We will obtain CBC and basic metabolic profile tomorrow patient white blood cell count trended down. Patient is on Zosyn. Patient is awaiting disposition to [facility] inpatient. Patient is presently two person assist 12/04/2020 Patient is seen and evaluated this morning with family at the bedside currently receiving tube feedings and denies any increased abdominal discomfort. Patient was at goal of 25 and dietitian following and adjusting rate according to weight and BMI. Patient remains on IV Zosyn and infectious disease is following. White blood count continues to trend down at 18.4 and hemoglobin is 8.4 with no active bleeding noted. Sodium 132 with a potassium of 3.9 and current creatinine is 0.73. Continuing to monitor blood sugars closely and magnesium today is 1.7 and will give 1 g and replace and repeat a.m. labs. Repeat urinalysis continues to show large leukocyte esterase and will continue with IV Zosyn at this time. Multiple medical consultations following including urology, infectious disease, oncology, and social work. Authorization has been resubmitted for inpatient rehab and Dr. Griffith also reevaluating the patient and waiting on updated PT/OT therapy notes. Per patient and nursing staff patient has not had a bowel movement and an abdominal x-ray has been ordered and pending. 12/05/2020 Patient is seen and evaluated in follow-up this morning currently receiving tube feedings and meeting goal. Medical consultations following including oncology and infectious disease. Repeat urinalysis culture is pending and patient maintains on IV Zosyn and Diflucan and will continue all awaiting cultures. Patient underwent x-ray of the abdomen showing retained material in the rectal area and a suppository has been ordered. Patient continues to have some right lower discomfort although states somewhat improved. Attempted [id number] to review with [employer] for authorization for [facility] inpatient rehab although was denied and they recommended subacute rehab for which family was initially agreeable to and social work following working on placement although daughter at the bedside has now opted to take the patient home and will likely be taking him back home to her home in [place] and she is currently working on power of take out waiter with him. Patient is agreeable to this plan and case management working on discharge planning needs with home care and tube feeding set up for them in [place]. 12/06/2020 Patient is seen in follow-up this morning having some left lower extremity swelling and underwent venous Doppler showing extensive lower extremity DVT and will start Eliquis. Chest CT done shows moderate bilateral pleural effusion with small adjacent compressive atelectasis with no acute PE noted and will obtain a chest x-ray. Per nursing staff patient was requiring almost maximum assistance getting up to the wheelchair to go down to [place]. Patient continues to be weak and family has planned on taking the patient home with the possibility of moving him down to [place] with them. Will discuss with daughter who is caring for him about the treatment plan and his continued weakness. Case management also working on discharge planning needs and arranging for outpatient home care and tube feeding arrangements. White blood count elevated today at 23.0 and hemoglobin is 8.8 with no active bleeding noted. Sodium is 136 with a potassium of 4.0 and current creatinine is 0.78. Patient denies shortness of breath or chest pain and also denies left lower extremity pain and there is noted swelling of the left lower extremity and calf with no pain on palpation, no localized temp noted on exam, no redness noted. Constitutional: As mentioned in the interval history, no fevers Cardio vascular: denied any chest pain, palpitations Gastrointestinal denied any nausea vomiting Pulmonary: Denied any shortness of breath cough Neurologic denied any new focal deficits, reports weakness Active Medications Acetaminophen (Acetaminophen Tab 325 Mg Tab) 650 mg PO Q6HR PRN PRN Reason: Mild Pain or Fever > 100.5 Last Admin: 11/26/20 07:30 Dose: 650 mg Documented by: Alprazolam (Alprazolam 0.25 Mg Tab) 0.25 mg PO TID PRN PRN Reason: Anxiety Last Admin: 11/20/20 20:42 Dose: 0.25 mg Documented by: Apixaban (Apixaban 5 Mg Tab) 10 mg PO BID [facility] Stop: 12/12/20 13:36 Last Admin: 12/06/20 14:03 Dose: 10 mg Documented by: Benzocaine/Menthol (Benzocaine/Menthol Lozeng 1 Each Lozenge) 1 each MUCOUS MEM Q4HR PRN PRN Reason: throat pain Bicalutamide (Bicalutamide 50 Mg Tab) 50 mg PO DAILY [facility] Last Admin: 12/06/20 07:20 Dose: 50 mg Documented by: Cholecalciferol (Cholecalciferol 25 Mcg (1000 Iu) Tablet) 25 mcg PO DAILY [facility] Last Admin: 12/06/20 07:20 Dose: 25 mcg Documented by: Dextrose/Water (Dextrose 50% Syringe 50 Ml) 25 ml IVP Q30M PRN PRN Reason: Hypoglycemia Last Admin: 11/30/20 22:50 Dose: 25 ml Documented by: Fluconazole/Sodium Chloride (200 mg/ IV Solution) 100 mls @ 100 mls/hr IVPB DAILY [facility] Last Admin: 12/06/20 07:20 Dose: 100 mls/hr Documented by: Piperacillin Sod/Tazobactam (Sod 3.375 gm/ Sodium Chloride) 100 mls @ 25 mls/hr IVPB Q8H [facility] Last Admin: 12/06/20 11:56 Dose: 25 mls/hr Documented by: Lidocaine HCl (Lidocaine 1% (10mg/Ml) For Iv Start) 0.1 ml INTRADERMA PER PROTOCOL PRN PRN Reason: IV Start Lisinopril (Lisinopril 2.5 Mg Tab) 2.5 mg PO DAILY [facility] Last Admin: 12/06/20 07:20 Dose: 2.5 mg Documented by: Miscellaneous Information (Magnesium Replacement Protocol 1 Each Misc) 1 each MISCELLANE DAILY PRN; Protocol PRN Reason: Per Protocol Naloxone HCl (Naloxone 0.4 Mg/Ml 1 Ml Vial) 0.2 mg IV Q2M PRN PRN Reason: Opioid Reversal Pantoprazole Sodium (Pantoprazole 40 Mg Tablet) 40 mg PO AC-BRKFST [facility] Last Admin: 12/06/20 07:20 Dose: 40 mg Documented by: Pravastatin Sodium (Pravastatin Sodium 20 Mg Tab) 20 mg PO HS [facility] Last Admin: 12/05/20 20:53 Dose: 20 mg Documented by: Sodium Bicarbonate (Salt And Soda Mouthwash 1,000 Ml) 5 ml PO 5XD [facility] Last Admin: 12/06/20 11:56 Dose: Not Given Documented by: Objective - Vital Signs Vital signs: Vital Signs Temp 97.4 F L 12/06/20 13:00 Pulse 60 12/06/20 13:00 Resp 17 12/06/20 13:00 BP 148/74 12/06/20 13:00 Pulse Ox 100 12/06/20 13:00 Intake & Output 12/05/20 12/06/20 12/06/20 18:59 06:59 18:59 Intake Total 504 504 336 Balance 504 504 336 Intake: Tube Feeding 504 504 336 Other: Voiding Method Diaper Diaper Diaper # Bowel Movements 1 1 - Exam GENERAL: The patient is alert and oriented x3, not in any acute distress. Thin built, cachectic, weak. Temp is 97.4F, pulse is 60, respirations are 17, blood pressure is 148/74, oxygen saturation is 100% on 3 L via nasal cannula. HEENT: Pupils are round and equally reacting to light. EOMI. No scleral icterus. No conjunctival pallor. Normocephalic, atraumatic. No pharyngeal erythema. No thyromegaly. CARDIOVASCULAR: S1 and S2 muffled PULMONARY: Breath sounds diminished bilaterally with some scattered rhonchi noted ABDOMEN: Soft, nontender, nondistended, normoactive bowel sounds. No palpable organomegaly. Tube site area appears to be clean MUSCULOSKELETAL: No joint swelling or deformity. EXTREMITIES: No cyanosis, clubbing, or pedal edema. Left lower extremity swelling with no redness noted NEUROLOGICAL: Gross neurological examination did not reveal any focal deficits. Significant generalized weakness SKIN: No rashes. - Labs CBC & Chem 7: 12/06/20 05:35 12/06/20 05:35 Labs: Abnormal Lab Results - Last 24 Hours (Table) 12/05/20 12/05/20 12/06/20 Range/Units 17:02 21:19 01:02 WBC (3.8-10.6) k/uL RBC (4.30-5.90) m/uL Hgb (13.0-17.5) gm/dL Hct (39.0-53.0) % MCHC (31.0-37.0) g/dL RDW (11.5-15.5) % Neutrophils # (1.3-7.7) k/uL Sodium (137-145) mmol/L Glucose (74-99) mg/dL POC Glucose (mg/dL) 139 H 151 H 112 H (75-99) mg/dL 12/06/20 12/06/20 12/06/20 Range/Units 05:33 05:35 05:35 WBC 23.0 H (3.8-10.6) k/uL RBC 3.09 L (4.30-5.90) m/uL Hgb 8.8 L (13.0-17.5) gm/dL Hct 28.7 L (39.0-53.0) % MCHC 30.8 L (31.0-37.0) g/dL RDW 16.8 H (11.5-15.5) % Neutrophils # 20.5 H (1.3-7.7) k/uL Sodium 136 L (137-145) mmol/L Glucose 125 H (74-99) mg/dL POC Glucose (mg/dL) 181 H (75-99) mg/dL 12/06/20 Range/Units 12:31 WBC (3.8-10.6) k/uL RBC (4.30-5.90) m/uL Hgb (13.0-17.5) gm/dL Hct (39.0-53.0) % MCHC (31.0-37.0) g/dL RDW (11.5-15.5) % Neutrophils # (1.3-7.7) k/uL Sodium (137-145) mmol/L Glucose (74-99) mg/dL POC Glucose (mg/dL) 125 H (75-99) mg/dL Microbiology - Last 24 Hours (Table) 12/04/20 11:50 Urine Culture - Final Urine,Voided Assessment and Plan Assessment: -Intra-abdominal mass, necrosis of the tumor -Left lower extremity DVT -Oropharyngeal candidiasis -Acute urinary tract infection, present on admission with cultures growing E. coli -Dysphagia with possible aspiration status post PEG tube. -Metastatic prostate cancer for which patient is on Casodex will receive radiation therapy upon discharge -Acute renal failure, probably acute tubular necrosis which improved -Leukocytosis due to assessment #1 and 3 -Hypercalcemia secondary to dehydration which improved -Hypertension -Hyperlipidemia -Full code Recommendations and discussion: Recommend to continue with current medications, management, and continue with PT/OT evaluation. Patient is continued on IV Zosyn and repeat urinalysis cultures showing no growth. Infectious disease is following. Patient maintained on tube feedings and dietitian following. Case management and social work also following working on discharge planning needs and arranging for home care along with tube feedings and supplies in the home in [place]. White blood count elevated today and patient remains afebrile. Patient had some left lower extremity swelling and underwent Doppler showing positive for DVT and also had CT of the chest done which was negative for PE but showing some pleural effusions and will order a chest x-ray which is pending. Patient is almost maximum assist getting up and will discuss with daughter about treatment plan moving forward. Will repeat a.m. labs and continue to monitor closely. Detailed discussion was had with the daughter at the bedside. Further recommendations to follow based on the clinical course the patient. Prognosis is guarded. Time with Patient: Greater than 30
--- NOTE | 2020-12-06 17:07 | XR ---
EXAMINATION TYPE: XR chest 1V portable DATE OF EXAM: 12/06/2020 COMPARISON: 12/01/2020 HISTORY: Cough TECHNIQUE: Single view FINDINGS: Heart is enlarged. There is mild pulmonary congestion. There is some blunting of the costop hrenic angles. The bony thorax is intact. There is some infiltrate at both lung bases. IMPRESSION: Congestive heart failure with pleural effusions and basilar pulmonary infiltrates that is worse than last exam. Cardiomegaly unchanged.
[2020-12-06] MEDS: ACETAMINOPHEN TAB 325 MG TAB PO PRN (17:17)
[2020-12-06 17:38] LABS: Glucose,Whole Blood 137 mg/dL (75-99)
[2020-12-06] MEDS ORDERED: FUROSEMIDE 10 MG/ML 4 ML VIAL IV STA (19:41)
[2020-12-06] MEDS: PRAVASTATIN SODIUM 20 MG TAB PO SCH (20:41)
--- NOTE | 2020-12-06 22:36 | PN ---
PROGRESS NOTE DATE OF SERVICE: 12/06/2020 REASON FOR FOLLOWUP: Leukocytosis, UTI and thrush. INTERVAL HISTORY: The patient is afebrile. The patient is breathing comfortably. The patient has been complaining of pain to the right lower chest area. No nausea, no vomiting. No abdominal pain or diarrhea. PHYSICAL EXAMINATION: His blood pressure is 156/75, pulse of 54, temperature 98.8. He is 94% on room air. General description is an elderly male up in the chair in no distress. RESPIRATORY SYSTEM: Unlabored breathing with decreased breath sounds at the base. No wheeze. HEART: S1, S2. Regular rate and rhythm. ABDOMEN: Soft. No tenderness. LABS: Hemoglobin is 8.8, white count of 23, BUN of 15, creatinine 0.78. Repeat urine came back negative. CT angiogram was negative for PE. DIAGNOSTIC IMPRESSION AND PLAN: Patient with elevated white count, multifactorial, with concern for thrush and did have multiple necrotic tumors to the abdominal area with subsequent worsening of the white count, now showing a downward trend. Will repeat his CBC tomorrow as well as CRP and procalcitonin. Continue Zosyn and Diflucan and monitor his clinical course closely. MMODL / IJN: [id number] /
[2020-12-07 00:08] LABS: Glucose,Whole Blood 153 mg/dL (75-99)
[2020-12-07] MEDS: SALT AND SODA MOUTHWASH 1,000 ML PO SCH ×5 (00:33→21:10)
[2020-12-07] MEDS: PIPERACILLIN-TAZOBACTAM 3.375 GM in SODIUM CHLORIDE 0.9% 100 ML IVPB SCH ×3 (04:58→21:02)
[2020-12-07 05:27] LABS: Glucose,Whole Blood 134 mg/dL (75-99)
[2020-12-07 07:25] LABS: Anisocytosis Slight; Basophils # (A) 0.2 k/uL (0-0.2); Basophils % (A) 1 %; Eosinophils # (A) 0.9 k/uL (0-0.7); Eosinophils % (A) 3 %; HCT 27.1 % (39.0-53.0); Lymphocytes # (A) 0.7 k/uL (1.0-4.8); Lymphocytes % (A) 3 %; MCH 30.4 pg (25.0-35.0); MCHC 33.2 g/dL (31.0-37.0); MCV 91.7 fL (80.0-100.0); Mean Platelet Volume 7.9; Monocytes # (A) 0.7 k/uL (0-1.0); Monocytes % (A) 2 %; Neutrophils # (A) 26.2 k/uL (1.3-7.7); Neutrophils % (A) 91 %; Platelet Count 239 k/uL (150-450); RBC 2.96 m/uL (4.30-5.90); RDW 16.7 % (11.5-15.5); WBC 28.8 k/uL (3.8-10.6)
[2020-12-07] MEDS: PANTOPRAZOLE 40 MG TABLET PO SCH (07:37)
[2020-12-07] MEDS: CHOLECALCIFEROL 25 MCG (1000 IU) TABLET PO SCH (07:37)
[2020-12-07] MEDS: APIXABAN 5 MG TAB PO SCH ×2 (07:37→21:11)
[2020-12-07] MEDS: lisinopriL 5 MG TAB PO SCH (07:38)
[2020-12-07 07:39] LABS: African American GFR (CKD) >90 (>60 ml/min/1.73 sqM); Anion Gap 2 mmol/L; Blood Urea Nitrogen 17 mg/dL (9-20); Calcium 10.2 mg/dL (8.4-10.2); Carbon Dioxide 31 mmol/L (22-30); Chloride 103 mmol/L (98-107); Glucose 133 mg/dL (74-99); Non-African American GFR(CKD) 86 (>60 ml/min/1.73 sqM); Potassium 3.7 mmol/L (3.5-5.1); Sodium 136 mmol/L (137-145)
[2020-12-07] MEDS: BICALUTAMIDE 50 MG TAB PO SCH (07:39)
[2020-12-07] MEDS: FLUCONAZOLE IN NACL,ISO-OSM 200 MG in SALINE 1 100ML.BAG IVPB SCH (07:45)
[2020-12-07 08:07] LABS: C Reactive Protein 14.8 mg/dL (<1.0)
--- NOTE | 2020-12-07 11:30 | P.PN ---
Subjective Progress Note Date: 12/07/20 CHIEF COMPLAINT: Abdominal pain HISTORY OF PRESENT ILLNESS: This is a 80-year-old male with a known past medical history of squamous cell carcinoma of neck and history of prostate cancer. Patient is sitting up at bedside chair. He denies any pain. Patient has dysphagia and failed his swallow evaluation. Patient is status post PEG tube placement. Patient is tolerating tube feedings. No residual reported. He is having bowel movements. Afebrile. WBC 28.8. She has new left leg DVT. Was started on Eliquis. PHYSICAL EXAM: VITAL SIGNS: Reviewed. GENERAL: Well-developed in no acute distress. HEENT: No sclera icterus. Extraocular movements grossly intact. Moist buccal mucosa. Head is atraumatic, normocephalic. ABDOMEN: Soft. Nondistended. Nontender PEG tube site clean dry and intact NEUROLOGIC: Alert and oriented. Cranial nerves II through XII grossly intact. ASSESSMENT: 1. Moderate protein calorie malnutrition with Dysphagia status post PEG tube placement 2. Pelvic mass or necrotic lymph node nodes. Followed by urology and oncology. 3. Dysphagia and failed swallow evaluation 4. Neck cancer PLAN: -Continue tube feedings -Continue supportive care -Antibiotics per ID Physician [employer] [place] note has been reviewed by physician. Signing provider agrees with the documented findings, assessment, and plan of care. Objective - Vital Signs Vital signs: Vital Signs Temp 98.5 F 12/07/20 04:21 Pulse 63 12/07/20 08:00 Resp 16 12/07/20 08:00 BP 141/72 12/07/20 04:21 Pulse Ox 100 12/07/20 04:21 Intake & Output 12/06/20 12/07/20 12/07/20 18:59 06:59 18:59 Intake Total 504 0 168 Output Total 1 1 Balance 504 -1 167 Weight 58 kg Intake: Oral 0 Tube Feeding 504 168 Output: Stool 1 1 Other: Voiding Method Diaper Diaper Diaper Incontinent Incontinent # Bowel Movements 1 - Labs CBC & Chem 7: 12/07/20 07:00 12/07/20 07:00 Labs: Abnormal Lab Results - Last 24 Hours (Table) 12/06/20 12/06/20 12/07/20 Range/Units 12:31 17:35 00:06 WBC (3.8-10.6) k/uL RBC (4.30-5.90) m/uL Hgb (13.0-17.5) gm/dL Hct (39.0-53.0) % RDW (11.5-15.5) % Sodium (137-145) mmol/L Carbon Dioxide (22-30) mmol/L Glucose (74-99) mg/dL POC Glucose (mg/dL) 125 H 137 H 153 H (75-99) mg/dL C-Reactive Protein (<1.0) mg/dL 12/07/20 12/07/20 12/07/20 Range/Units 05:26 07:00 07:00 WBC 28.8 H (3.8-10.6) k/uL RBC 2.96 L (4.30-5.90) m/uL Hgb 9.0 L (13.0-17.5) gm/dL Hct 27.1 L (39.0-53.0) % RDW 16.7 H (11.5-15.5) % Sodium 136 L (137-145) mmol/L Carbon Dioxide 31 H (22-30) mmol/L Glucose 133 H (74-99) mg/dL POC Glucose (mg/dL) 134 H (75-99) mg/dL C-Reactive Protein 14.8 H (<1.0) mg/dL
[2020-12-07 11:37] LABS: Poikilocytosis (M) Present
[2020-12-07] MEDS: FUROSEMIDE 10 MG/ML 4 ML VIAL IV SCH (11:44)
[2020-12-07 12:45] LABS: Glucose,Whole Blood 135 mg/dL (75-99)
--- NOTE | 2020-12-07 13:00 | ECHOF ---
Referral Reason:shortness of breath MEASUREMENTS -------- HEIGHT: 170.2 cm WEIGHT: 57.6 kg BP: IVSd: 1.0 cm (0.6 - 1.1) LVIDd: 6.1 cm (3.9 - 5.3) LVPWd: 0.8 cm (0.6 - 1.1) IVSs: 0.9 cm LVIDs: 5.6 cm LVPWs: 1.0 cm LAESV Index (A-L): 45.82 ml/m Ao Diam: 3.0 cm (2.0 - 3.7) AV Cusp: 1.7 cm (1.5 - 2.6) LA Diam: 3.9 cm (2.7 - 3.8) MV EXCURSION: 15.856 mm (> 18.000) MV EF SLOPE: 44 mm/s (70 - 150) EPSS: 2.1 cm MV E Michael: 0.76 m/s MV DecT: 172 ms MV A Michael: 1.14 m/s MV E/A Ratio: 0.67 AR PHT: 801 ms RAP: 5.00 mmHg RVSP: 52.28 mmHg FINDINGS -------- This was a technically good study. The left ventricle is mildly dilated. Left ventricular wall thickness is normal. There is severe global hypokinesis of LV . Overall left ventricular systolic function is severely impaired with, an EF < 20%. Increased LAP. Grade 3 Diastolic Dysfunction. The right ventricle is normal in size. LA is severely dilated >40 ml/m2 The right atrial size is normal. Interatrial and interventricular septum intact. Aortic valve is trileaflet and is mildly thickened. There is mild aortic regurgitation. The mitral valve is normal. The mitral valve leaflets are mildly thickened. Moderate mitral regur gitation is present. The tricuspid valve appears structurally normal. Moderate tricuspid regurgitation present. There is moderate pulmonary hypertension. The right ventricular systolic pressure, as measured by Doppler , is 52.28mmHg. There is no pulmonic regurgitation present. The aortic root size is normal. Normal inferior vena cava with normal inspiratory collapse consistent with estimated right atrial pre ssure of 5 mmHg. There is a trivial pericardial effusion present. CONCLUSIONS -------- 1. The left ventricle is mildly dilated. 2. Left ventricular wall thickness is normal. 3. There is severe global hypokinesis of LV . 4. Overall left ventricular systolic function is severely impaired with, an EF < 20%. 5. Increased LAP. Grade 3 Diastolic Dysfunction. 6. LA is severely dilated >40 ml/m2 7. Aortic valve is trileaflet and is mildly thickened. 8. There is mild aortic regurgitation. 9. The mitral valve leaflets are mildly thickened. 10. Moderate mitral regurgitation is present. 11. Moderate tricuspid regurgitation present. 12. There is moderate pulmonary hypertension. 13. The right ventricular systolic pressure, as measured by Doppler, is 52.28mmHg. 14. There is a trivial pericardial effusion present. HULL INSPECTOR: Angelique Roberts RDCS
[2020-12-07] MEDS: IOPAMIDOL CONTRAST (ORAL USE) VIAL PO PRN ×2 (13:17→14:36)
[2020-12-07 14:12] LABS: Appearance,Urine Clear (Clear); Bacteria,Urine Rare /hpf; Bilirubin,Urine Negative (Negative); Blood,Urine Moderate (Negative); Color,Urine Colorless; Glucose,Urine (UA) Negative (Negative); Ketones,Urine Negative (Negative); Leukocyte Esterase,Urine Moderate (Negative); Nitrite,Urine Negative (Negative); PH, Urine 6.5 (5.0-8.0); Protein,Urine Negative (Negative); RBC,Urine 10 /hpf (0-5); Specific Gravity,Urine 1.007 (1.001-1.035); Urobilinogen,Urine <2.0 mg/dL (<2.0); WBC,Urine 27 /hpf (0-5)
--- NOTE | 2020-12-07 15:17 | P.PN ---
Subjective Progress Note Date: 12/07/20 Principal diagnosis: UTI, sepsis, dysphagia/aspiration. Prostate cancer, received radiation. In follow-up pt having watery stool after no BM for nearly 10 days. His RLQ pain is the same. He is tolerating PEG feeds without N,V, denies SOB, cough, chest pains. His legs do not hurt, LLE is still swollen. I asked him if he wants to try and rehab, he says yes. Objective - Vital Signs Vital signs: Vital Signs Temp 97.7 F 12/07/20 12:40 Pulse 75 12/07/20 12:40 Resp 16 12/07/20 12:40 BP 137/67 12/07/20 12:40 Pulse Ox 99 12/07/20 12:40 Intake & Output 12/06/20 12/07/20 12/07/20 18:59 06:59 18:59 Intake Total 504 0 336 Output Total 1 1 Balance 504 -1 335 Weight 58 kg Intake: Oral 0 Tube Feeding 504 336 Output: Stool 1 1 Other: Voiding Method Diaper Diaper Diaper Incontinent Incontinent # Voids 2 # Bowel Movements 1 2 - Constitutional General appearance: Present: cooperative, no acute distress, thin - EENT EENT Comment(s): very dry mucus membranes, scan thrush persists Eyes: Present: anicteric sclerae, edentulous ENT: Present: hearing grossly normal - Respiratory Respiratory: bilateral: CTA - Cardiovascular Details: Generalized anasarca is slowly improving Rhythm: regular Heart sounds: normal: S1, S2 Abnormal Heart Sounds: Absent: systolic murmur, diastolic murmur, rub, S3 Gallop, S4 Gallop, click, other - Peripheral edema leg Peripheral Edema: right: Trace, left: 2+ - Gastrointestinal Gastrointestinal Comment(s): no pain aront PEG, no drainage or leakage General gastrointestinal: Present: normal bowel sounds, soft Localized gastrointestinal: tender: RLQ - Neurologic Neurologic: Present: CNII-XII intact - Musculoskeletal Musculoskeletal: Present: generalized weakness - Psychiatric Psychiatric: Present: A&O x's 3, appropriate affect - Labs CBC & Chem 7: 12/07/20 07:00 12/07/20 07:00 Labs: Abnormal Lab Results - Last 24 Hours (Table) 12/06/20 12/07/20 12/07/20 Range/Units 17:35 00:06 05:26 WBC (3.8-10.6) k/uL RBC (4.30-5.90) m/uL Hgb (13.0-17.5) gm/dL Hct (39.0-53.0) % RDW (11.5-15.5) % Neutrophils # (1.3-7.7) k/uL Lymphocytes # (1.0-4.8) k/uL Eosinophils # (0-0.7) k/uL Sodium (137-145) mmol/L Carbon Dioxide (22-30) mmol/L Glucose (74-99) mg/dL POC Glucose (mg/dL) 137 H 153 H 134 H (75-99) mg/dL Troponin I (0.000-0.034) ng/mL C-Reactive Protein (<1.0) mg/dL Procalcitonin (0.02-0.09) ng/mL Urine Blood (Negative) Ur Leukocyte Esterase (Negative) Urine RBC (0-5) /hpf Urine WBC (0-5) /hpf Urine Bacteria (None) /hpf 12/07/20 12/07/20 12/07/20 Range/Units 07:00 07:00 07:00 WBC 28.8 H (3.8-10.6) k/uL RBC 2.96 L (4.30-5.90) m/uL Hgb 9.0 L (13.0-17.5) gm/dL Hct 27.1 L (39.0-53.0) % RDW 16.7 H (11.5-15.5) % Neutrophils # 26.2 H (1.3-7.7) k/uL Lymphocytes # 0.7 L (1.0-4.8) k/uL Eosinophils # 0.9 H (0-0.7) k/uL Sodium 136 L (137-145) mmol/L Carbon Dioxide 31 H (22-30) mmol/L Glucose 133 H (74-99) mg/dL POC Glucose (mg/dL) (75-99) mg/dL Troponin I (0.000-0.034) ng/mL C-Reactive Protein 14.8 H (<1.0) mg/dL Procalcitonin 0.17 H (0.02-0.09) ng/mL Urine Blood (Negative) Ur Leukocyte Esterase (Negative) Urine RBC (0-5) /hpf Urine WBC (0-5) /hpf Urine Bacteria (None) /hpf 12/07/20 12/07/20 12/07/20 Range/Units 11:58 12:43 13:05 WBC (3.8-10.6) k/uL RBC (4.30-5.90) m/uL Hgb (13.0-17.5) gm/dL Hct (39.0-53.0) % RDW (11.5-15.5) % Neutrophils # (1.3-7.7) k/uL Lymphocytes # (1.0-4.8) k/uL Eosinophils # (0-0.7) k/uL Sodium (137-145) mmol/L Carbon Dioxide (22-30) mmol/L Glucose (74-99) mg/dL POC Glucose (mg/dL) 135 H (75-99) mg/dL Troponin I 0.052 H* (0.000-0.034) ng/mL C-Reactive Protein (<1.0) mg/dL Procalcitonin (0.02-0.09) ng/mL Urine Blood Moderate H (Negative) Ur Leukocyte Esterase Moderate H (Negative) Urine RBC 10 H (0-5) /hpf Urine WBC 27 H (0-5) /hpf Urine Bacteria Rare H (None) /hpf - Imaging and Cardiology Chest x-ray: report reviewed CT scan - chest: report reviewed echo report reviewed Assessment and Plan (1) Prostate CA Narrative/Plan: Cont Casodex and lupron per Urology. Please check to see when they want lupron given. Rad Onc Dr. Howard. Current Visit: Yes Status: Chronic Priority: High Code(s): C61 - MALIGNANT NEOPLASM OF PROSTATE SNOMED Code(s): 926651896 (2) Diarrhea Narrative/Plan: Patient had not had a bowel movement documented for 10 days. Yesterday Abd xray showed retained material in rectal area. Suppository was ordered, pt had BM before given, had another BM this AM. Today he is reporting liquid/watery stool. Discussed with IM. ID consulted, CT AP ordered, stool studies ordered. Current Visit: Yes Status: Acute Priority: High Code(s): R19.7 - DIARRHEA, UNSPECIFIED SNOMED Code(s): 83247737 (3) Abdominal pain Narrative/Plan: CT of the abdomen and pelvis nothing specific called out that would explain RLQ pain. New scan ordered. ID on consult. 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 Likely scar tissue from previous surgery and radiation to the neck. Since there is no significant difference though, question is why sudden difficulty swallowing and aspiration. Not sure if r/t dehydration, thrush and severe mucus membrane dryness. Pt mouth cont to be dry. Recommend speech therapy-hope that pt will regain ability to swallow safely. Recommendation follow-up outpt with ENT for visual evaluation of scar tissue and to rule out any occurrence. Pt needs to continue aggressive oral care, thrush medicine Current Visit: No Status: Chronic Priority: Low Code(s): C76.0 - MALIGNANT NEOPLASM OF HEAD, FACE AND NECK SNOMED Code(s): 781854643 (5) DVT (deep venous thrombosis) Narrative/Plan: LLE DVT, eliquis started. CTA no PE. Current Visit: Yes Status: Acute Priority: High Code(s): I82.409 - ACUTE EMBOLISM AND THOMBOS UNSP DEEP VN UNSP LOWER EXTREMITY SNOMED Code(s): 397457021 Plan: All above reviewed with Attending DISTRICT TRAFFIC CHIEF. Pt is going to go to [place] with his daughter.
--- NOTE | 2020-12-07 15:41 | XR ---
EXAMINATION TYPE: XR KUB portable DATE OF EXAM: 12/07/2020 COMPARISON: NONE HISTORY: Pain TECHNIQUE: Single supine KUB image of the abdomen is obtained FINDINGS: Contrast, the small bowel from recent CT. Scattered intracolonic debris. No convincing evidence for p neumoperitoneum. No unusual calcifications. The lung bases are clear. The osseous structures are intact. IMPRESSION: 1. Nonspecific bowel gas pattern.
--- NOTE | 2020-12-07 16:01 | P.PN ---
Subjective Progress Note Date: 12/07/20 This is a 80-year-old male admitted the for urinary tract infection. Patient was treated for that. 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 Patient is on hormone therapy with Casodex. Patient is supposed to get radiation therapy. Patient is later found to be dysphagia b ecause of which the patient received a PEG tube and the patient is presently receiving. 2 feedings. Plan is to discharge him to [facility] most probably on Friday to inpatient rehabilitation. Patient can get radiation therapy there as well. Patient is quite a bit weak. Patient remains on Zosyn from infectious disease is following the patient patient remains to have leukocytosis with repeat labs tomorrow patient is also on Diflucan patient leukocytosis is believed to be secondary to necrotic tumor in the pelvic area along with oropharyngeal candidiasis patient appears to have been treated for urinary tract infection on admission. 12/03/2020 We will obtain CBC and basic metabolic profile tomorrow patient white blood cell count trended down. Patient is on Zosyn. Patient is awaiting disposition to [facility] inpatient. Patient is presently two person assist 12/04/2020 Patient is seen and evaluated this morning with family at the bedside currently receiving tube feedings and denies any increased abdominal discomfort. Patient was at goal of 25 and dietitian following and adjusting rate according to weight and BMI. Patient remains on IV Zosyn and infectious disease is following. White blood count continues to trend down at 18.4 and hemoglobin is 8.4 with no active bleeding noted. Sodium 132 with a potassium of 3.9 and current creatinine is 0.73. Continuing to monitor blood sugars closely and magnesium today is 1.7 and will give 1 g and replace and repeat a.m. labs. Repeat urinalysis continues to show large leukocyte esterase and will continue with IV Zosyn at this time. Multiple medical consultations following including urology, infectious disease, oncology, and social work. Authorization has been resubmitted for inpatient rehab and Dr. Griffith also reevaluating the patient and waiting on updated PT/OT therapy notes. Per patient and nursing staff patient has not had a bowel movement and an abdominal x-ray has been ordered and pending. 12/05/2020 Patient is seen and evaluated in follow-up this morning currently receiving tube feedings and meeting goal. Medical consultations following including oncology and infectious disease. Repeat urinalysis culture is pending and patient maintains on IV Zosyn and Diflucan and will continue all awaiting cultures. Patient underwent x-ray of the abdomen showing retained material in the rectal area and a suppository has been ordered. Patient continues to have some right lower discomfort although states somewhat improved. Attempted [id number] to review with [employer] for authorization for [facility] inpatient rehab although was denied and they recommended subacute rehab for which family was initially agreeable to and social work following working on placement although daughter at the bedside has now opted to take the patient home and will likely be taking him back home to her home in [place] and she is currently working on power of trademark attorney with him. Patient is agreeable to this plan and case management working on discharge planning needs with home care and tube feeding set up for them in [place]. 12/06/2020 Patient is seen in follow-up this morning having some left lower extremity swelling and underwent venous Doppler showing extensive lower extremity DVT and will start Eliquis. Chest CT done shows moderate bilateral pleural effusion with small adjacent compressive atelectasis with no acute PE noted and will obtain a chest x-ray. Per nursing staff patient was requiring almost maximum assistance getting up to the wheelchair to go down to [place]. Patient continues to be weak and family has planned on taking the patient home with the possibility of moving him down to [place] with them. Will discuss with daughter who is caring for him about the treatment plan and his continued weakness. Case management also working on discharge planning needs and arranging for outpatient home care and tube feeding arrangements. White blood count elevated today at 23.0 and hemoglobin is 8.8 with no active bleeding noted. Sodium is 136 with a potassium of 4.0 and current creatinine is 0.78. Patient denies shortness of breath or chest pain and also denies left lower extremity pain and there is noted swelling of the left lower extremity and calf with no pain on palpation, no localized temp noted on exam, no redness noted. 12/07/2020 Patient is seen in follow-up this morning with daughter at the bedside and continues to have left lower extremity swelling although somewhat improved from yesterday. Patient reported loose stool and will reobtain a C. diff specimen. Per nursing staff bowel movement today was more formed. Patient was started on Eliquis milligrams twice daily and will continue with this for 1 week and then titrate the dosage down to 5 mg twice a day. Chest x-ray done yesterday shows congestive heart failure with pleural effusions and basilar pulmonary infiltrates with cardiomegaly continued and was given a dose of IV Lasix. We'll continue with IV Lasix 40 mg daily. Ordered a 2-D echo showing severe global hypokinesis along with LV systolic function severely impaired with an EF less than 20% with increased [employer] great 3 diastolic dysfunction with some mild aortic regurgitation and moderate mitral and tricuspid regurgitation present. There is also moderate pulmonary hypertension noted with some trivial pericardial e ffusion present. Obtain a troponin which was 0.052 and have consulted cardiology which is currently pending. Patient continues to be extremely weak requiring almost maximum assistance. Family is agreeable for him to go to rehab at an [facility] to build up strength and mobility as she plans on taking him to [place] to live with her once rehab is done. Blood count continues to be elevated at 28.8 and hemoglobin is stable at 9.0 with no active bleeding noted. Opium is 136 with a potassium of 3.7 and creatinine is 0.77. Abdominal x-ray repeated showing nonspecific bowel gas pattern. repeat CT abdomen was also ordered which is pending at this time. Patient continues on tube feeds and is tolerating. Constitutional: As mentioned in the interval history, no fevers Cardio vascular: denied any chest pain, palpitations Gastrointestinal denied any nausea vomiting Pulmonary: Denied any shortness of breath cough Neurologic denied any new focal deficits, reports weakness Active Medications Acetaminophen (Acetaminophen Tab 325 Mg Tab) 650 mg PO Q6HR PRN PRN Reason: Mild Pain or Fever > 100.5 Last Admin: 12/06/20 17:17 Dose: 650 mg Documented by: Alprazolam (Alprazolam 0.25 Mg Tab) 0.25 mg PO TID PRN PRN Reason: Anxiety Last Admin: 11/20/20 20:42 Dose: 0.25 mg Documented by: Apixaban (Apixaban 5 Mg Tab) 10 mg PO BID NATALIYA Stop: 12/12/20 13:36 Last Admin: 12/07/20 07:37 Dose: 10 mg Documented by: Benzocaine/Menthol (Benzocaine/Menthol Lozeng 1 Each Lozenge) 1 each MUCOUS MEM Q4HR PRN PRN Reason: throat pain Bicalutamide (Bicalutamide 50 Mg Tab) 50 mg PO DAILY [facility] Last Admin: 12/07/20 07:39 Dose: 50 mg Documented by: Cholecalciferol (Cholecalciferol 25 Mcg (1000 Iu) Tablet) 25 mcg PO DAILY [facility] Last Admin: 12/07/20 07:37 Dose: 25 mcg Documented by: Dextrose/Water (Dextrose 50% Syringe 50 Ml) 25 ml IVP Q30M PRN PRN Reason: Hypoglycemia Last Admin: 11/30/20 22:50 Dose: 25 ml Documented by: Furosemide (Furosemide 10 Mg/Ml 4 Ml Vial) 40 mg IV DAILY [facility] Last Admin: 12/07/20 11:44 Dose: 40 mg Documented by: Fluconazole/Sodium Chloride (200 mg/ IV Solution) 100 mls @ 100 mls/hr IVPB DAILY [facility] Last Admin: 12/07/20 07:45 Dose: 100 mls/hr Documented by: Piperacillin Sod/Tazobactam (Sod 3.375 gm/ Sodium Chloride) 100 mls @ 25 mls/hr IVPB Q8H [facility] Last Admin: 12/07/20 11:44 Dose: 25 mls/hr Documented by: Lidocaine HCl (Lidocaine 1% (10mg/Ml) For Iv Start) 0.1 ml INTRADERMA PER PROTOCOL PRN PRN Reason: IV Start Lisinopril (Lisinopril 5 Mg Tab) 5 mg PO DAILY [facility] Last Admin: 12/07/20 07:38 Dose: 5 mg Documented by: Miscellaneous Information (Magnesium Replacement Protocol 1 Each Misc) 1 each MISCELLANE DAILY PRN; Protocol PRN Reason: Per Protocol Naloxone HCl (Naloxone 0.4 Mg/Ml 1 Ml Vial) 0.2 mg IV Q2M PRN PRN Reason: Opioid Reversal Pantoprazole Sodium (Pantoprazole 40 Mg Tablet) 40 mg PO AC-BRKFST [facility] Last Admin: 12/07/20 07:37 Dose: 40 mg Documented by: Pravastatin Sodium (Pravastatin Sodium 20 Mg Tab) 20 mg PO HS [facility] Last Admin: 12/06/20 20:41 Dose: 20 mg Documented by: Sodium Bicarbonate (Salt And Soda Mouthwash 1,000 Ml) 5 ml PO 5XD [facility] Last Admin: 12/07/20 10:26 Dose: 5 ml Documented by: Objective - Vital Signs Vital signs: Vital Signs Temp 98.5 F 12/07/20 04:21 Pulse 63 12/07/20 08:00 Resp 16 12/07/20 08:00 BP 141/72 12/07/20 04:21 Pulse Ox 100 12/07/20 04:21 Intake & Output 12/06/20 12/07/20 12/07/20 18:59 06:59 18:59 Intake Total 504 0 168 Output Total 1 1 Balance 504 -1 167 Weight 58 kg Intake: Oral 0 Tube Feeding 504 168 Output: Stool 1 1 Other: Voiding Method Diaper Diaper Diaper Incontinent Incontinent # Bowel Movements 1 - Exam GENERAL: The patient is alert and oriented x3, not in any acute distress. Thin built, cachectic, weak. Temp is 97.7F, pulse is 75, respirations are 16, blood pressure is 137/67, oxygen saturation is 99% on room air. HEENT: Pupils are round and equally reacting to light. EOMI. No scleral icterus. No conjunctival pallor. Normocephalic, atraumatic. No pharyngeal erythema. No thyromegaly. CARDIOVASCULAR: S1 and S2 muffled PULMONARY: Breath sounds diminished bilaterally with some scattered rhonchi and crackles noted ABDOMEN: Soft, continue right lower quadrant tenderness, nondistended, normoactive bowel sounds. No palpable organomegaly. Tube site area appears to be clean MUSCULOSKELETAL: No joint swelling or deformity. EXTREMITIES: No cyanosis, clubbing, or pedal edema. Left lower extremity swelling with no redness noted NEUROLOGICAL: Gross neurological examination did not reveal any focal deficits. Significant generalized weakness SKIN: No rashes. - Labs CBC & Chem 7: 12/07/20 07:00 12/07/20 07:00 Labs: Abnormal Lab Results - Last 24 Hours (Table) 12/06/20 12/06/20 12/07/20 Range/Units 12:31 17:35 00:06 WBC (3.8-10.6) k/uL RBC (4.30-5.90) m/uL Hgb (13.0-17.5) gm/dL Hct (39.0-53.0) % RDW (11.5-15.5) % Sodium (137-145) mmol/L Carbon Dioxide (22-30) mmol/L Glucose (74-99) mg/dL POC Glucose (mg/dL) 125 H 137 H 153 H (75-99) mg/dL C-Reactive Protein (<1.0) mg/dL 12/07/20 12/07/20 12/07/20 Range/Units 05:26 07:00 07:00 WBC 28.8 H (3.8-10.6) k/uL RBC 2.96 L (4.30-5.90) m/uL Hgb 9.0 L (13.0-17.5) gm/dL Hct 27.1 L (39.0-53.0) % RDW 16.7 H (11.5-15.5) % Sodium 136 L (137-145) mmol/L Carbon Dioxide 31 H (22-30) mmol/L Glucose 133 H (74-99) mg/dL POC Glucose (mg/dL) 134 H (75-99) mg/dL C-Reactive Protein 14.8 H (<1.0) mg/dL Assessment and Plan Assessment: -Intra-abdominal mass, necrosis of the tumor -Left lower extremity DVT -Oropharyngeal candidiasis -Congestive heart failure with increased [employer] and grade 3 diastolic dysfunction with an EF less than 20% on echo -Acute urinary tract infection, present on admission with cultures growing E. coli -Dysphagia with possible aspiration status post PEG tube. -Metastatic prostate cancer for which patient is on Casodex will receive radiation therapy upon discharge -Acute renal failure, probably acute tubular necrosis which improved -Leukocytosis due to assessment #1 and 3 -Hypercalcemia secondary to dehydration which improved -Hypertension -Hyperlipidemia -Full code Recommendations and discussion: Recommend to continue with current medications, management, and continue with PT/OT therapy. Patient is continued on IV Zosyn and repeat urinalysis cultures showing no growth. Infectious disease is following. Patient maintained on tube feedings and dietitian following. Loose stool was noted and will obtain C. diff although nursing staff reports of formed stool today. COVID-19 testing was negative. Case management and social work also following working on discharge p debbie needs and possible ECF placement for some PT/OT therapy for strengthening mobility prior to going back home to [place] with daughter as he continues to be extremely weak requiring assistance. White blood count elevated today and patient remains afebrile. Patient had some left lower extremity swelling and underwent Doppler showing positive for DVT and also had CT of the chest done which was negative for PE but showing some pleural effusions and test x-ray shows CHF. Will repeat a.m. labs and continue to monitor closely. Troponin was slightly elevated and have consulted cardiology which is pending at this time. Will Start patient on IV Lasix 40 mg daily and continue to monitor closely. Detailed discussion was had with the daughter at the bedside. Further recommendations to follow based on the clinical course the patient. Prognosis is guarded. Time with Patient: Greater than 30
--- NOTE | 2020-12-07 16:02 | CT ---
EXAMINATION TYPE: CT abdomen pelvis w con DATE OF EXAM: 12/07/2020 COMPARISON: 11/27/2020 HISTORY: Elevated WBC CT DLP: 1853 mGycm Automated exposure control for dose reduction was used. CONTRAST: Performed with IV Contrast, patient injected with 100 mL of Isovue 300. There is oral contrast. There are bilateral pleural effusions. Heart is borderline enlarged. There is no pericardial effusion . There is basilar pulmonary infiltrates and atelectasis. Gallbladder is intact. Liver and spleen are intact. The bile ducts are not dilated. There is no evide nce of pancreatic mass. The stomach appears intact. There is no adrenal mass. Kidneys show satisfacto ry contrast opacification. There is left-sided hydronephrosis and hydroureter. There is large complex mass in the pelvis. The prostate gland appears irregular with mixed attenuation and measures more th an 7 cm. There is a large mass in the pelvis on the left side that has cystic central component and i rregular wall and measures 11 cm in maximum dimension. There is apparent displacement of the urinary bladder to the right side. This area difficult to evaluate with lack of contrast in the bladder. There is delayed left side pyelogram. There is distended loop of fluid-filled small bowel in the pelvis on the right side that is probably the cecum and measures 5 cm. There is subcutaneous edema around the abdomen. The lumbar vertebra have normal alignment. There is d egenerative spurring in the lumbar spine. There is no compression fracture. The bony pelvis appears i ntact. There is no bowel obstruction. IMPRESSION: Large complex mass in the pelvis. Irregular enlarged prostate consistent with tumor. The large left s serena pelvic mass could be extension of large prostate tumor. There is left-sided hydronephrosis and hy droureter probably due to tumor involvement of the left ureterovesical junction. Pelvic abnormality a ppears unchanged compared to recent exam. Subcutaneous edema around the abdomen unchanged. Pleural effusions and basilar pulmonary infiltrates and atelectasis not significantly different.
[2020-12-07 17:06] LABS: Glucose,Whole Blood 112 mg/dL (75-99)
[2020-12-07] MEDS: PRAVASTATIN SODIUM 20 MG TAB PO SCH (21:11)
[2020-12-08] MEDS: SALT AND SODA MOUTHWASH 1,000 ML PO SCH ×4 (00:30→15:50)
[2020-12-08 00:44] LABS: Glucose,Whole Blood 145 mg/dL (75-99)
[2020-12-08] MEDS: PIPERACILLIN-TAZOBACTAM 3.375 GM in SODIUM CHLORIDE 0.9% 100 ML IVPB SCH ×2 (04:12→13:07)
--- NOTE | 2020-12-08 05:05 | PN ---
PROGRESS NOTE DATE OF SERVICE: 12/07/2020 REASON FOR FOLLOWUP: Leukocytosis. INTERVAL HISTORY: Patient is afebrile. The patient is breathing comfortably. No chest pain, shortness of breath or cough. Some abdominal discomfort. No vomiting. no diarrhea. PHYSICAL EXAMINATION: Blood pressure 137/67, pulse of 75, temperature of 97.7. He is 99% on room air. General description: The patient is an elderly male lying in bed in no distress. RESPIRATORY SYSTEM: Unlabored breathing, clear to auscultation anteriorly. HEART S1, S2. Regular rate and rhythm. ABDOMEN: Soft, no tenderness. No guarding. No rigidity. LABS: Hemoglobin 9.4, white count 8.8. Repeat urine is negative. CT of abdomen and pelvis shows pelvic masses and no new findings. DIAGNOSTIC IMPRESSION AND PLAN: Patient with elevated white count more likely multifactorial in this patient who did have evidence of masses from his prostate cancer, possible tumor necrosis being responsible for this elevated white count as he does not have any obvious focus of infection. CT angiogram was negative for any pneumonia and CT abdomen and pelvis does not show any abscess. Repeat urine is not significantly positive. The patient is on Diflucan, Zosyn, transition to oral on discharge. Continue supportive care. MMODL / IJN: [id number] /
[2020-12-08 05:27] VITALS: RESP 16
[2020-12-08 06:20] LABS: Glucose,Whole Blood 133 mg/dL (75-99)
[2020-12-08] MEDS: APIXABAN 5 MG TAB PO SCH (08:56)
[2020-12-08] MEDS: BICALUTAMIDE 50 MG TAB PO SCH (08:56)
[2020-12-08] MEDS: PANTOPRAZOLE 40 MG TABLET PO SCH (08:56)
[2020-12-08] MEDS: CHOLECALCIFEROL 25 MCG (1000 IU) TABLET PO SCH (08:56)
[2020-12-08] MEDS: lisinopriL 5 MG TAB PO SCH (08:56)
[2020-12-08] MEDS: FUROSEMIDE 10 MG/ML 4 ML VIAL IV SCH (08:57)
[2020-12-08] MEDS: FLUCONAZOLE IN NACL,ISO-OSM 200 MG in SALINE 1 100ML.BAG IVPB SCH (08:59)
[2020-12-08] MEDS ORDERED: SPIRONOLACTONE 25 MG TAB PO SCH (09:00)
[2020-12-08] MEDS: carvediloL 3.125 MG TAB PO SCH ×2 (09:28→15:50)
--- NOTE | 2020-12-08 09:40 | P.CRDCN ---
History of Present Illness Consult date: 12/08/20 History of present illness: HISTORY OF PRESENT ILLNESS: This is a 80 year old male with a past medical history significant for diabetes, hypertension, and hyperlipidemia. 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 We have been asked to see the patient in consultation for elevated troponin. Patient examined at the bedside. Patient is a poor historian and unable to provide thorough history. He currently denies chest pain or pressure. Denies shortness of breath. Her shortness due to over 72. Heart rate in the 80s. He is on room air with oxygen saturations greater than 92%. He is afebrile. EKG reveals sinus mechanism with PACs with no signs of acute ischemia. Chest xray congestive heart failure with pleural effusions and basilar pulmonary infiltrates that is worse than last exam. Cardiomegaly unchanged. Laboratory data: WBC 28.8. Hemoglobin 9.0. Platelet count 239. Sodium 136. Potassium 3.7. BUN 17. Creatinine 0.77. Troponin 0.052. 0.054. Current home cardiac medications include lisinopril 2.5 mg daily and pravastatin 20 mg daily Echocardiogram completed revealed ejection fraction less than 20%, moderate mitral regurgitation, moderate tricuspid regurgitation, and moderate pulmonary hypertension REVIEW OF SYSTEMS: At the time of my exam: CONSTITUTIONAL: Denies fever or chills. HEENT: Denies blurred vision, vision changes, or eye pain. Denies hemoptysis CARDIOVASCULAR: Denies chest pain. Denies orthopnea. Denies PND. Denies palpitations RESPIRATORY: Denies shortness of breath. GASTROINTESTINAL: Denies abdominal pain. Denies nausea or vomiting. HEMATOLOGIC: Denies bleeding disorders. GENITOURINARY: Denies any blood in urine. SKIN: Denies pruitis. Denies rash. PHYSICAL EXAM: VITAL SIGNS: Reviewed. GENERAL: Well-developed in no acute distress. HEENT: Head is normocephalic. Pupils are equal, round. Sclerae anicteric. Mucous membranes of the mouth are moist. Neck supple. No JVD or thyromegaly LUNGS: Respirations even and unlabored. Lungs diminished bilaterally. HEART: Regular rate and rhythm. S1 and S2 heard. ABDOMEN: Soft. Nondistended. Nontender. EXTREMITIES: Normal range of motion. No clubbing or cyanosis. Peripheral pulses intact. 2+ bilateral lower extremity edema NEUROLOGIC: Awake and alert. Oriented x 3. ASSESSMENT: Urinary tract infection Leukocytosis Acute renal failure Intra-abdominal mass, necrosis of the tumor Dysphagia with possible aspiration, s/p PEG tube placement Acute systolic congestive heart failure Abnormal troponins, not suggestive of myocardial injury Left lower extremity DVT Hypertension Hyperlipidemia PLAN: An acute coronary event has been ruled out Continue Eliquis for DVT Continue Lasix, lisinopril, and pravastatin Add Coreg 3.125 mg twice a day and Aldactone 12.5 mg daily Patient may follow up post discharge with Dr. Medrano No further inpatient recommendations from a cardiac standpoint We will sign off. Please reconsult if needed. Nurse practitioner note has been reviewed by physician. Signing provider agrees with the documented findings, assessment, and plan of care. Past Medical History Past Medical History: Diabetes Mellitus, Hyperlipidemia, Hypertension Additional Past Medical History / Comment(s): CURRENT PROBLEM: HOARSNESS, DIFFICULTY SPEAKING CLEARLY. Hx of polyps History of Any Multi-Drug Resistant Organisms: None Reported Additional Past Surgical History / Comment(s): colonoscopy Past Anesthesia/Blood Transfusion Reactions: No Reported Reaction Additional Past Anesthesia/Blood Transfusion Reaction / Comment(s): NEVER HAD GENERAL ANESTHESIA Past Psychological History: No Psychological Hx Reported Smoking Status: Unknown if ever smoked Past Alcohol Use History: None Reported Additional Past Alcohol Use History / Comment(s): quit smoking approx 1996, smoked less than 1 ppd or cigars, from age 15 (1954) Past Drug Use History: None Reported - Past Family History Mother Family Medical History: No Reported History Medications and Allergies Home Medications Medication Instructions Recorded Confirmed Type Cholecalciferol [Vitamin D3] 1,000 unit PO DAILY 08/15/16 11/19/20 History Potassium Chloride [K-Tab ER] 10 meq PO QAM 08/15/16 11/19/20 History Pravastatin Sodium [Pravachol] 20 mg PO HS 08/15/16 11/19/20 History metFORMIN HCL ER [Glucophage Xr] 500 mg PO BID 08/15/16 11/19/20 History Sulfamethoxazole/Trimethoprim 1 tab PO BID 11/19/20 11/19/20 History [Sulfamethoxazole-Tmp Ds Tablet] lisinopriL [Zestril] 2.5 mg PO DAILY 11/19/20 11/19/20 History Bicalutamide 50 mg PO DAILY #30 tablet 12/02/20 Rx Apixaban [Eliquis Starter Pack 0 mg PO DIRECTED 30 Days #1 pack 12/06/20 Rx (for VTE)] Allergies Allergy/AdvReac Type Severity Reaction Status Date / Time No Known Allergies Allergy Verified 11/19/20 15:48 Physical Exam Vitals: Vital Signs Temp Pulse Resp BP BP Pulse Ox 12/08/20 04:48 97.6 F 83 16 152/72 100 12/07/20 20:30 98 F 68 20 140/77 99 12/07/20 20:00 75 16 12/07/20 12:40 97.7 F 75 16 137/67 99 Intake and Output 12/07/20 12/08/20 12/08/20 22:59 06:59 14:59 Intake Total 436 1040 Output Total 1 Balance 435 1040 Intake: Intake, IV Titration 200 Amount Piperacillin-Tazobactam 3 200 .375 gm In Sodium Chloride 0.9% 100 ml @ 25 mls/hr IVPB Q8H [facility] Rx#: [id number] Oral 100 Tube Feeding 336 840 Output: Stool 1 Other: Voiding Method Diaper Incontinent # Voids 0 # Bowel Movements 0 Weight 58 kg 63 kg Results 12/07/20 07:00 12/07/20 07:00 Cardiac Enzymes 12/07/20 12/07/20 Range/Units 11:58 18:32 Troponin I 0.052 H* 0.054 H* (0.000-0.034) ng/mL Current Medications Generic Name Dose Route Start Last Admin Trade Name Freq PRN Reason Stop Dose Admin Acetaminophen 650 mg 11/19/20 18:16 12/06/20 17:17 Acetaminophen Tab 325 Mg Tab PO 650 mg Q6HR PRN Administration Mild Pain or Fever > 100.5 Alprazolam 0.25 mg 11/20/20 15:25 11/20/20 20:42 Alprazolam 0.25 Mg Tab PO 0.25 mg TID PRN Administration Anxiety Apixaban 10 mg 12/06/20 13:45 12/08/20 08:56 Apixaban 5 Mg Tab PO 12/12/20 13:36 10 mg BID NATALIYA Administration Benzocaine/Menthol 1 each 11/25/20 18:25 Benzocaine/Menthol Lozeng 1 Each Lozenge MUCOUS MEM Q4HR PRN throat pain Bicalutamide 50 mg 11/28/20 09:00 12/08/20 08:56 Bicalutamide 50 Mg Tab PO 50 mg DAILY NATALIYA Administration Carvedilol 3.125 mg 12/08/20 09:00 Carvedilol 3.125 Mg Tab PO BID-W/MEALS NATALIYA Cholecalciferol 25 mcg 11/20/20 09:45 12/08/20 08:56 Cholecalciferol 25 Mcg (1000 Iu) Tablet PO 25 mcg DAILY NATALIYA Administration Dextrose/Water 25 ml 11/29/20 22:30 11/30/20 22:50 Dextrose 50% Syringe 50 Ml IVP 25 ml Q30M PRN Administration Hypoglycemia Furosemide 40 mg 12/07/20 11:00 12/08/20 08:57 Furosemide 10 Mg/Ml 4 Ml Vial IV 40 mg DAILY NATALIYA Administration Fluconazole/Sodium Chloride 100 mls @ 100 mls/hr 11/27/20 22:15 12/08/20 08:59 200 mg/ IV Solution IVPB 100 mls/hr DAILY NATALIYA Administration Piperacillin Sod/Tazobactam 100 mls @ 25 mls/hr 11/28/20 20:00 12/08/20 04:12 Sod 3.375 gm/ Sodium Chloride IVPB 25 mls/hr Q8H NATAL[facility] Administration Lidocaine HCl 0.1 ml 11/29/20 14:54 Lidocaine 1% (10mg/Ml) For Iv Start INTRADERMA PER PROTOCOL PRN IV Start Lisinopril 5 mg 12/07/20 09:00 12/08/20 08:56 Lisinopril 5 Mg Tab PO 5 mg DAILY NATALIYA Administration Miscellaneous Information 1 each 12/01/20 13:48 Magnesium Replacement Protocol 1 Each Misc MISCELLANE DAILY PRN Per Protocol Protocol Naloxone HCl 0.2 mg 11/19/20 18:16 Naloxone 0.4 Mg/Ml 1 Ml Vial IV Q2M PRN Opioid Reversal Pantoprazole Sodium 40 mg 11/21/20 07:30 12/08/20 08:56 Pantoprazole 40 Mg Tablet PO 40 mg AC-[id number] NATALIYA Administration Pravastatin Sodium 20 mg 11/20/20 21:00 12/07/20 21:11 Pravastatin Sodium 20 Mg Tab PO 20 mg HS NATALIYA Administration Sodium Bicarbonate 5 ml 12/04/20 11:00 12/08/20 08:57 Salt And Soda Mouthwash 1,000 Ml PO 5 ml 5XD NATALIYA Administration Spironolactone 12.5 mg 12/08/20 09:00 12/08/20 09:02 Spironolactone 25 Mg Tab PO 12.5 mg DAILY NATALIYA Administration Intake and Output 12/07/20 12/08/20 12/08/20 22:59 06:59 14:59 Intake Total 436 1040 Output Total 1 Balance 435 1040 Intake: Intake, IV Titration 200 Amount Piperacillin-Tazobactam 3 200 .375 gm In Sodium Chloride 0.9% 100 ml @ 25 mls/hr IVPB Q8H [facility] Rx#: [id number] Oral 100 Tube Feeding 336 840 Output: Stool 1 Other: Voiding Method Diaper Incontinent # Voids 0 # Bowel Movements 0 Weight 58 kg 63 kg 12/07/20 07:00 12/07/20 07:00
[2020-12-08 10:08] LABS: African American GFR (CKD) >90 (>60 ml/min/1.73 sqM); Anion Gap 1 mmol/L; Blood Urea Nitrogen 20 mg/dL (9-20); Calcium 10.1 mg/dL (8.4-10.2); Carbon Dioxide 36 mmol/L (22-30); Chloride 102 mmol/L (98-107); Glucose 133 mg/dL (74-99); Non-African American GFR(CKD) 83 (>60 ml/min/1.73 sqM); Potassium 3.6 mmol/L (3.5-5.1); Sodium 139 mmol/L (137-145)
[2020-12-08 10:10] LABS: Anisocytosis Slight; HCT 26.3 % (39.0-53.0); HGB 8.3 gm/dL (13.0-17.5); Hypochromasia Slight; MCH 28.6 pg (25.0-35.0); MCHC 31.5 g/dL (31.0-37.0); MCV 90.8 fL (80.0-100.0); Mean Platelet Volume 8.4; Platelet Count 253 k/uL (150-450); RBC 2.89 m/uL (4.30-5.90); RDW 16.8 % (11.5-15.5); WBC 28.4 k/uL (3.8-10.6)
--- NOTE | 2020-12-08 10:54 | XR ---
EXAMINATION TYPE: XR chest 1V portable DATE OF EXAM: 12/08/2020 COMPARISON: 12/01/2020 HISTORY: Shortness of breath TECHNIQUE: Single frontal view of the chest is obtained. FINDINGS: There is a the partially consolidative opacity in the right lung base which was seen previ ously. The left hemidiaphragm is obscured and there is blunting of the costophrenic angles bilaterall y. These findings most likely suggest small pleural effusions were seen previously. The heart is mildly prominent in size. The pulmonary vasculature does not appear congested. There is no pneumothorax. The osseous structures are intact IMPRESSION: 1. Mild cardiomegaly with probable small pleural effusions essentially unchanged since prior study. 2. Small infiltrate in the right lung base which was seen previously.
[2020-12-08 11:04] LABS: Band Neutrophils % 6 %; Eosinophils # (M) 0.85 k/uL (0-0.7); Lymphocytes # (M) 1.42 k/uL (1.0-4.8); Metamyelocytes # (M) 0.28 k/uL (0); Metamyelocytes % 1 %; Monocytes # (M) 1.14 k/uL (0-1.0); Neutrophils % (M) 83 %; Nucleated Red Blood Cells 0 /100 WBC (0-0); Total Cells Counted 200; Toxic Granulation Present
[2020-12-08 11:05] LABS: Toxic Vacuolation Present
[2020-12-08 12:22] LABS: Glucose,Whole Blood 146 mg/dL (75-99)
[2020-12-08 12:39] VITALS: BMI 21.7
--- NOTE | 2020-12-08 12:56 | P.PN ---
Subjective Progress Note Date: 12/08/20 CHIEF COMPLAINT: Abdominal pain HISTORY OF PRESENT ILLNESS: This is a 80-year-old male with a known past medical history of squamous cell carcinoma of neck and history of prostate cancer. He denies any pain. Patient has dysphagia and failed his swallow evaluation. Patient is status post PEG tube placement. Patient is tolerating tube feedings. Minimal residual reported about 3 cc's. He is having bowel movements. Afebrile. WBC 28.4. He has new left leg DVT and was started on Eliquis. Evaluated by cardiology regarding elevated troponin acute coronary syndrome was ruled out. Discharge planning in progress for patient for possible ECF placement. PHYSICAL EXAM: VITAL SIGNS: Reviewed. GENERAL: Well-developed in no acute distress. HEENT: No sclera icterus. Extraocular movements grossly intact. Moist buccal mucosa. Head is atraumatic, normocephalic. ABDOMEN: Soft. Nondistended. Nontender PEG tube site clean dry and intact NEUROLOGIC: Alert and oriented. Cranial nerves II through XII grossly intact. ASSESSMENT: 1. Moderate protein calorie malnutrition with Dysphagia status post PEG tube placement 2. Pelvic mass or necrotic lymph node nodes. Followed by urology and oncology. 3. Dysphagia and failed swallow evaluation 4. Neck cancer PLAN: -Continue tube feedings -Continue supportive care -Patient is stable from surgical standpoint for discharge Physician Beef Lugger note has been reviewed by physician. Signing provider agrees with the documented findings, assessment, and plan of care. Objective - Vital Signs Vital signs: Vital Signs Temp 97.6 F 12/08/20 04:48 Pulse 83 12/08/20 08:00 Resp 16 12/08/20 08:00 BP 152/72 12/08/20 04:48 Pulse Ox 100 12/08/20 04:48 Intake & Output 12/07/20 12/08/20 12/08/20 18:59 06:59 18:59 Intake Total 672 1308 1008 Output Total 1 1 1 Balance 671 1307 1007 Weight 58 kg 63 kg 63 kg Intake: Intake, IV Titration 200 Amount Piperacillin-Tazobactam 3 200 .375 gm In Sodium Chloride 0.9% 100 ml @ 25 mls/hr IVPB Q8H [facility] Rx#: [id number] Oral 0 100 Tube Feeding 672 1008 1008 Output: Stool 1 1 1 Other: Voiding Method Diaper Diaper Diaper Incontinent Incontinent Incontinent # Voids 2 0 2 # Bowel Movements 2 0 2 - Labs CBC & Chem 7: 12/08/20 09:08 12/08/20 09:08 Labs: Abnormal Lab Results - Last 24 Hours (Table) 12/07/20 12/07/20 12/07/20 Range/Units 11:58 13:05 17:05 WBC (3.8-10.6) k/uL RBC (4.30-5.90) m/uL Hgb (13.0-17.5) gm/dL Hct (39.0-53.0) % RDW (11.5-15.5) % Neutrophils # (Manual) (1.3-7.7) k/uL Monocytes # (Manual) (0-1.0) k/uL Eosinophils # (Manual) (0-0.7) k/uL Metamyelocytes # (Man) (0) k/uL Carbon Dioxide (22-30) mmol/L Glucose (74-99) mg/dL POC Glucose (mg/dL) 112 H (75-99) mg/dL Troponin I 0.052 H* (0.000-0.034) ng/mL Urine Blood Moderate H (Negative) Ur Leukocyte Esterase Moderate H (Negative) Urine RBC 10 H (0-5) /hpf Urine WBC 27 H (0-5) /hpf Urine Bacteria Rare H (None) /hpf 12/07/20 12/08/20 12/08/20 Range/Units 18:32 00:40 06:16 WBC (3.8-10.6) k/uL RBC (4.30-5.90) m/uL Hgb (13.0-17.5) gm/dL Hct (39.0-53.0) % RDW (11.5-15.5) % Neutrophils # (Manual) (1.3-7.7) k/uL Monocytes # (Manual) (0-1.0) k/uL Eosinophils # (Manual) (0-0.7) k/uL Metamyelocytes # (Man) (0) k/uL Carbon Dioxide (22-30) mmol/L Glucose (74-99) mg/dL POC Glucose (mg/dL) 145 H 133 H (75-99) mg/dL Troponin I 0.054 H* (0.000-0.034) ng/mL Urine Blood (Negative) Ur Leukocyte Esterase (Negative) Urine RBC (0-5) /hpf Urine WBC (0-5) /hpf Urine Bacteria (None) /hpf 12/08/20 12/08/20 12/08/20 Range/Units 09:08 09:08 09:08 WBC 28.4 H (3.8-10.6) k/uL RBC 2.89 L (4.30-5.90) m/uL Hgb 8.3 L (13.0-17.5) gm/dL Hct 26.3 L (39.0-53.0) % RDW 16.8 H (11.5-15.5) % Neutrophils # (Manual) 25.20 H (1.3-7.7) k/uL Monocytes # (Manual) 1.14 H (0-1.0) k/uL Eosinophils # (Manual) 0.85 H (0-0.7) k/uL Metamyelocytes # (Man) 0.28 H (0) k/uL Carbon Dioxide 36 H (22-30) mmol/L Glucose 133 H (74-99) mg/dL POC Glucose (mg/dL) (75-99) mg/dL Troponin I 0.045 H* (0.000-0.034) ng/mL Urine Blood (Negative) Ur Leukocyte Esterase (Negative) Urine RBC (0-5) /hpf Urine WBC (0-5) /hpf Urine Bacteria (None) /hpf 12/08/20 Range/Units 12:21 WBC (3.8-10.6) k/uL RBC (4.30-5.90) m/uL Hgb (13.0-17.5) gm/dL Hct (39.0-53.0) % RDW (11.5-15.5) % Neutrophils # (Manual) (1.3-7.7) k/uL Monocytes # (Manual) (0-1.0) k/uL Eosinophils # (Manual) (0-0.7) k/uL Metamyelocytes # (Man) (0) k/uL Carbon Dioxide (22-30) mmol/L Glucose (74-99) mg/dL POC Glucose (mg/dL) 146 H (75-99) mg/dL Troponin I (0.000-0.034) ng/mL Urine Blood (Negative) Ur Leukocyte Esterase (Negative) Urine RBC (0-5) /hpf Urine WBC (0-5) /hpf Urine Bacteria (None) /hpf Microbiology - Last 24 Hours (Table) 12/07/20 09:54 Blood Culture - Preliminary Blood No Growth after 24 hours 12/07/20 13:05 Urine Culture - Preliminary Urine,Voided
[2020-12-08 13:18] VITALS: BP 139/66; PULSE 67; TEMP 98.9
--- NOTE | 2020-12-08 14:29 | P.DS ---
Providers Date of admission: 11/19/20 18:16 Expected date of discharge: 12/08/20 Attending physician: Angelica San Consults: 11/20/20 15:23 Consult Physician Routine Consulting Provider: Jaylan Dowell Consult Reason/Comments: Prostate Cancer, Current Radiation Do you want consulting provider notified?: Yes 11/21/20 09:38 Consult Physician Urgent Consulting Provider: Xu Griffith Consult Reason/Comments: LHIR so that pt can continue to get radiation Do you want consulting provider notified?: Yes 11/24/20 11:20 Consult Physician Urgent Consulting Provider: Dion Hoang Consult Reason/Comments: possible enteritis, ileus, abdominal pain Do you want consulting provider notified?: Yes 11/26/20 14:58 Consult Physician Urgent Consulting Provider: Jaswinder Ham Consult Reason/Comments: Possible sepsis Do you want consulting provider notified?: Yes 11/27/20 15:28 Consult Physician Routine Consulting Provider: Harley Kendrick Consult Reason/Comments: pelvic mass Do you want consulting provider notified?: Yes Primary care physician: Stated None Hospital Course: Final diagnosis -Intra-abdominal mass, necrosis of the tumor -Left lower extremity DVT -Oropharyngeal candidiasis -Congestive heart failure with increased [employer] and grade 3 diastolic dysfunction with an EF less than 20% on echo -Acute urinary tract infection, present on admission with cultures growing E. coli -Dysphagia with possible aspiration status post PEG tube. -Metastatic prostate cancer for which patient is on Casodex will receive radiation therapy upon discharge from [facility] -Acute renal failure, probably acute tubular necrosis which improved -Leukocytosis due to assessment #1 and 3 -Hypercalcemia secondary to dehydration which improved -Hypertension -Hyperlipidemia -Full code Discharge disposition Patient is being discharged in a stable condition with guarded prognosis to [facility] for continued physical therapy. Patient will follow-up with Dr. Corado upon discharge. Patient will continue with a short course of antibiotics in the form of Flagyl 500 mg 3 times a day for the next 7 days along with Diflucan 200 mg daily for the next 7 days and then may discontinue. Patient will need to further follow-up with his radiation oncologist in the outpatient setting upon discharge from [facility]. Total time taken is greater than 35 minutes. Hospital course This is an 80-year-old male who was recently admitted for urinary tract infection and was found to have E. coli and treated with IV antibiotics and infectious disease following. Patient also had weakness and difficulty ambulating and had been following with [facility] radiation oncology team as he had just started radiation treatments for prostate cancer. Patient is maintained on Casodex and will continue and will follow-up with urology outpatient once discharged to discuss further treatments. Initially patient was to follow-up in the urology office for Lupron injections and this will be on hold currently until F discharge. Patient was seen and evaluated by oncology here and recommend to continue with following with Dr. Moser his radiation oncologist. Patient had a prolonged hospitalization and was having some difficulty in swallowing and underwent swallow study showing aspiration and ultimately received a PEG tube as he continued to aspirate on food and medications. Patient will continue with PEG tube feedings in the form of Jevity 1.5 with a goal of 42 mL's per hour with 30 mL free water flushes every 4 hours and monitoring closely for residual. Recommend continue with Accu-Cheks before meals and at bedtime and treat accordingly with sliding scale. An echo was done showing an EF of less than 20% with some fluid overload and was receiving IV Lasix and will transition to Lasix 40 mg daily. Patient was also having some left lower extremity swelling and underwent a venous Doppler showing a DVT and had a chest CT done which was negative for PE. Patient was started on Eliquis 10 mg twice daily and will continue with this dose until 12/13/2020 and may decrease the dose to 5 mg twice daily. Details were discussed at length with daughter who is working on power of employee benefits attorney as her ultimate goal is to return to [place] with her father once he receives some physical therapy for strengthening mobility as he continues to be weak requiring assistance. Daughter is working on arrangements for home care and a primary care provider along with oncology in [place] and will like her father to build up strength and mobility at rehab first. Currently no reports of chest pain, shortness of breath, or palpitations. Patient is afebrile. Patient is tolerating PEG tube feedings. Patient will be discharged to [facility] on the [place] for continued PT/OT therapy. Recommend repeat labs in 2-3 days to monitor CBC and BMP closely. Guarded prognosis. On exam vital signs are stable. Cardio S1, S2 are muffled. Respiratory shows diminished breath sounds at the bases with a few scattered rhonchi noted. Abdomen is soft and mildly tender on the right lower quadrant. Nervous system shows mild diffuse weakness. Please refer to medication reconciliation sheet for a list of medications. Patient Condition at Discharge: Stable Plan - Discharge Summary Discharge Rx Participant: No New Discharge Prescriptions: New Bicalutamide 50 mg PO DAILY #30 tablet Furosemide [Lasix] 40 mg PO DAILY #30 tablet Pantoprazole [Protonix] 40 mg PO AC-BRKFST tablet. Acetaminophen Tab [Tylenol] 650 mg PO Q6HR PRN tab PRN Reason: Mild Pain Or Fever > 100.5 Apixaban [Eliquis Starter Pack (for VTE)] 0 mg PO DIRECTED 30 Days #1 pack Spironolactone [Aldactone] 12.5 mg PO DAILY tab carvediloL [Coreg] 3.125 mg PO BID-W/MEALS tab Apixaban [Eliquis] 10 mg PO BID tab metroNIDAZOLE [Flagyl] 500 mg PO TID 7 Days #21 tab Fluconazole 200 mg PO DAILY 7 Days #7 tab lisinopriL [Zestril] 5 mg PO DAILY tab Continue Pravastatin Sodium [Pravachol] 20 mg PO HS metFORMIN HCL ER [Glucophage Xr] 500 mg PO BID Potassium Chloride [K-Tab ER] 10 meq PO QAM Cholecalciferol [Vitamin D3 (25 Mcg = 1000 Iu)] 1,000 unit PO DAILY Discontinued Sulfamethoxazole/Trimethoprim [Sulfamethoxazole-Tmp Ds Tablet] 1 tab PO BID lisinopriL [Zestril] 2.5 mg PO DAILY Discharge Medication List Cholecalciferol [Vitamin D3 (25 Mcg = 1000 Iu)] 1,000 unit PO DAILY 08/15/16 [History] Potassium Chloride [K-Tab ER] 10 meq PO QAM 08/15/16 [History] Pravastatin Sodium [Pravachol] 20 mg PO HS 08/15/16 [History] metFORMIN HCL ER [Glucophage Xr] 500 mg PO BID 08/15/16 [History] Bicalutamide 50 mg PO DAILY #30 tablet 12/02/20 [Rx] Apixaban [Eliquis Starter Pack (for VTE)] 0 mg PO DIRECTED 30 Days #1 pack 12/06/20 [Rx] Acetaminophen Tab [Tylenol] 650 mg PO Q6HR PRN tab 12/08/20 [Rx] Apixaban [Eliquis] 10 mg PO BID tab 12/08/20 [Rx] Fluconazole 200 mg PO DAILY 7 Days #7 tab 12/08/20 [Rx] Furosemide [Lasix] 40 mg PO DAILY #30 tablet 12/08/20 [Rx] Pantoprazole [Protonix] 40 mg PO AC-BRKFST tablet. 12/08/20 [Rx] Spironolactone [Aldactone] 12.5 mg PO DAILY tab 12/08/20 [Rx] carvediloL [Coreg] 3.125 mg PO BID-W/MEALS tab 12/08/20 [Rx] lisinopriL [Zestril] 5 mg PO DAILY tab 12/08/20 [Rx] metroNIDAZOLE [Flagyl] 500 mg PO TID 7 Days #21 tab 12/08/20 [Rx] Follow up Appointment(s)/Referral(s): Nonstaff,Physician [REFERRING] - 1-2 days Asad Medrano MD [STAFF PHYSICIAN] - 1 Week Fabrice Olivas MD [STAFF PHYSICIAN] - 3 Days (for Leuprolide acetate injection) Ambulatory/Diagnostic Orders: Complete Blood Count w/diff [LAB.AMB] Time Frame: 2 Days, Location: None Selected Activity/Diet/Wound Care/Special Instructions: Patient is going to [facility] [place] Activity as tolerated Follow-up with primary care provider upon discharge Follow-up with radiation oncology Dr. Moser in the outpatient setting Follow-up urology outpatient Continue with PEG tube feedings with Jevity 1.5 with a goal rate of 42 mL and continue with free water bolus of 30 mL every 4 hours and check for residual Repeat labs in 2-3 days to monitor white blood count along with kidney functions Need to establish with home care and primary care provider when moving to [place] with family once discharged from [facility] Continue antibiotics and Diflucan for the next 7 days and then may discontinue Discharge Disposition: TRANSFER TO SNF/ECF
--- NOTE | 2020-12-08 14:42 | PN ---
PROGRESS NOTE DATE OF SERVICE: 12/08/2020 REASON FOR FOLLOWUP VISIT: Leukocytosis, UTI and thrush. INTERVAL HISTORY: Patient is afebrile. The patient is breathing comfortably on room air. Denies chest pain, shortness of breath or cough. No abdominal pain and no diarrhea has been reported by nursing staff. PHYSICAL EXAMINATION: VITAL SIGNS: Blood pressure 139/66, pulse of 67, temperature 98.9, he is 99% on room air. GENERAL DESCRIPTION: An elderly up in the chair in no distress. RESPIRATORY SYSTEM: Unlabored breathing, clear to auscultation anteriorly. HEART: S1, S2. Regular rate and rhythm. ABDOMEN: Soft, no tenderness. LABS: Hemoglobin 8.1, white count 28.4, BUN of 20, creatinine 0.83. DIAGNOSTIC IMPRESSION AND PLAN: Patient with elevated white count, multifactorial with concern for UTI and thrush. Did have repeat cultures. Those have been negative. The patient has received almost 2 weeks of IV antibiotic therapy. We will go ahead and discontinue the Zosyn. Add Flagyl in view of some frequency of stools but no runny stools per the nursing staff and see response. Monitor clinical course closely. MMODL / IJN: [id number] /
[2020-12-08] MEDS ORDERED: metroNIDAZOLE 500 MG TAB PO SCH (16:00)
--- NOTE | 2020-12-08 17:41 | P.PN ---
Subjective Progress Note Date: 12/08/20 patient remains quite weak and lethargic overall. He is tolerating tube feeds well without nausea or vomiting. No fever or chills. Denies any new abdominal pains or urinary complaints. Objective - Vital Signs Vital signs: Vital Signs Temp 98.9 F 12/08/20 12:58 Pulse 67 12/08/20 12:58 Resp 16 12/08/20 12:58 BP 139/66 12/08/20 12:58 Pulse Ox 99 12/08/20 12:58 Intake & Output 12/07/20 12/08/20 12/08/20 18:59 06:59 18:59 Intake Total 672 1308 1008 Output Total 1 1 1 Balance 671 1307 1007 Weight 58 kg 63 kg 63 kg Intake: Intake, IV Titration 200 Amount Piperacillin-Tazobactam 3 200 .375 gm In Sodium Chloride 0.9% 100 ml @ 25 mls/hr IVPB Q8H [facility] Rx#: [id number] Oral 0 100 Tube Feeding 672 1008 1008 Output: Stool 1 1 1 Other: Voiding Method Diaper Diaper Diaper Incontinent Incontinent Incontinent # Voids 2 0 2 # Bowel Movements 2 0 2 - Constitutional General appearance: Present: no acute distress - EENT EENT Comment(s): oral thrush significantly improved Eyes: Present: EOMI ENT: Present: hearing grossly normal - Respiratory Respiratory: bilateral: CTA - Cardiovascular Rhythm: regular Heart sounds: normal: S1, S2 - Gastrointestinal Gastrointestinal Comment(s): PEG tube site appears clean General gastrointestinal: Present: normal bowel sounds, soft - Integumentary Integumentary: Present: normal - Neurologic Neurologic: Present: CNII-XII intact - Musculoskeletal Musculoskeletal: Present: generalized weakness, strength equal bilaterally - Psychiatric Psychiatric Comment(s): the patient lethargic mildly difficult to arouse. Appears appropriate - Labs CBC & Chem 7: 12/08/20 09:08 12/08/20 09:08 Labs: Abnormal Lab Results - Last 24 Hours (Table) 12/07/20 12/08/20 12/08/20 Range/Units 18:32 00:40 06:16 WBC (3.8-10.6) k/uL RBC (4.30-5.90) m/uL Hgb (13.0-17.5) gm/dL Hct (39.0-53.0) % RDW (11.5-15.5) % Neutrophils # (Manual) (1.3-7.7) k/uL Monocytes # (Manual) (0-1.0) k/uL Eosinophils # (Manual) (0-0.7) k/uL Metamyelocytes # (Man) (0) k/uL Carbon Dioxide (22-30) mmol/L Glucose (74-99) mg/dL POC Glucose (mg/dL) 145 H 133 H (75-99) mg/dL Troponin I 0.054 H* (0.000-0.034) ng/mL 12/08/20 12/08/20 12/08/20 Range/Units 09:08 09:08 09:08 WBC 28.4 H (3.8-10.6) k/uL RBC 2.89 L (4.30-5.90) m/uL Hgb 8.3 L (13.0-17.5) gm/dL Hct 26.3 L (39.0-53.0) % RDW 16.8 H (11.5-15.5) % Neutrophils # (Manual) 25.20 H (1.3-7.7) k/uL Monocytes # (Manual) 1.14 H (0-1.0) k/uL Eosinophils # (Manual) 0.85 H (0-0.7) k/uL Metamyelocytes # (Man) 0.28 H (0) k/uL Carbon Dioxide 36 H (22-30) mmol/L Glucose 133 H (74-99) mg/dL POC Glucose (mg/dL) (75-99) mg/dL Troponin I 0.045 H* (0.000-0.034) ng/mL 12/08/20 Range/Units 12:21 WBC (3.8-10.6) k/uL RBC (4.30-5.90) m/uL Hgb (13.0-17.5) gm/dL Hct (39.0-53.0) % RDW (11.5-15.5) % Neutrophils # (Manual) (1.3-7.7) k/uL Monocytes # (Manual) (0-1.0) k/uL Eosinophils # (Manual) (0-0.7) k/uL Metamyelocytes # (Man) (0) k/uL Carbon Dioxide (22-30) mmol/L Glucose (74-99) mg/dL POC Glucose (mg/dL) 146 H (75-99) mg/dL Troponin I (0.000-0.034) ng/mL Microbiology - Last 24 Hours (Table) 12/07/20 09:54 Blood Culture - Preliminary Blood No Growth after 24 hours 12/07/20 13:05 Urine Culture - Preliminary Urine,Voided Assessment and Plan (1) Dysphagia Narrative/Plan: multifactorial, felt to be due to posttreatment effect from 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 Patient is currently status post PEG tube placement and is tolerating tube feeds well.Discussed with family, that given the etiology, that is a reasonable expectation that the patient swallowing could improve with ongoing speech therapy, and improvement in his overall strength. Current Visit: Yes Status: Acute Code(s): R13.10 - DYSPHAGIA, UNSPECIFIED SNOMED Code(s): 16404271 (2) Prostate CA Narrative/Plan: The patient is being treated by radiation oncology and urology. He will resume follow-up post discharge with them. It was discussed again with the admitting service and the patient's family, that typically medical oncology referral will be made by the above services only when the patient becomes castrate resistant. - Patient will resume radiation therapy as an outpatient whenever felt to be appropriate for the same by radiation oncology. F has confirmed that they would allow radiation therapy to continue. - The ECF and also stated that they would not allow the patient to continue Lupron while he was there. This was discussed with the admitting service in detail, and the patient's daughter. They were advised that Lupron is typically given every 3 or 4 or even 6 months apart. The daughter feels that the patient had received a dose in 10/15. Intake service were advised to confirm this with urology. The patient would likely not need his scheduled Lupron anyway for some time. This can be resumed by urology, once the patient is able to be discharged from the ECF. Current Visit: Yes Status: Chronic Priority: High Code(s): C61 - MALIGNANT NEOPLASM OF PROSTATE SNOMED Code(s): 997982796 (3) Dehydration Narrative/Plan: resolved with IV hydration and initiation of tube feeds Current Visit: Yes Status: Acute Code(s): E86.0 - DEHYDRATION SNOMED Code(s): 36199758 (4) UTI (urinary tract infection) Narrative/Plan: improved. Defer to the admitting service for antibiotic recommendations Current Visit: Yes Status: Acute Code(s): N39.0 - URINARY TRACT INFECTION, SITE NOT SPECIFIED SNOMED Code(s): 87690662
== END 2020-12-08 20:03 | DRG 871 ==
LOC: EC 15:44 → 5NMEDONC 18:16
PROVIDERS: ADMIT Hospitalist; ATTEND Hospitalist
PROC: 3E0G76Z Introduction of Nutritional Substance into Upper GI, Via Natural or Artificial Opening (ICD-10-PCS; principal; 2020-11-30 07:40)
PROC: 0DH63UZ Insertion of Feeding Device into Stomach, Percutaneous Approach (ICD-10-PCS; principal; 2020-11-30 07:40)
DX: A41.51 Sepsis due to Escherichia coli [E. coli] (principal); G93.41 Metabolic encephalopathy; I50.21 Acute systolic (congestive) heart failure; N17.0 Acute kidney failure with tubular necrosis; B37.0 Candidal stomatitis; C79.9 Secondary malignant neoplasm of unspecified site; E44.0 Moderate protein-calorie malnutrition; J98.11 Atelectasis; I82.4Z2 Acute embolism and thrombosis of unspecified deep veins of left distal lower extremity; N13.6 Pyonephrosis; R64 Cachexia; R65.20 Severe sepsis without septic shock; C61 Malignant neoplasm of prostate; C76.0 Malignant neoplasm of head, face and neck; D64.9 Anemia, unspecified; E11.649 Type 2 diabetes mellitus with hypoglycemia without coma; R13.10 Dysphagia, unspecified; Z68.21 Body mass index [BMI] 21.0-21.9, adult; E83.52 Hypercalcemia; F03.90 Unspecified dementia, unspecified severity, without behavioral disturbance, psychotic disturbance, mood disturbance, and anxiety; Z20.822 Contact with and (suspected) exposure to COVID-19; I11.0 Hypertensive heart disease with heart failure; T17.920A Food in respiratory tract, part unspecified causing asphyxiation, initial encounter; I27.20 Pulmonary hypertension, unspecified; K52.9 Noninfective gastroenteritis and colitis, unspecified; E86.0 Dehydration; I07.1 Rheumatic tricuspid insufficiency; B96.20 Unspecified Escherichia coli [E. coli] as the cause of diseases classified elsewhere; E87.5 Hyperkalemia; Z79.84 Long term (current) use of oral hypoglycemic drugs; Z79.899 Other long term (current) drug therapy; N40.0 Benign prostatic hyperplasia without lower urinary tract symptoms; E78.5 Hyperlipidemia, unspecified; Z85.118 Personal history of other malignant neoplasm of bronchus and lung; Z85.46 Personal history of malignant neoplasm of prostate; Z86.010 Personal history of colon polyps; Z87.440 Personal history of urinary (tract) infections; Z87.891 Personal history of nicotine dependence; Z92.3 Personal history of irradiation
CPT/HCPCS: 36410; 36415; 43246; 70450; 70491; 71045; 71046; 71275; 74018; 74019; 74021; 74177; 74230; 76937; 80048; 80053; 81001; 82150; 82607; 82728; 82746; 82947; 83540; 83550; 83605; 83690; 83735; 84075; 84100; 84145; 84153; 84403; 84484; 85025; 85027; 85045; 85610; 85730; 86140; 87040; 87077; 87086; 87186; 87324; 87635; 93005; 93306; 94760; 99285

== ENCOUNTER 2020-12-20 19:56 | Inpatient (IN) | payer MEDICARE ==
[2020-12-20] MEDS ORDERED: SODIUM CHLORIDE 0.9% 500 ML 500 ML IV ONE (20:33)
--- NOTE | 2020-12-20 20:51 | ED ---
General Adult HPI - General Chief complaint: Recheck/Abnormal Lab/Rx Stated complaint: Failure to Thrive Time Seen by Provider: 12/20/20 20:25 Source: EMS, RN notes reviewed, old records reviewed Mode of arrival: EMS Limitations: altered mental status, physical limitation - History of Present Illness Initial comments: 80-year-old black male presents to the emergency room from [facility] with complaints of steady decline a steady decline in mental status, and failure to thrive. Per Tina RN patient was sent for possible hospice placement. Patient is currently a full code, has significant medical history including failure to thrive, PEG tube, dysphagia, nonverbal, prostate cancer, hypertension, [id number] diabetes, hypercholesterolemia, chronic venous emboli left extremity. Patient is alert to person, nonverbal, will f ollow simple commands. -: unknown - Related Data Home Medications Medication Instructions Recorded Confirmed Potassium Chloride [K-Tab ER] 10 meq PEG/G-TUBE DAILY@89908/15/16 12/20/20 Pravastatin Sodium [Pravachol] 20 mg PEG/G-TUBE HS@209908/15/16 12/20/20 Acetaminophen Tab [Tylenol] 650 mg PEG/G-TUBE Q6HR PRN 12/20/20 12/20/20 Acetaminophen-Codeine 300-30mg 1 tab PEG/G-TUBE TID PRN 12/20/20 12/20/20 [Tylenol w/codeine #3] Apixaban [Eliquis] 5 mg PEG/G-TUBE BID@0900,209912/20/20 12/20/20 Bicalutamide 50 mg PEG/G-TUBE DAILY@89912/20/20 12/20/20 Cholecalciferol [Vitamin D3 (25 25 mcg PEG/G-TUBE DAILY@89912/20/20 12/20/20 Mcg = 1000 Iu)] Furosemide [Lasix] 40 mg PEG/G-TUBE DAILY@89912/20/20 12/20/20 Pantoprazole [Protonix] 40 mg PEG/G-TUBE DAILY@59912/20/20 12/20/20 Spironolactone [Aldactone] 12.5 mg PEG/G-TUBE DAILY@89912/20/20 12/20/20 carvediloL [Coreg] 3.125 mg PEG/G-TUBE BID@0900,2100 12/20/20 12/20/20 lisinopriL [Zestril] 5 mg PEG/G-TUBE DAILY@0900 12/20/20 12/20/20 metFORMIN HCL [Glucophage] 500 mg PEG/G-TUBE BID@0900,2100 12/20/20 12/20/20 Allergies Allergy/AdvReac Type Severity Reaction Status Date / Time No Known Allergies Allergy Verified 12/20/20 22:13 Review of Systems ROS Statement: Those systems with pertinent positive or pertinent negative responses have been documented in the HPI. ROS Other: All systems not noted in ROS Statement are negative. Past Medical History Past Medical History: Diabetes Mellitus, Hyperlipidemia, Hypertension Additional Past Medical History / Comment(s): CURRENT PROBLEM: HOARSNESS, DIFFICULTY SPEAKING CLEARLY. Hx of polyps, prostate cancer History of Any Multi-Drug Resistant Organisms: None Reported Past Surgical History: Prostate Surgery Additional Past Surgical History / Comment(s): colonoscopy Past Anesthesia/Blood Transfusion Reactions: No Reported Reaction Additional Past Anesthesia/Blood Transfusion Reaction / Comment(s): NEVER HAD GENERAL ANESTHESIA Past Psychological History: No Psychological Hx Reported Smoking Status: Unknown if ever smoked Past Alcohol Use History: None Reported Past Drug Use History: None Reported - Past Family History Mother Family Medical History: No Reported History General Exam Limitations: language barrier, altered mental status (Nonverbal), physical limitation General appearance: alert, in no apparent distress Head exam: Present: atraumatic, normocephalic, normal inspection Eye exam: Present: normal appearance, PERRL, EOMI. Absent: scleral icterus, conjunctival injection, periorbital swelling Pupils: Present: normal accommodation ENT exam: Present: mucous membranes dry (Dried thick plaques on the soft and hard palate, tongue and dry cracked lips) Neck exam: Present: normal inspection, full ROM. Absent: tenderness, meningismus, lymphadenopathy Respiratory exam: Present: decreased breath sounds Cardiovascular Exam: Present: regular rate, normal rhythm, normal heart sounds. Absent: systolic murmur, diastolic murmur, rubs, gallop, clicks GI/Abdominal exam: Present: soft, normal bowel sounds, other (PEG tube in place). Absent: distended, tenderness, guarding, rebound, rigid exam: Present: other (Patient arrived in diaper). Absent: urethral discharge Left Upper Leg exam: Present: swelling Knee exam: Present: swelling Lower Leg exam: Present: swelling Ankle exam: Present: swelling Foot/Toe exam: Present: swelling Neurovascular tendon exam: Absent: extremity cold to touch, pallor, foot drop (Patient with bilateral lower extremity weakness unable to lift her legs up off the bed.) Back exam: Present: normal inspection Neurological exam: Present: alert Psychiatric exam: Present: normal affect, normal mood Skin exam: Present: warm, dry, intact, normal color. Absent: rash Course Vital Signs 12/20/20 12/20/20 12/21/20 20:03 23:00 00:00 Temperature 98.0 F Pulse Rate 89 88 88 Respiratory 18 18 18 Rate Blood Pressure 127/64 128/76 O2 Sat by Pulse 96 Oximetry EKG Findings - EKG Results: EKG: sinus rhythm (Ventricular rate of 89, SD interval 0.15, QRS of 0.88, QTc of 0.459; left ventricular hypertrophy noted), no acute changes (11/19/20) Medical Decision Making - Medical Decision Making Patient's head and scalp atraumatic. CT of the brain shows no erythema process no midline shift, no changes from 11/19/2020. Chest x-ray shows no cardiopulmonary disease, mild atelectasis that is clearing compared to 12/08/2020 xr, no evidence of heart failure. Patient has a chronically high WBC count at 35.2, hemoglobin and hematocrit 8.7 and 28.2 which is baseline for patient. Patient's glucose level was 108. Protein is 6.0 and albumin is 2.8 which is consistent with his team needed failure to thrive. Currently on eloquis 5 mg via PEG tube. This appears to be a stable and chronic condition and failure to thrive with protein level 6.0 and albumin of 2.8. Patient has a troponin of 0.053 which has been consistent with his previous troponins. Patient was ramonita ated with Flagyl on December 07 for urinary tract infection which was positive for E. coli. Patient' is afebrile at 98.0, oxygen saturation 96% on room air, blood pressure 127/64 and heart rate of 89. Urine shows WBC count of 182+, positive leukocyte esterase, positive blood, positive bacteria. Case discussed with Dr. Bullock will admit patient is observation for urinary tract infection failed Outpatient therapy. - Lab Data Result diagrams: 12/20/20 20:49 12/20/20 20:49 Lab Results 12/20/20 12/20/20 12/20/20 Range/Units 20:38 20:38 20:49 WBC 35.2 H (3.8-10.6) k/uL RBC 3.05 L (4.30-5.90) m/uL Hgb 8.7 L (13.0-17.5) gm/dL Hct 28.2 L (39.0-53.0) % MCV 92.5 (80.0-100.0) fL MCH 28.4 (25.0-35.0) pg MCHC 30.8 L (31.0-37.0) g/dL RDW 17.8 H (11.5-15.5) % Plt Count 286 (150-450) k/uL MPV 9.0 Neutrophils % 91 % Lymphocytes % 4 % Monocytes % 2 % Eosinophils % 2 % Basophils % 1 % Neutrophils # 32.0 H (1.3-7.7) k/uL Lymphocytes # 1.4 (1.0-4.8) k/uL Monocytes # 0.6 (0-1.0) k/uL Eosinophils # 0.8 H (0-0.7) k/uL Basophils # 0.2 (0-0.2) k/uL Hypochromasia Slight Anisocytosis Slight PT 12.2 H (9.0-12.0) sec INR 1.2 H (<1.2) APTT 21.2 L (22.0-30.0) sec Sodium (137-145) mmol/L Potassium (3.5-5.1) mmol/L Chloride (98-107) mmol/L Carbon Dioxide (22-30) mmol/L Anion Gap mmol/L BUN (9-20) mg/dL Creatinine (0.66-1.25) mg/dL Est GFR (CKD-EPI)AfAm (>60 ml/min/1.73 sqM) Est GFR (CKD-EPI)NonAf (>60 ml/min/1.73 sqM) Glucose (74-99) mg/dL POC Glucose (mg/dL) (75-99) mg/dL POC Glu Toll Relief Operator ID Calcium (8.4-10.2) mg/dL Total Bilirubin (0.2-1.3) mg/dL AST (17-59) U/L ALT (4-49) U/L Alkaline Phosphatase (38-126) U/L Troponin I 0.053 H* (0.000-0.034) ng/mL Total Protein (6.3-8.2) g/dL Albumin (3.5-5.0) g/dL Urine Color Urine Appearance (Clear) Urine pH (5.0-8.0) Ur Specific [place] (1.001-1.035) Urine Protein (Negative) Urine Glucose (UA) (Negative) Urine Ketones (Negative) Urine Blood (Negative) Urine Nitrite (Negative) Urine Bilirubin (Negative) Urine Urobilinogen (<2.0) mg/dL Ur Leukocyte Esterase (Negative) Urine RBC (0-5) /hpf Urine WBC (0-5) /hpf Urine WBC Clumps (None) /hpf Ur Squamous Epith Cells (0-4) /hpf Urine Bacteria (None) /hpf Urine Mucus (None) /hpf 12/20/20 12/20/20 12/20/20 Range/Units 20:49 21:01 23:15 WBC (3.8-10.6) k/uL RBC (4.30-5.90) m/uL Hgb (13.0-17.5) gm/dL Hct (39.0-53.0) % MCV (80.0-100.0) fL MCH (25.0-35.0) pg MCHC (31.0-37.0) g/dL RDW (11.5-15.5) % Plt Count (150-450) k/uL MPV Neutrophils % % Lymphocytes % % Monocytes % % Eosinophils % % Basophils % % Neutrophils # (1.3-7.7) k/uL Lymphocytes # (1.0-4.8) k/uL Monocytes # (0-1.0) k/uL Eosinophils # (0-0.7) k/uL Basophils # (0-0.2) k/uL Hypochromasia Anisocytosis PT (9.0-12.0) sec INR (<1.2) APTT (22.0-30.0) sec Sodium 144 (137-145) mmol/L Potassium 4.2 (3.5-5.1) mmol/L Chloride 103 (98-107) mmol/L Carbon Dioxide 40 H (22-30) mmol/L Anion Gap 1 mmol/L BUN 47 H (9-20) mg/dL Creatinine 0.91 (0.66-1.25) mg/dL Est GFR (CKD-EPI)AfAm >90 (>60 ml/min/1.73 sqM) Est GFR (CKD-EPI)NonAf 79 (>60 ml/min/1.73 sqM) Glucose 99 (74-99) mg/dL POC Glucose (mg/dL) 108 H (75-99) mg/dL POC Glu Toll Relief Operator ID Tina Neal Calcium 12.7 H (8.4-10.2) mg/dL Total Bilirubin 0.5 (0.2-1.3) mg/dL AST 25 (17-59) U/L ALT 29 (4-49) U/L Alkaline Phosphatase 89 (38-126) U/L Troponin I (0.000-0.034) ng/mL Total Protein 6.0 L (6.3-8.2) g/dL Albumin 2.8 L (3.5-5.0) g/dL Urine Color Yellow Urine Appearance Turbid (Clear) Urine pH 7.5 (5.0-8.0) Ur Specific [place] 1.017 (1.001-1.035) Urine Protein 2+ H (Negative) Urine Glucose (UA) Negative (Negative) Urine Ketones Negative (Negative) Urine Blood Large H (Negative) Urine Nitrite Negative (Negative) Urine Bilirubin Negative (Negative) Urine Urobilinogen 2.0 (<2.0) mg/dL Ur Leukocyte Esterase Large H (Negative) Urine RBC 161 H (0-5) /hpf Urine WBC >182 H (0-5) /hpf Urine WBC Clumps Many H (None) /hpf Ur Squamous Epith Cells 10 H (0-4) /hpf Urine Bacteria Few H (None) /hpf Urine Mucus Rare H (None) /hpf Disposition Clinical Impression: Failure to thrive in adult, Prostate CA, DVT (deep venous thrombosis), UTI (urinary tract infection) Disposition: ADMITTED IP TO THIS HOSP Condition: Fair Is patient prescribed a controlled substance at d/c from ED?: No Referrals: Jhon Corado MD [Primary Care Provider] - 1-2 days Decision Date: 12/21/20 Decision Time: 01:05
[2020-12-20 21:03] LABS: Glucose,Whole Blood 108 mg/dL (75-99)
[2020-12-20 21:27] LABS: Anisocytosis Slight; Basophils # (A) 0.2 k/uL (0-0.2); Basophils % (A) 1 %; Eosinophils # (A) 0.8 k/uL (0-0.7); Eosinophils % (A) 2 %; HCT 28.2 % (39.0-53.0); HGB 8.7 gm/dL (13.0-17.5); Hypochromasia Slight; Lymphocytes # (A) 1.4 k/uL (1.0-4.8); Lymphocytes % (A) 4 %; MCH 28.4 pg (25.0-35.0); MCHC 30.8 g/dL (31.0-37.0); MCV 92.5 fL (80.0-100.0); Monocytes # (A) 0.6 k/uL (0-1.0); Monocytes % (A) 2 %; Neutrophils % (A) 91 %; Platelet Count 286 k/uL (150-450); RBC 3.05 m/uL (4.30-5.90); RDW 17.8 % (11.5-15.5)
[2020-12-20 21:28] LABS: WBC 35.2 k/uL (3.8-10.6)
[2020-12-20 21:33] LABS: ALT 29 U/L (4-49); AST 25 U/L (17-59); African American GFR (CKD) >90 (>60 ml/min/1.73 sqM); Albumin 2.8 g/dL (3.5-5.0); Alkaline Phosphatase 89 U/L (38-126); Anion Gap 1 mmol/L; Blood Urea Nitrogen 47 mg/dL (9-20); Calcium 12.7 mg/dL (8.4-10.2); Carbon Dioxide 40 mmol/L (22-30); Chloride 103 mmol/L (98-107); Glucose 99 mg/dL (74-99); Non-African American GFR(CKD) 79 (>60 ml/min/1.73 sqM); Potassium 4.2 mmol/L (3.5-5.1); Sodium 144 mmol/L (137-145); Total Bilirubin 0.5 mg/dL (0.2-1.3)
--- NOTE | 2020-12-20 21:33 | XR ---
EXAMINATION TYPE: XR chest 1V DATE OF EXAM: 12/20/2020 COMPARISON: 12/08/2020 HISTORY: Altered mental status TECHNIQUE: Single view FINDINGS: There is no heart failure nor confluent pneumonic infiltrate. Costophrenic angles are clear . There are chest leads. Bony thorax is intact. There are no hilar masses. IMPRESSION: No active cardiopulmonary disease. There is clearing of the mild atelectasis at the lung bases compared to old exam.
--- NOTE | 2020-12-20 22:00 | CT ---
EXAMINATION TYPE: CT brain wo con DATE OF EXAM: 12/20/2020 COMPARISON: 11/19/2020 HISTORY: Altered mental status. CT DLP: 1058.4 mGycm Automated exposure control for dose reduction was used. Exam performed without contrast. There is cerebral cortical atrophy. There is no mass effect nor midline shift. There is no sign of in tracranial hemorrhage. Calvarium is intact there is normal aeration of the mastoid sinuses. IMPRESSION: Cerebral atrophy. No acute intracranial abnormality. No change compared to old exam.
[2020-12-20 23:50] LABS: INR 1.2 (<1.2); Prothrombin Time 12.2 sec (9.0-12.0)
[2020-12-20 23:59] LABS: Partial Thromboplastin Time 21.2 sec (22.0-30.0)
[2020-12-21 00:49] LABS: Appearance,Urine Turbid (Clear); Bacteria,Urine Few /hpf; Bilirubin,Urine Negative (Negative); Blood,Urine Large (Negative); Color,Urine Yellow; Glucose,Urine (UA) Negative (Negative); Ketones,Urine Negative (Negative); Leukocyte Esterase,Urine Large (Negative); Mucus,Urine Rare /hpf; Nitrite,Urine Negative (Negative); PH, Urine 7.5 (5.0-8.0); Protein,Urine 2+ (Negative); RBC,Urine 161 /hpf (0-5); Specific Gravity,Urine 1.017 (1.001-1.035); Squamous Epithelial Cell,Urine 10 /hpf (0-4); WBC,Urine >182 /hpf (0-5)
[2020-12-21] MEDS ORDERED: NALOXONE 0.4 MG/ML 1 ML VIAL IV PRN (01:05)
[2020-12-21] MEDS: SODIUM CHLORIDE 0.9% 1,000 ML IV SCH ×2 (01:21→17:42)
[2020-12-21] MEDS ORDERED: ACETAMINOPHEN TAB 325 MG TAB PEG/G-TUBE PRN (08:46)
[2020-12-21] MEDS: FUROSEMIDE 40 MG TAB PEG/G-TUBE SCH (09:50)
[2020-12-21] MEDS: SPIRONOLACTONE 25 MG TAB PEG/G-TUBE SCH (09:50)
[2020-12-21] MEDS: APIXABAN 5 MG TAB PEG/G-TUBE SCH ×2 (09:50→21:12)
[2020-12-21] MEDS: lisinopriL 5 MG TAB PEG/G-TUBE SCH (09:51)
[2020-12-21] MEDS: carvediloL 3.125 MG TAB PEG/G-TUBE SCH ×2 (09:51→21:12)
[2020-12-21] MEDS: BICALUTAMIDE 50 MG TAB PEG/G-TUBE SCH (09:52)
[2020-12-21] MEDS: metFORMIN 500 MG TAB PEG/G-TUBE SCH ×2 (09:52→21:12)
--- NOTE | 2020-12-21 12:57 | P.HPIM ---
History of Present Illness This is a pleasant 80 years old male with past medical history of diabetes mellitus, hypertension, hyperlipidemia, history of laryngeal cancer status post PEG tube placement Patient could not provide any information and I talked to the at bedside Mrs. Aishwarya Melendez. She told me that he has history of dementia. The last 3-4 years he could not recognize her. He is been diagnosed with laryngeal cancer status post radiotherapy and tracheostomy and also he has prostate cancer that's never went away and she follow up with Dr. Asher. They told her in the correction where he was living that is been declining recently. As per patient did not want to proceeding, currently has PEG tube but no feeding running in. was requesting for him to be under hospice care which looks appropriate as he has advanced dementia and probably end-stage dementia, with all comorbidities including 2 cancers he has very bad prognosis Vitals are stable Leukocytosis of 35.2, Patient Has Chronic Leukocytosis since One at That Time Was 46.1, Last Time on 12/08 It Was Sewn 8.4. Hemoglobin is 8.7, which is a stable since 12/04 at 5.4, before that it was 10-12 INR is 1.2, BMP and liver enzymes are unremarkable. Troponin is elevated 0.05 and glucose is 108. Urinalysis showing possible infection and UTI Coronavirus not detected Chest x-ray: No acute process CT of the brain: No acute process. And emergency room showed received 500 bolus of normal saline, ceftriaxone and normal saline at 75 mL/h On reviewing patient medication list he is on bicaluamide which is chemotherapeutic agents was for prostate cancer usually as it is emptied and encroaching receptors. Also patient is on Eliquis he follows up with Review of Systems CONSTITUTIONAL: No fever, no malaise, no fatigue. HEENT: No recent visual problems or hearing problems. Denied any sore throat. CARDIOVASCULAR: No orthopnea, PND, no palpitations, no syncope. PULMONARY: No shortness of breath, no cough, no hemoptysis. GASTROINTESTINAL: No diarrhea, no nausea, no vomiting, no abdominal pain. Normoactive bowel sounds. NEUROLOGICAL: No headaches, no weakness, no numbness. HEMATOLOGICAL: Denies any bleeding or petechiae. GENITOURINARY: Denies any burning micturition, frequency, or urgency. MUSCULOSKELETAL/RHEUMATOLOGICAL: Denies any joint pain, swelling, or any muscle pain. ENDOCRINE: Denies any polyuria or polydipsia. Past Medical History Past Medical History: Diabetes Mellitus, Hyperlipidemia, Hypertension Additional Past Medical History / Comment(s): CURRENT PROBLEM: HOARSNESS, DIFFICULTY SPEAKING CLEARLY. Hx of polyps, prostate cancer History of Any Multi-Drug Resistant Organisms: None Reported Past Surgical History: Prostate Surgery Additional Past Surgical History / Comment(s): colonoscopy Past Anesthesia/Blood Transfusion Reactions: No Reported Reaction Additional Past Anesthesia/Blood Transfusion Reaction / Comment(s): NEVER HAD GENERAL ANESTHESIA Past Psychological History: No Psychological Hx Reported Smoking Status: Unknown if ever smoked Past Alcohol Use History: None Reported Additional Past Alcohol Use History / Comment(s): quit smoking approx 1996, smoked less than 1 ppd or cigars, from age 15 (1954) Past Drug Use History: None Reported - Past Family History Mother Family Medical History: No Reported History Medications and Allergies Home Medications Medication Instructions Recorded Confirmed Type Potassium Chloride [K-Tab ER] 10 meq PEG/G-TUBE DAILY@89908/15/16 12/20/20 History Pravastatin Sodium [Pravachol] 20 mg PEG/G-TUBE HS@209908/15/16 12/20/20 History Acetaminophen Tab [Tylenol] 650 mg PEG/G-TUBE Q6HR PRN 12/20/20 12/20/20 History Acetaminophen-Codeine 300-30mg 1 tab PEG/G-TUBE TID PRN 12/20/20 12/20/20 History [Tylenol w/codeine #3] Apixaban [Eliquis] 5 mg PEG/G-TUBE BID@09,209912/20/20 12/20/20 History Bicalutamide 50 mg PEG/G-TUBE DAILY@89912/20/20 12/20/20 History Cholecalciferol [Vitamin D3 (25 25 mcg PEG/G-TUBE DAILY@89912/20/20 12/20/20 History Mcg = 1000 Iu)] Furosemide [Lasix] 40 mg PEG/G-TUBE DAILY@89912/20/20 12/20/20 History Pantoprazole [Protonix] 40 mg PEG/G-TUBE DAILY@59912/20/20 12/20/20 History Spironolactone [Aldactone] 12.5 mg PEG/G-TUBE DAILY@00 12/20/20 12/20/20 Histo ry carvediloL [Coreg] 3.125 mg PEG/G-TUBE BID@0900,2100 12/20/20 12/20/20 History lisinopriL [Zestril] 5 mg PEG/G-TUBE DAILY@0900 12/20/20 12/20/20 History metFORMIN HCL [Glucophage] 500 mg PEG/G-TUBE BID@0900,2100 12/20/20 12/20/20 History Allergies Allergy/AdvReac Type Severity Reaction Status Date / Time No Known Allergies Allergy Verified 12/20/20 22:13 Physical Exam Vitals: Vital Signs Temp Pulse Pulse Resp BP BP Pulse Ox 12/21/20 05:15 97.7 F 92 20 135/70 100 12/21/20 03:48 97.6 F 79 20 129/77 100 12/21/20 03:00 98.0 F 85 14 132/71 93 L 12/21/20 01:19 98.0 F 96 18 136/88 93 L 12/21/20 00:00 88 18 128/76 12/20/20 23:00 88 18 12/20/20 20:03 98.0 F 89 18 127/64 96 Intake and Output 12/20/20 12/21/20 12/21/20 22:59 06:59 14:59 Intake Total 0 Balance 0 Intake: Oral 0 Other: Voiding Method Diaper Incontinent # Voids 1 Weight 61.235 kg 62 kg -GENERAL: The patient is confused, emaciated, does not follow commands. HEENT: Pupils are round and equally reacting to light. EOMI. No scleral icterus. No conjunctival pallor. Normocephalic, atraumatic. No pharyngeal erythema. No thyromegaly. CARDIOVASCULAR: S1 and S2 present. No murmurs, rubs, or gallops. PULMONARY: Chest is clear to auscultation, no wheezing or crackles. -ABDOMEN: Soft, nontender, nondistended, normoactive bowel sounds. No palpable organomegaly. MUSCULOSKELETAL: No joint swelling or deformity. PEG tube is in a Place EXTREMITIES: No cyanosis, clubbing, or pedal edema. NEUROLOGICAL: Gross neurological examination did not reveal any focal deficits. SKIN: No rashes. No petechiae Results CBC & Chem 7: 12/20/20 20:49 12/20/20 20:49 Labs: Abnormal Lab Results - Last 24 Hours (Table) 12/20/20 12/20/20 12/20/20 Range/Units 20:38 20:38 20:49 WBC 35.2 H (3.8-10.6) k/uL RBC 3.05 L (4.30-5.90) m/uL Hgb 8.7 L (13.0-17.5) gm/dL Hct 28.2 L (39.0-53.0) % MCHC 30.8 L (31.0-37.0) g/dL RDW 17.8 H (11.5-15.5) % Neutrophils # 32.0 H (1.3-7.7) k/uL Eosinophils # 0.8 H (0-0.7) k/uL PT 12.2 H (9.0-12.0) sec INR 1.2 H (<1.2) APTT 21.2 L (22.0-30.0) sec Carbon Dioxide (22-30) mmol/L BUN (9-20) mg/dL POC Glucose (mg/dL) (75-99) mg/dL Calcium (8.4-10.2) mg/dL Troponin I 0.053 H* (0.000-0.034) ng/mL Total Protein (6.3-8.2) g/dL Albumin (3.5-5.0) g/dL Urine Protein (Negative) Urine Blood (Negative) Ur Leukocyte Esterase (Negative) Urine RBC (0-5) /hpf Urine WBC (0-5) /hpf Urine WBC Clumps (None) /hpf Ur Squamous Epith Cells (0-4) /hpf Urine Bacteria (None) /hpf Urine Mucus (None) /hpf 12/20/20 12/20/20 12/20/20 Range/Units 20:49 21:01 23:15 WBC (3.8-10.6) k/uL RBC (4.30-5.90) m/uL Hgb (13.0-17.5) gm/dL Hct (39.0-53.0) % MCHC (31.0-37.0) g/dL RDW (11.5-15.5) % Neutrophils # (1.3-7.7) k/uL Eosinophils # (0-0.7) k/uL PT (9.0-12.0) sec INR (<1.2) APTT (22.0-30.0) sec Carbon Dioxide 40 H (22-30) mmol/L BUN 47 H (9-20) mg/dL POC Glucose (mg/dL) 108 H (75-99) mg/dL Calcium 12.7 H (8.4-10.2) mg/dL Troponin I (0.000-0.034) ng/mL Total Protein 6.0 L (6.3-8.2) g/dL Albumin 2.8 L (3.5-5.0) g/dL Urine Protein 2+ H (Negative) Urine Blood Large H (Negative) Ur Leukocyte Esterase Large H (Negative) Urine RBC 161 H (0-5) /hpf Urine WBC >182 H (0-5) /hpf Urine WBC Clumps Many H (None) /hpf Ur Squamous Epith Cells 10 H (0-4) /hpf Urine Bacteria Few H (None) /hpf Urine Mucus Rare H (None) /hpf Thrombosis Risk Factor Assmnt - Choose All That Apply Any of the Below Risk Factors Present?: Yes Each Factor Represents 1 point: Swollen legs (current) Other Risk Factors: Yes Each Risk Factor Represents 2 Points: Patient confined to bed Each Risk Factor Represents 3 Points: Age 75 years or older, History of DVT/PE Other congenital or acquired thrombophilia - If yes, enter type in comment: No Thrombosis Risk Factor Assessment Total Risk Factor Score: 9 Thrombosis Risk Factor Assessment Level: High Risk Assessment and Plan Assessment: End-stage dementia, patient is eligible for hospice per prostate cancer and he follows up with urologist Diabetes mellitus Hypertension Hyperlipidem Chronic leukocytosisia History of laryngeal cancer, status post PEG tube placement Plan: This is an 80 years old male who presents with declining health and failure to thrive and advanced/end-stage dementia. per request without consult hospice care which looks appropriate Continue supportive care, pain management
[2020-12-21] MEDS: PRAVASTATIN SODIUM 20 MG TAB PEG/G-TUBE SCH (21:12)
[2020-12-22] MEDS: SODIUM CHLORIDE 0.9% 1,000 ML IV SCH ×2 (04:50→18:04)
[2020-12-22] MEDS: PANTOPRAZOLE 40 MG TABLET PO SCH ×2 (04:50→09:30)
[2020-12-22] MEDS: BICALUTAMIDE 50 MG TAB PEG/G-TUBE SCH (09:28)
[2020-12-22] MEDS: carvediloL 3.125 MG TAB PEG/G-TUBE SCH ×2 (09:28→20:09)
[2020-12-22] MEDS: APIXABAN 5 MG TAB PEG/G-TUBE SCH ×2 (09:28→20:09)
[2020-12-22] MEDS: lisinopriL 5 MG TAB PEG/G-TUBE SCH (09:29)
[2020-12-22] MEDS: SPIRONOLACTONE 25 MG TAB PEG/G-TUBE SCH (09:29)
[2020-12-22] MEDS: FUROSEMIDE 40 MG TAB PEG/G-TUBE SCH (09:29)
[2020-12-22] MEDS: metFORMIN 500 MG TAB PEG/G-TUBE SCH ×2 (09:29→20:10)
--- NOTE | 2020-12-22 11:20 | CDI ---
Documentation Clarification Form Date: 12/22/2020 11:00:51 AM From: Rosie Morrow RN CCDS Admit Date: 12/21/2020 01:14:00 AM Patient Name: Ryan Melendez Visit Number: [id number] Discharge Date: ATTENTION: The Clinical Documentation Specialists (CDI) and [facility] Coding Staff appreciate your assistance in clarifying documentation. Please respond to the clarification below the line at the bottom and electronically sign. The CDI & [facility] Coding staff will review the response and follow-up if needed. Please note: Queries are made part of the Legal Health Record. If you have any questions, please contact the author of this message via ITS. Dr. Berman E Sheet Your patient is receiving the following: Lasix, Coreg and Aldactone MAR 12/21. Please clarify what condition/diagnosis is being treated. History/Risk Factors: 80- year-old male presents to the ED with decline in mental status and failure to thrive. ED note 12/20. Medical history: Laryngeal cancer with peg tube and tracheostomy; Prostate cancer; DM and End Stage Dementia. HP 12/21 Clinical Indicators: VS/Pulse OX 12/20: BP 127/64; HR 89; Temp 98.0 F Oral; RR 18; SpO2 96% room air Echocardiogram Results 12/07/20: Ventricular systolic function is severely impaired EF <20%. Increased LAP. Grade 3 Diastolic Dysfunction. LA is severely dilated >40 ml/m2. Aortic valve is trileaflet and is mildly thickened. Mild aortic regurgitation. Moderate mitral regurgitation, Moderate tricuspid regurgitation, moderate pulmonary hypertension. Chest X Ray 12/20: No active cardiopulmonary disease. Treatment: 12/21 Coreg 3.125mg PEG/G Tube BID; Lasix 40mg PEG/G Tube Daily; Aldactone 12.5mg PEG/G Tube Daily. What diagnosis are you treating with [treatment]? [ ] Chronic Systolic Heart Failure (reduced EF) [ ] Heart Failure ruled out [ ] Other, please specify [ ] Unable to determine (Template Last Revised: August 2020) Chronic Systolic Heart Failure MTDD
--- NOTE | 2020-12-22 11:59 | CDI ---
Documentation Clarification Form Date: 12/22/2020 11:21:06 AM From: Rosie Morrow RN CCDS Admit Date: 12/21/2020 01:14:00 AM Patient Name: Ryan Melendez Visit Number: [id number] Discharge Date: ATTENTION: The Clinical Documentation Specialists (CDI) and [facility] Coding Staff appreciate your assistance in clarifying documentation. Please respond to the clarification below the line at the bottom and electronically sign. The CDI & [facility] Coding staff will review the response and follow-up if needed. Please note: Queries are made part of the Legal Health Record. If you have any questions, please contact the author of this message via ITS. Dr. Berman E Ankit Failure to thrive is documented in the H&P 12/21. Based on this information and the findings below, is there an additional diagnosis that is clinically appropriate for this patient? History/Risk Factors: 80- year-old male presents to the ED with decline in mental status and failure to thrive. ED note 12/20. Medical history: Laryngeal cancer with peg tube and tracheostomy; Prostate cancer; DM and End Stage Dementia (nonverbal). HP 12/21. Clinical Indicators: Current BMI: 18.5kg/m RD Consult Assessment 12/21: Nutrition Intake: Poor; Percent consumed 0%. No diet orders. Anthropometrics: Weight: 62kg; Height 6ft; BMI: Underweight; [place] Calculated weight: 80.739kg; Usual weight 47kg. Estimated Nutritional Needs: Weight used [place] body weight. Energy formula 25-30 Kcals/kg. Energy Needs 2017 2421 Estimated protein needs/ideal body weight: Estimated protein needs (grams /day) 97. Tube Feeding Prior to Admission: Tube feeding formula Jevity 1.5, Protein provided 64gm; Fluid provided m/ H2O 766. Nutritional Diagnosis: Inadequate energy intake. Evidenced by: Dysphagia, EN not reordered, NPO without nutrition support. Treatment: Dietary Consult: see above Supplements: Patient has no diet order Fluids: 0.9ns 75cc/hr Is there an additional diagnosis that is clinically appropriate for this patient? [ ] Mild Protein-Calorie Malnutrition [ ] Moderate Protein-Calorie Malnutrition [ ] Severe Protein-Calorie Malnutrition [ ] Other condition, please specify [ ] Unable to Determine (Template Last Revised: September 2020) moderate to severe Protein-Calorie Malnutrition MTDD
--- NOTE | 2020-12-22 12:17 | CDI ---
Documentation Clarification Form Date: 12/22/2020 12:02:46 PM From: Rosie Morrow RN CCDS Admit Date: 12/21/2020 01:14:00 AM Patient Name: Ryan Melendez Visit Number: [id number] Discharge Date: ATTENTION: The Clinical Documentation Specialists (CDI) and [facility] Coding Staff appreciate your assistance in clarifying documentation. Please respond to the clarification below the line at the bottom and electronically sign. The CDI & [facility] Coding staff will review the response and follow-up if needed. Please note: Queries are made part of the Legal Health Record. If you have any questions, please contact the author of this message via ITS. Dr. Cullen Pham A Sacrum pressure ulcer is documented 12/21 in Nursing Pressure ulcer assessment. Additional clarification regarding the stage of the pressure ulcer is requested. History/Risk Factors: 80- year-old male presents to the ED with decline in mental status and failure to thrive. ED note 12/20. Medical history: Laryngeal cancer with peg tube and tracheostomy; Prostate cancer; DM and End Stage Dementia (nonverbal). HP 12/21. Clinical Indicators: Location: Sacrum Wound description: Priya skin dry, warm and intact. Treatment: 12/21: Absorbant underpad, check hourly, Turn Q2, Maximum assist, Foam with border, Optifoam gentle liquitrap bordered 4 x 4 Please clarify the stage of pressure ulcer Sacrum, if known: [ ] Stage 2 Pressure Ulcer [insert location] [ ] Stage 3 Pressure Ulcer [insert location] [ ] Stage 4 Pressure Ulcer [insert location] [ ] Unstageable Pressure ulcer [insert location] [ ] Other condition, please specify [ ] Unable to determine Clinical Definitions: Stage 1 Pressure Ulcer: intact skin, non-blanching redness of local area Stage 2 Pressure Ulcer: Partial thickness, loss of dermis, pink wound bed Stage 3 Pressure Ulcer: Full thickness tissue loss Stage 4 Pressure Ulcer: Full thickness tissue loss with exposed bone, tendon, or muscle. Unstageable pressure ulcer: Full thickness tissue loss in which the base of the ulcer is covered by slough (yellow, zhang, moran, green or brown) and/or eschar (zhang, brown or black) in the wound bed. (Template Last Revised: September 2020) Unable to determine MTDD
[2020-12-22] MEDS: PRAVASTATIN SODIUM 20 MG TAB PEG/G-TUBE SCH (20:10)
[2020-12-23] MEDS: SODIUM CHLORIDE 0.9% 1,000 ML IV SCH (05:16)
[2020-12-23 07:18] LABS: Glucose,Whole Blood 63 mg/dL (75-99)
[2020-12-23] MEDS ORDERED: DEXTROSE 50% SYRINGE 50 ML IVP ONE (07:27)
[2020-12-23] MEDS: metFORMIN 500 MG TAB PEG/G-TUBE SCH ×2 (07:38→20:25)
[2020-12-23 07:46] LABS: Glucose,Whole Blood 102 mg/dL (75-99)
[2020-12-23 07:46] LABS: Glucose,Whole Blood 55 mg/dL (75-99)
[2020-12-23] MEDS: APIXABAN 5 MG TAB PEG/G-TUBE SCH ×2 (10:06→20:25)
[2020-12-23] MEDS: SPIRONOLACTONE 25 MG TAB PEG/G-TUBE SCH (10:07)
[2020-12-23] MEDS: FUROSEMIDE 40 MG TAB PEG/G-TUBE SCH (10:07)
[2020-12-23] MEDS: lisinopriL 5 MG TAB PEG/G-TUBE SCH (10:07)
[2020-12-23] MEDS: BICALUTAMIDE 50 MG TAB PEG/G-TUBE SCH (10:08)
[2020-12-23] MEDS: DEXTROSE 5%-0.9% NACL 1,000 ML IV SCH (10:08)
[2020-12-23] MEDS: carvediloL 3.125 MG TAB PEG/G-TUBE SCH ×2 (10:08→20:43)
[2020-12-23 10:42] LABS: Glucose,Whole Blood 128 mg/dL (75-99)
[2020-12-23 17:54] LABS: Glucose,Whole Blood 108 mg/dL (75-99)
[2020-12-23] MEDS ORDERED: HYDROcodone/APAP 5-325MG 1 EACH TAB PO PRN (18:16)
[2020-12-23] MEDS: PRAVASTATIN SODIUM 20 MG TAB PEG/G-TUBE SCH (20:43)
--- NOTE | 2020-12-23 23:02 | PN ---
PROGRESS NOTE DATE OF SERVICE: 12/23/2020 This 80-year-old gentleman with a past medical history of multiple medical problems was admitted with a history of dementia. The patient also has history of prostate cancer. The patient is admitted with change in mental status. According to the , the patient should be considered for hospice, but apparently the daughter opposes at this time according to the staff. The initial labs showed fluctuating blood sugars and WBC elevated at 34.3, hemoglobin is 8.7 and troponin is indeterminate. The patient also had UTI. The cultures are showing E coli which is polysensitive. The patient is started on antibiotics at this time. Patient closely monitored. PAST MEDICAL HISTORY: Reviewed. REVIEW OF SYMPTOMS: Could not be taken. CURRENT MEDICATIONS: Reviewed and include: Tylenol, Eliquis, Casodex, Coreg, Lasix, Restoril. Doses reviewed. PHYSICAL EXAMINATION: Patient is conscious, confused. Pulse 91. Blood pressure 140/82, respiration 14, temperature 97.2. Pulse ox 100 percent on room air. HEENT: Conjunctivae normal. NECK: No JVD. CARDIOVASCULAR: S1, S2 muffled. RESPIRATION: Breath sounds diminished in the bases. A few scattered rhonchi. ABDOMEN: Soft, nontender. LEGS: No edema. No swelling. NERVOUS SYSTEM: Diffusely weak. LAB STUDIES: WBC 34.2, hemoglobin is 8.7, sodium 140, potassium 4.2. ASSESSMENT: 1. Acute urinary tract infection with sepsis present on admission, change in mental status, acute on chronic metabolic encephalopathy. 2. Dehydration, present on admission. 3. Hypercalcemia. 4. Elevated BUN. 5. Increased WBC. 6. Anemia, normocytic. 7. Troponin 0.053 indeterminate. 8. Hypoalbuminemia with mild protein calorie malnutrition. 9. History of dementia. 10.Hypertension. 11.Hyperlipidemia. 12.History of hoarseness. 13.History of prostate cancer. 14.Severe protein calorie malnutrition with body mass index of 18.5. 15.Left lower extremity DVT. 16.Oropharyngeal candidiasis. 17.Congestive heart failure with chronic systolic dysfunction ejection fraction 20%. 18.Metastatic prostate cancer. RECOMMENDATIONS AND DISCUSSION: Recommend to continue current medications, symptomatic treatment. Continue the broad- spectrum IV antibiotics. Otherwise, the patient was recently admitted with intraabdominal mass and tumor apparently. The patient is NO CODE at this time. Otherwise, overall prognosis is extremely guarded because of multiple complex medical issues. Repeat labs will be ordered and further recommendations to follow. A copy of this dictation is being forwarded to Dr. Corado who is the primary physician. JAMILAH / DEIDRA: [id number] / MARIZOL
[2020-12-24 00:19] LABS: Glucose,Whole Blood 132 mg/dL (75-99)
[2020-12-24 06:07] LABS: Glucose,Whole Blood 79 mg/dL (75-99)
[2020-12-24] MEDS: PANTOPRAZOLE 40 MG TABLET PO SCH (06:11)
[2020-12-24] MEDS: DEXTROSE 5%-0.9% NACL 1,000 ML IV SCH ×3 (06:11→15:11)
[2020-12-24 06:36] LABS: Anisocytosis Slight; HCT 29.2 % (39.0-53.0); HGB 8.9 gm/dL (13.0-17.5); Hypochromasia Marked; MCH 29.1 pg (25.0-35.0); MCHC 30.5 g/dL (31.0-37.0); MCV 95.5 fL (80.0-100.0); Mean Platelet Volume 9.2; Platelet Count 301 k/uL (150-450); RBC 3.05 m/uL (4.30-5.90); RDW 16.7 % (11.5-15.5); WBC 45.3 k/uL (3.8-10.6)
[2020-12-24 06:44] LABS: African American GFR (CKD) >90 (>60 ml/min/1.73 sqM); Anion Gap 8 mmol/L; Blood Urea Nitrogen 41 mg/dL (9-20); Carbon Dioxide 29 mmol/L (22-30); Chloride 115 mmol/L (98-107); Glucose 100 mg/dL (74-99); Non-African American GFR(CKD) 81 (>60 ml/min/1.73 sqM); Sodium 152 mmol/L (137-145)
[2020-12-24 08:20] LABS: Nucleated Red Blood Cells 0 /100 WBC (0-0)
[2020-12-24 08:21] LABS: Band Neutrophils % 18 %; Eosinophils # (M) 0.45 k/uL (0-0.7); Lymphocytes # (M) 1.36 k/uL (1.0-4.8); Monocytes # (M) 0.45 k/uL (0-1.0); Neutrophils % (M) 78 %; Total Cells Counted 200
[2020-12-24 08:22] LABS: Polychromasia Present; Toxic Granulation Present; Toxic Vacuolation Present
[2020-12-24 08:23] LABS: Anisocytosis (M) Present; Poikilocytosis (M) Present
[2020-12-24] MEDS: APIXABAN 5 MG TAB PEG/G-TUBE SCH ×2 (09:33→21:25)
[2020-12-24] MEDS: POTASSIUM CHLORIDE ER 10 MEQ TAB.ER.PRT PO SCH (09:33)
[2020-12-24] MEDS: metFORMIN 500 MG TAB PEG/G-TUBE SCH ×2 (09:34→21:25)
[2020-12-24] MEDS: MULTIVITAMINS, THERA 1 EACH TAB PO SCH (09:34)
[2020-12-24] MEDS: CHOLECALCIFEROL 25 MCG (1000 IU) TABLET PEG/G-TUBE SCH (09:34)
[2020-12-24] MEDS: BICALUTAMIDE 50 MG TAB PEG/G-TUBE SCH (09:34)
[2020-12-24] MEDS: lisinopriL 5 MG TAB PEG/G-TUBE SCH (09:34)
[2020-12-24] MEDS: FUROSEMIDE 40 MG TAB PEG/G-TUBE SCH (09:34)
[2020-12-24] MEDS: carvediloL 3.125 MG TAB PEG/G-TUBE SCH ×2 (09:34→21:26)
[2020-12-24] MEDS: SPIRONOLACTONE 25 MG TAB PEG/G-TUBE SCH (09:35)
[2020-12-24] MEDS: THIAMINE 100 MG TAB PO SCH (09:36)
[2020-12-24] MEDS: FOLIC ACID 1 MG TAB PO SCH (09:36)
[2020-12-24 11:34] LABS: Glucose,Whole Blood 103 mg/dL (75-99)
[2020-12-24] MEDS: POTASSIUM CHLORIDE 20 MEQ in WATER FOR INJECTION 1 100ML.BAG IVPB SCH ×3 (13:02→17:43)
[2020-12-24] MEDS ORDERED: D5-0.9% NACL WITH KCL 40 MEQ/L 1,000 ML IV SCH (14:00)
--- NOTE | 2020-12-24 14:33 | PN ---
PROGRESS NOTE DATE OF SERVICE: 12/24/2020 This 80-year-old gentleman who was admitted with multiple medical issues, was admitted with acute UTI with sepsis. Patient also had PEG tube placement. The patient has significant dementia also. Apparently the daughter wants to take the patient home at this time. She has a power of civil attorney according to the staff, papers from 2019. The patient is being closely monitored. Tube feeds started at 20 mL. The patient is on IV fluids also. The patient is unable to give coherent history. Most of the history is taken from my discussion with staff and review of the chart. PAST MEDICAL HISTORY: Reviewed. REVIEW OF SYSTEM: Could not be taken. CURRENT MEDICATIONS: Reviewed include Tylenol, [place], Eliquis, Casodex, Coreg, Rocephin 1 g and doses and routes of other medication also reviewed. PHYSICAL EXAMINATION: Patient is conscious but basically confused, nonverbal. Pulse 72, blood pressure 120/70, respiration 16, temperature 98.6, pulse ox 91% on 5 L. HEENT: Conjunctivae normal. Oral mucosa moist. NECK: No jugular venous distention. No lymph node enlargement. CARDIOVASCULAR: S1, S2, muffled. No S3, no S4, RESPIRATORY: Diminished breath sounds at the bases. A few scattered rhonchi and crackles. ABDOMEN: Soft, nontender. NERVOUS SYSTEM: Diffusely weak. LAB STUDIES: WBC 45, hemoglobin is 8, sodium 152, potassium 3. assessment. ASSESSMENT: 1. Acute urinary tract infection with possible sepsis, present on admission with change in mental status, acute on chronic metabolic encephalopathy. 2. Dehydration, present on admission. 3. Hypernatremia. 4. Hypokalemia. 5. Hypercalcemia. 6. Elevated BUN. 7. Increased WBC. 8. Anemia, normocytic. 9. Troponin 0.053, indeterminate. 10.Hypoalbuminemia with mild protein calorie malnutrition. 11.History of dementia. 12.Hypertension. 13.Hyperlipidemia. 14.History of hoarseness. 15.History of prostate cancer. 16.Severe protein calorie malnutrition with body mass index of 18.5. 17.Left lower extremity DVT. 18.Oropharyngeal candidiasis. 19.Congestive heart failure with chronic systolic dysfunction, ejection fraction 20%. 20.Metastatic prostate cancer. 21.NO CODE, NO CPR, NO VENT. RECOMMENDATIONS AND DISCUSSION: Recommend to continue current management and symptomatic treatment. Continue tube feeds cautiously. I would recommend changing the IV fluids to D5 water with KCl and the rate may be reduced to 50 mL. Closely monitor. Social Work and Case Management Team to help with discharge planning also. Discussed with the staff at length. Further recommendations to follow. Prognosis guarded. JAMILAH / DEIDRA: [id number] /
[2020-12-24 18:10] LABS: Glucose,Whole Blood 89 mg/dL (75-99)
[2020-12-24] MEDS: PRAVASTATIN SODIUM 20 MG TAB PEG/G-TUBE SCH (21:26)
[2020-12-25 02:39] LABS: Glucose,Whole Blood 155 mg/dL (75-99)
[2020-12-25] MEDS: PANTOPRAZOLE 40 MG TABLET PO SCH ×2 (05:43→09:48)
[2020-12-25 06:30] LABS: Anisocytosis Slight; HCT 24.7 % (39.0-53.0); HGB 7.7 gm/dL (13.0-17.5); Hypochromasia Marked; MCH 30.1 pg (25.0-35.0); MCHC 31.3 g/dL (31.0-37.0); MCV 96.2 fL (80.0-100.0); Macrocytosis Slight; Mean Platelet Volume 9.2; Platelet Count 299 k/uL (150-450); RBC 2.57 m/uL (4.30-5.90); RDW 17.1 % (11.5-15.5); WBC 49.7 k/uL (3.8-10.6)
[2020-12-25 06:35] LABS: African American GFR (CKD) >90 (>60 ml/min/1.73 sqM); Anion Gap 4 mmol/L; Blood Urea Nitrogen 39 mg/dL (9-20); Carbon Dioxide 31 mmol/L (22-30); Chloride 119 mmol/L (98-107); Glucose 121 mg/dL (74-99); Non-African American GFR(CKD) 83 (>60 ml/min/1.73 sqM); Sodium 154 mmol/L (137-145)
[2020-12-25 06:37] LABS: Glucose,Whole Blood 110 mg/dL (75-99)
[2020-12-25 06:43] LABS: Calcium 13.1 mg/dL (8.4-10.2)
[2020-12-25 06:49] LABS: Band Neutrophils % 27 %; Eosinophils # (M) 2.98 k/uL (0-0.7); Lymphocytes # (M) 1.49 k/uL (1.0-4.8); Monocytes # (M) 0.99 k/uL (0-1.0); Neutrophils % (M) 62 %; Nucleated Red Blood Cells 0 /100 WBC (0-0); Total Cells Counted 200; Toxic Granulation Present; Toxic Vacuolation Present
[2020-12-25 06:50] LABS: Anisocytosis (M) Present
[2020-12-25] MEDS ORDERED: DEXTROSE 5% IN WATER 1,000 ML IV SCH (07:15)
[2020-12-25] MEDS: POTASSIUM CHLORIDE ER 10 MEQ TAB.ER.PRT PO SCH (09:48)
[2020-12-25] MEDS: SPIRONOLACTONE 25 MG TAB PEG/G-TUBE SCH (09:48)
[2020-12-25] MEDS: FUROSEMIDE 40 MG TAB PEG/G-TUBE SCH (09:49)
[2020-12-25] MEDS: metFORMIN 500 MG TAB PEG/G-TUBE SCH ×2 (09:49→19:57)
[2020-12-25] MEDS: BICALUTAMIDE 50 MG TAB PEG/G-TUBE SCH (09:51)
[2020-12-25] MEDS: carvediloL 3.125 MG TAB PEG/G-TUBE SCH ×2 (09:51→19:57)
[2020-12-25] MEDS: lisinopriL 5 MG TAB PEG/G-TUBE SCH (09:51)
--- NOTE | 2020-12-25 11:41 | P.CONS ---
History of Present Illness - Reason for Consult Consult date: 12/25/20 - History of Present Illness Mr Melendez is an 80 yr old AAM, initially seen by our practice, in 2019, Dr. 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 He was offered laryngectomy V/S Larynx-preservation approach utelizing concurrent Radiation/Chemotherapy which he opted for.The patient was seen by Dr Howard, PET Scan ordered, Which was negative for metastatic disease. 1/2 ppd X 20 years, quit 15 years ago, denied ETOH use. He worked in [employer]. At this time he was offered standard of care chemotherapy and radiation although refused Chemo and opted for radiation alone. He completed radiation and was on follow-up with Dr. Howard He has also a history of prostate cancer diagnosed in January 2015. The Misty score was 8, and the PSA level at that time was 468.4. He was treated with androgen deprivation therapy, and his PSA level reached a molly of 4.19 in October 2016. His care has been assumed by Dr. Olivas, who saw him in September 2020 at [facility] time his PSA and testosterone levels were 658.69 and 494, respectively. Androgen deprivation therapy was renewed. He received Firmagon 240 mg on 10/06/2020 but failed to keep his follow-up appointment. the patient was seen in consult when admitted in 11/15, with generalized weakness, and very poor oral intake. He was diagnosed with UTI and sepsis. He had a prolonged hospitalization completed by persistent generalized weakness and severe medical ability. Swallow study revealed aspiration, due to which the patient had a PEG tube placed. He had computed tomography scan of the chest ab domen and pelvis, as well as CT imaging of the neck. This did not show any evidence of recurrence of his head and neck cancer. He did however revealed a large pelvic mass in the left side causing compressive affects on the left ureter and kidney as well as a left bowel. At the time of admission the patient had been undergoing radiation to this area. Case was discussed with radiation oncology, Dr. Howard, who confirmed and the appearance of the pelvic mass was fairly stable. The patient was also on Casodex during his admission. The patient was discharged to [facility] on tube feeds. It appears that he had not been progressing well with rehab and the pain generally weak. Over the past wee k or so, there appeared to be decreased alertness and increasing weakness with failure to thrive. There is no definite evidence suggestive of infection. He was therefore brought back to the hospital, where he was found to have calcium of 13.7. He was therefore admitted for further management. CT of the brain as well as chest x-ray did not show any new findings Review of Systems patient is unable to provide any significant history. History is mostly obtai yoni from the EMR and from nursing and his physicians Constitutional: Reports fatigue, Reports poor appetite, Reports weakness, Reports weight loss Eyes: denies blurred vision, denies pain Ears: deny: decreased hearing, ear discharge, earache, tinnitus Ears, nose, mouth and throat: Reports as per HPI ( markedly decreased following effort, as well as dryness of the mouth and tongue) Cardiovascular: Reports decreased exercise tolerance Respiratory: Denies cough Gastrointestinal: Reports abdominal pain ( recently has been having abdominal discomfort with target rate of 2 feeds. dysphagia) Genitourinary: Reports as per HPI Musculoskeletal: Reports muscle weakness Integumentary: Denies pruritus, Denies rash Neurological: Reports change in mentation, Reports change in speech, Reports weakness Psychiatric: Reports confusion Endocrine: Reports fatigue, Reports weight change Hematologic/Lymphatic: Reports as per HPI Past Medical History Past Medical History: Diabetes Mellitus, Hyperlipidemia, Hypertension Additional Past Medical History / Comment(s): CURRENT PROBLEM: HOARSNESS, DIFFICULTY SPEAKING CLEARLY. Hx of polyps, prostate cancer History of Any Multi-Drug Resistant Organisms: None Reported Past Surgical History: Prostate Surgery Additional Past Surgical History / Comment(s): colonoscopy Past Anesthesia/Blood Transfusion Reactions: No Reported Reaction Additional Past Anesthesia/Blood Transfusion Reaction / Comm: NEVER HAD GENERAL ANESTHESIA Past Psychological History: No Psychological Hx Reported Smoking Status: Unknown if ever smoked Past Alcohol Use History: None Reported Additional Past Alcohol Use History / Comment(s): quit smoking approx 1996, smoked less than 1 ppd or cigars, from age 15 (1954) Past Drug Use History: None Reported - Past Family History Mother Family Medical History: No Reported History Medications and Allergies Home Medications Medication Instructions Recorded Confirmed Type Potassium Chloride [K-Tab ER] 10 meq PEG/G-TUBE DAILY@0900 08/15/16 12/20/20 History Pravastatin Sodium [Pravachol] 20 mg PEG/G-TUBE HS@209908/15/16 12/20/20 History Acetaminophen Tab [Tylenol] 650 mg PEG/G-TUBE Q6HR PRN 12/20/20 12/20/20 History Acetaminophen-Codeine 300-30mg 1 tab PEG/G-TUBE TID PRN 12/20/20 12/20/20 History [Tylenol w/codeine #3] Apixaban [Eliquis] 5 mg PEG/G-TUBE BID@09,209912/20/20 12/20/20 History Bicalutamide 50 mg PEG/G-TUBE DAILY@89912/20/20 12/20/20 History Cholecalciferol [Vitamin D3 (25 25 mcg PEG/G-TUBE DAILY@89912/20/20 12/20/20 History Mcg = 1000 Iu)] Furosemide [Lasix] 40 mg PEG/G-TUBE DAILY@0912/20/20 12/20/20 History Pantoprazole [Protonix] 40 mg PEG/G-TUBE DAILY@0612/20/20 12/20/20 History Spironolactone [Aldactone] 12.5 mg PEG/G-TUBE DAILY@0912/20/20 12/20/20 History carvediloL [Coreg] 3.125 mg PEG/G-TUBE BID@0900,209912/20/20 12/20/20 History lisinopriL [Zestril] 5 mg PEG/G-TUBE DAILY@0912/20/20 12/20/20 History metFORMIN HCL [Glucophage] 500 mg PEG/G-TUBE BID@0900,209912/20/20 12/20/20 Hi story Allergies Allergy/AdvReac Type Severity Reaction Status Date / Time No Known Allergies Allergy Verified 12/20/20 22:13 Physical Exam Vitals: Vital Signs Temp Pulse Resp BP Pulse Ox 12/25/20 05:00 98.1 F 102 H 20 147/87 95 12/24/20 19:14 97.6 F 70 16 150/68 100 12/24/20 12:03 98.6 F 72 16 126/79 91 L Intake and Output 12/24/20 12/25/20 12/25/20 22:59 06:59 14:59 Other: Voiding Method Diaper Incontinent # Voids 1 # Bowel Movements 1 Weight 62 kg - Constitutional General appearance: no acute distress - EENT oral mucosa and tongue significantly dry, with thick crusted secretions Eyes: EOMI, PERRLA ENT: hearing grossly normal - Neck Neck: no lymphadenopathy Thyroid: bilateral: normal size - Respiratory Respiratory: bilateral: diminished - Cardiovascular Rhythm: regular Heart sounds: normal: S1, S2 - Gastrointestinal PEG tube site appears clean General gastrointestinal: decreased bowel sounds, soft - Integumentary Integumentary: normal - Neurologic Neurologic: CNII-XII intact - Musculoskeletal Musculoskeletal: generalized weakness, strength equal bilaterally - Psychiatric the patient is confused Results CBC & Chem 7: 12/25/20 06:03 12/25/20 06:03 Labs: Abnormal Lab Results - Last 24 Hours (Table) 12/24/20 12/25/20 12/25/20 Range/Units 11:14 02:38 06:03 WBC 49.7 H (3.8-10.6) k/uL RBC 2.57 L (4.30-5.90) m/uL Hgb 7.7 L (13.0-17.5) gm/dL Hct 24.7 L (39.0-53.0) % RDW 17.1 H (11.5-15.5) % Neutrophils # (Manual) 44.20 H (1.3-7.7) k/uL Eosinophils # (Manual) 2.98 H (0-0.7) k/uL Sodium (137-145) mmol/L Chloride (98-107) mmol/L Carbon Dioxide (22-30) mmol/L BUN (9-20) mg/dL Glucose (74-99) mg/dL POC Glucose (mg/dL) 103 H 155 H (75-99) mg/dL Calcium (8.4-10.2) mg/dL 12/25/20 12/25/20 Range/Units 06:03 06:26 WBC (3.8-10.6) k/uL RBC (4.30-5.90) m/uL Hgb (13.0-17.5) gm/dL Hct (39.0-53.0) % RDW (11.5-15.5) % Neutrophils # (Manual) (1.3-7.7) k/uL Eosinophils # (Manual) (0-0.7) k/uL Sodium 154 H (137-145) mmol/L Chloride 119 H (98-107) mmol/L Carbon Dioxide 31 H (22-30) mmol/L BUN 39 H (9-20) mg/dL Glucose 121 H (74-99) mg/dL POC Glucose (mg/dL) 110 H (75-99) mg/dL Calcium 13.1 H* (8.4-10.2) mg/dL Chest x-ray: report reviewed CT Scan - head: report reviewed Assessment and Plan (1) Hypercalcemia Narrative/Plan: the patient came in with significant hypercalcemia, which all is highly likely to be the cause for his recent decline. 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 - The patient is already on furosemide. He is currently on D5 W, and will be changed to 0.9 normal saline at 125 mL per hour , as recommended for hypercalcemia. - He will receive a dose of pamidronate 60 mg - continue to monitor. Increased dose of furosemide if needed the patient shows any signs of fluid overload, but continue similar levels of hydration. Current Visit: Yes Status: Acute Code(s): E83.52 - HYPERCALCEMIA SNOMED Code(s): 93050378 (2) Prostate CA Narrative/Plan: Diagnostic and therapeutic circumstances as described in the HPI. At this time it is not known whether the patient was continue radiation in the ECF or not. Check PSA, and also order a bone scan on 4 any evidence of developing bone metastasis in the setting of new hypercalcemia Current Visit: Yes Status: Chronic Priority: High Code(s): C61 - MALIGNANT NEOPLASM OF PROSTATE SNOMED Code(s): 811977727 (3) Squamous cell carcinoma of head and neck Narrative/Plan: evaluation with computed tomography scan during this admission had not shown any evidence of progression. The patient will ultimately need direct ENT exam to rule out local recurrence. Current Visit: No Status: Chronic Priority: Low Code(s): C76.0 - MALIGNANT NEOPLASM OF HEAD, FACE AND NECK SNOMED Code(s): 146531131 Plan: Continue feeds. Recent intolerance issues may be due to hypercalcemia causing decreased bowel function. Hopefully this will improve as his calcium levels corrected - oral hygiene is extremity poor. Discuss with nursing for aggressive oral toiletin - Plan d/w admitting service in detail
[2020-12-25] MEDS ORDERED: SODIUM CHLORIDE 0.9% 250 ML with PAMIDRONATE 60 MG IV ONE ×2 (12:00)
[2020-12-25 12:01] LABS: Glucose,Whole Blood 119 mg/dL (75-99)
[2020-12-25] MEDS: FOLIC ACID 1 MG TAB PO SCH (13:44)
[2020-12-25] MEDS: MULTIVITAMINS, THERA 1 EACH TAB PO SCH (13:44)
[2020-12-25] MEDS: APIXABAN 5 MG TAB PEG/G-TUBE SCH ×2 (13:44→19:57)
[2020-12-25] MEDS: CHOLECALCIFEROL 25 MCG (1000 IU) TABLET PEG/G-TUBE SCH (13:44)
[2020-12-25] MEDS: THIAMINE 100 MG TAB PO SCH (13:44)
[2020-12-25] MEDS: SODIUM CHLORIDE 0.9% 1,000 ML IV SCH ×2 (15:37→19:58)
[2020-12-25 17:40] LABS: Glucose,Whole Blood 162 mg/dL (75-99)
--- NOTE | 2020-12-25 17:50 | XR ---
EXAMINATION TYPE: XR chest 1V portable DATE OF EXAM: 12/25/2020 CLINICAL HISTORY: chf. TECHNIQUE: Portable frontal view of the chest. COMPARISON: 12/20/2020 FINDINGS: The cardiomediastinal silhouette is again borderline prominent in size. Pulmonary vasculat ure is normal. There is no focal air space opacity. No pleural effusion. No pneumothorax seen. 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 Degenerative changes of the spine and bilateral shoulders. IMPRESSION: No acute cardiopulmonary process.
--- NOTE | 2020-12-25 19:21 | PN ---
PROGRESS NOTE DATE OF SERVICE: 12/25/2020 This 80-year-old gentleman who was admitted with multiple medical problems including dementia, history of PEG tube feeds, also has history of prostate cancer. The patient also had change in mental status. Patient also had hypercalcemia. The patient had prostate cancer with metastases. Primarily followed by Urology. Dr. Dowell has been consulted and has recommended changing the fluid to 0.9 at 125 mL/hour and a dose of pamidronate and continue to monitor. But Dr. Dowell not to change the IV fluid right at this time. The patient being closely monitored. PAST MEDICAL HISTORY: Reviewed. REVIEW OF SYSTEMS: Could not be taken. CURRENT MEDICATIONS: Reviewed and include: Tylenol, [place], Eliquis, Casodex, Coreg, the rest of the medications noted. PHYSICAL EXAMINATION: Patient is conscious, confused, minimally verbal. Pulse 83, blood pressure 143/74, respiration 15, temperature 97.2, pulse ox 99 percent on room air. HEENT: Conjunctivae normal. NECK: No JVD. CARDIOVASCULAR: S1, S2 muffled. RESPIRATORY SYSTEM: Breath sounds diminished at the bases. A few scattered rhonchi. ABDOMEN: Soft, nontender. Nervous system: Diffusely weak. LAB STUDIES: WBC 14.2, hemoglobin 11.7, sodium 152. ASSESSMENT: 1. Acute urinary tract infection with possible sepsis present on admission with change in mental status and acute on chronic metabolic encephalopathy. 2. Dehydration, present on admission. 3. Hypernatremia. 4. Hypercalcemia. 5. Hypokalemia. 6. Elevated BUN. 7. Increased WBC. 8. Anemia, normocytic. 9. Troponin 0.05 indeterminate. 10.Hypoalbuminemia with mild protein calorie malnutrition. 11.History of dementia. 12.Hypertension. 13.Hyperlipidemia. 14.History of hoarseness. 15.History of prostate cancer with METS. 16.Severe protein calorie malnutrition with body mass index 18.5. 17.Left lower extremity deep vein thrombosis history. 18.Oropharyngeal candidiasis. 19.Congestive heart failure with chronic systolic dysfunction, ejection fraction 20%. 20.Metastatic prostate cancer. 21.NO CODE, NO CPR, NO VENT. RECOMMENDATIONS AND DISCUSSION: I recommend to continue current medications, symptomatic treatment. Otherwise, IV fluids per Dr. Dowell. I would recommend a chest x-ray to ensure stability. Otherwise we will continue to monitor. Repeat labs will be ordered for tomorrow. Guarded prognosis. Further recommendations to follow. QAMARKER] tube feeds. MMODL / IJN: [id number] /
[2020-12-25] MEDS: PRAVASTATIN SODIUM 20 MG TAB PEG/G-TUBE SCH (19:57)
[2020-12-25] MEDS: SALT AND SODA MOUTHWASH 1,000 ML PO SCH (23:50)
[2020-12-26 01:04] LABS: Glucose,Whole Blood 129 mg/dL (75-99)
[2020-12-26] MEDS: SODIUM CHLORIDE 0.9% 1,000 ML IV SCH ×3 (05:10→15:04)
[2020-12-26] MEDS: SALT AND SODA MOUTHWASH 1,000 ML PO SCH ×5 (06:18→23:56)
[2020-12-26] MEDS: PANTOPRAZOLE 40 MG TABLET PO SCH (06:19)
[2020-12-26 06:53] LABS: Glucose,Whole Blood 113 mg/dL (75-99)
[2020-12-26] MEDS ORDERED: DRY MOUTH SPRAY 44.3 SPRAY/44.3 ML SPRAY MUCOUS MEM PRN (09:11)
[2020-12-26] MEDS: carvediloL 3.125 MG TAB PEG/G-TUBE SCH ×2 (09:13→21:28)
[2020-12-26] MEDS: CHOLECALCIFEROL 25 MCG (1000 IU) TABLET PEG/G-TUBE SCH (09:13)
[2020-12-26] MEDS: APIXABAN 5 MG TAB PEG/G-TUBE SCH ×2 (09:13→19:34)
[2020-12-26] MEDS: BICALUTAMIDE 50 MG TAB PEG/G-TUBE SCH (09:13)
[2020-12-26] MEDS: metFORMIN 500 MG TAB PEG/G-TUBE SCH ×2 (09:14→19:34)
[2020-12-26] MEDS: lisinopriL 5 MG TAB PEG/G-TUBE SCH (09:14)
[2020-12-26] MEDS: POTASSIUM CHLORIDE ER 10 MEQ TAB.ER.PRT PO SCH (09:14)
[2020-12-26] MEDS: SPIRONOLACTONE 25 MG TAB PEG/G-TUBE SCH (09:14)
[2020-12-26] MEDS: FUROSEMIDE 40 MG TAB PEG/G-TUBE SCH (09:14)
[2020-12-26] MEDS: FOLIC ACID 1 MG TAB PO SCH (09:15)
[2020-12-26] MEDS: THIAMINE 100 MG TAB PO SCH (09:15)
[2020-12-26] MEDS: MULTIVITAMINS, THERA 1 EACH TAB PO SCH (09:15)
[2020-12-26 11:59] LABS: Anion Gap 7.2 mmol/L (4.00-12.00); Calcium 12.9 mg/dL (8.7-10.3); Carbon Dioxide 28.8 mmol/L (21.6-31.8); Non-African American GFR(CKD) 70.8 (60.0-200.0); Potassium 3.6 mmol/L (3.5-5.5)
[2020-12-26 12:11] LABS: Glucose,Whole Blood 132 mg/dL (75-99)
--- NOTE | 2020-12-26 14:32 | NM ---
EXAMINATION TYPE: NM bone scan whole body DATE OF EXAM: 12/26/2020 COMPARISON: CT abdomen pelvis 12/07/2020 HISTORY: Malignant hypercalcemia, prostate carcinoma Delayed whole-body scanning was performed following the injection of 23.1 mCi Tc 99m MDP. Images acq uired 4.5 hours post injection. FINDINGS: There is increased uptake within the left renal collecting system as compared to right, correlate for possible ureteropelvic junction stenosis or possible hydronephrosis and hydroureter as noted on CT. There is uptake within the shoulders, knees, ankles, feet, sternoclavicular joints and elbows which i s likely degenerative. No areas of abnormal increased or decreased uptake to suggest metastatic disea se. IMPRESSION: Degenerative changes.
[2020-12-26 17:46] LABS: Glucose,Whole Blood 112 mg/dL (75-99)
--- NOTE | 2020-12-26 19:32 | PN ---
PROGRESS NOTE DATE OF SERVICE: 12/26/2020 This 80-year-old gentleman admitted to the hospital with multiple medical problems include dementia, also had acute urinary tract infection with possible sepsis. Patient confused. Patient also PEG tube placement with tube feeding. The patient had prostate cancer with metastases. A bone scan was done which showed degenerative changes. Patient also hypercalcemia. Chest x-ray showed no acute abnormality. The patient is NO CODE currently and the daughter is the legal guardian. The daughter wants to take the patient to [place]. The high risk case manager has obtained an accepting physician in the hospital and hospice service in [place] at this time. The patient is on tube feeds. PAST MEDICAL HISTORY: Reviewed. REVIEW OF SYSTEMS: Could not be taken, the patient is confused. CURRENT MEDICATIONS: Reviewed and include: Tylenol, [place], Eliquis, Casodex, Coreg, Rocephin, folic acid. Doses reviewed. PHYSICAL EXAMINATION: Patient is alert and oriented times three. Pulse 70, blood pressure 130/65, respiration 18, temperature 97.2, pulse ox 98% on room air. HEENT: Conjunctivae normal. Neck: No JVD. CARDIOVASCULAR: S1, S2 muffled. RESPIRATION: Breath sounds diminished in the bases. A few scattered rhonchi. ABDOMEN: Soft, nontender. LEGS are no edema. No swelling. LABS: Sodium is 115, calcium is 12.9. ASSESSMENT: 1. Acute urinary tract infection with possible sepsis present on admission with change in mental status and acute on chronic metabolic encephalopathy. 2. Dehydration, present on admission. 3. Hypernatremia. 4. Hypercalcemia possibly secondary to malignancy. 5. Hypokalemia. 6. Elevated BUN. 7. Increased WBC. 8. Anemia, normocytic. 9. Troponin 0.05 indeterminate. 10.Hypoalbuminemia with mild protein calorie malnutrition. 11.Status post PEG tube feeds. 12.History of dementia. 13.Hypertension. 14.Hyperlipidemia. 15.History of hoarseness. 16.History of prostate cancer with METS. 17.Severe protein calorie malnutrition with body mass index 18.5. 18.Left lower extremity deep vein thrombosis history. 19.History of oropharyngeal candidiasis. 20.Congestive heart failure with chronic systolic dysfunction ejection fraction 20%. 21.Metastatic prostate cancer. 22.NO CODE, NO CPR, NO VENT. RECOMMENDATIONS AND DISCUSSION: I recommend to continue current medications, management and continue tube feeds. Otherwise, the patient is NO CODE. I would recommend repeat labs in the morning. Otherwise, the prognosis is extremely guarded because of multiple complex medical issues. Further recommendations to follow. The patient wants the patient to be on hospice. Will work with the daughter. JAMILAH / DEIDRA: [id number] /
--- NOTE | 2020-12-26 21:21 | P.PN ---
Subjective Progress Note Date: 12/26/20 Principal diagnosis: Prostate Cancer CBC ordered and PSA for today will await results Objective - Vital Signs Vital signs: Vital Signs Temp 97.9 F 12/26/20 05:00 Pulse 82 12/26/20 05:00 Resp 18 12/26/20 05:00 BP 145/79 12/26/20 05:00 Pulse Ox 98 12/26/20 05:00 Intake & Output 12/25/20 12/26/20 12/26/20 18:59 06:59 18:59 Intake Total 0 Balance 0 Weight 65 kg Intake: Oral 0 Other: Voiding Method Diaper Diaper Incontinent Incontinent # Voids 2 # Bowel Movements 1 - Exam - Constitutional General appearance: no acute distress - EENT oral mucosa and tongue significantly dry, with thick crusted secretions Eyes: EOMI, PERRLA ENT: hearing grossly normal - Neck Neck: no lymphadenopathy Thyroid: bilateral: normal size - Respiratory Respiratory: bilateral: diminished - Cardiovascular Rhythm: regular Heart sounds: normal: S1, S2 - Gastrointestinal PEG tube site appears clean General gastrointestinal: decreased bowel sounds, soft - Integumentary Integumentary: normal - Neurologic Neurologic: CNII-XII intact - Musculoskeletal Musculoskeletal: generalized weakness, strength equal bilaterally - Psychiatric the patient is confused - Labs CBC & Chem 7: 12/25/20 06:03 12/26/20 06:58 Labs: Abnormal Lab Results - Last 24 Hours (Table) 12/25/20 12/25/20 12/26/20 Range/Units 11:51 17:36 01:03 POC Glucose (mg/dL) 119 H 162 H 129 H (75-99) mg/dL 12/26/20 Range/Units 06:51 POC Glucose (mg/dL) 113 H (75-99) mg/dL Assessment and Plan Plan: Chest x-ray: report reviewed CT Scan - head: report reviewed Assessment and Plan (1) Hypercalcemia - Reche CMP and Calcium levels today - Status POst Aredia on 12/25 - Await Bone Scan (2) Prostate CA - Await PSA - Await bone scan on 4 any evidence of developing bone metastasis in the setting of new hypercalcemia Current Visit: Yes Status: Chronic Priority: High Code(s): C61 - MALIGNANT NEOPLASM OF PROSTATE SNOMED Code(s): 712929672 (3) Squamous cell carcinoma of head and neck evaluation with computed tomography scan during this admission had not shown any evidence of progression. The patient will ultimately need direct ENT exam to rule out local recurrence. Current Visit: No Status: Chronic Priority: Low Code(s): C76.0 - MALIGNANT NEOPLASM OF HEAD, FACE AND NECK SNOMED Code(s): 561562533 Await Labs and repeat Imaging for further recs
[2020-12-26] MEDS: PRAVASTATIN SODIUM 20 MG TAB PEG/G-TUBE SCH (21:28)
[2020-12-26 21:39] LABS: Reticulocyte % 1.95 % (0.10-1.80)
[2020-12-26 22:24] LABS: Protein, Total 5.6 g/dL (6.2-8.2)
[2020-12-26 22:36] LABS: ALT 13 U/L (10-49); AST 8 U/L (14-35); African American GFR (CKD) 73.1 (60.0-200.0); Albumin/Globulin Ratio 0.96 (1.60-3.17); Alkaline Phosphatase 96 U/L (41-126); BUN/Creat Ratio 35.45 Ratio (12.00-20.00); Chloride 121 mmol/L (96-109); Globulin 2.7 g/dL (1.6-3.3); Glucose 125 mg/dL (70-110); Non-African American GFR(CKD) 63.1 (60.0-200.0); Phosphorus 1.6 mg/dL (2.4-5.1); Potassium 3.4 mmol/L (3.5-5.5); Sodium 160 mmol/L (135-145); Total Bilirubin 0.3 mg/dL (0.3-1.2); Total Protein 5.3 g/dL (6.2-8.2)
[2020-12-26 23:56] LABS: Glucose,Whole Blood 93 mg/dL (75-99)
[2020-12-27 00:06] LABS: Folate, Serum >24.0 ng/mL
[2020-12-27 01:02] LABS: Calcium 12.8 mg/dL (8.7-10.3); LDH 172 U/L (120-246)
[2020-12-27] MEDS: SODIUM CHLORIDE 0.9% 1,000 ML IV SCH ×2 (05:05→12:47)
[2020-12-27] MEDS: PANTOPRAZOLE 40 MG TABLET PO SCH (05:25)
[2020-12-27] MEDS: SALT AND SODA MOUTHWASH 1,000 ML PO SCH ×3 (05:33→16:23)
[2020-12-27 05:56] VITALS: BP 154/78; PULSE 87; RESP 18; TEMP 97.8
[2020-12-27 06:24] LABS: Glucose,Whole Blood 100 mg/dL (75-99)
[2020-12-27 08:06] LABS: ALT 13 U/L (4-49); AST 16 U/L (17-59); African American GFR (CKD) 89 (>60 ml/min/1.73 sqM); Albumin 2.5 g/dL (3.5-5.0); Albumin/Globulin Ratio 0.8; Alkaline Phosphatase 97 U/L (38-126); Anion Gap 5 mmol/L; Blood Urea Nitrogen 42 mg/dL (9-20); Carbon Dioxide 31 mmol/L (22-30); Chloride 122 mmol/L (98-107); Globulin 3.1 g/dL; Glucose 98 mg/dL (74-99); Non-African American GFR(CKD) 77 (>60 ml/min/1.73 sqM); Potassium 3.2 mmol/L (3.5-5.1); Sodium 158 mmol/L (137-145); Total Bilirubin 0.5 mg/dL (0.2-1.3); Total Protein 5.6 g/dL (6.3-8.2)
[2020-12-27 08:40] LABS: Anisocytosis Slight; HCT 30.7 % (39.0-53.0); HGB 8.9 gm/dL (13.0-17.5); Hypochromasia Marked; MCH 29.6 pg (25.0-35.0); MCHC 29.2 g/dL (31.0-37.0); Macrocytosis Moderate; Platelet Count 258 k/uL (150-450); RBC 3.02 m/uL (4.30-5.90); RDW 17.5 % (11.5-15.5); WBC 46.1 k/uL (3.8-10.6)
[2020-12-27 09:01] LABS: MCV 101.6 fL (80.0-100.0)
[2020-12-27] MEDS ORDERED: Potassium Replacement Protocol 1 EACH MISC MISCELLANE PRN (09:19)
[2020-12-27] MEDS: SPIRONOLACTONE 25 MG TAB PEG/G-TUBE SCH (09:21)
[2020-12-27] MEDS: metFORMIN 500 MG TAB PEG/G-TUBE SCH (09:21)
[2020-12-27] MEDS: APIXABAN 5 MG TAB PEG/G-TUBE SCH (09:22)
[2020-12-27] MEDS: POTASSIUM CHLORIDE ER 10 MEQ TAB.ER.PRT PO SCH (09:22)
[2020-12-27] MEDS: FOLIC ACID 1 MG TAB PO SCH (09:22)
[2020-12-27] MEDS: CHOLECALCIFEROL 25 MCG (1000 IU) TABLET PEG/G-TUBE SCH (09:22)
[2020-12-27] MEDS: lisinopriL 5 MG TAB PEG/G-TUBE SCH (09:22)
[2020-12-27] MEDS: carvediloL 3.125 MG TAB PEG/G-TUBE SCH (09:22)
[2020-12-27] MEDS: FUROSEMIDE 40 MG TAB PEG/G-TUBE SCH (09:22)
[2020-12-27] MEDS: BICALUTAMIDE 50 MG TAB PEG/G-TUBE SCH (09:23)
[2020-12-27] MEDS: POTASSIUM BICARBONATE/CIT AC 20 MEQ TABLET.EFF NG-TUBE SCH ×2 (09:58→10:39)
--- NOTE | 2020-12-27 10:49 | P.DS ---
Providers Date of admission: 12/21/20 01:14 Attending physician: Angelica San Consults: 12/25/20 10:58 Consult Physician Routine Consulting Provider: Jaylan Dowell Consult Reason/Comments: elevated calcium levels Do you want consulting provider notified?: Already Contacted Primary care physician: Jhon Corado Hospital Course: Final diagnosis Acute UTI with a possible sepsis present on admission with the change in mental status and acute on chronic metabolic encephalopathy Dehydration present on admission Hyponatremia Hypercalcemia possibly secondary to malignancy Hypokalemia Elevated BUNs Increased WBC [place] anemia normocytic Troponin indeterminate Hypoalbuminemia with the mild protein calorie malnutrition Status post PEG tube feedings History of dementia Hypertension Hyperlipidemia History of hoarseness History of prostate cancer with metastases Severe protein calorie malnutrition with body mass in this of 18.5 Left lower extremity DVT history History of oropharyngeal candidiasis Congestive heart failure with the chronic systolic dysfunction ejection fraction 20% Metastatic prostate cancer No code no CPR event His discharge disposition This 80-year-old gentleman with be discharged in a stable condition with guarded prognosis. The daughter who is the legal guardian would like the patient to be hospice. Total time taken is 35 minutes The daughter Cheryl taken the patient to [facility] to enroll in hospice at this time. Her daughter is aware of the diagnostic and prognostic implications. The behavioral health case manager have discussed at length with the daughter and the family. Please refer to the records for further information. History of present illness this 80-year-old gentleman with a past medical history multiple medical problems as mentioned earlier being followed by Dr. Corado admitted with the UTI sepsis. Patient multiple complex care medical issues including prostate cancer dementia and other life-threatening complications. Patient was treated symptomatically. Patient did improve slightly. However the case was discussed with the daughter who is the legal guardian as mentioned earlier and daughter clearly stated that the patient and she would like the patient to be on hospice. Said this and the patient be discharged in a stable condition with the extremely guarded prognosis and the care of the daughter for continued procedure of the hospice. Please refer to the case management and social work note for further information. currently the patient is stable so the patient be discharged and will be enrolled in a hospice per daughter in [place] the hospice appointments were taken at this time. Once again the prognosis guarded and the daughter is aware. Please refer to the medication reconciliation sheet for discharge medications. Patient Condition at Discharge: Fair Plan - Discharge Summary Discharge Rx Participant: No New Discharge Prescriptions: New Thiamine [Vitamin B-1] 100 mg PO DAILY #30 tablet Folic Acid 1 mg PO DAILY #30 tablet Multivitamins, Thera [Multivitamin] 1 tab PO DAILY #30 tablet Continue Pravastatin Sodium [Pravachol] 20 mg PEG/G-TUBE HS@2100 Potassium Chloride [K-Tab ER] 10 meq PEG/G-TUBE DAILY@0900 metFORMIN HCL [Glucophage] 500 mg PEG/G-TUBE BID@0900,2100 Pantoprazole [Protonix] 40 mg PEG/G-TUBE DAILY@0600 Bicalutamide 50 mg PEG/G-TUBE DAILY@0900 Acetaminophen-Codeine 300-30mg [Tylenol w/codeine #3] 1 tab PEG/G-TUBE TID PRN PRN Reason: Pain carvediloL [Coreg] 3.125 mg PEG/G-TUBE BID@0900,2100 Spironolactone [Aldactone] 12.5 mg PEG/G-TUBE DAILY@0900 Apixaban [Eliquis] 5 mg PEG/G-TUBE BID@0900,2100 Cholecalciferol [Vitamin D3 (25 Mcg = 1000 Iu)] 25 mcg PEG/G-TUBE DAILY@0900 lisinopriL [Zestril] 5 mg PEG/G-TUBE DAILY@0900 Furosemide [Lasix] 40 mg PEG/G-TUBE DAILY@0900 Acetaminophen Tab [Tylenol] 650 mg PEG/G-TUBE Q6HR PRN PRN Reason: Mild Pain Or Fever > 100.5 Discharge Medication List Potassium Chloride [K-Tab ER] 10 meq PEG/G-TUBE DAILY@0900 08/15/16 [History] Pravastatin Sodium [Pravachol] 20 mg PEG/G-TUBE HS@2100 08/15/16 [History] Acetaminophen Tab [Tylenol] 650 mg PEG/G-TUBE Q6HR PRN 12/20/20 [History] Acetaminophen-Codeine 300-30mg [Tylenol w/codeine #3] 1 tab PEG/G-TUBE TID PRN 12/20/20 [History] Apixaban [Eliquis] 5 mg PEG/G-TUBE BID@0900,2100 12/20/20 [History] Bicalutamide 50 mg PEG/G-TUBE DAILY@0900 12/20/20 [History] Cholecalciferol [Vitamin D3 (25 Mcg = 1000 Iu)] 25 mcg PEG/G-TUBE DAILY@899 [History] Furosemide [Lasix] 40 mg PEG/G-TUBE DAILY@89912/20/20 [History] Pantoprazole [Protonix] 40 mg PEG/G-TUBE DAILY@59912/20/20 [History] Spironolactone [Aldactone] 12.5 mg PEG/G-TUBE DAILY@89912/20/20 [History] carvediloL [Coreg] 3.125 mg PEG/G-TUBE BID@899,209912/20/20 [History] lisinopriL [Zestril] 5 mg PEG/G-TUBE DAILY@89912/20/20 [History] metFORMIN HCL [Glucophage] 500 mg PEG/G-TUBE BID@09,209912/20/20 [History] Folic Acid 1 mg PO DAILY #30 tablet 12/27/20 [Rx] Multivitamins, Thera [Multivitamin] 1 tab PO DAILY #30 tablet 12/27/20 [Rx] Thiamine [Vitamin B-1] 100 mg PO DAILY #30 tablet 12/27/20 [Rx] Follow up Appointment(s)/Referral(s): Jhon Corado MD [Primary Care Provider] - 1-2 days Activity/Diet/Wound Care/Special Instructions: Activity as tolerated Continue to feeds as recommended To attend hospice in [place] per her daughter
[2020-12-27 12:06] LABS: Glucose,Whole Blood 105 mg/dL (75-99)
[2020-12-27 12:48] LABS: Free Kappa Lt Chain Qnt, Serum 9.49 mg/dL (0.33-1.94)
[2020-12-27] MEDS: THIAMINE 100 MG TAB PO SCH (12:51)
[2020-12-27] MEDS: MULTIVITAMINS, THERA 1 EACH TAB PO SCH (12:51)
[2020-12-27 13:16] VITALS: BMI 17.6
[2020-12-27 13:42] LABS: Albumin 2.23 g/dL (3.80-4.90)
[2020-12-27 14:53] LABS: Band Neutrophils % 5 %; Eosinophils # (M) 0.46 k/uL (0-0.7); Lymphocytes # (M) 1.38 k/uL (1.0-4.8); Monocytes # (M) 0.92 k/uL (0-1.0); Neutrophils % (M) 89 %; Nucleated Red Blood Cells 0 /100 WBC (0-0); Total Cells Counted 100
[2020-12-27 14:54] LABS: Toxic Granulation Present
== END 2020-12-27 19:15 | disposition home or self-care (01) | DRG 871 ==
LOC: EC 19:56 → 5NMEDONC 12-21 01:14
PROVIDERS: ADMIT Hospitalist; ATTEND Hospitalist
DX: A41.9 Sepsis, unspecified organism (principal); E43 Unspecified severe protein-calorie malnutrition; G93.41 Metabolic encephalopathy; C79.9 Secondary malignant neoplasm of unspecified site; I50.22 Chronic systolic (congestive) heart failure; E87.0 Hyperosmolality and hypernatremia; E87.1 Hypo-osmolality and hyponatremia; N39.0 Urinary tract infection, site not specified; Z68.1 Body mass index [BMI] 19.9 or less, adult; Z20.828 Contact with and (suspected) exposure to other viral communicable diseases; C61 Malignant neoplasm of prostate; C32.9 Malignant neoplasm of larynx, unspecified; I11.0 Hypertensive heart disease with heart failure; E78.00 Pure hypercholesterolemia, unspecified; E78.5 Hyperlipidemia, unspecified; E86.0 Dehydration; L89.159 Pressure ulcer of sacral region, unspecified stage; B96.20 Unspecified Escherichia coli [E. coli] as the cause of diseases classified elsewhere; E11.9 Type 2 diabetes mellitus without complications; E83.52 Hypercalcemia; E87.6 Hypokalemia; F03.90 Unspecified dementia, unspecified severity, without behavioral disturbance, psychotic disturbance, mood disturbance, and anxiety; Z79.01 Long term (current) use of anticoagulants; Z79.899 Other long term (current) drug therapy; Z93.1 Gastrostomy status; Z92.3 Personal history of irradiation; Z87.19 Personal history of other diseases of the digestive system; Z86.718 Personal history of other venous thrombosis and embolism; R62.7 Adult failure to thrive; D64.9 Anemia, unspecified
CPT/HCPCS: 36415; 70450; 71045; 78306; 80048; 80053; 81001; 82306; 82607; 82746; 82784; 83615; 83735; 83883; 83921; 84100; 84153; 84165; 84484; 85025; 85045; 85610; 85730; 86334; 87077; 87086; 87186; 87635; 93005; 94760; 99285